=== PATIENT | female | born 1945 | race African-American/Black ===

== ENCOUNTER 2017-01-06 17:25 | Inpatient (IN) ==
[2017-01-06] MEDS ORDERED: *HR* HYDROmorphone (PF) 1 MG/ML SYRINGE IVP ONE (18:27)
--- NOTE | 2017-01-06 18:28 | Emergency Department Note ---
Disposition Clinical Impression: Multiple myeloma Qualifiers: Multiple myeloma remission status: unspecified Qualified Code(s): C90.00 - Multiple myeloma not having achieved remission Disposition: Admitted As Inpatient Condition: Fair Referrals: Avni Bean MD [Primary Care Provider] - Forms: Work/School Release, ED Satisfaction Letter Time of Disposition: 20:41 Back Pain HPI - General Chief Complaint: ED General Medical Stated Complaint: needs MRI, from [facility] Time Seen by Provider: 01/06/17 18:23 Source: patient Mode of arrival: private vehicle Limitations: physical limitation Nursing Notes Reviewed: Yes Vital Signs Reviewed: Yes - History of Present Illness HPI Narrative: 71 year old female with PMHx of multiple myeloma, HTN, hypothyroidism presents to ED today CC of back pain. She was brought here by her family. Patient does have history of Multiple myeloma and has recently been having worsening pain. Patient recently had CT scan on january 03 that was ordered by her oncologist. The CT scan did not reveal the information the oncologist office wanted. Patient was having increased pain in her back, and was told by her oncologist to be admitted to the hospital for pain control, and to have an MRI of her back to look for any further metastasis. patient is complaining of severe pain in her thoraco lumbar area, and left rib area. she denies nausea, vomiting, diarrhea, fever, chills. her back pain is so severe that she has trouble moving in the bed. she denies any further complaints today. Pt Subjective Complaint: back pain Onset (ago): hour(s) Duration: constant Location: lumbar spine, thoracic spine Pain Scale: 8 Quality: sharp Radiation: none Improves with: none Worsens with: none Associated symptoms: Reports: denies other symptoms - Related Data Home Medications Medication Instructions Recorded Confirmed Levothyroxine Sodium [Synthroid] 75 mcg PO DAILY 02/26/15 12/06/16 Losartan/HCTZ [Hyzaar 50-12.5 1 each PO DAILY 06/07/16 12/06/16 Tablet] Polyethylene Glycol 3350 [MiraLAX 1 scoop PO DAILY 11/08/16 12/06/16 Powder Bulk 17.9 Oz] Previous Rx's Medication Instructions Recorded Morphine Sulfate SR (12 HR) [MS 30 mg PO Q12HR #60 tablet.er 11/08/16 Contin] Oxycodone HCl 10 mg PO Q4H PRN #120 tab 11/08/16 Cyclobenzaprine [Flexeril] 10 mg PO TID PRN #21 tablet 12/06/16 Menthol [Biofreeze] 118 ml TP BID PRN #118 gel..ml. 12/06/16 Morphine Sulfate SR (12 HR) [MS 1 tab PO Q12HR #60 tab 12/06/16 Contin] Oxycodone HCl 10 mg PO Q4H PRN #120 tab 12/06/16 Furosemide [Lasix] 20 mg PO DAILY PRN #30 tablet 01/03/17 Morphine Sulfate SR (12 HR) [MS 1 tab PO Q12HR #60 tab 01/03/17 Contin] Oxycodone HCl 20 mg PO Q4H PRN #120 tab 01/03/17 Allergies Allergy/AdvReac Type Severity Reaction Status Date / Time bacitracin Allergy unknown Verified 12/06/16 08:11 carfilzomib Allergy unknown Verified 12/06/16 08:11 celecoxib Allergy unknown Verified 12/06/16 08:11 Corticosteroids Allergy unknown Verified 12/06/16 08:11 (Glucocorticoids) dexamethasone Allergy unknown Verified 12/06/16 08:11 fentanyl Allergy Rash Verified 12/06/16 08:11 lenalidomide Allergy unknown Verified 12/06/16 08:11 melphalan Allergy unknown Verified 12/06/16 08:11 Neomycin Allergy unknown Verified 12/06/16 08:11 Penicillins [PCN] Allergy unknown Verified 12/06/16 08:11 polymyxin B Allergy unknown Verified 12/06/16 08:11 prednisone Allergy unknown Verified 12/06/16 08:11 tape Allergy unknown Uncoded 12/06/16 08:11 All systems ED: reviewed and negative except as stated. Past Medical History - Past Medical History Medical history: Reports: cancer, hypertension, thyroid disease Surgical history: Reports: appendectomy, cholecystectomy, hysterectomy, orthopedic, other (Right forearm bone grafting, left knee arthroscopic surgery, bilateral ankle repair surgeries, resection of vocal cord nodules), thyroidectomy (Hemithyroidectomy), other (Tubal ligation, right temporal endarterectomy) Psychiatric history: Reports: no psych history NICKEL PLATER history: Reports: no NICKEL PLATER history - Social History Smoking Status: Never smoker Smokeless Tobacco Status: No Alcohol use: Reports: none Drug use: Reports: none Physical Exam - General Limitations: no limitations General appearance: alert, in no apparent distress - Head Head exam: atraumatic, normocephalic - Eye Eye exam: Present: normal appearance - Neck Neck exam: Present: normal inspection, trachea midline - Chest Chest inspection: Present: normal inspection - Respiratory Respiratory exam: Present: normal lung sounds bilaterally - Cardiovascular Cardiovascular exam: Present: regular rate, +S1, +S2 - Abdominal Exam Abdominal exam: Present: soft, tenderness Abdominal tenderness: Present: epigastrium - Extremities Exam Extremities exam: Present: other (+3 pitting edema on right lower extremity. ) - Back Exam Back exam: Present: tenderness, other (severe tenderness to palpation in thoracolumbar area. ) - Neurological Exam Neurological exam: Present: alert, oriented X3 - Psychiatric Psychiatric exam: Present: anxious - Skin Skin exam: Present: warm, dry, intact Course Vital Signs Temperature 98.4 F 01/06/17 17:37 Pulse Rate 64 01/06/17 17:37 Respiratory Rate 18 01/06/17 17:37 Blood Pressure 114/74 01/06/17 17:37 O2 Sat by Pulse Oximetry 96 01/06/17 17:37 Temperature 98.4 F 01/06/17 17:37 Pulse Rate 64 01/06/17 17:40 Respiratory Rate 18 01/06/17 17:40 Blood Pressure 114/74 01/06/17 17:40 O2 Sat by Pulse Oximetry 96 01/06/17 17:40 Oxygen Delivery Oxygen Delivery Room Air Back Pain/Injury - MDM Narrative Medical decision making narrative: 71 year old female sent from oncology for severe pain. she has hx of multiple myeloma. patient was placed on dilaudid. MRI of thoracic and lumbar spine showed no evidence of spinal stenosis, but did show evidence of multiple compression fractures. Patient had basic labs of cbc, bmp, drawn. Furthermore, xray of her ribs along with chest xray were ordered and are pending. Patient has been accepted under hospitalist service, and rib xrays and labs will be reviewed before admission. - Medical Records Medical records reviewed: Yes I reviewed the patient's medical records. - Lab Data Lab results reviewed: Yes I reviewed the patient's lab results. - Radiology Data Radiology results reviewed: Yes I reviewed the patient's radiology results.
[2017-01-06] MEDS ORDERED: *HR* HYDROmorphone (PF) 1 MG/ML SYRINGE ONE (18:41)
[2017-01-06 21:12] LABS: Basophils % 0.3 %; Eosinophils # 0.1 K/mcL (0.0-0.6); Eosinophils % 3.6 %; Immature Granulocytes % 0.3 % (0-4); Lymphocytes # 0.5 K/mcL (0.6-4.6); Lymphocytes % 17.6 %; Mean Corpuscular HGB Conc 33.3 g/dL (31.6-35.5); Mean Corpuscular Hemoglobin 31.3 pg (28.0-33.3); Mean Corpuscular Volume 93.8 fL (83.0-100.0); Monocytes # 0.4 K/mcL (0.0-1.3); Monocytes % 12.4 %; Platelet Count 151 K/mcL (140-400); Red Blood Count 3.52 M/mcL (3.82-4.97); Red Cell Distribution Width 14.2 % (11.5-14.5); Segmented Neutrophils % 65.8 %
[2017-01-06 21:27] LABS: BUN/Creatinine Ratio 16 (6-26); Blood Urea Nitrogen 14 mg/dL (7-20); Calcium 9.4 mg/dL (8.6-10.8); Carbon Dioxide 27 mEq/L (19-29); Chloride 95 mEq/L (98-109); Glucose 85 mg/dL (70-99); Osmolality,Calculated 280 (280-300); Potassium 3.8 mEq/L (3.5-4.5); Sodium 135 mEq/L (136-145); eGFR For African Americans > 60 (> 60); eGFR For Non-African Americans > 60 (> 60)
[2017-01-07] MEDS ORDERED: Furosemide 20 MG TABLET PO PRN (00:01)
[2017-01-07] MEDS ORDERED: Naloxone 0.4 MG/ML INJ IVP PRN (00:06)
[2017-01-07] MEDS ORDERED: Acetaminophen 325 MG TABLET PO PRN (00:06)
--- NOTE | 2017-01-07 00:12 | Event Note ---
Date of Encounter: 01/07/17 Time of Encounter: 00:09 1. Intractable back pain secondary to multiple myeloma/multiple areas of compression fractures, thoracic and lumbar lesions according to MRI Increased frequency of morphine from 30 mg twice a day up to 3 times a day Dilaudid IV as needed Positive care consult 2. History of hypothyroidism, continue levothyroxine 3. Hypertension stable 4. Remote history of possible temporal arteritis Omeprazole for GI prophylaxis and Lovenox for DVT prophylaxis. The patient will be admitted for observation. DNR CC arrest DNI. Time spent on this admission 40 minutes. H and P to be written by CARINA Meyer
[2017-01-07] MEDS: *HR* HYDROmorphone (PF) 1 MG/ML SYRINGE IVP PRN ×7 (00:35→20:42)
--- NOTE | 2017-01-07 00:49 | Internal Med History&Physical ---
<MitchFlynn - Last Filed: 01/07/17 01:37> Date of Encounter: 01/07/17 Time of Encounter: 12:30 Assessment and Plan (1) Intractable back pain Current visit: Yes Status: Acute Assess: Ms. Royal presents with chief complaint of intractable pain related to diagnosis of multiple myeloma, multiple compression fractures, as well as lumbar and thoracic lesions according to the latest MRI. Patient also states that she is experiencing pain in her left ribs and she finds it hard to even turn in bed. Plan: Increase frequency of morphine from 30 mg BID to 30 mg TID IV Dilaudid PRN Palliative care consult (2) Multiple myeloma Current visit: Yes Status: Chronic Assess: Ms. Royal presents with chief complaint of intractable pain related to diagnosis of multiple myeloma, multiple compression fractures, as well as lumbar and thoracic lesions according to the latest MRI. Patient also states that she is experiencing pain in her left ribs and she finds it hard to even turn in bed. Plan: Increase frequency of morphine from 30 mg BID to 30 mg TID IV Dilaudid PRN Palliative care consult Qualifiers: Multiple myeloma remission status: not in remission Qualified Code(s): C90.00 - Multiple myeloma not having achieved remission (3) Hypertension Current visit: Yes Status: Chronic Assess: Patient presents with history of chronic hypertension. Plan: Continue Losartan Monitor patient and vital signs Qualifiers: Hypertension type: essential hypertension Qualified Code(s): I10 - Essential (primary) hypertension (4) Hypothyroidism Current visit: Yes Status: Chronic Assess: Patient presents with history of chronic hypothyroidism. Plan: Continue levothyroxine Qualifiers: Hypothyroidism type: unspecified Qualified Code(s): E03.9 - Hypothyroidism , unspecified (5) Temporal arteritis Current visit: Yes Status: Chronic Assess: Patient presents with remote history of possible enteritis. Patient had right temporal endarterectomy performed in the past. Plan: Monitor and assess patient for signs of headache, fatigue, fever, and vision loss (6) DVT prophylaxis Current visit: No Status: Acute Assess: Patient to receive DVT prophylaxis based on admission protocol and bed rest status. Plan: Lovenox 30 mg SQ daily for DVT prophylaxis Internal Medicine - H&P: HPI Chief complaint: Intractable back pain Admitted From: Emergency Dept Plans for Post Hospital Care: Home History of present illness: Ms. Royal is a 71 year old female who presents from the ED with chief complaint of intractable pain related to diagnosis of multiple myeloma, multiple compression fractures, as well as lumbar and thoracic lesions according to the latest MRI. Patient also states that she is experiencing pain in her left ribs and she finds it hard to even turn in bed. She is experiencing a cough which causes pain in her ribs. She also states that the bilateral edema of her lower extremities is new. Patient reports that she is unable to take radiation and any chemotherapy treatments due to the adverse reactions they cause. She states that they have exhausted all possibilities and she now is on pain management for her diagnoses. She denies recent illness, fever, chills, nausea, vomiting, syncope/near-syncope, or generalized weakness. Mrs. Royal has a history of multiple myeloma, hypertension, and hypothyroidism. Patient is to be placed as observation status with pain management of her current symptoms. Patient to be monitored closely for signs of increasing discomfort and pain. Past Med Surg Social Fam HX - Past Medical History Source: patient Medical history: cancer, hypertension, thyroid disease Psychiatric history: no psych history - Past Surgical History Surgical History: appendectomy, cholecystectomy, hysterectomy, orthopedic, other (Right forearm bone grafting, left knee arthroscopic surgery, bilateral ankle repair surgeries), thyroidectomy, other (Resection of vocal cord nodules, tubal ligation, right temporal endarterectomy) - Social History Smoking Status: Former smoker (Reports she quit 40 years ago) Smokeless Tobacco Status: No Alcohol use: none Drug use: none Occupational status: disabled Current living situation: Home, With Family Recent Out of Country Travel Within the Last 8 Weeks: No Exposure or Possible Exposure to Illness During Travel: No - Family History Mother Adopted: No Race: Family Member Ethnicity: Non- Living Status: Hx Family Cardiac Disorders: Yes (HTN) Hx Family Respiratory Disorders: No Hx Family Cancer: Yes (colorectal cancer) Hx Family GI Disorders: No Hx Family Endocrine Disorder: No Hx Family Neuromuscular Disorders: No Hx Family Neurologic Disorders: No Hx Family HEENT Disorders: No Hx Family Autoimmune Disorders: No Father Race: Family Member Ethnicity: Non- Living Status: Hx Family Cardiac Disorders: No Hx Family Respiratory Disorders: No Hx Family Cancer: Yes (mutliple myeloma) Hx Family GI Disorders: No Hx Family Endocrine Disorder: No Hx Family Neuromuscular Disorders: No Hx Family Neurologic Disorders: No Hx Family HEENT Disorders: No Hx Family Autoimmune Disorders: No Brother Race: Family Member Ethnicity: Non- Living Status: Age at : 50 Hx Family Cardiac Disorders: Yes (HD) Sister Race: Family Member Ethnicity: Non- Living Status: Still Living Hx Family Cancer: Yes (Breast cancer) Internal Medicine - H&P: Meds Levothyroxine Sodium [Synthroid] 75 mcg PO QAM 02/26/15 [History] Morphine Sulfate SR (12 HR) [MS Contin] 30 mg PO Q12HR #60 tablet.er 11/08/16 [ Rx] Polyethylene Glycol 3350 [MiraLAX Powder Bulk 17.9 Oz] 17 gm PO QPM 11/08/16 [ History] Cyclobenzaprine [Flexeril] 10 mg PO TID PRN #21 tablet 12/06/16 [Rx] Furosemide [Lasix] 20 mg PO DAILY PRN #30 tablet 01/03/17 [Rx] Oxycodone HCl 20 mg PO Q4H PRN #120 tab 01/03/17 [Rx] Losartan/Hydrochlorothiazide [Hyzaar 100-25 Tablet] 1 each PO DAILY 01/06/17 [ History] Menthol [Biofreeze] 1 appl TP BID PRN 01/06/17 [History] Allergies bacitracin Allergy (Verified 12/06/16 08:11) unknown carfilzomib Allergy (Verified 12/06/16 08:11) unknown celecoxib Allergy (Verified 12/06/16 08:11) unknown Corticosteroids (Glucocorticoids) Allergy (Verified 12/06/16 08:11) unknown dexamethasone Allergy (Verified 12/06/16 08:11) unknown fentanyl Allergy (Verified 12/06/16 08:11) Rash lenalidomide Allergy (Verified 12/06/16 08:11) unknown melphalan Allergy (Verified 12/06/16 08:11) unknown unknown Neomycin Allergy (Verified 12/06/16 08:11) unknown Penicillins [PCN] Allergy (Verified 12/06/16 08:11) unknown polymyxin B Allergy (Verified 12/06/16 08:11) unknown prednisone Allergy (Verified 12/06/16 08:11) unknown tape Allergy (Uncoded 12/06/16 08:11) unknown All Systems PM: A 10-system review of systems was performed and is negative for pertinent findings except as documented above in the HPI. - Constitutional Constitutional: no chills, no fever(s), no night sweats - EENT Eyes: no change in vision, no discharge, no pain, no photophobia Ears: no ear discharge, no ear pain, no tinnitus Nose, mouth and throat: no dysphagia, no nasal discharge, no neck pain, no sore throat - Breasts Breasts: as per HPI - Cardiovascular Cardiovascular ROS IM: as per HPI, edema (Lower extremities bilaterally which patient states is new) - Respiratory Respiratory: as per HPI, cough, pain with cough - Gastrointestinal Gastrointestinal: no abdominal pain, no diarrhea, no hematemesis, no hematochezia, no melena, no nausea, no vomiting - Genitourinary Genitourinary: no change in urinary stream, no dysuria, no flank pain, no hematuria Menstruation: as per HPI, post hysterectomy - Musculoskeletal Musculoskeletal ROS IM: as per HPI, back pain, limited range of motion, myalgias - Integumentary Integumentary IM: no rash, no unusual bruising - Neurological Neurological ROS: no confusion, no convulsions, no focal weakness, no numbness, no tingling, no tremor(s) - Psychiatric Psychiatric: as per HPI - Endocrine Endocrine IM: as per HPI - Hematologic/Lymphatic Hematologic/Lymphatic: no easy bruising - Allergic/Immunologic Allergic/Immunologic: as per HPI - Constitutional Vitals: Temp Pulse Resp BP Pulse Ox 98.2 F 65 16 122/78 94 01/06/17 22:35 01/06/17 22:35 01/06/17 22:35 01/06/17 22:35 01/06/17 22:35 General appearance: Present: cooperative, mild distress, A&O X 3, pleasant, obese, answers questions appropriately - Head Head exam: Present: atraumatic, normocephalic - Eye Eye exam: Present: PERRL, conjuntiva pink, sclera anicteric Pupils: Present: PERRL - ENT ENT exam: Present: normal exam, normal external ear exam - Neck Neck exam general surgery: Present: normal inspection, supple, trachea midline - Respiratory Respiratory exam: Present: chest wall tenderness, decreased breath sounds - Cardiovascular Cardiovascular exam: Present: RRR, +S1, +S2. Absent: diastolic murmur, gallop, rubs, systolic murmur - GI/Abdominal GI/Abdominal exam: Present: normal bowel sounds, soft, no peritoneal signs. Absent: distended, tenderness - Rectal Rectal exam: Present: deferred - Additional comments: exam deferred. - Extremities Exam Extremities exam: Present: pedal edema, warm, radial pulses palpable and symetrical. Absent: calf tenderness, cyanotic - Back Exam Back exam: Present: vertebral tenderness - Neurological Exam Neurological exam: Present: CN II-XII intact, oriented X3, no focal deficits. Absent: pronater drift, facial droop, speech deficit - Psychiatric Psychiatric exam: Present: normal affect, normal mood - Skin Skin exam: Present: dry, intact Internal Med - H&P Results - Labs CBC & Chem 7: 01/06/17 21:05 01/06/17 21:05 Labs: Short CBC 01/06/17 Range/Units 21:05 WBC 3.1 L (4.3-11.1) K/mcL Hgb 11.0 L (11.5-15.4) g/dL Hct 33.0 L (35.3-44.9) % Plt Count 151 (140-400) K/mcL Neutrophils # 2.0 (1.6-8.9) K/mcL BMP 01/06/17 21:05 Sodium 135 L Potassium 3.8 Chloride 95 L Carbon Dioxide 27 BUN 14 Creatinine 0.86 Glucose 85 Calcium 9.4 - Diagnostic Studies Other Images Additional comments: Impressions Lumbar Spine MRI 01/06/17 18:25 IMPRESSION: 1. Innumerable enhancing lesions throughout the visualized spine and sacrum are not significantly changed and remain compatible with history of multiple myeloma. Dominant lesion replacing the L2 spinous process is unchanged. No evidence of epidural tumor extension. 2. Chronic L1, L3, and L4 superior endplate compression deformities. No acute compression fracture. 3. Multilevel degenerative changes of the lumbar spine. No spinal canal stenosis. Moderate neural foraminal narrowing at L4-L5 and L5-S1. D/ / 01/06/2017 20:31:31 Kati Jarrett MD / eva Interpreting Provider: Kati Jarrett MD Ribs w/Chest X-Ray 01/06/17 18:25 IMPRESSION: 1. Hypoinflated lungs. 2. Increased initial opacities may represent mild pulmonary edema. 3. No evidence of acute displaced rib fracture. D/ / Juanita Michele MD / Juanita Michele MD Interpreting Provider: Juanita Michele MD Thoracic Spine MRI 01/06/17 18:25 IMPRESSION: 1. Multiple mild thoracic vertebral body compression fractures without associated bone marrow edema to suggest acuity. There is marrow replacement within T5 and T6, and these mild compression fractures are suspected to be pathologic. 2. Expansile enhancing marrow lesion within right T12 pedicle and transverse process consistent with myeloma deposit. 3. Multilevel degenerative disc disease throughout the thoracic spine without high-grade thoracic spinal canal or neural foraminal stenosis. D/ / 01/06/2017 20:34:09 Juanita Michele MD / eva Interpreting Provider: Juanita Michele MD <Farhat Emanuel H - Last Filed: 01/07/17 02:40> Date of Encounter: 01/07/17 Internal Medicine - H&P: HPI History of present illness: Ms. Royal is a 71 year old female All Systems PM: A 10-system review of systems was performed and is negative for pertinent findings except as documented above in the HPI. - Constitutional Vitals: Temp Pulse Resp BP Pulse Ox 97.6 F 63 16 119/83 96 01/07/17 02:24 01/07/17 02:24 01/07/17 02:24 01/07/17 02:24 01/07/17 02:24 Internal Med - H&P Results - Labs CBC & Chem 7: 01/06/17 21:05 01/06/17 21:05 Labs: Short CBC 01/06/17 Range/Units 21:05 WBC 3.1 L (4.3-11.1) K/mcL Hgb 11.0 L (11.5-15.4) g/dL Hct 33.0 L (35.3-44.9) % Plt Count 151 (140-400) K/mcL Neutrophils # 2.0 (1.6-8.9) K/mcL BMP 01/06/17 21:05 Sodium 135 L Potassium 3.8 Chloride 95 L Carbon Dioxide 27 BUN 14 Creatinine 0.86 Glucose 85 Calcium 9.4 - Attending Attestation 1. Intractable back pain secondary to multiple myeloma/multiple areas of compression fractures, thoracic and lumbar lesions according to MRI Increased frequency of morphine from 30 mg twice a day up to 3 times a day Dilaudid IV as needed Positive care consult 2. History of hypothyroidism, continue levothyroxine 3. Hypertension stable 4. Remote history of possible temporal arteritis Omeprazole for GI prophylaxis and Lovenox for DVT prophylaxis. The patient will be admitted for observation. DNR CC arrest DNI. Time spent on this admission 40 minutes. I examined this patient and my medical decision-making was reviewed with the INTERNET SPECIALIST/PA/Advanced Practice Nurse/Resident Physician. I agree with the documented findings, disposition and treatment plan as described except to the extent set forth below.
[2017-01-07] MEDS ORDERED: *HR* Enoxaparin 30 MG/0.3 ML SYRINGE SQ SCH (06:00)
--- NOTE | 2017-01-07 08:27 | Palliative - Consult Note ---
Date of Encounter: 01/07/17 Time of Encounter: 07:15 - Assessment and Plan (1) Intractable pain Current Visit: No Status: Resolved Assessment and plan: Hospitalist of already increased the lasting morphine from 30 mg twice a day to 30 mg 3 times a day. I agree with this. He patient states that the dye lotted does seem to help it seems to wear off a little too soon, therefore I have changed it from every 3 hours to every 2. Do not anticipate this will make a lot of difference as the patient has not been using it that often anyway. The patient has intolerances of steroids and nonsteroidal anti-inflammatories which are the preferred drugs for knee pain secondary to multiple myeloma. Therefore we will have to do without these. Do not see that the patient is ever been on bisphosphonates in the past however I am concerned that the patient may have a new compression fracture and the bisphosphonates may interfere with the healing of this as there are articles in the orthopedic literature about increased complications in patients with acute fractures that are also want bisphosphonates. That reason, I would hold off on bisphosphonates for now and consider starting him on an outpatient basis was up at the [facility]. Will contact them regarding this possibility in the future. As the patient does seem to have some neurogenic type pain in her description very sharp electric on the left-hand side I will start her on gabapentin 300 mg daily at bedtime and give a starting dose this morning. We will also start a Lidoderm patch. (2) Goals of care, counseling/discussion Current Visit: No Status: Acute Assessment and plan: Patient's CODE STATUS is DNR CCA, DNI. Patient has given this great deal of thought and not wish to be resuscitated at this time in the event of a cardiac or pulmonary arrest. She has designated her daughter Shania number [phone] is her medical power of manager demand. She has stress this with her daughter, and her nose her wishes. Her unfortunately suffers from Alzheimer's and the patient does not feel he would be able to make decisions for her were she not able to make them for herself. Although she is hospice eligible, she does not wish to consider hospice as she has had multiple very bad interactions with them in the past. This at length with her, and her actions that she had were quite bad although I do not consider the be players club representative of hospice I certainly understand her concerns. Patient will continue to get her palliative care through the [facility]. (3) Multiple myeloma Current Visit: No Status: Chronic Assessment and plan: Treatment plan per [facility], however at this time it appears the treatment is all palliative in nature. Qualifiers: Multiple myeloma remission status: not in remission Qualified Code(s): C90.00 - Multiple myeloma not having achieved remission Palliative-CN HPI - Data of Consult Patient: new to practice Requesting Physician: Luis Lopez Primary Care Provider: Avni Bean MD - Consult Narrative Palliative Care/Comfort Measures: Palliative care History of present illness: Ms. Royal is a 71 year old female The patient has a history of multiple myeloma which has been resistant to therapy area and is now under palliative care to the cancer Center for this. He has multiple drug intolerances and allergies and her myeloma has broken through all the treatment regimens that have been offered thus far. At this point treatment being offered by the cancer Center is completely palliative in nature not curative. The patient understands this. Has as I mentioned multiple drug allergies cannot tolerate nonsteroidal anti-inflammatories, she has a difficult time tolerating steroids may be able to take Solu-Medrol. She stated this seemed to have stopped working all right Decadron or prednisone. Cannot tolerate nonsteroidal anti-inflammatories as already mentioned. And normally her pain is under fairly decent control. However had an increasing her pain in the last week and got typically bad yesterday. Showing new compression fractures L as further spread of the multiple myeloma. He describes the typical back pain is still being there and it is usually her at a level of approximately a 5/10 with deep achy type pain that is worse with movement. However over the last few days she has very sharp stabbing pain on the left hand side is with movement better with rest or on its own. Is no hyperesthesia, there is no rash noted with this however is new is that can be as high as a 10 and this is primarily what brought her in. Had not been using a great deal of her medications at home or pain, she is followed as already noted by the cancer center in radiation oncology at the [facility] for this has gone up and the pain medications not working as well. It does not appear that she has been on bisphosphonates in the past. Palliative care was consulted regarding assistance with pain management in a patient with multiple myeloma and multiple drug intolerances. CC: Luis Lopez Back and left side pain Past Med Surg Social Fam HX - Past Medical History Medical history: cancer, hypertension, thyroid disease Psychiatric history: no psych history - Past Surgical History Surgical History: appendectomy, cholecystectomy, hysterectomy, orthopedic, other (Right forearm bone grafting, left knee arthroscopic surgery, bilateral ankle repair surgeries), thyroidectomy, other (Resection of vocal cord nodules, tubal ligation, right temporal endarterectomy) - Social History Smoking Status: Former smoker (Reports she quit 40 years ago) Smokeless Tobacco Status: No Alcohol use: none Drug use: none - Family History Brother Race: Family Member Ethnicity: Non- Living Status: Age at : 50 Hx Family Cardiac Disorders: Yes (HD) Sister Race: Family Member Ethnicity: Non- Living Status: Still Living Hx Family Cancer: Yes (Breast cancer) Mother Adopted: No Race: Family Member Ethnicity: Non- Living Status: Hx Family Cardiac Disorders: Yes (HTN) Hx Family Respiratory Disorders: No Hx Family Cancer: Yes (colorectal cancer) Hx Family GI Disorders: No Hx Family Endocrine Disorder: No Hx Family Neuromuscular Disorders: No Hx Family Neurologic Disorders: No Hx Family HEENT Disorders: No Hx Family Autoimmune Disorders: No Father Race: Family Member Ethnicity: Non- Living Status: Hx Family Cardiac Disorders: No Hx Family Respiratory Disorders: No Hx Family Cancer: Yes (mutliple myeloma) Hx Family GI Disorders: No Hx Family Endocrine Disorder: No Hx Family Neuromuscular Disorders: No Hx Family Neurologic Disorders: No Hx Family HEENT Disorders: No Hx Family Autoimmune Disorders: No Medications and Allergies Levothyroxine Sodium [Synthroid] 75 mcg PO QAM 02/26/15 [History] Morphine Sulfate SR (12 HR) [MS Contin] 30 mg PO Q12HR #60 tablet.er 11/08/16 [ Rx] Polyethylene Glycol 3350 [MiraLAX Powder Bulk 17.9 Oz] 17 gm PO QPM 11/08/16 [ History] Cyclobenzaprine [Flexeril] 10 mg PO TID PRN #21 tablet 12/06/16 [Rx] Furosemide [Lasix] 20 mg PO DAILY PRN #30 tablet 01/03/17 [Rx] Oxycodone HCl 20 mg PO Q4H PRN #120 tab 01/03/17 [Rx] Losartan/Hydrochlorothiazide [Hyzaar 100-25 Tablet] 1 each PO DAILY 01/06/17 [ History] Menthol [Biofreeze] 1 appl TP BID PRN 01/06/17 [History] Allergies bacitracin Allergy (Verified 12/06/16 08:11) unknown carfilzomib Allergy (Verified 12/06/16 08:11) unknown celecoxib Allergy (Verified 12/06/16 08:11) unknown Corticosteroids (Glucocorticoids) Allergy (Verified 12/06/16 08:11) unknown dexamethasone Allergy (Verified 12/06/16 08:11) unknown fentanyl Allergy (Verified 12/06/16 08:11) Rash lenalidomide Allergy (Verified 12/06/16 08:11) unknown melphalan Allergy (Verified 12/06/16 08:11) unknown unknown Neomycin Allergy (Verified 12/06/16 08:11) unknown Penicillins [PCN] Allergy (Verified 12/06/16 08:11) unknown polymyxin B Allergy (Verified 12/06/16 08:11) unknown prednisone Allergy (Verified 12/06/16 08:11) unknown tape Allergy (Uncoded 12/06/16 08:11) unknown - Constitutional Constitutional ROS PAL: no decreased appetite, no anorexia, no malaise - EENT Eyes: no discharge, no pain Ears: no ear discharge, no ear pain Ears, nose, mouth, throat: no facial pain, no hoarseness, no lip swelling, no mouth pain - Cardiovascular Cardiovascular ROS: chest pain (On the left-hand side) - Respiratory Respiratory: pain on inspiration, no cough, no dyspnea (But it does hurt to take a deep breath) - Gastrointestinal Gastrointestinal: constipation (Unless she takes her meds), no loose stools, no nausea, no vomiting - Genitourinary Palliative ROS female: no urinary frequency, no urinary hesitancy, no urinary incontinence - Musculoskeletal Musculoskeletal ROS IM: back pain, myalgias - Integumentary ROS Integumentary: skin pain (On the left-hand side), no rash (No rash has been noted), no sores - Neurological Neurological ROS: no headache(s), no lack of coordination, no sensory deficit, no syncope - Psychiatric Psychiatric general PM: no difficulty concentrating, no suicidal ideation - Endocrine Endocrine IM: other Additional comments: Thyroid disease Palliative Care-Exam - Constitutional Vitals: Temp Pulse Resp BP Pulse Ox 97.5 F L 59 14 119/74 94 01/07/17 06:51 01/07/17 06:51 01/07/17 06:51 01/07/17 06:51 01/07/17 06:51 General appearance: Present: no acute distress (Although at times she will have sharp pains on the left-hand side interrupt her speech.) - Head Head Exam: Present: atraumatic, normal inspection - Eye Eye exam: Present: EOMI, normal appearance, PERRL - ENT ENT exam: Present: mucous membranes moist - Neck Neck exam: Present: normal inspection - Respiratory Respiratory exam: Present: chest wall tenderness (To palpation on the left hand side, however there is no hyperesthesia and I do not note any rash.), CTAB - Cardiovascular Cardiovascular exam: Present: RRR - GI/Abdominal Exam GI/Abdominal exam: Present: normal bowel sounds, soft. Absent: tenderness - Extremities Exam Extremities exam: Present: pedal edema. Absent: normal inspection, tenderness - Neurological Exam Neurological exam: Present: alert, CN II-XII intact, oriented X3, no focal deficits, strengths equal and symetr throughout. Absent: speech deficit - Psychiatric Psychiatric exam: Present: normal affect, normal mood. Absent: agitated, anxious, homicidal ideation, suicidal ideation - Skin Skin exam: Present: dry, warm Internal Medicine - CN: Reslt - Labs CBC & Chem 7: 01/06/17 21:05 01/06/17 21:05 Labs: Short CBC 01/06/17 Range/Units 21:05 WBC 3.1 L (4.3-11.1) K/mcL Hgb 11.0 L (11.5-15.4) g/dL Hct 33.0 L (35.3-44.9) % Plt Count 151 (140-400) K/mcL Neutrophils # 2.0 (1.6-8.9) K/mcL BMP 01/06/17 21:05 Sodium 135 L Potassium 3.8 Chloride 95 L Carbon Dioxide 27 BUN 14 Creatinine 0.86 Glucose 85 Calcium 9.4 Consult Discharge Plan - Plan Referrals: Avni Bean MD [Primary Care Provider] - 01/20/17 9:00 am Palliative Quality Palliative Quality: Screen for Code Status: Yes, Screen for Goals of Care: Yes, Screen for Pain: Yes, If Pain Regimen Started, Initiate Bowel Regimen: Yes, Screen for Nausea/Vomitting: Yes Code Status: 01/07/17 00:06 Resuscitation Status: Active [RES] Routine Comment: Resuscitation Status: [id number]
[2017-01-07] MEDS: *HR* Morphine Sulfate SR (12 HR) 30 MG TABLET.ER PO SCH ×4 (08:38→21:52)
[2017-01-07] MEDS: Losartan/HCTZ 50-12.5 TABLET PO SCH (08:38)
[2017-01-07] MEDS: Gabapentin 300 MG CAPSULE PO SCH ×2 (08:39→20:34)
[2017-01-07] MEDS: Ondansetron 4 MG/2 ML VIAL IVP PRN ×2 (08:53→20:36)
--- NOTE | 2017-01-07 16:58 | Oncology Inp Progress Note ---
Date of Encounter: 01/07/17 Time of Encounter: 16:00 (1) Multiple myeloma Current Visit: No Status: Chronic Assessment and plan: Post multiple prior therapies including palliative radiation and multiple new targeted therapies, treatment is mainly palliative patient is currently focusing on symptom management without any active therapy. Imaging findings reviewed compression fractures, nonacute, pain management appears to be adequate palliative care input appreciated. Dilaudid 1 mg every 2 hours and morphine 30 3 times a day is helping her pain gabapentin and lidoderm being added. Susi-Colace added for bowels. LAbs including serum calcium are reasonable, continue supportive care may consider any new treatment options once available. Pt was consulted recently by Armando Mcwilliams. Rx history reviewed Plan as above discussed with patient Qualifiers: Multiple myeloma remission status: not in remission Qualified Code(s): C90.00 - Multiple myeloma not having achieved remission Oncology: Subj Interval history: Patient denies any pain currently her last Dilaudid injection was 2 hr ago, she is able to sleep well. - Constitutional Vitals: Vital Signs Temp Pulse Resp BP Pulse Ox 01/07/17 15:03 97.9 F 69 17 100/65 95 01/07/17 10:41 97.5 F L 63 16 100/62 95 01/07/17 06:51 97.5 F L 59 14 119/74 94 01/07/17 02:24 97.6 F 63 16 119/83 96 01/06/17 22:35 98.2 F 65 16 122/78 94 01/06/17 22:07 16 120/74 01/06/17 21:40 63 16 120/74 96 Intake and Output 01/07/17 01/07/17 01/07/17 07:59 15:59 23:59 Intake Total 0 / 0 790 / 790 Output Total 700 / 700 350 / 350 Balance -700 / -700 440 / 440 Intake: Oral 0 / 0 790 / 790 Output: Urine 700 / 700 350 / 350 Other: Meal water pitcher Percent of Meal Consumed 90% Weight 93.9 kg Patient Weight 01/07/17 23:59 Weight 93.9 kg General appearance: average body habitus - Head Head exam: Present: atraumatic, normal inspection - Eye Eye exam: Present: sclera anicteric - Neck Neck exam: Present: normal inspection - Respiratory Respiratory exam: Present: CTAB - Cardiovascular Cardiovascular exam: Present: +S1 - GI/Abdominal GI/Abdominal exam: Present: normal bowel sounds, soft - Extremities Exam Extremities exam: Present: normal capillary refill Oncology: Obj Data - Labs CBC & Chem 7: 01/06/17 21:05 01/06/17 21:05 Labs: Laboratory Results - last 24 hr 01/06/17 01/06/17 21:05 21:05 WBC 3.1 L RBC 3.52 L Hgb 11.0 L Hct 33.0 L MCV 93.8 MCH 31.3 MCHC 33.3 RDW 14.2 Plt Count 151 MPV 9.0 L Immature Gran % 0.3 Seg Neutrophils % 65.8 Lymphocytes % 17.6 Monocytes % 12.4 Eosinophils % 3.6 Basophils % 0.3 Neutrophils # 2.0 Lymphocytes # 0.5 L Monocytes # 0.4 Eosinophils # 0.1 Basophils # 0.0 Sodium 135 L Potassium 3.8 Chloride 95 L Carbon Dioxide 27 BUN 14 Creatinine 0.86 Est GFR ( Amer) > 60 Est GFR (Non-Af Amer) > 60 BUN/Creatinine Ratio 16 Glucose 85 Calculated Osmolality 280 Calcium 9.4 Consult Discharge Plan - Plan Referrals: Avni Bean MD [Primary Care Provider] - 01/20/17 9:00 am
[2017-01-07] MEDS: Sennosides/Docusate Sodium TABLET PO SCH (20:34)
--- NOTE | 2017-01-07 22:53 | Event Note ---
Date of Encounter: 01/07/17 Time of Encounter: 22:10 I was paged as patient had numbness in her left leg On arrival, patient in bed She states that when she was getting in to the bed from restroom, she had numbness in her left leg as if "it was asleep" and she had to be helped in to the bed. She also had difficulty finding words and couldn't say what she wanted to. Currently, she says her symptoms have resolved. On exam, A&O X 3. No focal neurological deficits. Left chest pleuritic chest pain that is reproducible. A/P: 1. TIA - Will obtain ECHO & Carotid dopplers for the morning. Had negative pharmacological stress test 05/2016. No indication for further EKG tonight.
[2017-01-08] MEDS ORDERED: Metoclopramide 10 MG/2 ML VIAL IVP PRN (01:21)
[2017-01-08] MEDS: Metoclopramide 10 MG/2 ML VIAL IVP SCH ×4 (05:51→23:35)
[2017-01-08] MEDS ORDERED: *HR* Enoxaparin 40 MG/0.4 ML SYRINGE SQ SCH (06:00)
--- NOTE | 2017-01-08 07:08 | Palliative Progress Note ---
Date of Encounter: 01/08/17 Time of Encounter: 06:55 - Assessment and plan (1) Cancer related pain Current Visit: No Status: Chronic Assessment and plan: Pain regimen is working well, was planning on switching over to by mouth today but the patient's nausea and vomiting precludes this, continue current regimen. (2) Goals of care, counseling/discussion Current Visit: No Status: Acute Assessment and plan: Patient is clear on desire for DNR CCA, DNI. Goal is to return home patient wishes to continue therapy or her multiple myeloma, however she has failed multiple rounds of this and she understands that. He has had some horrible experiences regarding hospice and wishes not to consider it. (3) Multiple myeloma Current Visit: No Status: Chronic Assessment and plan: Limited by the cancer Center plan per oncology Qualifiers: Multiple myeloma remission status: not in remission Qualified Code(s): C90.00 - Multiple myeloma not having achieved remission (4) Nausea & vomiting Current Visit: No Status: Resolved Assessment and plan: the patient is currently very nauseated the abd series shows ileus versus small bowel obstruction. Have noted the patient is already on Reglan, given that there is no full small bowel obstruction Inc. this is reasonable. We will change the Zofran every 6 hours in addition to that. Also noted the patient has not had a bowel movement in 4 days is on an adequate bowel regimen, the abdomen is very distended I think even the amount of opioid that she has required that trying an enema would be reasonable. She agrees and will try 1. If the enema not provide relief I would consider strongly getting an NG tube to decompress from above. (5) Constipation Current Visit: No Status: Chronic Assessment and plan: The patient is on a bowel regimen with senna, and MiraLAX. Patient has not had a bowel movement in 4 days patient is distended and nauseated with x-ray showing a us versus partial small bowel obstruction we will try an enema 1. Also will consider Relistor if no bowel movement by tomorrow. Qualifiers: Constipation type: unspecified constipation type Qualified Code(s): K59.00 - Constipation, unspecified - Time Spent With Patient Total time spent is greater than 50% in coordination of care (as documented) at patient's floor/unit and/or counseling patient: - Subjective Interval history: Patient reports the pain is under very good control, however she has been having a lot of difficulty with nausea and vomiting since last night. Will x- ray that was obtained revealed small bowel obstruction versus ileus patient was started on Reglan last night early this morning. Patient not had a bowel movement in 4 days. The nausea comes in waves and is associated with vomiting. Again the pain is much better controlled on current medications. - Constitutional Vitals: Abnormal lab results WBC 3.1 K/mcL (4.3-11.1) L 01/06/17 21:05 RBC 3.52 M/mcL (3.82-4.97) L 01/06/17 21:05 Hgb 11.0 g/dL (11.5-15.4) L 01/06/17 21:05 Hct 33.0 % (35.3-44.9) L 01/06/17 21:05 MPV 9.0 fL (9.4-12.4) L 01/06/17 21:05 Lymphocytes # 0.5 K/mcL (0.6-4.6) L 01/06/17 21:05 Sodium 135 mEq/L (136-145) L 01/06/17 21:05 Chloride 95 mEq/L (98-109) L 01/06/17 21:05 General appearance: Present: mild distress (Secondary to nausea) - Head Head exam: Present: atraumatic, normal inspection - Eye Eye exam: Present: normal appearance - ENT ENT exam: Present: mucous membranes moist - Neck Neck exam: Present: normal inspection - Respiratory Respiratory exam: Present: CTAB - Cardiovascular Cardiovascular exam: Present: RRR - GI/Abdominal GI/Abdominal exam: Present: distended, firm, normal bowel sounds. Absent: tenderness (Positive tympany on percussion but no tenderness.) - Extremities Exam Extremities exam: Present: pedal edema (Puffy). Absent: tenderness - Neurological Exam Neurological exam: Present: alert, oriented X3 - Psychiatric Psychiatric exam: Absent: agitated, anxious - Skin Skin exam: Present: dry, warm Palliative Quality Palliative Quality: Screen for Code Status: Yes, Screen for Goals of Care: Yes, Screen for Pain: Yes, If Pain Regimen Started, Initiate Bowel Regimen: Yes, Screen for Nausea/Vomitting: Yes Code Status: 01/07/17 00:06 Resuscitation Status: Active [RES] Routine Comment: Resuscitation Status: [id number] - Labs CBC & Chem 7: 01/06/17 21:05 01/06/17 21:05 Labs: Laboratory Results - last 24 hr 01/08/17 05:33 POC Glucose 79 - Impressions Impressions Abdomen X-Ray 01/08/17 01:58 IMPRESSION: Ileus versus partial small bowel obstruction. D/ / Mark Vernon MD / Mark Vernon MD Interpreting Provider: Mark Vernon MD Consult Discharge Plan - Plan Referrals: Avni Bean MD [Primary Care Provider] - 01/20/17 9:00 am
[2017-01-08] MEDS: Ondansetron 4 MG/2 ML VIAL IVP PRN ×2 (08:01→21:13)
[2017-01-08] MEDS: Sennosides/Docusate Sodium TABLET PO SCH ×2 (08:01→20:04)
[2017-01-08] MEDS: Losartan/HCTZ 50-12.5 TABLET PO SCH (08:01)
[2017-01-08] MEDS: *HR* Morphine Sulfate SR (12 HR) 30 MG TABLET.ER PO SCH ×3 (08:01→20:05)
[2017-01-08 10:05] LABS: Calcium 10.2 mg/dL (8.6-10.8)
[2017-01-08 10:06] LABS: Potassium 4.7 mEq/L (3.5-4.5)
--- NOTE | 2017-01-08 11:01 | Internal Med Progress Note ---
Date of Encounter: 01/08/17 Time of Encounter: 10:59 - Assessment and plan (1) Ileus Current Visit: Yes Status: Acute Assessment and plan: most likely 2/2 opioids. started on laxatives, ordered enemax1. reports feeling nauseous and uncomfortable. CT abd done shows ileus with no obstruction appreciate palliative recommendtaion will follow up with enema, if symptoms not relieved, will proceed with NG and suction. conitnue zofran adn IVF (2) Multiple myeloma Current Visit: No Status: Chronic Assessment and plan: as managed by oncology Qualifiers: Multiple myeloma remission status: not in remission Qualified Code(s): C90.00 - Multiple myeloma not having achieved remission (3) Intractable pain Current Visit: No Status: Resolved Assessment and plan: pain is better , management as per palliative continue IV meds for today given vomiting with ileus. - Subjective Interval history: Ms. Royal presents with chief complaint of intractable pain related to diagnosis of multiple myeloma, multiple compression fractures, as well as lumbar and thoracic lesions according to the latest MRI. palliative and oncology on board, pain is better but she started having n/v with abdominal distension has not moved bowels since last 4 days - Constitutional Vitals: Temp Pulse Resp BP Pulse Ox 98.1 F 70 16 132/82 95 01/08/17 07:15 01/08/17 07:15 01/08/17 07:15 01/08/17 07:15 01/08/17 07:15 General appearance: Present: cooperative, mild distress, A&O X 3, pleasant, obese, answers questions appropriately Exam: - Head Head exam: Present: atraumatic, normocephalic - Eye Eye exam: Present: PERRL, conjuntiva pink, sclera anicteric Pupils: Present: PERRL - ENT ENT exam: Present: normal exam, normal external ear exam - Neck Neck exam general surgery: Present: normal inspection, supple, trachea midline - Respiratory Respiratory exam: Present: b/l clear, no added sounds - Cardiovascular Cardiovascular exam: Present: RRR, +S1, +S2. Absent: diastolic murmur, gallop, rubs, systolic murmur - GI/Abdominal GI/Abdominal exam: Present: sluggish bowel sounds, distended, non tender, soft Absent: distended, tenderness - Rectal Rectal exam: Present: deferred - Additional comments: exam deferred. Internal Medicine: Result - Labs CBC & Chem 7: 01/06/17 21:05 01/08/17 09:40 Labs: BMP 01/08/17 09:40 Sodium 135 L Potassium 4.7 H Chloride 91 L Carbon Dioxide 19 BUN 19 Creatinine 1.63 H D Glucose 61 L Calcium 10.2 - Impressions Impressions Abdomen X-Ray 01/08/17 01:58 IMPRESSION: Ileus versus partial small bowel obstruction. D/ / Mark Vernon MD / Mark Vernon MD Interpreting Provider: Mark Vernon MD Abdomen/Pelvis CT 01/08/17 08:00 IMPRESSION: 1. Multiple mildly dilated loops of small bowel in pattern suggestive of an ileus. 2. Status post cholecystectomy. 3. Mild basilar dependent atelectasis. 4. Intramedullary soft tissue density in the proximal right femoral diaphysis. Differential includes multiple myeloma. 5. Stable nonaggressive lucency lesion in the right ischial tuberosity and expansile lesion in the L3 posterior spinous process, not significantly changed since April 2015. D/ / 01/08/2017 10:18:16 Johnathon Cee MD / Kelsi Foster Interpreting Provider: Johnathon Cee MD Consult Discharge Plan - Plan Referrals: Avni Bean MD [Primary Care Provider] - 01/20/17 9:00 am
[2017-01-08 12:28] LABS: Eosinophils % 0.2 %; Hematocrit 40.7 % (35.3-44.9); Hemoglobin 13.3 g/dL (11.5-15.4); Immature Granulocytes % 0.4 % (0-4); Immature Platelets 2.9 % (1.1-6.1); Lymphocytes # 0.4 K/mcL (0.6-4.6); Lymphocytes % 7.9 %; Mean Corpuscular HGB Conc 32.7 g/dL (31.6-35.5); Mean Corpuscular Hemoglobin 31.1 pg (28.0-33.3); Mean Corpuscular Volume 95.3 fL (83.0-100.0); Mean Platelet Volume 9.3 fL (9.4-12.4); Monocytes # 0.4 K/mcL (0.0-1.3); Monocytes % 7.6 %; Neutrophils # 4.6 K/mcL (1.6-8.9); Platelet Count 162 K/mcL (140-400); Red Blood Count 4.27 M/mcL (3.82-4.97); Red Cell Distribution Width 14.3 % (11.5-14.5); Segmented Neutrophils % 83.9 %
[2017-01-08] MEDS: 0.9 % Sodium Chloride 1,000 ML IVC SCH (12:50)
--- NOTE | 2017-01-08 14:25 | Carotid Imaging Report ---
Carotid Duplex Patient Name:Gabby Royal Order Number:[id number] Procedure Date:01/08/2017 Date:7Age:71 yrs Gender:Female Location:[facility] Room #: [id number] Color Developer:Marcial Siddiqui MADELEINE Referring MD:Otis Clayton MD Reading MD:Broderick Chowdhury MD Primary Indications:Occlusion and stenosis of carotid artery without mention of cerebral infarction Risk Factors Yes/No Hypertension Hx of TIA Impressions: The bilateral carotid arteries have minimal plaque throughout. Findings Carotid Duplex: Right: The right proximal common carotid artery has a PSV of 71 cm/s and a EDV of 17 cm/s. The right mid common carotid artery has a PSV of 75 cm/s and a EDV of 17 cm/s. The right distal common carotid artery has a PSV of 57 cm/s and a EDV of 17 cm/s. The right bifurcation has a PSV of 49 cm/s and a EDV of 11 cm/s. There is smooth heterogeneous plaque. The right proximal internal carotid artery has a PSV of 61 cm/s and a EDV of 20 cm/s. There is smooth heterogeneous plaque. The right mid internal carotid artery has a PSV of 82 cm/s and a EDV of 30 cm/s. The right distal internal carotid artery has a PSV of 72 cm/s and a EDV of 27 cm/s. The right eca has a PSV of 74 cm/s and a EDV of 12 cm/s. The right vertebral artery has a PSV of 57 cm/s and a EDV of 11 cm/s. Left: The left proximal common carotid artery has a PSV of 88 cm/s and a EDV of 18 cm/s. The left mid common carotid artery has a PSV of 73 cm/s and a EDV of 21 cm/s. The left distal common carotid artery has a PSV of 70 cm/s and a EDV of 16 cm/s. The left bifurcation has a PSV of 66 cm/s and a EDV of 22 cm/s. There is smooth heterogeneous plaque. The left proximal internal carotid artery has a PSV of 48 cm/s and a EDV of 17 cm/s. There is smooth heterogeneous plaque. The left mid internal carotid artery has a PSV of 63 cm/s and a EDV of 21 cm/s. The left distal internal carotid artery has a PSV of 62 cm/s and a EDV of 22 cm/s. The left eca has a PSV of 68 cm/s and a EDV of 11 cm/s. The left vertebral artery has a PSV of 45 cm/s and a EDV of 13 cm/s. Carotid Results Right PSV EDV Assessment Proximal CCA 71 17 Normal Mid CCA 75 17 Normal Distal CCA 57 17 Normal Bifurcation 49 11 Non Stenotic Plaque Proximal ICA 61 20 Non Stenotic Plaque Mid ICA 82 30 Normal Distal ICA 72 27 Normal ECA 74 12 Normal Vertebral Artery 57 11 Normal Left PSV EDV Assessment Proximal CCA 88 18 Normal Mid CCA 73 21 Normal Distal CCA 70 16 Normal Bifurcation 66 22 Non Stenotic Plaque Proximal ICA 48 17 Non Stenotic Plaque Mid ICA 63 21 Normal Distal ICA 62 22 Normal ECA 68 11 Normal Vertebral Artery 45 13 Normal Ratio's Right ICA/CCA Ratio: 1.09 ICA/CCA Values: 82/75 Left ICA/CCA Ratio: 0.86 ICA/CCA Values: 63/73 Updated by Broderick Chowdhury MD on 01/08/2017 2:21:03 PM electronically signed on 01/08/2017 2:21:47 PM with status of Final
[2017-01-08] MEDS: Gabapentin 300 MG CAPSULE PO SCH (20:05)
[2017-01-09] MEDS: 0.9 % Sodium Chloride 1,000 ML IVC SCH ×2 (05:29→14:32)
[2017-01-09] MEDS: Metoclopramide 10 MG/2 ML VIAL IVP SCH ×3 (05:29→17:04)
[2017-01-09] MEDS: *HR* Enoxaparin 30 MG/0.3 ML SYRINGE SQ SCH (05:30)
[2017-01-09] MEDS ORDERED: Methylnaltrexone 12 MG/0.6 ML SYRINGE SQ ONE (07:41)
--- NOTE | 2017-01-09 07:41 | Palliative Progress Note ---
Date of Encounter: 01/09/17 Time of Encounter: 07:30 - Assessment and plan (1) Cancer related pain Current Visit: No Status: Chronic Assessment and plan: Pain regimen is working well, I would like to see the patient back on form of eating before switching over to all oral medications. Doing much better from a vomiting standpoint based possibly later today. (2) Goals of care, counseling/discussion Current Visit: No Status: Acute Assessment and plan: Patient is clear on desire for DNR CCA, DNI. Goal is to return home patient wishes to continue therapy or her multiple myeloma, however she has failed multiple rounds of this and she understands that. He has had some horrible experiences regarding hospice and wishes not to consider it. No changes today. (3) Multiple myeloma Current Visit: No Status: Chronic Assessment and plan: She is followed by the cancer Center plan per oncology Qualifiers: Multiple myeloma remission status: not in remission Qualified Code(s): C90.00 - Multiple myeloma not having achieved remission (4) Nausea & vomiting Current Visit: No Status: Resolved Assessment and plan: the patient is currently much less nauseated. She is able to smile now, she is passing gas feels much much better. Still no bowel movement this is day 5 we will try some Relistor today. (5) Constipation Current Visit: No Status: Chronic Assessment and plan: The patient is on a bowel regimen with senna, and MiraLAX. Patient has not had a bowel movement in 4 days patient is distended and nauseated with x-ray showing an ileus versus partial small bowel obstruction CT scan team seems to favor ileus, we will try Relistor today. Enema had no effect. Qualifiers: Constipation type: unspecified constipation type Qualified Code(s): K59.00 - Constipation, unspecified - Time Spent With Patient Total time spent is greater than 50% in coordination of care (as documented) at patient's floor/unit and/or counseling patient: - Subjective Interval history: Patient reports the pain is under very good control, nausea is much better. The patient is passing gas, also a small amount of belching but feels much better compared to yesterday. - Constitutional Vitals: Abnormal lab results MPV 9.3 fL (9.4-12.4) L 01/08/17 12:15 Lymphocytes # 0.4 K/mcL (0.6-4.6) L 01/08/17 12:15 Sodium 135 mEq/L (136-145) L 01/08/17 09:40 Potassium 4.7 mEq/L (3.5-4.5) H 01/08/17 09:40 Chloride 91 mEq/L (98-109) L 01/08/17 09:40 Creatinine 1.63 mg/dL (0.57-1.11) H D 01/08/17 09:40 Est GFR ( Amer) 38 (> 60) L 01/08/17 09:40 Est GFR (Non-Af Amer) 31 (> 60) L 01/08/17 09:40 Glucose 61 mg/dL (70-99) L 01/08/17 09:40 POC Glucose 115 (58-89) H 01/09/17 00:38 General appearance: Present: no acute distress - Head Head exam: Present: atraumatic, normal inspection - Eye Eye exam: Present: normal appearance - ENT ENT exam: Present: mucous membranes moist - Neck Neck exam: Present: normal inspection - Respiratory Respiratory exam: Present: CTAB - Cardiovascular Cardiovascular exam: Present: RRR - GI/Abdominal GI/Abdominal exam: Present: distended, hypoactive bowel sounds, soft. Absent: tenderness (Positive tympany, however no pain with percussion.) - Extremities Exam Extremities exam: Present: pedal edema (Puffy). Absent: tenderness - Neurological Exam Neurological exam: Present: alert, oriented X3 - Psychiatric Psychiatric exam: Present: normal affect, normal mood. Absent: agitated, anxious - Skin Skin exam: Present: dry, warm Palliative Quality Palliative Quality: Screen for Code Status: Yes, Screen for Goals of Care: Yes, Screen for Pain: Yes, If Pain Regimen Started, Initiate Bowel Regimen: Yes, Screen for Nausea/Vomitting: Yes Code Status: 01/07/17 00:06 Resuscitation Status: Active [RES] Routine Comment: Resuscitation Status: QDS-[id number] - Labs CBC & Chem 7: 01/08/17 12:15 01/08/17 09:40 Labs: Laboratory Results - last 24 hr 01/08/17 01/08/17 01/08/17 08:44 09:40 09:40 WBC RBC Hgb Hct MCV MCH MCHC RDW Plt Count MPV Immature Gran % Seg Neutrophils % Lymphocytes % Monocytes % Eosinophils % Basophils % Neutrophils # Lymphocytes # Monocytes # Eosinophils # Basophils # Immature Plt Fraction Sodium 135 L Potassium 4.7 H Chloride 91 L Carbon Dioxide 19 BUN 19 Creatinine 1.63 H D Est GFR ( Amer) 38 L Est GFR (Non-Af Amer) 31 L BUN/Creatinine Ratio 12 Glucose 61 L POC Glucose Calculated Osmolality 280 Calcium 10.2 Specimen Rejected Clotted Clotted 01/08/17 01/08/17 01/08/17 12:01 12:15 17:28 WBC 5.5 D RBC 4.27 Hgb 13.3 D Hct 40.7 MCV 95.3 MCH 31.1 MCHC 32.7 RDW 14.3 Plt Count 162 MPV 9.3 L Immature Gran % 0.4 Seg Neutrophils % 83.9 Lymphocytes % 7.9 Monocytes % 7.6 Eosinophils % 0.2 Basophils % 0.0 Neutrophils # 4.6 Lymphocytes # 0.4 L Monocytes # 0.4 Eosinophils # 0.0 Basophils # 0.0 Immature Plt Fraction 2.9 Sodium Potassium Chloride Carbon Dioxide BUN Creatinine Est GFR ( Amer) Est GFR (Non-Af Amer) BUN/Creatinine Ratio Glucose POC Glucose 72 90 H Calculated Osmolality Calcium Specimen Rejected 01/09/17 00:38 WBC RBC Hgb Hct MCV MCH MCHC RDW Plt Count MPV Immature Gran % Seg Neutrophils % Lymphocytes % Monocytes % Eosinophils % Basophils % Neutrophils # Lymphocytes # Monocytes # Eosinophils # Basophils # Immature Plt Fraction Sodium Potassium Chloride Carbon Dioxide BUN Creatinine Est GFR ( Amer) Est GFR (Non-Af Amer) BUN/Creatinine Ratio Glucose POC Glucose 115 H Calculated Osmolality Calcium Specimen Rejected - Impressions Impressions Abdomen/Pelvis CT 01/08/17 08:00 IMPRESSION: 1. Multiple mildly dilated loops of small bowel in pattern suggestive of an ileus. 2. Status post cholecystectomy. 3. Mild basilar dependent atelectasis. 4. Intramedullary soft tissue density in the proximal right femoral diaphysis. Differential includes multiple myeloma. 5. Stable nonaggressive lucency lesion in the right ischial tuberosity and expansile lesion in the L3 posterior spinous process, not significantly changed since April 2015. D/ / 01/08/2017 10:18:16 Johnathon Cee MD / Kelsi Foster Interpreting Provider: Johnathon Cee MD Consult Discharge Plan - Plan Referrals: Avni Bean MD [Primary Care Provider] - 01/20/17 9:00 am
[2017-01-09] MEDS: Losartan/HCTZ 50-12.5 TABLET PO SCH (08:17)
[2017-01-09] MEDS: Sennosides/Docusate Sodium TABLET PO SCH ×2 (08:17→20:32)
[2017-01-09] MEDS: *HR* Morphine Sulfate SR (12 HR) 30 MG TABLET.ER PO SCH ×3 (08:18→20:34)
[2017-01-09 08:42] LABS: Basophils % 0.2 %; Eosinophils % 0.4 %; Hematocrit 34.1 % (35.3-44.9); Immature Granulocytes % 0.2 % (0-4); Lymphocytes # 0.5 K/mcL (0.6-4.6); Lymphocytes % 9.4 %; Mean Corpuscular Hemoglobin 31.8 pg (28.0-33.3); Mean Corpuscular Volume 93.4 fL (83.0-100.0); Mean Platelet Volume 9.5 fL (9.4-12.4); Monocytes # 0.6 K/mcL (0.0-1.3); Monocytes % 11.6 %; Neutrophils # 3.9 K/mcL (1.6-8.9); Platelet Count 159 K/mcL (140-400); Red Blood Count 3.65 M/mcL (3.82-4.97); Red Cell Distribution Width 14.2 % (11.5-14.5); Segmented Neutrophils % 78.2 %
[2017-01-09 08:43] LABS: Hemoglobin 11.6 g/dL (11.5-15.4)
[2017-01-09 09:50] LABS: BUN/Creatinine Ratio 22 (6-26); Blood Urea Nitrogen 21 mg/dL (7-20); Calcium 8.7 mg/dL (8.6-10.8); Carbon Dioxide 27 mEq/L (19-29); Chloride 95 mEq/L (98-109); Glucose 102 mg/dL (70-99); Osmolality,Calculated 285 (280-300); Potassium 3.7 mEq/L (3.5-4.5); Sodium 136 mEq/L (136-145); eGFR For African Americans > 60 (> 60); eGFR For Non-African Americans 57 (> 60)
[2017-01-09 12:08] LABS: POC eGFR > 60 (> 60)
--- NOTE | 2017-01-09 12:09 | Internal Med Progress Note ---
Date of Encounter: 01/09/17 Time of Encounter: 12:07 - Assessment and plan (1) Ileus Current Visit: Yes Status: Acute Assessment and plan: most likely 2/2 opioids. continue laxatives, enema x1, no bowel movement yet. CT abd done shows ileus with no obstruction, clinically better. appreciate palliative recommendation.. reji lanza adn IVF palliative to try relistor today. (2) Multiple myeloma Current Visit: No Status: Chronic Assessment and plan: as managed by oncology Qualifiers: Multiple myeloma remission status: not in remission Qualified Code(s): C90.00 - Multiple myeloma not having achieved remission (3) Intractable pain Current Visit: No Status: Resolved Assessment and plan: pain is better , management as per palliative will have to continue IV meds for today given ileus. - Subjective Interval history: Ms. Royal presents with chief complaint of intractable pain related to diagnosis of multiple myeloma, multiple compression fractures, as well as lumbar and thoracic lesions according to the latest MRI. palliative and oncology on board, reports feels better , abdomial distension is less adn says she is passing gas but has not had any bowel movements yet. has not moved bowels since last 5 days, refused NG yesterday, on IVF and NPO - Constitutional Vitals: Temp Pulse Resp BP Pulse Ox 98.3 F 68 16 152/81 98 01/09/17 11:56 01/09/17 11:56 01/09/17 11:56 01/09/17 11:56 01/09/17 11:56 General appearance: Present: cooperative, A&O X 3, pleasant, obese, answers questions appropriately Exam: neck- supple chest- b/l clear, no added sound CVS-s1 and s2, no mr/g/ abd-soft, distended, bs are sluggish, non tender, ext- no edema Internal Medicine: Result - Labs CBC & Chem 7: 01/09/17 08:22 01/09/17 08:22 Labs: Short CBC 01/08/17 01/09/17 Range/Units 12:15 08:22 WBC 5.5 D 5.0 (4.3-11.1) K/mcL Hgb 13.3 D 11.6 D (11.5-15.4) g/dL Hct 40.7 34.1 L (35.3-44.9) % Plt Count 162 159 (140-400) K/mcL Neutrophils # 4.6 3.9 (1.6-8.9) K/mcL BMP 01/09/17 08:22 Sodium 136 Potassium 3.7 D Chloride 95 L Carbon Dioxide 27 BUN 21 H Creatinine 0.97 Glucose 102 H Calcium 8.7 Consult Discharge Plan - Plan Referrals: Avni Bean MD [Primary Care Provider] - 01/20/17 9:00 am
[2017-01-09] MEDS: Gabapentin 300 MG CAPSULE PO SCH (20:32)
[2017-01-10] MEDS: 0.9 % Sodium Chloride 1,000 ML IVC SCH ×3 (00:03→19:02)
[2017-01-10] MEDS: Metoclopramide 10 MG/2 ML VIAL IVP SCH ×5 (00:05→23:44)
[2017-01-10] MEDS: *HR* Enoxaparin 30 MG/0.3 ML SYRINGE SQ SCH (05:32)
--- NOTE | 2017-01-10 08:20 | Oncology Inp Progress Note ---
Date of Encounter: 01/09/17 Time of Encounter: 18:20 (1) Multiple myeloma Current Visit: No Status: Chronic Assessment and plan: The patient is resting comfortably. She has not had a bowel movement in greater than 5 days. Her pain is well controlled with Dr Fletcher and palliative care team. I communicated with Dr Fletcher earlier today. Patient still against hospice, and prefers her monthly visits at the cancer center. The patient was against any further treatment a few months ago, as chemo made her feel worse than the cancer. We had a long discussion. I advised patient we will be adding Xgeva monthly to her treatment plan. There are new drugs that are becoming available for myeloma. Her counts are good in relation to her disease. She has done much better off chemo treatments than on them. She will consider the thought of possibly trying new treatment if available for her, but she is still reluctant. Continue plan of care for pain and to get bowels moving. She will follow me and Dr Sow as an outpatient for palliative care visits and to follow up with any new treatments that may be available for her multiple myeloma. Qualifiers: Multiple myeloma remission status: not in remission Qualified Code(s): C90.00 - Multiple myeloma not having achieved remission (2) Constipation Current Visit: No Status: Chronic Qualifiers: Constipation type: unspecified constipation type Qualified Code(s): K59.00 - Constipation, unspecified (3) Intractable pain Current Visit: No Status: Resolved Oncology: Subj Interval history: The patient is resting comfortably, eating dinner, no family at bedside. Her pain is well controlled. She has constipation with no bowel movement in greater than 5 days. - Constitutional Vitals: Vital Signs Temp Pulse Resp BP Pulse Ox 01/10/17 07:33 98.5 F 69 12 155/74 94 01/10/17 05:05 98.7 F 71 14 138/68 92 01/10/17 00:37 98.9 F 67 16 132/72 95 01/09/17 20:07 99.0 F 76 18 133/77 93 Intake and Output 01/09/17 01/10/17 01/10/17 23:59 07:59 15:59 Intake Total 0 / 0 1120 / 1120 Output Total 0 / 0 200 / 200 Balance 0 / 0 920 / 920 Intake: IV Fluids 1000 / 1000 0.9 % Sodium Chloride 1, 1000 / 1000 000 ML @ 100 mls/hr IVC . Q10H ED Rx#:[id number] Oral 0 / 0 120 / 120 Output: Urine 0 / 0 0 / 0 Catheter 200 / 200 Other: Weight 92.731 kg Blood Glucose* 97 Patient Weight 01/10/17 23:59 Weight 92.731 kg - Head Head exam: Present: atraumatic, normal inspection - Eye Eye exam: Present: normal appearance, PERRL - ENT ENT exam: Present: mucous membranes moist - Neck Neck exam: Present: full ROM, normal inspection - Respiratory Respiratory exam: Present: CTAB - Cardiovascular Cardiovascular exam: Present: RRR - GI/Abdominal GI/Abdominal exam: Present: normal bowel sounds, soft - Extremities Exam Extremities exam: Present: full ROM, pedal edema - Neurological Exam Neurological exam: Present: alert, oriented X3, no focal deficits - Psychiatric Psychiatric exam: Present: normal affect, normal mood - Skin Skin exam: Present: dry, intact, warm Oncology: Obj Data - Labs CBC & Chem 7: 01/09/17 08:22 01/09/17 08:22 Labs: Laboratory Results - last 24 hr 01/09/17 01/09/17 17:12 18:49 POC Glucose 70 97 H Consult Discharge Plan - Plan Referrals: Avni Bean MD [Primary Care Provider] - 01/20/17 9:00 am
[2017-01-10] MEDS: Losartan/HCTZ 50-12.5 TABLET PO SCH (09:06)
[2017-01-10] MEDS: *HR* Morphine Sulfate SR (12 HR) 30 MG TABLET.ER PO SCH ×3 (09:06→19:49)
[2017-01-10] MEDS: Ondansetron 4 MG/2 ML VIAL IVP PRN (09:06)
[2017-01-10] MEDS: Sennosides/Docusate Sodium TABLET PO SCH (09:06)
[2017-01-10] MEDS ORDERED: Methylnaltrexone 12 MG/0.6 ML SYRINGE SQ ONE ×2 (10:31→11:13)
--- NOTE | 2017-01-10 10:34 | Palliative Progress Note ---
Date of Encounter: 01/10/17 Time of Encounter: 10:10 - Assessment and plan (1) Cancer related pain Current Visit: No Status: Chronic Assessment and plan: Pain regimen is working well, I would like to see the patient back on form of eating before switching over to all oral medications. Doing much better from a vomiting standpoint based possibly later today. Regimens working extremely well. I would like to get the patient overall PTOs. However the patient's nausea has returned therefore I am not going to change the medications although she has required none of these in the last several days. (2) Goals of care, counseling/discussion Current Visit: No Status: Acute Assessment and plan: Patient is clear on desire for DNR CCA, DNI. Goal is to return home patient wishes to continue therapy or her multiple myeloma, however she has failed multiple rounds of this and she understands that. He has had some horrible experiences regarding hospice and wishes not to consider it. No changes today. Noted the comments from oncology, the patient may well want to discuss further treatment. Clearly wants no part of hospice. (3) Multiple myeloma Current Visit: No Status: Chronic Assessment and plan: She is followed by the cancer Center plan per oncology Qualifiers: Multiple myeloma remission status: not in remission Qualified Code(s): C90.00 - Multiple myeloma not having achieved remission (4) Nausea & vomiting Current Visit: No Status: Resolved Assessment and plan: the patient is currently much more nauseated. She is still not had a bowel movement, and she is not passing gas. Her abdomen is actually a little bit more distended, sounds are more hypoactive than they were yesterday. Abdominal Maxime is still negative for pain. Will go ahead and write for some Relistor again , and also try a soapsuds enema. Believe that the major cause of the ileus is probably opioid induced. The patient does not feel any stool sitting down in the rectal vault. I did discuss this with the hospitalist team. Patient may well be willing to except an NG tube to help with the nausea. As the nausea got better and now is worse eating x-rays may not be unreasonable. (5) Constipation Current Visit: No Status: Chronic Assessment and plan: The patient is on a bowel regimen with senna, and MiraLAX. Patient has not had a bowel movement in 5 days and this is despite the bowel regimen with an enema and Relistor 1. We will repeat the enema with soapsuds this time, and will also repeat the Relistor. Continue bowel regimen. I believe this is probably the cause of her ileus.. Qualifiers: Constipation type: unspecified constipation type Qualified Code(s): K59.00 - Constipation, unspecified - Time Spent With Patient Total time spent is greater than 50% in coordination of care (as documented) at patient's floor/unit and/or counseling patient: - Subjective Interval history: Patient reports the pain is under very good control, nausea is back, began again last pm no gas passing nausea only at this time - Constitutional Vitals: Abnormal lab results RBC 3.65 M/mcL (3.82-4.97) L 01/09/17 08:22 Hct 34.1 % (35.3-44.9) L 01/09/17 08:22 Lymphocytes # 0.5 K/mcL (0.6-4.6) L 01/09/17 08:22 Chloride 95 mEq/L (98-109) L 01/09/17 08:22 BUN 21 mg/dL (7-20) H 01/09/17 08:22 Est GFR (Non-Af Amer) 57 (> 60) L 01/09/17 08:22 Glucose 102 mg/dL (70-99) H 01/09/17 08:22 POC Glucose 97 (58-89) H 01/09/17 18:49 General appearance: Present: mild distress (Secondary to nausea) - Head Head exam: Present: atraumatic, normal inspection - Eye Eye exam: Present: normal appearance - Respiratory Respiratory exam: Present: CTAB - Cardiovascular Cardiovascular exam: Present: RRR - GI/Abdominal GI/Abdominal exam: Present: distended, firm, hypoactive bowel sounds. Absent: tenderness (No tenderness on palpation or percussion.) - Extremities Exam Extremities exam: Present: pedal edema. Absent: tenderness - Neurological Exam Neurological exam: Present: alert, oriented X3 - Psychiatric Psychiatric exam: Present: normal affect, normal mood. Absent: agitated, anxious - Skin Skin exam: Present: dry, warm Palliative Quality Palliative Quality: Screen for Code Status: Yes, Screen for Goals of Care: Yes, Screen for Pain: Yes, If Pain Regimen Started, Initiate Bowel Regimen: Yes, Screen for Nausea/Vomitting: Yes - Labs CBC & Chem 7: 01/09/17 08:22 01/09/17 08:22 Labs: Laboratory Results - last 24 hr 01/09/17 01/09/17 17:12 18:49 POC Glucose 70 97 H Consult Discharge Plan - Plan Referrals: Avni Bean MD [Primary Care Provider] - 01/20/17 9:00 am
--- NOTE | 2017-01-10 17:33 | Internal Med Progress Note ---
Date of Encounter: 01/10/17 Time of Encounter: 17:30 - Assessment and plan (1) Paralytic ileus Current Visit: Yes Status: Acute Assessment and plan: Patient was admitted with paralytic ileus however now it seems to be transforming into obstruction. I am consulting general surgery and holding on enemas. A stroke and is to be given. (2) Multiple myeloma Current Visit: No Status: Chronic Assessment and plan: as managed by oncology Qualifiers: Multiple myeloma remission status: not in remission Qualified Code(s): C90.00 - Multiple myeloma not having achieved remission (3) Intractable pain Current Visit: No Status: Resolved Assessment and plan: Pain is better and it was noted that palliative care has increased OxyContin. We will recommend non-opioid pain management possibly with Toradol and by buprenone. (4) Small bowel obstruction Current Visit: No Status: Acute Assessment and plan: Patient has developed some nausea and vomiting there for abdominal film was done today which showed some air-fluid levels surgery was consulted for any enema - Time Spent With Patient 25 - 35 minutes - Subjective Interval history: Patient is a 61-year-old female with multiple myeloma. She she has been on oxycodone Contin oxycodone and morphine at home for pain control. She is being admitted for ileus which is suspected to be secondary to heavy dose of narcotic use. Oncology and palliative care has been consulted. She has been given an enema and Relistor without much success. Patient indicates that her belly size has increased therefore I obtained an abdominal film today which showed small bowel distention with air-fluid level. Also on examination belly feels quite firm. We will involve general surgery involve general surgery in her case. It was noted that her OxyContin has been increased and I think we need to look into some non-opiate related pain management at this point as otherwise Relistor will not work. However I have asked nursing staff to give him another dose of Relistor. I would hold on enema until surgery sees the patient. - Constitutional Vitals: Temp Pulse Resp BP Pulse Ox 97.5 F L 68 16 162/89 96 01/10/17 16:30 01/10/17 16:30 01/10/17 16:30 01/10/17 16:30 01/10/17 16:30 General appearance: Present: cooperative, A&O X 3, pleasant, obese, answers questions appropriately - Head Head exam: Present: atraumatic, normocephalic - Eye Eye exam: Present: PERRL, conjuntiva pink, sclera anicteric Pupils: Present: PERRL - Neck Neck exam general surgery: Present: supple, trachea midline. Absent: lymphadenopathy - Respiratory Respiratory exam: Present: CTAB. Absent: accessory muscle use, rales, rhonchi, wheezes - Cardiovascular Cardiovascular exam: Present: RRR, +S1, +S2. Absent: diastolic murmur, gallop, rubs, systolic murmur - GI/Abdominal GI/Abdominal exam: Present: diminished bowel sounds, distended, firm, no peritoneal signs. Absent: tenderness - Extremities Exam Extremities exam: Present: warm, radial pulses palpable and symetrical. Absent : calf tenderness, cyanotic, pedal edema - Neurological Exam Neurological exam: Present: CN II-XII intact, oriented X3, no focal deficits. Absent: pronater drift, facial droop, speech deficit - Skin Skin exam: Present: dry, intact Internal Medicine: Result - Labs CBC & Chem 7: 01/09/17 08:22 01/09/17 08:22 - Impressions Impressions Abdomen X-Ray 01/10/17 11:08 IMPRESSION: 1. No significant change since CT dated 01/08/2017 of distended small bowel loops with air-fluid levels. 2. No obvious pneumatosis or free air. D/ / 01/10/2017 13:52:04 Jess Armstrong MD / Kelsi Foster Interpreting Provider: Jess Armstrong MD Consult Discharge Plan - Plan Referrals: Avni Bean MD [Primary Care Provider] - 01/20/17 9:00 am
[2017-01-10] MEDS ORDERED: Lidocaine Jelly 6 ml Syringe TP ONE (18:50)
[2017-01-10] MEDS: Gabapentin 300 MG CAPSULE PO SCH (19:49)
[2017-01-10] MEDS ORDERED: Chloraseptic Spray 177 ML BOTTLE MM PRN (19:51)
[2017-01-11] MEDS: Metoclopramide 10 MG/2 ML VIAL IVP SCH ×4 (05:49→23:55)
[2017-01-11] MEDS: *HR* Enoxaparin 30 MG/0.3 ML SYRINGE SQ SCH (05:49)
--- NOTE | 2017-01-11 09:07 | Palliative Progress Note ---
Date of Encounter: 01/11/17 Time of Encounter: 07:30 - Assessment and plan (1) Cancer related pain Current Visit: No Status: Chronic Assessment and plan: Pain regimen is working well, I would like to see the patient back on form of eating before switching over to all oral medications. Doing much better from a vomiting standpoint based possibly later today. Regimens working extremely well. I would like to get the patient overall to oral meds. However the patient's nausea has returned therefore I am not going to change the medications although she has required none of these in the last several days. No changes today, awaiting surgical opinion. (2) Goals of care, counseling/discussion Current Visit: No Status: Acute Assessment and plan: Patient is clear on desire for DNR CCA, DNI. Goal is to return home patient wishes to continue therapy or her multiple myeloma, however she has failed multiple rounds of this and she understands that. He has had some horrible experiences regarding hospice and wishes not to consider it. No changes today. Noted the comments from oncology, the patient may well want to discuss further treatment. Clearly wants no part of hospice. (3) Multiple myeloma Current Visit: No Status: Chronic Assessment and plan: She is followed by the cancer Center plan per oncology Qualifiers: Multiple myeloma remission status: not in remission Qualified Code(s): C90.00 - Multiple myeloma not having achieved remission (4) Nausea & vomiting Current Visit: No Status: Resolved Assessment and plan: the patient is currently much more better with NG tube. Patient's bowel sounds are still very hypoactive as they were yesterday. Although she appears a little less distended he is much less firm. Currently there is 850 mL recorded output from the NG tube. She Is feeling better. Awaiting surgical opinion. (5) Constipation Current Visit: No Status: Chronic Assessment and plan: The patient has been on a bowel regimen which was not effective, despite use of Relistor as well as enemas in addition to senna and MiraLAX. We will await surgical opinion. Qualifiers: Constipation type: unspecified constipation type Qualified Code(s): K59.00 - Constipation, unspecified - Time Spent With Patient Total time spent is greater than 50% in coordination of care (as documented) at patient's floor/unit and/or counseling patient: - Subjective Interval history: Patient reports the pain is under very good control, nausea is better now that the NG tube is in., A she is still not having any gas pass. No abdominal pain. - Constitutional Vitals: Abnormal lab results RBC 3.65 M/mcL (3.82-4.97) L 01/09/17 08:22 Hct 34.1 % (35.3-44.9) L 01/09/17 08:22 Lymphocytes # 0.5 K/mcL (0.6-4.6) L 01/09/17 08:22 Chloride 95 mEq/L (98-109) L 01/09/17 08:22 BUN 21 mg/dL (7-20) H 01/09/17 08:22 Est GFR (Non-Af Amer) 57 (> 60) L 01/09/17 08:22 Glucose 102 mg/dL (70-99) H 01/09/17 08:22 POC Glucose 97 (58-89) H 01/09/17 18:49 General appearance: Present: no acute distress - Head Head exam: Present: atraumatic, normal inspection - ENT ENT exam: Absent: normal exam (NG tube in place) - Respiratory Respiratory exam: Present: CTAB - Cardiovascular Cardiovascular exam: Present: RRR - GI/Abdominal GI/Abdominal exam: Present: distended, hypoactive bowel sounds, soft. Absent: tenderness (Soft and distended, better than yesterday no pain on palpation or percussion very tympanitic) - Extremities Exam Extremities exam: Present: pedal edema. Absent: normal inspection, tenderness - Neurological Exam Neurological exam: Present: alert, oriented X3 - Psychiatric Psychiatric exam: Present: normal affect, normal mood. Absent: agitated, anxious - Skin Skin exam: Present: dry, warm Palliative Quality Palliative Quality: Screen for Code Status: Yes, Screen for Goals of Care: Yes, Screen for Pain: Yes, If Pain Regimen Started, Initiate Bowel Regimen: Yes, Screen for Nausea/Vomitting: Yes - Labs CBC & Chem 7: 01/09/17 08:22 01/09/17 08:22 - Impressions Impressions Abdomen X-Ray 01/10/17 11:08 IMPRESSION: 1. No significant change since CT dated 01/08/2017 of distended small bowel loops with air-fluid levels. 2. No obvious pneumatosis or free air. D/ / 01/10/2017 13:52:04 Jess Armstrong MD / Kelsi Foster Interpreting Provider: Jess Armstrong MD X-Ray 01/10/17 18:49 IMPRESSION: Enteric tube appears appropriately positioned with side port and tip projecting over the gastric body. D/ / Sky De Leon MD / Sky De Leon MD Interpreting Provider: Sky De Leon MD Consult Discharge Plan - Plan Referrals: Avni Bean MD [Primary Care Provider] - 01/20/17 9:00 am
[2017-01-11] MEDS: Ondansetron 4 MG/2 ML VIAL IVP PRN (10:56)
[2017-01-11] MEDS: *HR* HYDROmorphone (PF) 1 MG/ML SYRINGE IVP PRN ×2 (10:56→13:12)
[2017-01-11] MEDS: Losartan/HCTZ 50-12.5 TABLET PO SCH (12:07)
[2017-01-11] MEDS: *HR* Morphine Sulfate SR (12 HR) 30 MG TABLET.ER PO SCH (12:08)
[2017-01-11] MEDS: 0.9 % Sodium Chloride 1,000 ML IVC SCH ×2 (12:17→19:54)
--- NOTE | 2017-01-11 13:25 | General Surgery Consult Note ---
<Kim Ignacio Gurmeet - Last Filed: 01/11/17 14:36> Date of Encounter: 01/11/17 Time of Encounter: 13:00 Assessment and Plan (1) Constipation Current Visit: No Status: Chronic NG tube to LIWS NPO except ice chips IV fluids Milk and Molasses enema X 2 today Will give prep from above in the next 24-48 hours (after passing stool from below with enemas) No evidence of obstruction- no surgical intervention indicated at this time Will continue to follow and assess progress Qualifiers: Constipation type: unspecified constipation type Qualified Code(s): K59.00 - Constipation, unspecified (2) Obstipation Current Visit: Yes Status: Acute NG tube to LIWS NPO except ice chips IV fluids Milk and Molasses enema X 2 today Will give prep from above in the next 24-48 hours (after passing stool from below with enemas) No evidence of obstruction- no surgical intervention indicated at this time Will continue to follow and assess progress (3) Multiple myeloma Current Visit: No Status: Chronic Oncology following Palliative following along for pain control recommendations Qualifiers: Multiple myeloma remission status: not in remission Qualified Code(s): C90.00 - Multiple myeloma not having achieved remission History of Present Illness Consult date: 01/11/17 Reason for consult: other (Ileus) Requesting physician: Lubna Myrick History of present illness: Mrs. Royal is a very pleasant 71 year old female with a past medical history significant for multiple myeloma. She presented to the hospital with complaints of back pain and has been treated by the hospitalist and palliative care team. She began having increasing abdominal discomfort and bloating yesterday. She also had associated nausea. She states that she has not had a bowel movement in 5 days. She typically has 1 small bowel movement daily after taking a dose of miralax. She denies any recent changes in weight of appetite. Denies any melena or rectal bleeding. She has had a CT scan which demonstrates dilated loops of small bowel and stool throughout the colon. She did have an NG tube placed yesterday which has helped to improve her symptoms. She passed a small amount of flatus this morning. We have been asked to see and evaluate the patient for recommendations. Past Med Surg Social Fam HX - Past Medical History Source: patient, old records reviewed Medical history: asthma, cancer (multiple myeloma), coronary artery disease, diabetes (Prediabetes), hyperlipidemia, hypertension, thyroid disease ( hypothyroidism), other (Temporal arteritis, vitamin D insufficiency, chronic constipation, obesity) Psychiatric history: no psych history - Past Surgical History Surgical History: appendectomy, breast surgery (biopsy), cholecystectomy, hysterectomy, orthopedic, other (Right forearm bone grafting, left knee arthroscopic surgery, bilateral ankle repair surgeries), thyroidectomy, other ( Resection of vocal cord nodules, tubal ligation, right temporal endarterectomy) - Social History Smoking Status: Former smoker (Reports she quit 40 years ago) Smokeless Tobacco Status: No Alcohol use: none Drug use: none - Family History Brother Race: Family Member Ethnicity: Non- Living Status: Age at : 50 Hx Family Cardiac Disorders: Yes (HD) Sister Race: Family Member Ethnicity: Non- Living Status: Still Living Hx Family Cancer: Yes (Breast cancer) Mother Adopted: No Race: Family Member Ethnicity: Non- Living Status: Hx Family Cardiac Disorders: Yes (HTN) Hx Family Respiratory Disorders: No Hx Family Cancer: Yes (colorectal cancer) Hx Family GI Disorders: No Hx Family Endocrine Disorder: No Hx Family Neuromuscular Disorders: No Hx Family Neurologic Disorders: No Hx Family HEENT Disorders: No Hx Family Autoimmune Disorders: No Father Race: Family Member Ethnicity: Non- Living Status: Hx Family Cardiac Disorders: No Hx Family Respiratory Disorders: No Hx Family Cancer: Yes (mutliple myeloma) Hx Family GI Disorders: No Hx Family Endocrine Disorder: No Hx Family Neuromuscular Disorders: No Hx Family Neurologic Disorders: No Hx Family HEENT Disorders: No Hx Family Autoimmune Disorders: No Medications and Allergies Levothyroxine Sodium [Synthroid] 75 mcg PO QAM 02/26/15 [History] Morphine Sulfate SR (12 HR) [MS Contin] 30 mg PO Q12HR #60 tablet.er 11/08/16 [ Rx] Polyethylene Glycol 3350 [MiraLAX Powder Bulk 17.9 Oz] 17 gm PO QPM 11/08/16 [ History] Cyclobenzaprine [Flexeril] 10 mg PO TID PRN #21 tablet 12/06/16 [Rx] Furosemide [Lasix] 20 mg PO DAILY PRN #30 tablet 01/03/17 [Rx] Oxycodone HCl 20 mg PO Q4H PRN #120 tab 01/03/17 [Rx] Losartan/Hydrochlorothiazide [Hyzaar 100-25 Tablet] 1 each PO DAILY 01/06/17 [ History] Menthol [Biofreeze] 1 appl TP BID PRN 01/06/17 [History] Allergies bacitracin Allergy (Verified 12/06/16 08:11) unknown carfilzomib Allergy (Verified 12/06/16 08:11) unknown celecoxib Allergy (Verified 12/06/16 08:11) unknown Corticosteroids (Glucocorticoids) Allergy (Verified 12/06/16 08:11) unknown dexamethasone Allergy (Verified 12/06/16 08:11) unknown fentanyl Allergy (Verified 12/06/16 08:11) Rash lenalidomide Allergy (Verified 12/06/16 08:11) unknown melphalan Allergy (Verified 12/06/16 08:11) unknown unknown Neomycin Allergy (Verified 12/06/16 08:11) unknown Penicillins [PCN] Allergy (Verified 12/06/16 08:11) unknown polymyxin B Allergy (Verified 12/06/16 08:11) unknown prednisone Allergy (Verified 12/06/16 08:11) unknown tape Allergy (Uncoded 12/06/16 08:11) unknown Review of Systems All systems PM: reviewed and no additional remarkable complaints except as stated (in the HPI) All systems PM: A 10-system review of systems was performed and is negative for pertinent findings except as documented above in the HPI. General Surgery Exam Initial Vital Signs Temp Pulse Resp BP Pulse Ox 98.4 F 64 18 114/74 96 01/06/17 17:37 01/06/17 17:37 01/06/17 17:37 01/06/17 17:37 01/06/17 17:37 - General physical appearance well developed, well nourished, no distress - Eyes normal ocular movement - ENT dry mucosa, atraumatic, normocephalic - Neck trachea midline - Respiratory normal respiratory effort, clear to auscultation - Cardiovascular Cardiovascular exam: Present: RRR - Abdomen Abdomen general surgery: Present: bowel sounds present (hypoactive), soft, distended (mildly), wound (NG tube to LIWS with 300ml of bilious drainage since midnight NG tube to low intermittent wall suction with 300 mL's of bilious drainage since midnight) - Integumentary Integumentary general surgery: Present: warm and dry - Neurologic Present: CN 2-12 grossly intact - Psychiatric Psychiatric general surgery: Present: appropriate, oriented to person, oriented to place, oriented to time, speech is normal, memory intact Exam Initial Vital Signs Temp Pulse Resp BP Pulse Ox 98.4 F 64 18 114/74 96 01/06/17 17:37 01/06/17 17:37 01/06/17 17:37 01/06/17 17:37 01/06/17 17:37 Results - Labs 01/09/17 08:22 01/09/17 08:22 Abnormal lab results RBC 3.65 M/mcL (3.82-4.97) L 01/09/17 08:22 Hct 34.1 % (35.3-44.9) L 01/09/17 08:22 Lymphocytes # 0.5 K/mcL (0.6-4.6) L 01/09/17 08:22 Chloride 95 mEq/L (98-109) L 01/09/17 08:22 BUN 21 mg/dL (7-20) H 01/09/17 08:22 Est GFR (Non-Af Amer) 57 (> 60) L 01/09/17 08:22 Glucose 102 mg/dL (70-99) H 01/09/17 08:22 All other labs normal. - Imaging Abdominal x-ray: report reviewed CT scan - abdomen: report reviewed CT scan - pelvis: report reviewed Additional studies: Lumbar Spine MRI 01/06/17 18:25 IMPRESSION: 1. Innumerable enhancing lesions throughout the visualized spine and sacrum are not significantly changed and remain compatible with history of multiple myeloma. Dominant lesion replacing the L2 spinous process is unchanged. No evidence of epidural tumor extension. 2. Chronic L1, L3, and L4 superior endplate compression deformities. No acute compression fracture. 3. Multilevel degenerative changes of the lumbar spine. No spinal canal stenosis. Moderate neural foraminal narrowing at L4-L5 and L5-S1. D/ / 01/06/2017 20:31:31 Kati Jarrett MD / eva Interpreting Provider: Kati Jarrett MD Ribs w/Chest X-Ray 01/06/17 18:25 IMPRESSION: 1. Hypoinflated lungs. 2. Increased initial opacities may represent mild pulmonary edema. 3. No evidence of acute displaced rib fracture. D/ / Juanita Michele MD / Juanita Michele MD Interpreting Provider: Juanita Michele MD Thoracic Spine MRI 01/06/17 18:25 IMPRESSION: 1. Multiple mild thoracic vertebral body compression fractures without associated bone marrow edema to suggest acuity. There is marrow replacement within T5 and T6, and these mild compression fractures are suspected to be pathologic. 2. Expansile enhancing marrow lesion within right T12 pedicle and transverse process consistent with myeloma deposit. 3. Multilevel degenerative disc disease throughout the thoracic spine without high-grade thoracic spinal canal or neural foraminal stenosis. D/ / 01/06/2017 20:34:09 Juanita Michele MD / eva Interpreting Provider: Juanita Michele MD Abdomen/Pelvis CT 01/08/17 08:00 IMPRESSION: 1. Multiple mildly dilated loops of small bowel in pattern suggestive of an ileus. 2. Status post cholecystectomy. 3. Mild basilar dependent atelectasis. 4. Intramedullary soft tissue density in the proximal right femoral diaphysis. Differential includes multiple myeloma. 5. Stable nonaggressive lucency lesion in the right ischial tuberosity and expansile lesion in the L3 posterior spinous process, not significantly changed since April 2015. D/ / 01/08/2017 10:18:16 Johnathon Cee MD / Kelsi Foster Interpreting Provider: Johnathon Cee MD Abdomen X-Ray 01/10/17 11:08 IMPRESSION: 1. No significant change since CT dated 01/08/2017 of distended small bowel loops with air-fluid levels. 2. No obvious pneumatosis or free air. D/ / 01/10/2017 13:52:04 Jess Armstrong MD / Kelsi Foster Interpreting Provider: Jess Armstrong MD X-Ray 01/10/17 18:49 IMPRESSION: Enteric tube appears appropriately positioned with side port and tip projecting over the gastric body. D/ / Sky De Leon MD / Sky De Leon MD Interpreting Provider: Sky De Leon MD Consult Discharge Plan - Plan Referrals: Avni Bean MD [Primary Care Provider] - 01/20/17 9:00 am - Attending Attestation I examined this patient and my medical decision-making was reviewed with the ELEVATOR CONSTRUCTOR SUPERVISOR/PA/Advanced Practice Nurse/Resident Physician. I agree with the documented findings, disposition and treatment plan as described except to the extent set forth below. <Arnoldo Ribera M - Last Filed: 01/12/17 12:25> Date of Encounter: 01/12/17 Review of Systems All systems PM: A 10-system review of systems was performed and is negative for pertinent findings except as documented above in the HPI. General Surgery Exam Initial Vital Signs Temp Pulse Resp BP Pulse Ox 98.4 F 64 18 114/74 96 01/06/17 17:37 01/06/17 17:37 01/06/17 17:37 01/06/17 17:37 01/06/17 17:37 Exam Initial Vital Signs Temp Pulse Resp BP Pulse Ox 98.4 F 64 18 114/74 96 01/06/17 17:37 01/06/17 17:37 01/06/17 17:37 01/06/17 17:37 01/06/17 17:37 Results - Labs 01/12/17 04:12 01/12/17 04:12 Abnormal lab results RBC 3.53 M/mcL (3.82-4.97) L 01/12/17 04:12 Hgb 11.0 g/dL (11.5-15.4) L 01/12/17 04:12 Hct 32.7 % (35.3-44.9) L 01/12/17 04:12 Lymphocytes # 0.5 K/mcL (0.6-4.6) L 01/12/17 04:12 Potassium 3.2 mEq/L (3.5-4.5) L 01/12/17 04:12 Glucose 109 mg/dL (70-99) H 01/12/17 04:12 POC Glucose 135 (58-89) H 01/12/17 11:33 Calcium 8.2 mg/dL (8.6-10.8) L 01/12/17 04:12 Albumin 2.4 g/dL (3.5-5.0) L 01/12/17 04:12 Globulin 4.4 g/dL (2.4-3.5) H 01/12/17 04:12 Albumin/Globulin Ratio 0.5 (1.1-2.2) L 01/12/17 04:12 Diabetes panel 01/12/17 Range/Units 04:12 Sodium 137 (136-145) mEq/L Potassium 3.2 L (3.5-4.5) mEq/L Chloride 101 (98-109) mEq/L Carbon Dioxide 24 (19-29) mEq/L BUN 15 (7-20) mg/dL Creatinine 0.75 (0.57-1.11) mg/dL Glucose 109 H (70-99) mg/dL Calcium 8.2 L (8.6-10.8) mg/dL AST 14 (5-34) Units/L ALT 17 (0-55) Units/L Alkaline Phosphatase 54 (38-126) Units/L Albumin 2.4 L (3.5-5.0) g/dL Calcium panel 01/12/17 Range/Units 04:12 Calcium 8.2 L (8.6-10.8) mg/dL Albumin 2.4 L (3.5-5.0) g/dL Pituitary panel 01/12/17 Range/Units 04:12 Sodium 137 (136-145) mEq/L Potassium 3.2 L (3.5-4.5) mEq/L Chloride 101 (98-109) mEq/L Carbon Dioxide 24 (19-29) mEq/L BUN 15 (7-20) mg/dL Creatinine 0.75 (0.57-1.11) mg/dL Glucose 109 H (70-99) mg/dL Calcium 8.2 L (8.6-10.8) mg/dL Adrenal panel 01/12/17 Range/Units 04:12 Sodium 137 (136-145) mEq/L Potassium 3.2 L (3.5-4.5) mEq/L Chloride 101 (98-109) mEq/L Carbon Dioxide 24 (19-29) mEq/L BUN 15 (7-20) mg/dL Creatinine 0.75 (0.57-1.11) mg/dL Glucose 109 H (70-99) mg/dL Calcium 8.2 L (8.6-10.8) mg/dL Total Bilirubin 1.0 (0.2-1.2) mg/dL AST 14 (5-34) Units/L ALT 17 (0-55) Units/L Alkaline Phosphatase 54 (38-126) Units/L Albumin 2.4 L (3.5-5.0) g/dL All other labs normal. - Attending Attestation I evaluated the above assessment and evaluation and agree with the above plan. Will start with milk of molasses enema 2. Likely need to repeat within 24 hours and depending upon entry to output may start to give MiraLAX via the NG tube. The patient has copious amounts of stool by her CT scan (image and report reviewed by me personally) and she will require likely multiple doses of the enema and MiraLAX to assist with evacuating the remaining stool. Will follow with you.
[2017-01-11] MEDS ORDERED: Milk and Molasses Enema 200 ML RC ONE ×2 (14:01→19:01)
[2017-01-11] MEDS: Levothyroxine Sodium 100 MCG VIAL IVP SCH (14:52)
--- NOTE | 2017-01-11 15:09 | Internal Med Progress Note ---
Date of Encounter: 01/11/17 Time of Encounter: 15:07 - Assessment and plan (1) Paralytic ileus Current Visit: Yes Status: Acute Assessment and plan: Patient was admitted with paralytic ileus however now it seems to be transforming into obstruction. I am consulting general surgery. surgery has recommended bowel enema and thinks the patient does not have true obstruction but only constipation (2) Multiple myeloma Current Visit: No Status: Chronic Assessment and plan: as managed by oncology Qualifiers: Multiple myeloma remission status: not in remission Qualified Code(s): C90.00 - Multiple myeloma not having achieved remission (3) Small bowel obstruction Current Visit: No Status: Acute Assessment and plan: Patient has developed some nausea and vomiting there for abdominal film was done which showed some air-fluid levels surgery was consulted. Surgery does not think that patient has obstruction though she has serious constipation and ileus. Surgery has not started patient on bowel enema. (4) Hypertension Current Visit: Yes Status: Chronic Assessment and plan: her blood pressure has been running qu. Since she cannot take oral medicines and we willswitch her to IV hydralazine when necess Qualifiers: Hypertension type: essential hypertension Qualified Code(s): I10 - Essential (primary) hypertension - Subjective Interval history: Patient is a 61-year-old female with multiple myeloma. She she has been on oxycodone Contin oxycodone and morphine at home for pain control. She is being admitted for ileus which is suspected to be secondary to heavy dose of narcotic use. Oncology and palliative care has been consulted. She has been given an enema and Relistor without much success. Patient indicates that her belly size has increased therefore I obtained an abdominal film today which showed small bowel distention with air-fluid level. Also on examination belly feels quite firm. We will involve general surgery involve general surgery in her case. It was noted that her OxyContin has been increased and I think we need to look into some non-opiate related pain management at this point as otherwise Relistor will not work. However I have asked nursing staff to give him another dose of Relistor. I would hold on enema until surgery sees the patient. - Constitutional Vitals: Temp Pulse Resp BP Pulse Ox 98.3 F 75 18 172/81 95 01/11/17 10:30 01/11/17 10:30 01/11/17 10:30 01/11/17 10:30 01/11/17 10:30 General appearance: Present: cooperative, A&O X 3, pleasant, obese, answers questions appropriately - Head Head exam: Present: atraumatic, normocephalic - Eye Eye exam: Present: PERRL, conjuntiva pink, sclera anicteric Pupils: Present: PERRL - Neck Neck exam general surgery: Present: supple, trachea midline. Absent: lymphadenopathy - Respiratory Respiratory exam: Present: CTAB. Absent: accessory muscle use, rales, rhonchi, wheezes - Cardiovascular Cardiovascular exam: Present: RRR, +S1, +S2. Absent: diastolic murmur, gallop, rubs, systolic murmur - GI/Abdominal GI/Abdominal exam: Present: diminished bowel sounds, distended, soft, no peritoneal signs. Absent: tenderness - Extremities Exam Extremities exam: Present: warm, radial pulses palpable and symetrical. Absent : calf tenderness, cyanotic, pedal edema - Neurological Exam Neurological exam: Present: CN II-XII intact, oriented X3, no focal deficits. Absent: pronater drift, facial droop, speech deficit - Skin Skin exam: Present: dry, intact Internal Medicine: Result - Labs CBC & Chem 7: 01/09/17 08:22 01/09/17 08:22 - Impressions Impressions KUB X-Ray 01/10/17 18:49 IMPRESSION: Enteric tube appears appropriately positioned with side port and tip projecting over the gastric body. D/ / Sky De Leon MD / Sky De Leon MD Interpreting Provider: Sky De Leon MD Consult Discharge Plan - Plan Referrals: Avni Bean MD [Primary Care Provider] - 01/20/17 9:00 am
[2017-01-11] MEDS: Gabapentin 300 MG CAPSULE PO SCH (21:31)
[2017-01-12] MEDS ORDERED: D5% in 0.9% NACL 1,000 ML IVC ONE (01:02)
[2017-01-12] MEDS ORDERED: *HR* Dextrose 50 % in Water (Syg) 50 ML SYRINGE ONE (01:02)
[2017-01-12] MEDS: D5% in 0.9% NACL 1,000 ML IVC SCH ×2 (01:05→15:48)
[2017-01-12] MEDS ORDERED: *HR* Dextrose 50 % in Water (Syg) 50 ML SYRINGE IVP ONE (01:21)
[2017-01-12 04:26] LABS: Basophils % 0.2 %; Eosinophils % 0.5 %; Hematocrit 32.7 % (35.3-44.9); Immature Granulocytes % 0.3 % (0-4); Immature Platelets 2.2 % (1.1-6.1); Lymphocytes # 0.5 K/mcL (0.6-4.6); Lymphocytes % 7.8 %; Mean Corpuscular HGB Conc 33.6 g/dL (31.6-35.5); Mean Corpuscular Hemoglobin 31.2 pg (28.0-33.3); Mean Corpuscular Volume 92.6 fL (83.0-100.0); Mean Platelet Volume 9.5 fL (9.4-12.4); Monocytes # 0.6 K/mcL (0.0-1.3); Monocytes % 10.6 %; Neutrophils # 4.8 K/mcL (1.6-8.9); Platelet Count 164 K/mcL (140-400); Red Blood Count 3.53 M/mcL (3.82-4.97); Segmented Neutrophils % 80.6 %
[2017-01-12 04:46] LABS: Alanine Aminotransferase 17 Units/L (0-55); Albumin 2.4 g/dL (3.5-5.0); Albumin/Globulin Ratio 0.5 (1.1-2.2); Alkaline Phosphatase 54 Units/L (38-126); Aspartate Amino Transferase 14 Units/L (5-34); BUN/Creatinine Ratio 20 (6-26); Blood Urea Nitrogen 15 mg/dL (7-20); Calcium 8.2 mg/dL (8.6-10.8); Carbon Dioxide 24 mEq/L (19-29); Chloride 101 mEq/L (98-109); Globulin 4.4 g/dL (2.4-3.5); Glucose 109 mg/dL (70-99); Osmolality,Calculated 285 (280-300); Potassium 3.2 mEq/L (3.5-4.5); Sodium 137 mEq/L (136-145); Total Protein 6.8 g/dL (6.0-8.3); eGFR For African Americans > 60 (> 60); eGFR For Non-African Americans > 60 (> 60)
[2017-01-12] MEDS: *HR* HYDROmorphone (PF) 1 MG/ML SYRINGE IVP PRN ×3 (05:18→19:59)
[2017-01-12] MEDS: *HR* Enoxaparin 30 MG/0.3 ML SYRINGE SQ SCH (06:04)
[2017-01-12] MEDS: Metoclopramide 10 MG/2 ML VIAL IVP SCH ×3 (06:04→18:35)
[2017-01-12] MEDS ORDERED: Potassium Chloride 40 MEQ, Lidocaine 1% 2 ML in D5% in Water 500 ML IVPB ONE (07:57)
[2017-01-12] MEDS: Levothyroxine Sodium 100 MCG VIAL IVP SCH (08:25)
[2017-01-12] MEDS: Losartan/HCTZ 50-12.5 TABLET PO SCH (08:55)
--- NOTE | 2017-01-12 09:07 | Palliative Progress Note ---
Date of Encounter: 01/12/17 Time of Encounter: 07:30 - Assessment and plan (1) Cancer related pain Current Visit: No Status: Chronic Assessment and plan: Pain regimen seems to be effective. I will leave that the gabapentin has had some effect, I believe the Lidoderm patches probably been the most effective. The patient has not been able take her gabapentin for the last 2 days. When the patient is able to restart her oral medications I would recommend continuing gabapentin, and continuing the Lidoderm patch, and at the very least restarting home meds at the previous doses. Oncology will follow up on management as an outpatient. (2) Goals of care, counseling/discussion Current Visit: No Status: Acute Assessment and plan: Patient is clear on desire for DNR CCA, DNI. Goal is to return home patient wishes to continue therapy or her multiple myeloma, however she has failed multiple rounds of this and she understands that. He has had some horrible experiences regarding hospice and wishes not to consider it. No changes today. Noted the comments from oncology, the patient may well want to discuss further treatment. Clearly wants no part of hospice. At this point, the plan for the constipation and nausea vomiting is per the hospitalist team and surgery. Since pain has been under reasonable control, and my recommendations regarding pain management as an outpatient have been made. Palliative care will follow from a distance (3) Multiple myeloma Current Visit: No Status: Chronic Assessment and plan: She is followed by the cancer Center plan per oncology Qualifiers: Multiple myeloma remission status: not in remission Qualified Code(s): C90.00 - Multiple myeloma not having achieved remission (4) Nausea & vomiting Current Visit: No Status: Resolved Assessment and plan: the patient is currently much more better with NG tube. Patient's bowel sounds are still very hypoactive but are slightly better than yesterday. Although she appears a little less distended he is much less firm. Currently there is 850 mL recorded output from the NG tube. She Is feeling better. Surgery has seen the patient and is managing the abdominal discomfort and constipation. Patient' s nausea and vomiting seems to have abated. Plan is per the surgical team. (5) Constipation Current Visit: No Status: Chronic Assessment and plan: The patient has been on a bowel regimen which was not effective, despite use of Relistor as well as enemas in addition to senna and MiraLAX. Surgery is now managing. She did get some response from the local molasses enema. Would recommend at time of discharge the patient be sent out with both senna plus as well as the MiraLAX. Due to the chronic use of opioids. Qualifiers: Constipation type: unspecified constipation type Qualified Code(s): K59.00 - Constipation, unspecified - Time Spent With Patient Total time spent is greater than 50% in coordination of care (as documented) at patient's floor/unit and/or counseling patient: - Subjective Interval history: Patient reports the pain is under very good control, nausea is better now that the NG tube is in., She has now had a small bowel movement, and she did pass some gas feels better overall. Continues to be under good control. - Constitutional Vitals: Abnormal lab results RBC 3.53 M/mcL (3.82-4.97) L 01/12/17 04:12 Hgb 11.0 g/dL (11.5-15.4) L 01/12/17 04:12 Hct 32.7 % (35.3-44.9) L 01/12/17 04:12 Lymphocytes # 0.5 K/mcL (0.6-4.6) L 01/12/17 04:12 Potassium 3.2 mEq/L (3.5-4.5) L 01/12/17 04:12 Glucose 109 mg/dL (70-99) H 01/12/17 04:12 POC Glucose 101 (58-89) H 01/12/17 05:10 Calcium 8.2 mg/dL (8.6-10.8) L 01/12/17 04:12 Albumin 2.4 g/dL (3.5-5.0) L 01/12/17 04:12 Globulin 4.4 g/dL (2.4-3.5) H 01/12/17 04:12 Albumin/Globulin Ratio 0.5 (1.1-2.2) L 01/12/17 04:12 General appearance: Present: no acute distress - Head Head exam: Present: atraumatic, normal inspection - Eye Eye exam: Present: normal appearance - ENT ENT exam: Present: mucous membranes moist - Neck Neck exam: Present: normal inspection - Respiratory Respiratory exam: Present: CTAB - Cardiovascular Cardiovascular exam: Present: RRR - GI/Abdominal GI/Abdominal exam: Present: distended (Now sounds a little bit better than yesterday.), hypoactive bowel sounds, soft. Absent: tenderness - Extremities Exam Extremities exam: Present: pedal edema (Puffy). Absent: normal inspection - Neurological Exam Neurological exam: Present: alert, oriented X3 - Psychiatric Psychiatric exam: Absent: agitated, anxious - Skin Skin exam: Present: dry, warm Palliative Quality Palliative Quality: Screen for Code Status: Yes, Screen for Goals of Care: Yes, Screen for Pain: Yes, If Pain Regimen Started, Initiate Bowel Regimen: Yes, Screen for Nausea/Vomitting: Yes - Labs CBC & Chem 7: 01/12/17 04:12 01/12/17 04:12 Labs: Laboratory Results - last 24 hr 01/11/17 01/11/17 01/12/17 12:00 17:35 00:47 WBC RBC Hgb Hct MCV MCH MCHC RDW Plt Count MPV Immature Gran % Seg Neutrophils % Lymphocytes % Monocytes % Eosinophils % Basophils % Neutrophils # Lymphocytes # Monocytes # Eosinophils # Basophils # Immature Plt Fraction Sodium Potassium Chloride Carbon Dioxide BUN Creatinine Est GFR ( Amer) Est GFR (Non-Af Amer) BUN/Creatinine Ratio Glucose POC Glucose 78 77 63 Calculated Osmolality Calcium Total Bilirubin AST ALT Alkaline Phosphatase Serum Total Protein Albumin Globulin Albumin/Globulin Ratio 01/12/17 01/12/17 01/12/17 01:27 04:12 04:12 WBC 5.9 RBC 3.53 L Hgb 11.0 L Hct 32.7 L MCV 92.6 MCH 31.2 MCHC 33.6 RDW 14.0 Plt Count 164 MPV 9.5 Immature Gran % 0.3 Seg Neutrophils % 80.6 Lymphocytes % 7.8 Monocytes % 10.6 Eosinophils % 0.5 Basophils % 0.2 Neutrophils # 4.8 Lymphocytes # 0.5 L Monocytes # 0.6 Eosinophils # 0.0 Basophils # 0.0 Immature Plt Fraction 2.2 Sodium 137 Potassium 3.2 L Chloride 101 Carbon Dioxide 24 BUN 15 Creatinine 0.75 Est GFR ( Amer) > 60 Est GFR (Non-Af Amer) > 60 BUN/Creatinine Ratio 20 Glucose 109 H POC Glucose 104 H Calculated Osmolality 285 Calcium 8.2 L Total Bilirubin 1.0 AST 14 ALT 17 Alkaline Phosphatase 54 Serum Total Protein 6.8 Albumin 2.4 L Globulin 4.4 H Albumin/Globulin Ratio 0.5 L 01/12/17 05:10 WBC RBC Hgb Hct MCV MCH MCHC RDW Plt Count MPV Immature Gran % Seg Neutrophils % Lymphocytes % Monocytes % Eosinophils % Basophils % Neutrophils # Lymphocytes # Monocytes # Eosinophils # Basophils # Immature Plt Fraction Sodium Potassium Chloride Carbon Dioxide BUN Creatinine Est GFR ( Amer) Est GFR (Non-Af Amer) BUN/Creatinine Ratio Glucose POC Glucose 101 H Calculated Osmolality Calcium Total Bilirubin AST ALT Alkaline Phosphatase Serum Total Protein Albumin Globulin Albumin/Globulin Ratio Consult Discharge Plan - Plan Referrals: Avni Bean MD [Primary Care Provider] - 01/20/17 9:00 am
[2017-01-12] MEDS ORDERED: Milk and Molasses Enema 200 ML RC ONE ×2 (14:37→20:00)
--- NOTE | 2017-01-12 14:41 | General Surgery Progress Note ---
Date of Encounter: 01/12/17 Time of Encounter: 14:30 - Assessment and Plan (1) Constipation Current Visit: No Status: Chronic NG tube to LIWS NPO except ice chips IV fluids Milk and Molasses enema X 2 today (repeat, patient had minimal results with 1 enema given 01/11/17) Will give prep from above in the next 24-48 hours (after passing stool from below with enemas) No evidence of obstruction- no surgical intervention indicated at this time Will continue to follow and assess progress Qualifiers: Constipation type: unspecified constipation type Qualified Code(s): K59.00 - Constipation, unspecified (2) Obstipation Current Visit: Yes Status: Acute NG tube to LIWS NPO except ice chips IV fluids Milk and Molasses enema X 2 today (repeat) Will give prep from above in the next 24-48 hours (after passing stool from below with enemas) No evidence of obstruction- no surgical intervention indicated at this time Will continue to follow and assess progress (3) Multiple myeloma Current Visit: No Status: Chronic Oncology following Palliative following along for pain control recommendations Qualifiers: Multiple myeloma remission status: not in remission Qualified Code(s): C90.00 - Multiple myeloma not having achieved remission Subjective Patient reports: no new complaints, still having pain, pain is less, flatus, bowel movement (small, loose and brown after enema yesterday; patient states that she was only given 1 enema yesterday), afebrile Objective Vital Signs - Last 8 Hours Temp Pulse Resp BP Pulse Ox 01/12/17 13:31 97.9 F 70 18 178/100 96 01/12/17 11:00 98.6 F 74 17 153/61 95 01/12/17 07:55 98.7 F 77 17 154/58 95 01/12/17 07:30 98.3 F 78 18 148/66 95 Intake and Output 01/11/17 01/12/17 01/12/17 23:59 07:59 15:59 Intake Total 1000 / 1000 652 / 652 0 / 0 Output Total 1510 / 1510 750 / 750 200 / 200 Balance -510 / -510 -98 / -98 -200 / -200 Intake: IV Fluids 1000 / 1000 652 / 652 0.9 % Sodium Chloride 1, 1000 / 1000 652 / 652 000 ML @ 125 mls/hr IVC . Q8H [facility] Rx#:[id number] Oral 0 / 0 0 / 0 Output: Catheter 535 / 535 500 / 500 100 / 100 Gastric Drainage 975 / 975 250 / 250 100 / 100 Left Nare 500 / 500 Other: Meal NPO Percent of Meal Consumed 0% Stool Size Small Stool Consistency loose soft Stool Color Brown # Bowel Movements 1 Weight 96.3 kg Blood Glucose* 77 101 135 Patient Weight 01/12/17 23:59 Weight 96.3 kg - General physical appearance well developed, well nourished, no distress - Eyes normal ocular movement - ENT normal mucosa, atraumatic, normocephalic - Neck Neck exam: trachea midline - Respiratory normal respiratory effort, clear to auscultation - Cardiovascular Cardiovascular exam: Present: RRR - Abdomen Abdomen: Present: bowel sounds present, soft, tender (minimal), wound (NG tube to LIWS with minimal gastric drainage noted (350ml since midnight)) - Genitourinary other (rainey catheter to SD with clear, yellow urine noted) - Neurologic CN 2-12 grossly intact - Psychiatric oriented to time, oriented to person, oriented to place, speech is normal, memory intact - Labs 01/12/17 04:12 01/12/17 04:12 Diabetes panel 01/12/17 Range/Units 04:12 Sodium 137 (136-145) mEq/L Potassium 3.2 L (3.5-4.5) mEq/L Chloride 101 (98-109) mEq/L Carbon Dioxide 24 (19-29) mEq/L BUN 15 (7-20) mg/dL Creatinine 0.75 (0.57-1.11) mg/dL Glucose 109 H (70-99) mg/dL Calcium 8.2 L (8.6-10.8) mg/dL AST 14 (5-34) Units/L ALT 17 (0-55) Units/L Alkaline Phosphatase 54 (38-126) Units/L Albumin 2.4 L (3.5-5.0) g/dL Calcium panel 01/12/17 Range/Units 04:12 Calcium 8.2 L (8.6-10.8) mg/dL Albumin 2.4 L (3.5-5.0) g/dL Pituitary panel 01/12/17 Range/Units 04:12 Sodium 137 (136-145) mEq/L Potassium 3.2 L (3.5-4.5) mEq/L Chloride 101 (98-109) mEq/L Carbon Dioxide 24 (19-29) mEq/L BUN 15 (7-20) mg/dL Creatinine 0.75 (0.57-1.11) mg/dL Glucose 109 H (70-99) mg/dL Calcium 8.2 L (8.6-10.8) mg/dL Adrenal panel 01/12/17 Range/Units 04:12 Sodium 137 (136-145) mEq/L Potassium 3.2 L (3.5-4.5) mEq/L Chloride 101 (98-109) mEq/L Carbon Dioxide 24 (19-29) mEq/L BUN 15 (7-20) mg/dL Creatinine 0.75 (0.57-1.11) mg/dL Glucose 109 H (70-99) mg/dL Calcium 8.2 L (8.6-10.8) mg/dL Total Bilirubin 1.0 (0.2-1.2) mg/dL AST 14 (5-34) Units/L ALT 17 (0-55) Units/L Alkaline Phosphatase 54 (38-126) Units/L Albumin 2.4 L (3.5-5.0) g/dL Consult Discharge Plan - Plan Referrals: Avni Bean MD [Primary Care Provider] - 01/20/17 9:00 am - Attending Attestation I examined this patient and my medical decision-making was reviewed with the [employer]/PA/Advanced Practice Nurse/Resident Physician. I agree with the documented findings, disposition and treatment plan as described except to the extent set forth below.
--- NOTE | 2017-01-12 18:08 | Internal Med Progress Note ---
Date of Encounter: 01/12/17 Time of Encounter: 18:05 - Assessment and plan (1) Paralytic ileus Current Visit: Yes Status: Acute Assessment and plan: Patient was admitted with paralytic ileus which seems to be resolving now as she is has started having bowel tones and had small amount of stools. If okay with surgery will remove NG tube and try liquids (2) Multiple myeloma Current Visit: No Status: Chronic Assessment and plan: as managed by oncology Qualifiers: Multiple myeloma remission status: not in remission Qualified Code(s): C90.00 - Multiple myeloma not having achieved remission (3) Small bowel obstruction Current Visit: No Status: Acute Assessment and plan: Patient has developed some nausea and vomiting there for abdominal film was done which showed some air-fluid levels surgery was consulted. Surgery does not think that patient has obstruction though she has serious constipation and ileus. Surgery has started patient on bowel enema. (4) Hypertension Current Visit: Yes Status: Chronic Assessment and plan: her blood pressure has been running qu. Since she cannot take oral medicines and we willswitch her to IV hydralazine when necess Qualifiers: Hypertension type: essential hypertension Qualified Code(s): I10 - Essential (primary) hypertension - Subjective Interval history: Patient is a 61-year-old female with multiple myeloma. She she has been on oxycodone Contin oxycodone and morphine at home for pain control. She is being admitted for ileus which is suspected to be secondary to heavy dose of narcotic use. Oncology and palliative care has been consulted. She has been given an enema and Relistor without much success. Patient indicates that her belly size has increased therefore I obtained an abdominal film today which showed small bowel distention with air-fluid level. Also on examination belly feels quite firm. We will involve general surgery involve general surgery in her case. It was noted that her OxyContin has been increased and I think we need to look into some non-opiate related pain management at this point as otherwise Relistor will not work. However I have asked nursing staff to give him another dose of Relistor. I would hold on enema until surgery sees the patient. 01/12 patient seems quite comfortable. Her symptoms have resolved and abdominal pain also has gone. She is not complaining of back pain either. On examination with noted some bowel tones. I have encouraged her to ambulate and we will take out the NG tube and start clear liquid if it is okay with surgery. Will repeat bowel enema if it is okay with surgery. - Constitutional Vitals: Temp Pulse Resp BP Pulse Ox 98.3 F 69 17 167/78 97 01/12/17 14:55 01/12/17 14:55 01/12/17 14:55 01/12/17 14:55 01/12/17 14:55 General appearance: Present: cooperative, A&O X 3, pleasant, obese, answers questions appropriately - Head Head exam: Present: atraumatic, normocephalic - Eye Eye exam: Present: PERRL, conjuntiva pink, sclera anicteric Pupils: Present: PERRL - Neck Neck exam general surgery: Present: supple, trachea midline. Absent: lymphadenopathy - Respiratory Respiratory exam: Present: CTAB. Absent: accessory muscle use, rales, rhonchi, wheezes - Cardiovascular Cardiovascular exam: Present: RRR, +S1, +S2. Absent: diastolic murmur, gallop, rubs, systolic murmur - GI/Abdominal GI/Abdominal exam: Present: soft, no peritoneal signs. Absent: distended, tenderness Additional comments: Abdominal soft less distended bowel sounds can be heard nowsignificant tenderness no palpable mass - Extremities Exam Extremities exam: Present: warm, radial pulses palpable and symetrical. Absent : calf tenderness, cyanotic, pedal edema - Neurological Exam Neurological exam: Present: CN II-XII intact, oriented X3, no focal deficits. Absent: pronater drift, facial droop, speech deficit - Skin Skin exam: Present: dry, intact Internal Medicine: Result - Labs CBC & Chem 7: 01/12/17 04:12 01/12/17 04:12 Labs: Short CBC 01/12/17 Range/Units 04:12 WBC 5.9 (4.3-11.1) K/mcL Hgb 11.0 L (11.5-15.4) g/dL Hct 32.7 L (35.3-44.9) % Plt Count 164 (140-400) K/mcL Neutrophils # 4.8 (1.6-8.9) K/mcL BMP 01/12/17 04:12 Sodium 137 Potassium 3.2 L Chloride 101 Carbon Dioxide 24 BUN 15 Creatinine 0.75 Glucose 109 H Calcium 8.2 L Liver Function 01/12/17 Range/Units 04:12 Total Bilirubin 1.0 (0.2-1.2) mg/dL AST 14 (5-34) Units/L ALT 17 (0-55) Units/L Alkaline Phosphatase 54 (38-126) Units/L Albumin 2.4 L (3.5-5.0) g/dL Consult Discharge Plan - Plan Referrals: Avni Bean MD [Primary Care Provider] - 01/20/17 9:00 am
[2017-01-12] MEDS: Gabapentin 300 MG CAPSULE PO SCH (20:00)
[2017-01-12] MEDS: Ondansetron 4 MG/2 ML VIAL IVP PRN (20:21)
[2017-01-13] MEDS: Metoclopramide 10 MG/2 ML VIAL IVP SCH ×4 (00:09→17:50)
[2017-01-13] MEDS: D5% in 0.9% NACL 1,000 ML IVC SCH ×2 (01:54→12:30)
[2017-01-13] MEDS: *HR* Enoxaparin 40 MG/0.4 ML SYRINGE SQ SCH (05:12)
[2017-01-13 06:28] LABS: Basophils % 0.2 %; Eosinophils # 0.1 K/mcL (0.0-0.6); Eosinophils % 2.4 %; Hematocrit 33.8 % (35.3-44.9); Hemoglobin 11.4 g/dL (11.5-15.4); Immature Granulocytes % 0.3 % (0-4); Lymphocytes # 0.6 K/mcL (0.6-4.6); Lymphocytes % 10.4 %; Mean Corpuscular HGB Conc 33.7 g/dL (31.6-35.5); Mean Corpuscular Hemoglobin 31.6 pg (28.0-33.3); Mean Corpuscular Volume 93.6 fL (83.0-100.0); Mean Platelet Volume 9.8 fL (9.4-12.4); Monocytes # 0.7 K/mcL (0.0-1.3); Monocytes % 12.2 %; Neutrophils # 4.3 K/mcL (1.6-8.9); Platelet Count 151 K/mcL (140-400); Red Blood Count 3.61 M/mcL (3.82-4.97); Red Cell Distribution Width 14.4 % (11.5-14.5); Segmented Neutrophils % 74.5 %
[2017-01-13 06:44] LABS: Alanine Aminotransferase 17 Units/L (0-55); Albumin 2.4 g/dL (3.5-5.0); Albumin/Globulin Ratio 0.5 (1.1-2.2); Alkaline Phosphatase 58 Units/L (38-126); Aspartate Amino Transferase 15 Units/L (5-34); BUN/Creatinine Ratio 12 (6-26); Bilirubin,Total 0.6 mg/dL (0.2-1.2); Blood Urea Nitrogen 8 mg/dL (7-20); Calcium 8.1 mg/dL (8.6-10.8); Carbon Dioxide 22 mEq/L (19-29); Chloride 104 mEq/L (98-109); Globulin 4.6 g/dL (2.4-3.5); Glucose 100 mg/dL (70-99); Osmolality,Calculated 280 (280-300); Potassium 3.2 mEq/L (3.5-4.5); Sodium 136 mEq/L (136-145); eGFR For African Americans > 60 (> 60); eGFR For Non-African Americans > 60 (> 60)
--- NOTE | 2017-01-13 10:40 | Palliative Progress Note ---
Date of Encounter: 01/13/17 Time of Encounter: 10:30 - Assessment and plan (1) Cancer associated pain Current Visit: Yes Status: Acute Assessment and plan: Has been controlled with IV Hydromorphone while NPO and NG in. With the extent of her disease, I think it will be difficult to manage without her current dose of opioids. Her Oxycodone actually was increased with her last oncology visit. Recommend restarting at same dose prior to admission, as well as Gabapentin and Lidoderm patch. (2) Therapeutic opioid-induced constipation (OIC) Current Visit: Yes Status: Acute Assessment and plan: Patient states she was only taking Miralax daily at home. There is room to work with her bowel regimen. Could add Senokot 2 tabs bid along with Miralax, and possibly Lactulose on a PRN basis. Appears that Cancer Center is managing her palliatively. (3) Multiple myeloma Current Visit: No Status: Chronic Qualifiers: Multiple myeloma remission status: not in remission Qualified Code(s): C90.00 - Multiple myeloma not having achieved remission - Time Spent With Patient Total time spent is greater than 50% in coordination of care (as documented) at patient's floor/unit and/or counseling patient: 25 - 35 minutes - Subjective Interval history: Patient awake and alert, daughter and at bedside. States she has had 2 large BM's and is feeling much better. Denies pain at present. NG remains in and is clamped at this time. She is hoping to start on liquids today. In good spirits. - Constitutional Vitals: Abnormal lab results RBC 3.61 M/mcL (3.82-4.97) L 01/13/17 05:20 Hgb 11.4 g/dL (11.5-15.4) L 01/13/17 05:20 Hct 33.8 % (35.3-44.9) L 01/13/17 05:20 Potassium 3.2 mEq/L (3.5-4.5) L 01/13/17 05:20 Glucose 100 mg/dL (70-99) H 01/13/17 05:20 POC Glucose 110 (58-89) H 01/13/17 05:27 Calcium 8.1 mg/dL (8.6-10.8) L 01/13/17 05:20 Albumin 2.4 g/dL (3.5-5.0) L 01/13/17 05:20 Globulin 4.6 g/dL (2.4-3.5) H 01/13/17 05:20 Albumin/Globulin Ratio 0.5 (1.1-2.2) L 01/13/17 05:20 General appearance: Present: no acute distress - Respiratory Respiratory exam: Present: decreased breath sounds, CTAB - Cardiovascular Cardiovascular exam: Present: +S1, +S2 - GI/Abdominal GI/Abdominal exam: Present: diminished bowel sounds, soft - Extremities Exam Extremities exam: Present: normal capillary refill, normal inspection - Neurological Exam Neurological exam: Present: alert, oriented X3, strengths equal and symetr throughout - Skin Skin exam: Present: normal color, warm Palliative Quality Palliative Quality: Screen for Code Status: Yes, Screen for Goals of Care: Yes, Screen for Pain: Yes, If Pain Regimen Started, Initiate Bowel Regimen: Yes, Screen for Nausea/Vomitting: Yes - Labs CBC & Chem 7: 01/13/17 05:20 01/13/17 05:20 Labs: Laboratory Results - last 24 hr 01/12/17 01/12/17 01/12/17 11:33 16:53 23:38 WBC RBC Hgb Hct MCV MCH MCHC RDW Plt Count MPV Immature Gran % Seg Neutrophils % Lymphocytes % Monocytes % Eosinophils % Basophils % Neutrophils # Lymphocytes # Monocytes # Eosinophils # Basophils # Sodium Potassium Chloride Carbon Dioxide BUN Creatinine Est GFR ( Amer) Est GFR (Non-Af Amer) BUN/Creatinine Ratio Glucose POC Glucose 135 H 84 101 H Calculated Osmolality Calcium Total Bilirubin AST ALT Alkaline Phosphatase Serum Total Protein Albumin Globulin Albumin/Globulin Ratio 01/13/17 01/13/17 01/13/17 05:20 05:20 05:27 WBC 5.8 RBC 3.61 L Hgb 11.4 L Hct 33.8 L MCV 93.6 MCH 31.6 MCHC 33.7 RDW 14.4 Plt Count 151 MPV 9.8 Immature Gran % 0.3 Seg Neutrophils % 74.5 Lymphocytes % 10.4 Monocytes % 12.2 Eosinophils % 2.4 Basophils % 0.2 Neutrophils # 4.3 Lymphocytes # 0.6 Monocytes # 0.7 Eosinophils # 0.1 Basophils # 0.0 Sodium 136 Potassium 3.2 L Chloride 104 Carbon Dioxide 22 BUN 8 Creatinine 0.66 Est GFR ( Amer) > 60 Est GFR (Non-Af Amer) > 60 BUN/Creatinine Ratio 12 Glucose 100 H POC Glucose 110 H Calculated Osmolality 280 Calcium 8.1 L Total Bilirubin 0.6 AST 15 ALT 17 Alkaline Phosphatase 58 Serum Total Protein 7.0 Albumin 2.4 L Globulin 4.6 H Albumin/Globulin Ratio 0.5 L Consult Discharge Plan - Plan Referrals: Avni Bean MD [Primary Care Provider] - 01/20/17 9:00 am
[2017-01-13] MEDS: Levothyroxine Sodium 100 MCG VIAL IVP SCH (11:10)
[2017-01-13] MEDS: Losartan/HCTZ 50-12.5 TABLET PO SCH (11:12)
--- NOTE | 2017-01-13 13:27 | Oncology Inp Progress Note ---
Date of Encounter: 01/13/17 Time of Encounter: 11:50 (1) Multiple myeloma Current Visit: No Status: Chronic Assessment and plan: Ms. Grant has refractory multiple myeloma and has been resistant to pursuing further therapy. In the large scheme of things, hospice would be appropriate for this patient and I think there should be an ongoing conversation with the patient. I think she would be able to obtain better home health care with hospice. I appreciate palliative care input assistance in this difficult case. Pain appears adequately controlled. Qualifiers: Multiple myeloma remission status: not in remission Qualified Code(s): C90.00 - Multiple myeloma not having achieved remission (2) Ileus Current Visit: Yes Status: Acute Assessment and plan: She is moving her bowels and passing flatus. I discussed with nursing to try a trial of clamping the NG tube. Hopefully if she tolerates this well her NG tube can be removed in the short future. Defer management to the excellent care she has been receiving by the hospitalist team. Oncology: Subj Interval history: She is very tired and is quite somnolent. Awakens to voice and denies any pain currently. No nausea. NG tube in place and currently clamped. Has flatus and passing stool. Wants NG tube out. - Constitutional Vitals: Vital Signs Temp Pulse Resp BP Pulse Ox 01/13/17 11:45 98.4 F 73 18 168/105 98 01/13/17 09:57 171/83 01/13/17 07:15 98.4 F 79 20 174/83 98 01/13/17 05:31 98.0 F 72 15 175/91 96 01/12/17 23:44 99.8 F H 72 16 152/81 96 01/12/17 19:37 99.0 F 72 14 178/91 97 01/12/17 14:55 98.3 F 69 17 167/78 97 01/12/17 13:31 97.9 F 70 18 178/100 96 Intake and Output 01/13/17 01/13/17 01/13/17 00:59 08:59 16:59 Intake Total 0 / 0 1000 / 1000 950 / 950 Output Total 250 / 250 0 / 0 Balance -250 / -250 1000 / 1000 950 / 950 Intake: IV Fluids 1000 / 1000 950 / 950 D5% And 0.9% Nacl 1000 Ml 1000 / 1000 950 / 950 1,000 ML @ 100 mls/hr IVC .Q10H ED Rx#: [id number] Oral 0 / 0 0 / 0 Output: Urine 0 / 0 Catheter 250 / 250 0 / 0 Gastric Drainage 0 / 0 0 / 0 Other: Meal NPO dinner NPO Stool Size Large Large Stool Consistency soft soft formed Stool Characteristics Normal for Patient Normal for Patient Stool Color Brown Brown # Bowel Movements 1 1 Weight 96 kg Blood Glucose* 101 110 100 Patient Weight 01/14/17 00:59 Weight 96 kg - Head Head exam: Present: atraumatic, normal inspection, normocephalic - Eye Eye exam: Present: conjuntiva pink, sclera anicteric - ENT ENT exam: Present: mucous membranes moist - Neck Neck exam: Present: full ROM, normal inspection - Respiratory Respiratory exam: Present: CTAB - Cardiovascular Cardiovascular exam: Present: RRR - GI/Abdominal GI/Abdominal exam: Present: distended, firm, hypoactive bowel sounds - Extremities Exam Extremities exam: Present: pedal edema - Psychiatric Psychiatric exam: Present: normal mood Oncology: Obj Data - Labs CBC & Chem 7: 01/13/17 05:20 01/13/17 05:20 Labs: Laboratory Results - last 24 hr 01/12/17 01/12/17 01/13/17 16:53 23:38 05:20 WBC 5.8 RBC 3.61 L Hgb 11.4 L Hct 33.8 L MCV 93.6 MCH 31.6 MCHC 33.7 RDW 14.4 Plt Count 151 MPV 9.8 Immature Gran % 0.3 Seg Neutrophils % 74.5 Lymphocytes % 10.4 Monocytes % 12.2 Eosinophils % 2.4 Basophils % 0.2 Neutrophils # 4.3 Lymphocytes # 0.6 Monocytes # 0.7 Eosinophils # 0.1 Basophils # 0.0 Sodium Potassium Chloride Carbon Dioxide BUN Creatinine Est GFR ( Amer) Est GFR (Non-Af Amer) BUN/Creatinine Ratio Glucose POC Glucose 84 101 H Calculated Osmolality Calcium Total Bilirubin AST ALT Alkaline Phosphatase Serum Total Protein Albumin Globulin Albumin/Globulin Ratio 01/13/17 01/13/17 01/13/17 05:20 05:27 11:41 WBC RBC Hgb Hct MCV MCH MCHC RDW Plt Count MPV Immature Gran % Seg Neutrophils % Lymphocytes % Monocytes % Eosinophils % Basophils % Neutrophils # Lymphocytes # Monocytes # Eosinophils # Basophils # Sodium 136 Potassium 3.2 L Chloride 104 Carbon Dioxide 22 BUN 8 Creatinine 0.66 Est GFR ( Amer) > 60 Est GFR (Non-Af Amer) > 60 BUN/Creatinine Ratio 12 Glucose 100 H POC Glucose 110 H 100 H Calculated Osmolality 280 Calcium 8.1 L Total Bilirubin 0.6 AST 15 ALT 17 Alkaline Phosphatase 58 Serum Total Protein 7.0 Albumin 2.4 L Globulin 4.6 H Albumin/Globulin Ratio 0.5 L Consult Discharge Plan - Plan Referrals: Avni Bean MD [Primary Care Provider] - 01/20/17 9:00 am
[2017-01-13] MEDS ORDERED: Polyethylene Glycol 3350 255 GM POWDER PO ONE (14:52)
[2017-01-13] MEDS ORDERED: Milk and Molasses Enema 200 ML RC ONE ×2 (14:53→20:00)
--- NOTE | 2017-01-13 15:21 | General Surgery Progress Note ---
<[place],Kim Gurmeet - Last Filed: 01/13/17 15:22> Date of Encounter: 01/13/17 Time of Encounter: 15:00 - Assessment and Plan (1) Constipation Current Visit: No Status: Chronic NG tube to LIWS NPO except ice chips IV fluids Milk and Molasses enema X 2 today (repeat) Miralax and Gatorade bowel prep via NG tube No evidence of obstruction- no surgical intervention indicated at this time Will continue to follow and assess progress Qualifiers: Constipation type: unspecified constipation type Qualified Code(s): K59.00 - Constipation, unspecified (2) Obstipation Current Visit: Yes Status: Acute NG tube to LIWS NPO except ice chips IV fluids Milk and Molasses enema X 2 today (repeat) Miralax and Gatorade bowel prep via NG tube No evidence of obstruction- no surgical intervention indicated at this time Will continue to follow and assess progress (3) Multiple myeloma Current Visit: No Status: Chronic Oncology following Palliative following along for pain control recommendations Qualifiers: Multiple myeloma remission status: not in remission Qualified Code(s): C90.00 - Multiple myeloma not having achieved remission Subjective Patient reports: no new complaints, feels better, still having pain, pain is less, bowel movement (3 large bowel movements with enemas), afebrile Objective Vital Signs - Last 8 Hours Temp Pulse Resp BP Pulse Ox 01/13/17 14:10 97.9 F 77 18 160/80 96 01/13/17 11:45 98.4 F 73 18 168/105 98 01/13/17 09:57 171/83 Intake and Output 01/12/17 01/13/17 01/13/17 23:59 07:59 15:59 Intake Total 0 / 0 1000 / 1000 950 / 950 Output Total 250 / 250 0 / 0 200 / 200 Balance -250 / -250 1000 / 1000 750 / 750 Intake: IV Fluids 1000 / 1000 950 / 950 D5% And 0.9% Nacl 1000 Ml 1000 / 1000 950 / 950 1,000 ML @ 100 mls/hr IVC .Q10H [facility] Rx#: [id number] Oral 0 / 0 0 / 0 Output: Urine 0 / 0 200 / 200 Urethral (Macias) 200 / 200 Catheter 250 / 250 0 / 0 Gastric Drainage 0 / 0 0 / 0 Other: Meal NPO dinner npo Percent of Meal Consumed 0% Stool Size Large Large Stool Consistency soft soft formed Stool Characteristics Normal for Patient Normal for Patient Stool Color Brown Brown # Bowel Movements 1 1 Weight 96 kg Blood Glucose* 101 110 100 Patient Weight 01/13/17 23:59 Weight 96 kg - General physical appearance well developed, well nourished, chronically ill - Eyes normal ocular movement - ENT normal mucosa, atraumatic, normocephalic - Neck Neck exam: trachea midline - Respiratory normal respiratory effort, clear to auscultation - Cardiovascular Cardiovascular exam: Present: RRR - Abdomen Abdomen: Present: bowel sounds present, soft, non tender, wound (NG tube to LIWS with scant amount of drainage noted) - Neurologic CN 2-12 grossly intact - Psychiatric oriented to time, oriented to person, oriented to place, speech is normal, memory intact - Labs 01/13/17 05:20 01/13/17 05:20 Diabetes panel 01/13/17 Range/Units 05:20 Sodium 136 (136-145) mEq/L Potassium 3.2 L (3.5-4.5) mEq/L Chloride 104 (98-109) mEq/L Carbon Dioxide 22 (19-29) mEq/L BUN 8 (7-20) mg/dL Creatinine 0.66 (0.57-1.11) mg/dL Glucose 100 H (70-99) mg/dL Calcium 8.1 L (8.6-10.8) mg/dL AST 15 (5-34) Units/L ALT 17 (0-55) Units/L Alkaline Phosphatase 58 (38-126) Units/L Albumin 2.4 L (3.5-5.0) g/dL Calcium panel 01/13/17 Range/Units 05:20 Calcium 8.1 L (8.6-10.8) mg/dL Albumin 2.4 L (3.5-5.0) g/dL Pituitary panel 01/13/17 Range/Units 05:20 Sodium 136 (136-145) mEq/L Potassium 3.2 L (3.5-4.5) mEq/L Chloride 104 (98-109) mEq/L Carbon Dioxide 22 (19-29) mEq/L BUN 8 (7-20) mg/dL Creatinine 0.66 (0.57-1.11) mg/dL Glucose 100 H (70-99) mg/dL Calcium 8.1 L (8.6-10.8) mg/dL Adrenal panel 01/13/17 Range/Units 05:20 Sodium 136 (136-145) mEq/L Potassium 3.2 L (3.5-4.5) mEq/L Chloride 104 (98-109) mEq/L Carbon Dioxide 22 (19-29) mEq/L BUN 8 (7-20) mg/dL Creatinine 0.66 (0.57-1.11) mg/dL Glucose 100 H (70-99) mg/dL Calcium 8.1 L (8.6-10.8) mg/dL Total Bilirubin 0.6 (0.2-1.2) mg/dL AST 15 (5-34) Units/L ALT 17 (0-55) Units/L Alkaline Phosphatase 58 (38-126) Units/L Albumin 2.4 L (3.5-5.0) g/dL Consult Discharge Plan - Plan Referrals: Avni Bean MD [Primary Care Provider] - 01/20/17 9:00 am - Attending Attestation I examined this patient and my medical decision-making was reviewed with the RESIDENT MANAGER/PA/Advanced Practice Nurse/Resident Physician. I agree with the documented findings, disposition and treatment plan as described except to the extent set forth below. <Arnoldo Ribera - Last Filed: 01/13/17 15:45> Date of Encounter: 01/13/17 Objective Vital Signs - Last 8 Hours Temp Pulse Resp BP Pulse Ox 01/13/17 14:10 97.9 F 77 18 160/80 96 01/13/17 11:45 98.4 F 73 18 168/105 98 01/13/17 09:57 171/83 Intake and Output 01/12/17 01/13/17 01/13/17 23:59 07:59 15:59 Intake Total 0 / 0 1000 / 1000 950 / 950 Output Total 250 / 250 0 / 0 200 / 200 Balance -250 / -250 1000 / 1000 750 / 750 Intake: IV Fluids 1000 / 1000 950 / 950 D5% And 0.9% Nacl 1000 Ml 1000 / 1000 950 / 950 1,000 ML @ 100 mls/hr IVC .Q10H ED Rx#: [id number] Oral 0 / 0 0 / 0 Output: Urine 0 / 0 200 / 200 Urethral (Macias) 200 / 200 Catheter 250 / 250 0 / 0 Gastric Drainage 0 / 0 0 / 0 Other: Meal NPO dinner npo Percent of Meal Consumed 0% Stool Size Large Large Stool Consistency soft soft formed Stool Characteristics Normal for Patient Normal for Patient Stool Color Brown Brown # Bowel Movements 1 1 Weight 96 kg Blood Glucose* 101 110 100 Patient Weight 01/13/17 23:59 Weight 96 kg - Labs 01/13/17 05:20 01/13/17 05:20 Diabetes panel 01/13/17 Range/Units 05:20 Sodium 136 (136-145) mEq/L Potassium 3.2 L (3.5-4.5) mEq/L Chloride 104 (98-109) mEq/L Carbon Dioxide 22 (19-29) mEq/L BUN 8 (7-20) mg/dL Creatinine 0.66 (0.57-1.11) mg/dL Glucose 100 H (70-99) mg/dL Calcium 8.1 L (8.6-10.8) mg/dL AST 15 (5-34) Units/L ALT 17 (0-55) Units/L Alkaline Phosphatase 58 (38-126) Units/L Albumin 2.4 L (3.5-5.0) g/dL Calcium panel 01/13/17 Range/Units 05:20 Calcium 8.1 L (8.6-10.8) mg/dL Albumin 2.4 L (3.5-5.0) g/dL Pituitary panel 01/13/17 Range/Units 05:20 Sodium 136 (136-145) mEq/L Potassium 3.2 L (3.5-4.5) mEq/L Chloride 104 (98-109) mEq/L Carbon Dioxide 22 (19-29) mEq/L BUN 8 (7-20) mg/dL Creatinine 0.66 (0.57-1.11) mg/dL Glucose 100 H (70-99) mg/dL Calcium 8.1 L (8.6-10.8) mg/dL Adrenal panel 01/13/17 Range/Units 05:20 Sodium 136 (136-145) mEq/L Potassium 3.2 L (3.5-4.5) mEq/L Chloride 104 (98-109) mEq/L Carbon Dioxide 22 (19-29) mEq/L BUN 8 (7-20) mg/dL Creatinine 0.66 (0.57-1.11) mg/dL Glucose 100 H (70-99) mg/dL Calcium 8.1 L (8.6-10.8) mg/dL Total Bilirubin 0.6 (0.2-1.2) mg/dL AST 15 (5-34) Units/L ALT 17 (0-55) Units/L Alkaline Phosphatase 58 (38-126) Units/L Albumin 2.4 L (3.5-5.0) g/dL - Attending Attestation I reviewed the above assessment and evaluation. Patient has positive bowel movements 3. No abdominal pain on examination. Will continue with local molasses enema and add MiraLAX/Gatorade through the NG tube. Once patient has additional bowel movement and will likely DC NG tube. Dr. Arevalo to cover the surgery service this weekend.
[2017-01-13] MEDS ORDERED: Potassium Chloride 40 MEQ, Lidocaine 1% 2 ML in D5% in Water 500 ML IVPB ONE (17:08)
--- NOTE | 2017-01-13 17:11 | Internal Med Progress Note ---
Date of Encounter: 01/13/17 Time of Encounter: 17:09 - Assessment and plan (1) Paralytic ileus Current Visit: Yes Status: Acute (2) Multiple myeloma Current Visit: No Status: Chronic Qualifiers: Multiple myeloma remission status: not in remission Qualified Code(s): C90.00 - Multiple myeloma not having achieved remission (3) Small bowel obstruction Current Visit: No Status: Acute (4) Hypertension Current Visit: Yes Status: Chronic Qualifiers: Hypertension type: essential hypertension Qualified Code(s): I10 - Essential (primary) hypertension - Subjective Interval history: Patient is a 61-year-old female with multiple myeloma. She she has been on oxycodone Contin oxycodone and morphine at home for pain control. She is being admitted for ileus which is suspected to be secondary to heavy dose of narcotic use. Oncology and palliative care has been consulted. She has been given an enema and Relistor without much success. Patient indicates that her belly size has increased therefore I obtained an abdominal film today which showed small bowel distention with air-fluid level. Also on examination belly feels quite firm. We will involve general surgery involve general surgery in her case. It was noted that her OxyContin has been increased and I think we need to look into some non-opiate related pain management at this point as otherwise Relistor will not work. However I have asked nursing staff to give him another dose of Relistor. I would hold on enema until surgery sees the patient. 01/12 patient seems quite comfortable. Her symptoms have resolved and abdominal pain also has gone. She is not complaining of back pain either. On examination with noted some bowel tones. I have encouraged her to ambulate and we will take out the NG tube and start clear liquid if it is okay with surgery. Will repeat bowel enema if it is okay with surgery. 01/13 patient had a large bowel movement. Her bowel tones are still sluggish and she has an NG tube. We will have restarted on clear liquids and will continue bowel enema to clean. NG tube was on intermittent suction. Case discussed with oncology. Patient is eager to eat and want to wants to get rid of NG tube - Constitutional Vitals: Temp Pulse Resp BP Pulse Ox 97.9 F 77 18 160/80 96 01/13/17 14:10 01/13/17 14:10 01/13/17 14:10 01/13/17 14:10 01/13/17 14:10 General appearance: Present: cooperative, A&O X 3, pleasant, obese, answers questions appropriately - Head Head exam: Present: atraumatic, normocephalic - Eye Eye exam: Present: PERRL, conjuntiva pink, sclera anicteric Pupils: Present: PERRL - Neck Neck exam general surgery: Present: supple, trachea midline. Absent: lymphadenopathy - Respiratory Respiratory exam: Present: CTAB. Absent: accessory muscle use, rales, rhonchi, wheezes - Cardiovascular Cardiovascular exam: Present: RRR, +S1, +S2. Absent: diastolic murmur, gallop, rubs, systolic murmur - GI/Abdominal GI/Abdominal exam: Present: diminished bowel sounds, distended, soft, no peritoneal signs. Absent: tenderness - Extremities Exam Extremities exam: Present: warm, radial pulses palpable and symetrical. Absent : calf tenderness, cyanotic, pedal edema - Neurological Exam Neurological exam: Present: CN II-XII intact, oriented X3, no focal deficits. Absent: pronater drift, facial droop, speech deficit - Skin Skin exam: Present: dry, intact Internal Medicine: Result - Labs CBC & Chem 7: 01/13/17 05:20 01/13/17 05:20 Labs: Short CBC 01/13/17 Range/Units 05:20 WBC 5.8 (4.3-11.1) K/mcL Hgb 11.4 L (11.5-15.4) g/dL Hct 33.8 L (35.3-44.9) % Plt Count 151 (140-400) K/mcL Neutrophils # 4.3 (1.6-8.9) K/mcL BMP 01/13/17 05:20 Sodium 136 Potassium 3.2 L Chloride 104 Carbon Dioxide 22 BUN 8 Creatinine 0.66 Glucose 100 H Calcium 8.1 L Liver Function 01/13/17 Range/Units 05:20 Total Bilirubin 0.6 (0.2-1.2) mg/dL AST 15 (5-34) Units/L ALT 17 (0-55) Units/L Alkaline Phosphatase 58 (38-126) Units/L Albumin 2.4 L (3.5-5.0) g/dL Consult Discharge Plan - Plan Referrals: Avni Bean MD [Primary Care Provider] - 01/20/17 9:00 am
[2017-01-13] MEDS: Gabapentin 300 MG CAPSULE PO SCH (20:43)
[2017-01-13] MEDS: *HR* HYDROmorphone (PF) 1 MG/ML SYRINGE IVP PRN (22:36)
[2017-01-14] MEDS: Metoclopramide 10 MG/2 ML VIAL IVP SCH ×5 (00:15→23:31)
[2017-01-14] MEDS: *HR* HYDROmorphone (PF) 1 MG/ML SYRINGE IVP PRN ×2 (01:59→21:25)
[2017-01-14] MEDS ORDERED: Ketorolac 15 MG/ML VIAL IVP ONE (04:26)
[2017-01-14] MEDS: D5% in 0.9% NACL 1,000 ML IVC SCH ×2 (04:48→21:07)
[2017-01-14] MEDS: *HR* Enoxaparin 40 MG/0.4 ML SYRINGE SQ SCH (04:59)
[2017-01-14 05:21] LABS: Basophils % 0.2 %; Eosinophils # 0.2 K/mcL (0.0-0.6); Eosinophils % 3.3 %; Hematocrit 34.3 % (35.3-44.9); Hemoglobin 11.5 g/dL (11.5-15.4); Immature Granulocytes % 0.7 % (0-4); Lymphocytes # 0.4 K/mcL (0.6-4.6); Lymphocytes % 6.2 %; Mean Corpuscular HGB Conc 33.5 g/dL (31.6-35.5); Mean Corpuscular Hemoglobin 31.5 pg (28.0-33.3); Mean Platelet Volume 9.4 fL (9.4-12.4); Monocytes # 0.7 K/mcL (0.0-1.3); Monocytes % 10.7 %; Neutrophils # 4.8 K/mcL (1.6-8.9); Platelet Count 157 K/mcL (140-400); Red Blood Count 3.65 M/mcL (3.82-4.97); Red Cell Distribution Width 14.7 % (11.5-14.5); Segmented Neutrophils % 78.9 %
[2017-01-14 05:41] LABS: Alanine Aminotransferase 14 Units/L (0-55); Albumin 2.4 g/dL (3.5-5.0); Albumin/Globulin Ratio 0.6 (1.1-2.2); Alkaline Phosphatase 51 Units/L (38-126); Aspartate Amino Transferase 12 Units/L (5-34); BUN/Creatinine Ratio 7 (6-26); Bilirubin,Total 0.6 mg/dL (0.2-1.2); Calcium 7.9 mg/dL (8.6-10.8); Carbon Dioxide 23 mEq/L (19-29); Chloride 103 mEq/L (98-109); Globulin 4.3 g/dL (2.4-3.5); Glucose 116 mg/dL (70-99); Osmolality,Calculated 278 (280-300); Sodium 135 mEq/L (136-145); Total Protein 6.7 g/dL (6.0-8.3); eGFR For African Americans > 60 (> 60); eGFR For Non-African Americans > 60 (> 60)
[2017-01-14 05:54] LABS: Blood Urea Nitrogen 5 mg/dL (7-20)
[2017-01-14] MEDS: Losartan/HCTZ 50-12.5 TABLET PO SCH (09:20)
[2017-01-14] MEDS: Levothyroxine Sodium 100 MCG VIAL IVP SCH (09:20)
[2017-01-14] MEDS ORDERED: Potassium Chloride 40 MEQ, Lidocaine 1% 2 ML in D5% in Water 500 ML IVPB ONE (09:37)
--- NOTE | 2017-01-14 18:03 | Internal Med Progress Note ---
Date of Encounter: 01/14/17 Time of Encounter: 18:01 - Assessment and plan (1) Paralytic ileus Current Visit: Yes Status: Acute (2) Multiple myeloma Current Visit: No Status: Chronic Qualifiers: Multiple myeloma remission status: not in remission Qualified Code(s): C90.00 - Multiple myeloma not having achieved remission (3) Small bowel obstruction Current Visit: No Status: Acute (4) Hypertension Current Visit: Yes Status: Chronic Qualifiers: Hypertension type: essential hypertension Qualified Code(s): I10 - Essential (primary) hypertension - Subjective Interval history: Patient is a 61-year-old female with multiple myeloma. She she has been on oxycodone Contin oxycodone and morphine at home for pain control. She is being admitted for ileus which is suspected to be secondary to heavy dose of narcotic use. Oncology and palliative care has been consulted. She has been given an enema and Relistor without much success. Patient indicates that her belly size has increased therefore I obtained an abdominal film today which showed small bowel distention with air-fluid level. Also on examination belly feels quite firm. We will involve general surgery involve general surgery in her case. It was noted that her OxyContin has been increased and I think we need to look into some non-opiate related pain management at this point as otherwise Relistor will not work. However I have asked nursing staff to give him another dose of Relistor. I would hold on enema until surgery sees the patient. 01/12 patient seems quite comfortable. Her symptoms have resolved and abdominal pain also has gone. She is not complaining of back pain either. On examination with noted some bowel tones. I have encouraged her to ambulate and we will take out the NG tube and start clear liquid if it is okay with surgery. Will repeat bowel enema if it is okay with surgery. 01/13 patient had a large bowel movement. Her bowel tones are still sluggish and she has an NG tube. We will have restarted on clear liquids and will continue bowel enema to clean. NG tube was on intermittent suction. Case discussed with oncology. Patient is eager to eat and want to wants to get rid of NG tube 01/14 patient had bowel movement. However on exam bowel tones are weak. I will upgrade of diet to full liquids and if she tolerates we will pull out the NG tube. Potassium is running low and 40 mg given - Constitutional Vitals: Temp Pulse Resp BP Pulse Ox 99.8 F H 16 97 165/97 98 01/14/17 15:44 01/14/17 15:44 01/14/17 15:44 01/14/17 15:44 01/14/17 11:35 General appearance: Present: cooperative, A&O X 3, pleasant, obese, answers questions appropriately - Head Head exam: Present: atraumatic, normocephalic - Eye Eye exam: Present: PERRL, conjuntiva pink, sclera anicteric Pupils: Present: PERRL - Neck Neck exam general surgery: Present: supple, trachea midline. Absent: lymphadenopathy - Respiratory Respiratory exam: Present: CTAB. Absent: accessory muscle use, rales, rhonchi, wheezes - Cardiovascular Cardiovascular exam: Present: RRR, +S1, +S2. Absent: diastolic murmur, gallop, rubs, systolic murmur - GI/Abdominal GI/Abdominal exam: Present: diminished bowel sounds, soft, no peritoneal signs. Absent: distended, tenderness - Extremities Exam Extremities exam: Present: warm, radial pulses palpable and symetrical. Absent : calf tenderness, cyanotic, pedal edema - Neurological Exam Neurological exam: Present: CN II-XII intact, oriented X3, no focal deficits. Absent: pronater drift, facial droop, speech deficit - Skin Skin exam: Present: dry, intact Internal Medicine: Result - Labs CBC & Chem 7: 01/14/17 05:10 01/14/17 05:10 Labs: Short CBC 01/14/17 Range/Units 05:10 WBC 6.1 (4.3-11.1) K/mcL Hgb 11.5 (11.5-15.4) g/dL Hct 34.3 L (35.3-44.9) % Plt Count 157 (140-400) K/mcL Neutrophils # 4.8 (1.6-8.9) K/mcL BMP 01/14/17 05:10 Sodium 135 L Potassium 3.0 L Chloride 103 Carbon Dioxide 23 BUN 5 L Creatinine 0.67 Glucose 116 H Calcium 7.9 L Liver Function 01/14/17 Range/Units 05:10 Total Bilirubin 0.6 (0.2-1.2) mg/dL AST 12 (5-34) Units/L ALT 14 (0-55) Units/L Alkaline Phosphatase 51 (38-126) Units/L Albumin 2.4 L (3.5-5.0) g/dL - Impressions Impressions KUB X-Ray 01/14/17 02:11 IMPRESSION: Enteric tube not seen. Distended loops of small bowel suggesting ileus for low grade partial small bowel obstruction. D/ / Marvin Christy MD / Marvin Christy MD Interpreting Provider: Marvin Christy MD Consult Discharge Plan - Plan Referrals: Avni Bean MD [Primary Care Provider] - 01/20/17 9:00 am
[2017-01-14] MEDS: Potassium Chloride Elixir 20 MEQ/15 ML UDC PO SCH (18:23)
[2017-01-14] MEDS: Gabapentin 300 MG CAPSULE PO SCH (21:06)
[2017-01-15 04:37] LABS: Eosinophils # 0.3 K/mcL (0.0-0.6); Eosinophils % 5.8 %; Hematocrit 30.2 % (35.3-44.9); Hemoglobin 10.1 g/dL (11.5-15.4); Immature Granulocytes % 0.5 % (0-4); Lymphocytes # 0.4 K/mcL (0.6-4.6); Lymphocytes % 9.1 %; Mean Corpuscular HGB Conc 33.4 g/dL (31.6-35.5); Mean Corpuscular Hemoglobin 31.6 pg (28.0-33.3); Mean Corpuscular Volume 94.4 fL (83.0-100.0); Mean Platelet Volume 8.9 fL (9.4-12.4); Monocytes # 0.5 K/mcL (0.0-1.3); Monocytes % 11.9 %; Neutrophils # 3.1 K/mcL (1.6-8.9); Platelet Count 138 K/mcL (140-400); Red Cell Distribution Width 14.6 % (11.5-14.5); Segmented Neutrophils % 72.7 %
[2017-01-15 04:50] LABS: Alanine Aminotransferase 11 Units/L (0-55); Albumin 2.2 g/dL (3.5-5.0); Albumin/Globulin Ratio 0.6 (1.1-2.2); Alkaline Phosphatase 45 Units/L (38-126); Aspartate Amino Transferase 11 Units/L (5-34); BUN/Creatinine Ratio 5 (6-26); Bilirubin,Total 0.4 mg/dL (0.2-1.2); Calcium 7.7 mg/dL (8.6-10.8); Carbon Dioxide 24 mEq/L (19-29); Chloride 103 mEq/L (98-109); Globulin 3.9 g/dL (2.4-3.5); Glucose 101 mg/dL (70-99); Osmolality,Calculated 275 (280-300); Potassium 3.2 mEq/L (3.5-4.5); Sodium 134 mEq/L (136-145); Total Protein 6.1 g/dL (6.0-8.3); eGFR For African Americans > 60 (> 60); eGFR For Non-African Americans > 60 (> 60)
[2017-01-15 04:51] LABS: Blood Urea Nitrogen 3 mg/dL (7-20)
[2017-01-15] MEDS: *HR* Enoxaparin 40 MG/0.4 ML SYRINGE SQ SCH (05:15)
[2017-01-15] MEDS: Metoclopramide 10 MG/2 ML VIAL IVP SCH ×2 (05:15→12:07)
[2017-01-15] MEDS: D5% in 0.9% NACL 1,000 ML IVC SCH (07:29)
[2017-01-15] MEDS: Levothyroxine Sodium 100 MCG VIAL IVP SCH (08:47)
[2017-01-15] MEDS: Losartan/HCTZ 50-12.5 TABLET PO SCH (08:47)
[2017-01-15] MEDS: Potassium Chloride Elixir 20 MEQ/15 ML UDC PO SCH (08:47)
--- NOTE | 2017-01-15 09:15 | General Surgery Progress Note ---
Date of Encounter: 01/14/17 Time of Encounter: 13:15 - Assessment and Plan (1) Multiple myeloma Current Visit: No Status: Chronic Qualifiers: Multiple myeloma remission status: not in remission Qualified Code(s): C90.00 - Multiple myeloma not having achieved remission (2) Abdominal pain Current Visit: No Status: Resolved Her abdominal pain is resolved after 7 large bowel movements. The patient has narcotic-induced constipation. At this point we will sign off. Qualifiers: Abdominal location: generalized Qualified Code(s): R10.84 - Generalized abdominal pain Subjective Patient reports: feels better Objective Vital Signs - Last 8 Hours Temp Pulse Resp BP Pulse Ox 01/15/17 07:48 98.5 F 73 12 150/80 99 01/15/17 03:47 98.5 F 73 18 138/80 96 Intake and Output 01/14/17 01/15/17 01/15/17 23:59 07:59 15:59 Intake Total 1321 / 1321 1540 / 1540 Output Total 650 / 650 1150 / 1150 Balance 671 / 671 390 / 390 Intake: IV Fluids 1081 / 1081 1000 / 1000 D5% And 0.9% Nacl 1000 Ml 559 / 559 1000 / 1000 1,000 ML @ 100 mls/hr IVC .Q10H ED Rx#: [id number] KCl 40 MEQ Xylocaine 2 ML 522 / 522 In Dextrose 5% 500 ML @ 130.5 mls/hr IVPB ONCE ONE Rx#:[id number] Oral 240 / 240 540 / 540 Output: Catheter 650 / 650 1150 / 1150 Other: Meal Dinner Percent of Meal Consumed 70% Stool Size Moderate Stool Consistency loose Stool Characteristics Pasty Stool Color Brown # Bowel Movements 1 Weight 95.6 kg Patient Weight 01/15/17 23:59 Weight 95.6 kg - General physical appearance well nourished, no distress - Abdomen Abdomen: Present: bowel sounds present, soft, non tender - Neurologic CN 2-12 grossly intact - Labs 01/15/17 04:30 01/15/17 04:30 Diabetes panel 01/15/17 Range/Units 04:30 Sodium 134 L (136-145) mEq/L Potassium 3.2 L (3.5-4.5) mEq/L Chloride 103 (98-109) mEq/L Carbon Dioxide 24 (19-29) mEq/L BUN 3 L (7-20) mg/dL Creatinine 0.66 (0.57-1.11) mg/dL Glucose 101 H (70-99) mg/dL Calcium 7.7 L (8.6-10.8) mg/dL AST 11 (5-34) Units/L ALT 11 (0-55) Units/L Alkaline Phosphatase 45 (38-126) Units/L Albumin 2.2 L (3.5-5.0) g/dL Calcium panel 01/15/17 Range/Units 04:30 Calcium 7.7 L (8.6-10.8) mg/dL Albumin 2.2 L (3.5-5.0) g/dL Pituitary panel 01/15/17 Range/Units 04:30 Sodium 134 L (136-145) mEq/L Potassium 3.2 L (3.5-4.5) mEq/L Chloride 103 (98-109) mEq/L Carbon Dioxide 24 (19-29) mEq/L BUN 3 L (7-20) mg/dL Creatinine 0.66 (0.57-1.11) mg/dL Glucose 101 H (70-99) mg/dL Calcium 7.7 L (8.6-10.8) mg/dL Adrenal panel 01/15/17 Range/Units 04:30 Sodium 134 L (136-145) mEq/L Potassium 3.2 L (3.5-4.5) mEq/L Chloride 103 (98-109) mEq/L Carbon Dioxide 24 (19-29) mEq/L BUN 3 L (7-20) mg/dL Creatinine 0.66 (0.57-1.11) mg/dL Glucose 101 H (70-99) mg/dL Calcium 7.7 L (8.6-10.8) mg/dL Total Bilirubin 0.4 (0.2-1.2) mg/dL AST 11 (5-34) Units/L ALT 11 (0-55) Units/L Alkaline Phosphatase 45 (38-126) Units/L Albumin 2.2 L (3.5-5.0) g/dL Consult Discharge Plan - Plan Referrals: Avni Bean MD [Primary Care Provider] - 01/20/17 9:00 am
--- NOTE | 2017-01-15 11:18 | Palliative Progress Note ---
Date of Encounter: 01/15/17 Time of Encounter: 10:55 - Assessment and plan (1) Cancer associated pain Current Visit: Yes Status: Acute Assessment and plan: Recommended resuming MS Contin and Oxycodone as takes at home. If severe constipation continues to be an issue with increase in bowel regimen, she may need opioid rotation or possibly conversion to Methadone, which may alleviate the severe constipation. However, Would need provider agreeable to closely follow and monitor. (2) Therapeutic opioid-induced constipation (OIC) Current Visit: Yes Status: Acute Assessment and plan: She was only utilizing Miralax daily at home. Recommend adding Senokot 2 tabs bid, and having Lactulose PRN available at home for PRN use. I instructed her that if she went more than 2 days without a BM, she needed to contact provider. (3) Multiple myeloma Current Visit: No Status: Chronic Qualifiers: Multiple myeloma remission status: not in remission Qualified Code(s): C90.00 - Multiple myeloma not having achieved remission (4) Goals of care, counseling/discussion Current Visit: No Status: Acute Assessment and plan: Patient refuses hospice care and desires to continue care through Cancer center. I did discuss with her the option of [facility] palliative care to assist with monitor her symptoms and focusing on symptom management, states she would "keep that in mind", but desires no referral at this time. Encouraged her to continue to discuss this with Armando Mcwilliams with next cancer appt visit. - Time Spent With Patient Total time spent is greater than 50% in coordination of care (as documented) at patient's floor/unit and/or counseling patient: 25 - 35 minutes - Subjective Interval history: Patient awake and alert, son and at bedside. States she has had 7 large BM's and is feeling much better. NG out and ate soft foods this am. Hoping to be discharged later today. - Constitutional Vitals: Abnormal lab results RBC 3.20 M/mcL (3.82-4.97) L 01/15/17 04:30 Hgb 10.1 g/dL (11.5-15.4) L 01/15/17 04:30 Hct 30.2 % (35.3-44.9) L 01/15/17 04:30 RDW 14.6 % (11.5-14.5) H 01/15/17 04:30 Plt Count 138 K/mcL (140-400) L 01/15/17 04:30 MPV 8.9 fL (9.4-12.4) L 01/15/17 04:30 Lymphocytes # 0.4 K/mcL (0.6-4.6) L 01/15/17 04:30 Sodium 134 mEq/L (136-145) L 01/15/17 04:30 Potassium 3.2 mEq/L (3.5-4.5) L 01/15/17 04:30 BUN 3 mg/dL (7-20) L 01/15/17 04:30 BUN/Creatinine Ratio 5 (6-26) L 01/15/17 04:30 Glucose 101 mg/dL (70-99) H 01/15/17 04:30 POC Glucose 96 (58-89) H 01/14/17 11:30 Calculated Osmolality 275 (280-300) L 01/15/17 04:30 Calcium 7.7 mg/dL (8.6-10.8) L 01/15/17 04:30 Albumin 2.2 g/dL (3.5-5.0) L 01/15/17 04:30 Globulin 3.9 g/dL (2.4-3.5) H 01/15/17 04:30 Albumin/Globulin Ratio 0.6 (1.1-2.2) L 01/15/17 04:30 General appearance: Present: no acute distress - Respiratory Respiratory exam: Present: decreased breath sounds, CTAB - Cardiovascular Cardiovascular exam: Present: +S1, +S2 - GI/Abdominal GI/Abdominal exam: Present: diminished bowel sounds, soft - Additional comments: rainey with clear yellow urine - Extremities Exam Extremities exam: Present: normal capillary refill, normal inspection - Neurological Exam Neurological exam: Present: altered, oriented X3, strengths equal and symetr throughout - Psychiatric Psychiatric exam: Present: normal affect, normal mood - Skin Skin exam: Present: dry, normal color, warm Palliative Quality Palliative Quality: Screen for Code Status: Yes, Screen for Goals of Care: Yes, Screen for Pain: Yes, If Pain Regimen Started, Initiate Bowel Regimen: Yes, Screen for Nausea/Vomitting: Yes - Labs CBC & Chem 7: 01/15/17 04:30 01/15/17 04:30 Labs: Laboratory Results - last 24 hr 01/14/17 01/15/17 01/15/17 11:30 04:30 04:30 WBC 4.3 RBC 3.20 L Hgb 10.1 L Hct 30.2 L MCV 94.4 MCH 31.6 MCHC 33.4 RDW 14.6 H Plt Count 138 L MPV 8.9 L Immature Gran % 0.5 Seg Neutrophils % 72.7 Lymphocytes % 9.1 Monocytes % 11.9 Eosinophils % 5.8 Basophils % 0.0 Neutrophils # 3.1 Lymphocytes # 0.4 L Monocytes # 0.5 Eosinophils # 0.3 Basophils # 0.0 Sodium 134 L Potassium 3.2 L Chloride 103 Carbon Dioxide 24 BUN 3 L Creatinine 0.66 Est GFR ( Amer) > 60 Est GFR (Non-Af Amer) > 60 BUN/Creatinine Ratio 5 L Glucose 101 H POC Glucose 96 H Calculated Osmolality 275 L Calcium 7.7 L Total Bilirubin 0.4 AST 11 ALT 11 Alkaline Phosphatase 45 Serum Total Protein 6.1 Albumin 2.2 L Globulin 3.9 H Albumin/Globulin Ratio 0.6 L Consult Discharge Plan - Plan Referrals: Avni Bean MD [Primary Care Provider] - 01/20/17 9:00 am
[2017-01-15 11:34] VITALS: BP 153/80
[2017-01-15] MEDS ORDERED: Potassium Chloride Elixir 20 MEQ/15 ML UDC PO ONE (12:48)
--- NOTE | 2017-01-15 12:57 | Discharge Summary ---
Date of Encounter: 01/15/17 Time of Encounter: 12:52 - Discharge Diagnosis (1) Paralytic ileus Priority: Primary Status: Acute (2) Multiple myeloma Priority: Secondary Status: Chronic Qualifiers: Multiple myeloma remission status: not in remission Qualified Code(s): C90.00 - Multiple myeloma not having achieved remission (3) Hypertension Priority: Secondary Status: Chronic Qualifiers: Hypertension type: essential hypertension Qualified Code(s): I10 - Essential (primary) hypertension (4) Hypokalemia Priority: Secondary Status: Acute (5) Narcotic dependence Priority: Secondary Status: Acute - Discharge Medications Prescriptions: Docusate [Colace] 100 mg PO BID #60 capsule Gabapentin [Neurontin] 300 mg PO BID #60 capsule Lidocaine Patch [Lidoderm 5% patch] 1 each TP DAILY #30 adh..patch Home Medications: Levothyroxine Sodium [Synthroid] 75 mcg PO QAM 02/26/15 [History] Morphine Sulfate SR (12 HR) [MS Contin] 30 mg PO Q12HR #60 tablet.er 11/08/16 [ Rx] Polyethylene Glycol 3350 [MiraLAX Powder Bulk 17.9 Oz] 17 gm PO QPM 11/08/16 [ History] Cyclobenzaprine [Flexeril] 10 mg PO TID PRN #21 tablet 12/06/16 [Rx] Furosemide [Lasix] 20 mg PO DAILY PRN #30 tablet 01/03/17 [Rx] Oxycodone HCl 20 mg PO Q4H PRN #120 tab 01/03/17 [Rx] Losartan/Hydrochlorothiazide [Hyzaar 100-25 Tablet] 1 each PO DAILY 01/06/17 [ History] Menthol [Biofreeze] 1 appl TP BID PRN 01/06/17 [History] Docusate [Colace] 100 mg PO BID #60 capsule 01/15/17 [Rx] Gabapentin [Neurontin] 300 mg PO BID #60 capsule 01/15/17 [Rx] Lidocaine Patch [Lidoderm 5% patch] 1 each TP DAILY #30 adh..patch 01/15/17 [Rx] Allergies/Adverse Reactions: Allergies bacitracin Allergy (Verified 12/06/16 08:11) unknown carfilzomib Allergy (Verified 12/06/16 08:11) unknown celecoxib Allergy (Verified 12/06/16 08:11) unknown Corticosteroids (Glucocorticoids) Allergy (Verified 12/06/16 08:11) unknown dexamethasone Allergy (Verified 12/06/16 08:11) unknown fentanyl Allergy (Verified 12/06/16 08:11) Rash lenalidomide Allergy (Verified 12/06/16 08:11) unknown melphalan Allergy (Verified 12/06/16 08:11) unknown unknown Neomycin Allergy (Verified 12/06/16 08:11) unknown Penicillins [PCN] Allergy (Verified 12/06/16 08:11) unknown polymyxin B Allergy (Verified 12/06/16 08:11) unknown prednisone Allergy (Verified 12/06/16 08:11) unknown tape Allergy (Uncoded 12/06/16 08:11) unknown Date of admission: 01/09/17 15:55 Primary care physician: Avni Bean MD Consults: 01/10/17 17:44 Consult to Surgery [CONS] Routine Consulting Provider: Surgery [facility] Reason for Consult: Ileus with possible transformation into obstruction Time Notified: 17:49 Call Completed: Yes Discharging clinician: Lubna Myrick Anticipated date of discharge: 01/15/17 - Patient Status Disposition: Home, Self-Care Overall status at discharge: patient is progressing back to baseline - Discharge Instructions Follow Up With: Avni Bean MD [Primary Care Provider] - 01/20/17 9:00 am - Diet and Activity Activity: increase activity as tolerated Diet: advance to your usual diet Interval History: Patient is a 61-year-old female with multiple myeloma. She she has been on oxyContin, oxycodone when necessary and morphine at home for pain control. She is being admitted for ileus which is suspected to be secondary to heavy dose of narcotic use. Surgery, Oncology and palliative care were consulted. She was given multiple enemas and Relistor and after several attempts milk and molasses enema worked for her. Now patient seems quite comfortable. Her symptoms have resolved and abdominal pain also has gone. She is not complaining of back pain either. On examination the noted some bowel tones. I have encouraged her to ambulate and she is tolerating full diet. Hospital course: Ms. Royal is a 71 year old female - Time Spent with Patient Total time spent providing and/or coordinating discharge services: Greater than 30 minutes - Constitutional Vitals: Temp Pulse Resp BP Pulse Ox 98.8 F 76 16 153/80 98 01/15/17 11:34 01/15/17 11:34 01/15/17 11:34 01/15/17 11:34 01/15/17 11:34 General appearance: Present: cooperative, A&O X 3, pleasant, obese, answers questions appropriately - Head Head exam: Present: atraumatic, normocephalic - Eye Eye exam: Present: PERRL, conjuntiva pink, sclera anicteric Pupils: Present: PERRL - Neck Neck exam general surgery: Present: supple, trachea midline. Absent: lymphadenopathy - Respiratory Respiratory exam: Present: CTAB. Absent: accessory muscle use, rales, rhonchi, wheezes - Cardiovascular Cardiovascular exam: Present: RRR, +S1, +S2. Absent: diastolic murmur, gallop, rubs, systolic murmur - GI/Abdominal GI/Abdominal exam: Present: normal bowel sounds, soft, no peritoneal signs. Absent: distended, tenderness - Extremities Exam Extremities exam: Present: warm, radial pulses palpable and symetrical. Absent : calf tenderness, cyanotic, pedal edema - Neurological Exam Neurological exam: Present: CN II-XII intact, oriented X3, no focal deficits. Absent: pronater drift, facial droop, speech deficit - Skin Skin exam: Present: dry, intact
== END 2017-01-15 14:45 | disposition home or self-care (01) | DRG 389 ==
LOC: 3ANU 17:25 → EMEROO 17:25 → 3ANU 22:05
PROVIDERS: ADMIT Internal Medicine Endocrinology, Diabetes & Metabolism; ATTEND Internal Medicine Endocrinology, Diabetes & Metabolism

== ENCOUNTER 2017-03-22 17:43 | Observation (INO) ==
--- NOTE | 2017-03-22 19:50 | Emergency Department Note ---
Disposition Clinical Impression: Back pain Qualifiers: Back pain location: low back pain Chronicity: acute Back pain laterality: unspecified Sciatica presence: with sciatica Sciatica laterality: sciatica laterality unspecified Qualified Code(s): M54.40 - Lumbago with sciatica, unspecified side Disposition: Still a Patient Condition: Fair Referrals: Avni Bean MD [Primary Care Provider] - Forms: ED Satisfaction Letter Back Pain HPI - General Chief Complaint: ED Back Pain/Injury Stated Complaint: Lower Back Injury Time Seen by Provider: 03/22/17 19:46 Source: patient Mode of arrival: wheelchair Limitations: no limitations Nursing Notes Reviewed: Yes Vital Signs Reviewed: Yes - History of Present Illness HPI Narrative: 71-year-old with a history of multiple myeloma who comes in complaining of low back pain. She states she was unhooking a gait for her dog in the hallway then over twisted and felt a pop in her back she now has significant back pain some radiation of the right leg and says her right leg just doesn't feel right. This occurred 2 days ago and has gotten progressively worse. Denies bowel or bladder incontinence or retention type symptoms. Pt Subjective Complaint: back pain, back injury Onset (ago): day(s) Duration: constant (2), gradually worsening Location: lumbar spine Pain Severity: moderate Quality: aching Radiation: right leg Improves with: none Worsens with: movement Context: turning/twisting Associated symptoms: Denies: fever, chills - Related Data Home Medications Medication Instructions Recorded Confirmed Levothyroxine Sodium [Synthroid] 75 mcg PO QAM 02/26/15 03/07/17 Losartan/Hydrochlorothiazide 1 tab PO DAILY 01/06/17 03/07/17 [Hyzaar 100-25 Tablet] Menthol [Biofreeze] 1 appl TP BID PRN 01/06/17 03/07/17 Docusate [Colace] 100 mg PO BID PRN 03/07/17 03/07/17 Previous Rx's Medication Instructions Recorded Furosemide [Lasix] 20 mg PO DAILY PRN #30 tablet 01/03/17 Lactulose 20 gm PO BID PRN #400 ml 02/07/17 Sertraline [Zoloft] 25 mg PO DAILY #30 tablet 02/07/17 Chair, Shower [SHOWER CHAIR] 1 each .ROUTE DAILY #1 each 03/07/17 Morphine Sulfate SR (12 HR) [MS 30 mg PO Q12HR #60 tablet.er 03/07/17 Contin] Ondansetron [Zofran] 8 mg PO Q8HR PRN #90 tablet 03/07/17 Oxycodone HCl 20 mg PO Q4H PRN #120 tab 03/07/17 Allergies Allergy/AdvReac Type Severity Reaction Status Date / Time bacitracin Allergy unknown Verified 12/06/16 08:11 carfilzomib Allergy unknown Verified 12/06/16 08:11 celecoxib Allergy unknown Verified 12/06/16 08:11 Corticosteroids Allergy unknown Verified 12/06/16 08:11 (Glucocorticoids) dexamethasone Allergy unknown Verified 12/06/16 08:11 fentanyl Allergy Rash Verified 12/06/16 08:11 lenalidomide Allergy unknown Verified 12/06/16 08:11 melphalan Allergy unknown Verified 12/06/16 08:11 Neomycin Allergy unknown Verified 12/06/16 08:11 Penicillins [PCN] Allergy unknown Verified 12/06/16 08:11 polymyxin B Allergy unknown Verified 12/06/16 08:11 prednisone Allergy unknown Verified 12/06/16 08:11 tape Allergy unknown Uncoded 12/06/16 08:11 All systems ED: reviewed and negative except as stated. Constitutional: Denies: fever, chills, weakness, weight change Eyes: Denies: eye pain, eye discharge, vision change ENT ED: Denies: ear pain, throat pain, dental pain, hearing loss, epistaxis, congestion, dysphagia Cardiovascular: Denies: chest pain, palpitations, dyspnea on exertion, edema, syncope Respiratory: Denies: cough, dyspnea, wheezes, hemoptysis, stridor Gastrointestinal: Denies: abdominal pain, nausea, vomiting, diarrhea, constipation, hematemesis, melena, hematochezia Genitourinary: Denies: dysuria, frequency, hematuria, discharge Musculoskeletal: Reports: back pain. Denies: neck pain, arthralgia, myalgia Integumentary: Denies: rash, abrasion, lesions Neurological: Denies: headache, weakness, numbness, paresthesias, confusion, abnormal gait, vertigo Psychiatric: Denies: anxiety, depression, suicidal thoughts, homicidal thoughts , auditory hallucinations, visual hallucinations Endocrine: Denies: fatigue Hematological/Lymphatic: Denies: easy bleeding, easy bruising Allergic/Immunologic: Denies: facial swelling, urticaria Past Medical History - Past Medical History Medical history: Reports: asthma, cancer, coronary artery disease, diabetes, hyperlipidemia, hypertension, thyroid disease, other Surgical history: Reports: appendectomy, breast surgery (biopsy), cholecystectomy, hysterectomy, orthopedic, other (Right forearm bone grafting, left knee arthroscopic surgery, bilateral ankle repair surgeries), thyroidectomy , other (Resection of vocal cord nodules, tubal ligation, right temporal endarterectomy) Psychiatric history: Reports: no psych history RANCH HELPER history: Reports: no RANCH HELPER history - Social History Smoking Status: Former smoker Smokeless Tobacco Status: No Alcohol use: Reports: none Drug use: Reports: none Physical Exam - General General appearance: alert, in no apparent distress - Head Head exam: atraumatic, normocephalic, normal inspection - Eye Eye exam: Present: normal appearance, PERRL, EOMI - ENT ENT exam: normal exam, normal oropharynx, mucous membranes moist - Neck Neck exam: Present: normal inspection, full ROM, trachea midline - Chest Chest inspection: Present: normal inspection, symmetric chest wall rise - Respiratory Respiratory exam: Present: normal lung sounds bilaterally - Cardiovascular Cardiovascular exam: Present: regular rate, normal rhythm, normal heart sounds - Abdominal Exam Abdominal exam: Present: soft, Non-Tender. Absent: tenderness, distention, guarding, rebound, rigidity - Extremities Exam Extremities exam: Present: normal inspection - Expanded Lower Extremity Exam Neurovascular/Tendon exam: Absent: motor deficit, sensory deficit, tendon deficit Gait: not tested/not observed - Back Exam Back exam: Present: tenderness - Neurological Exam Neurological exam: Present: alert, oriented X3 - Psychiatric Psychiatric exam: Present: normal affect, normal mood - Skin Skin exam: Present: warm, dry, intact, normal color Course Vital Signs Temperature 98.8 F 03/22/17 18:56 Pulse Rate 65 03/22/17 18:56 Respiratory Rate 16 03/22/17 18:56 Blood Pressure 156/95 03/22/17 18:56 O2 Sat by Pulse Oximetry 97 03/22/17 18:56 Temperature 98.8 F 03/22/17 18:56 Pulse Rate 65 03/22/17 18:56 Respiratory Rate 16 03/22/17 18:56 Blood Pressure 156/95 03/22/17 18:56 O2 Sat by Pulse Oximetry 97 03/22/17 18:56 Oxygen Delivery Oxygen Delivery Room Air Jhonatan - Jhonatan Recommendation: Recommendation based on pending studies, treatments, or consults SPhuong Report Given to: Dr. Oj Israel Repor Time: 21:00
[2017-03-22 20:13] LABS: Basophils % 0.2 %; Eosinophils # 0.1 K/mcL (0.0-0.6); Eosinophils % 2.5 %; Hematocrit 31.8 % (35.3-44.9); Hemoglobin 10.7 g/dL (11.5-15.4); Immature Granulocytes % 0.2 % (0-4); Lymphocytes # 0.8 K/mcL (0.6-4.6); Lymphocytes % 18.7 %; Mean Corpuscular HGB Conc 33.6 g/dL (31.6-35.5); Mean Corpuscular Hemoglobin 32.1 pg (28.0-33.3); Mean Corpuscular Volume 95.5 fL (83.0-100.0); Mean Platelet Volume 8.7 fL (9.4-12.4); Monocytes # 0.4 K/mcL (0.0-1.3); Monocytes % 9.5 %; Neutrophils # 2.8 K/mcL (1.6-8.9); Platelet Count 196 K/mcL (140-400); Red Blood Count 3.33 M/mcL (3.82-4.97); Red Cell Distribution Width 15.2 % (11.5-14.5); Segmented Neutrophils % 68.9 %
[2017-03-22] MEDS ORDERED: Ondansetron 4 MG/2 ML VIAL IVP ONE (20:18)
[2017-03-22] MEDS ORDERED: *HR* HYDROmorphone (PF) 1 MG/ML SYRINGE IVP ONE (20:18)
[2017-03-22 20:21] LABS: BUN/Creatinine Ratio 13 (6-26); Blood Urea Nitrogen 10 mg/dL (7-20); Calcium 9.1 mg/dL (8.6-10.8); Carbon Dioxide 25 mEq/L (19-29); Chloride 95 mEq/L (98-109); Glucose 82 mg/dL (70-99); Osmolality,Calculated 272 (280-300); Sodium 132 mEq/L (136-145); eGFR For African Americans > 60 (> 60); eGFR For Non-African Americans > 60 (> 60)
[2017-03-22] MEDS ORDERED: NON-FORMULARY MEDICATION 1 EACH EACH (Oxycodone Hcl [Oxycodone Hcl] 20 MG) PO PRN (23:25)
[2017-03-22] MEDS ORDERED: Naloxone 0.4 MG/ML INJ IVP PRN (23:27)
--- NOTE | 2017-03-22 23:33 | Internal Med History&Physical ---
Date of Encounter: 03/22/17 Time of Encounter: 23:30 Assessment and Plan (1) Sciatica Current visit: Yes Status: Acute trial zanaflex relaxant. PT eval for rehab assessment Qualifiers: Laterality: right Qualified Code(s): M54.31 - Sciatica, right side (2) Multiple myeloma Current visit: No Status: Chronic off therapy due to intolerance to meds. Monitor for now Qualifiers: Multiple myeloma remission status: not in remission Qualified Code(s): C90.00 - Multiple myeloma not having achieved remission (3) Cancer related pain Current visit: No Status: Chronic on chronic pain med, MS contin and MSIR. Continue Internal Medicine - H&P: HPI Chief complaint: Right leg pain, lumbar back pain, unable to function History of present illness: Ms. Royal is a 71 year old female of MM, HTN, hypothyroid who present with acute sciatica exacerbation. She has a hx of untreated MM due to intolerance to drug. She lives at home with and dogs. On monday, she was bending over to unhook the dog gate when she suddenly developed pain in the lumbar region with radiation into the Right knee. The pain has gotten so severe, 10/10 , radiating from lumbar back into the right LE, worse with movement of right LE.. Denies any associated red flag bowel,urine or sensory deficits. XR/XR hip complete RT IMPRESSION: No definite fracture. Lucent lesions likely consistent with the known diagnosis of multiple myeloma. MR/MR lumbar spine wo/w con IMPRESSION: Stable appearance of the lumbar spine since the previous study dated 01/06/2017. Past Med Surg Social Fam HX - Past Medical History Medical history: asthma, cancer, coronary artery disease, diabetes, hyperlipidemia, hypertension, thyroid disease, other Psychiatric history: no psych history - Past Surgical History Surgical History: appendectomy, breast surgery (biopsy), cholecystectomy, hysterectomy, orthopedic, other (Right forearm bone grafting, left knee arthroscopic surgery, bilateral ankle repair surgeries), thyroidectomy, other ( Resection of vocal cord nodules, tubal ligation, right temporal endarterectomy) - Social History Smoking Status: Former smoker Smokeless Tobacco Status: No Alcohol use: none Drug use: none - Family History Brother Family Member Ethnicity: Non- Living Status: Hx Family Cardiac Disorders: Yes (HD) Sister Family Member Ethnicity: Non- Living Status: Still Living Hx Family Cancer: Yes (Breast cancer) Mother Adopted: No Family Member Ethnicity: Non- Living Status: Hx Family Cardiac Disorders: Yes (HTN) Hx Family Respiratory Disorders: No Hx Family Cancer: Yes (colorectal cancer) Hx Family GI Disorders: No Hx Family Endocrine Disorder: No Hx Family Neuromuscular Disorders: No Hx Family Neurologic Disorders: No Hx Family HEENT Disorders: No Hx Family Autoimmune Disorders: No Father Family Member Ethnicity: Non- Living Status: Hx Family Cardiac Disorders: No Hx Family Respiratory Disorders: No Hx Family Cancer: Yes (mutliple myeloma) Hx Family GI Disorders: No Hx Family Endocrine Disorder: No Hx Family Neuromuscular Disorders: No Hx Family Neurologic Disorders: No Hx Family HEENT Disorders: No Hx Family Autoimmune Disorders: No Internal Medicine - H&P: Meds Levothyroxine Sodium [Synthroid] 75 mcg PO QAM 02/26/15 [History] Furosemide [Lasix] 20 mg PO DAILY PRN #30 tablet 01/03/17 [Rx] Losartan/Hydrochlorothiazide [Hyzaar 100-25 Tablet] 1 tab PO DAILY 01/06/17 [ History] Menthol [Biofreeze] 1 appl TP BID PRN 01/06/17 [History] Lactulose 20 gm PO BID PRN #400 ml 02/07/17 [Rx] Sertraline [Zoloft] 25 mg PO DAILY #30 tablet 02/07/17 [Rx] Chair, Shower [SHOWER CHAIR] 1 each .ROUTE DAILY #1 each 03/07/17 [Rx] Docusate [Colace] 100 mg PO BID PRN 03/07/17 [History] Morphine Sulfate SR (12 HR) [MS Contin] 30 mg PO Q12HR #60 tablet.er 03/07/17 [ Rx] Ondansetron [Zofran] 8 mg PO Q8HR PRN #90 tablet 03/07/17 [Rx] Oxycodone HCl 20 mg PO Q4H PRN #120 tab 03/07/17 [Rx] 3 Allergy/AdvReac Type Severity Reaction Status Date / Time bacitracin Allergy unknown Verified 12/06/16 08:11 carfilzomib Allergy unknown Verified 12/06/16 08:11 celecoxib Allergy unknown Verified 12/06/16 08:11 Corticosteroids Allergy unknown Verified 12/06/16 08:11 (Glucocorticoids) dexamethasone Allergy unknown Verified 12/06/16 08:11 fentanyl Allergy Rash Verified 12/06/16 08:11 lenalidomide Allergy unknown Verified 12/06/16 08:11 melphalan Allergy unknown Verified 12/06/16 08:11 Neomycin Allergy unknown Verified 12/06/16 08:11 Penicillins [PCN] Allergy unknown Verified 12/06/16 08:11 polymyxin B Allergy unknown Verified 12/06/16 08:11 prednisone Allergy unknown Verified 12/06/16 08:11 tape Allergy unknown Uncoded 12/06/16 08:11 All Systems PM: A 10-system review of systems was performed and is negative for pertinent findings except as documented above in the HPI. Review of systems: ROS 14 point review of systems reviewed as best as possible given presentation. Pertinent positive or negative as per HPI or otherwise reviewed as negative - Constitutional Vitals: Temp Pulse Resp BP Pulse Ox 98.8 F 65 16 123/63 97 03/22/17 18:56 03/22/17 22:59 03/22/17 22:59 03/22/17 22:59 03/22/17 22:59 Exam: General - AAO x 3 Psych - Appropriate affect/speech. No agitation Eyes - JOSIANE. Eye lids intact. No scleral icterus Neuro - RLE and lower back pain, worse on SLR. Able to lift right leg not > than 5 cm off bed. Otherwise no gross peripheral or central neuro deficits with intact CN 2-12 exam Heart - Sinus. RRR. S1 and S2 present. No added HS/murmurs appreciated. No elevated JVD appreciated. No calf swellings/erythema Lung - Adequate air entry b/l, No crackes/wheezes appreciated GI - Soft, non-tender. No hepatosplenomegaly/ascites. BS+ - No CVA/suprapubic tenderness or palpable bladder distension Skin - Intact. No rash/petechiae/ecchymosis. Warm extremities Internal Med - H&P Results - Labs CBC & Chem 7: 03/22/17 20:02 03/22/17 20:02
[2017-03-23] MEDS: OxyCODONE Immed Rel 15 MG, OxyCODONE Immed Rel 5 MG PO PRN ×3 (00:44→16:04)
[2017-03-23] MEDS: *HR* Morphine 2 MG/ML SYRINGE IV PRN ×2 (03:15→11:19)
[2017-03-23] MEDS ORDERED: *HR* Morphine 2 MG/ML SYRINGE ONE (03:18)
[2017-03-23] MEDS: *HR* Enoxaparin 30 MG/0.3 ML SYRINGE SQ SCH (05:49)
[2017-03-23] MEDS: *HR* Morphine Sulfate SR (12 HR) 30 MG TABLET.ER PO SCH ×2 (05:49→17:59)
[2017-03-23] MEDS: Ondansetron ODT 4 MG TAB.RAPDIS PO PRN (08:31)
[2017-03-23] MEDS: Lactulose Oral Soln 20 GM/30 ML UDC PO SCH ×2 (08:33→20:56)
[2017-03-23] MEDS: tiZANidine 4 MG TABLET PO SCH ×3 (08:33→20:56)
[2017-03-23] MEDS ORDERED: Losartan/HCTZ 50-12.5 TABLET PO SCH (09:00)
--- NOTE | 2017-03-23 11:49 | Internal Med Progress Note ---
Date of Encounter: 03/23/17 Time of Encounter: 09:30 - Assessment and plan (1) Back pain Current Visit: Yes Status: Acute Assessment and plan: Patient is stating she reached over to pull up a dog gate in the last got caught and when she pulled up, she twisted and attempt to extend her back and immediately felt severe pain to her lumbar area. MRI of lumbar spine unremarkable. On examination, she has pain across her lower back into her right hip and down her right lateral leg. Consistent with sciatica/nerve injury. Hip x-ray unremarkable. We will continue to address her pain. Patient was unable to ambulate secondary to pain. Distal leg neurovascularly intact. ITS Impressions Lumbar Spine MRI 03/22/17 19:47 IMPRESSION: Stable appearance of the lumbar spine since the previous study dated 01/06/2017. D/ / Wu Hardy MD / Wu Hardy MD Interpreting Provider: Wu Hardy MD Hip X-Ray 03/22/17 22:26 IMPRESSION: No definite fracture. Lucent lesions likely consistent with the known diagnosis of multiple myeloma. D/ / Mark Vernon MD / Mark Vernon MD Interpreting Provider: Mark Vernon MD (2) Unable to ambulate Current Visit: No Status: Acute (3) Sciatica Current Visit: Yes Status: Acute Qualifiers: Laterality: right Qualified Code(s): M54.31 - Sciatica, right side (4) Right hip pain Current Visit: No Status: Acute (5) Cancer related pain Current Visit: No Status: Chronic Assessment and plan: home medications continued. Patient understandably with a high tolerance for pain medication. Will continue to adjust medications as needed. (6) Hypertension Current Visit: No Status: Chronic Assessment and plan: Controlled, we will continue to trend and adjust medications as indicated Qualifiers: Hypertension type: essential hypertension Qualified Code(s): I10 - Essential (primary) hypertension (7) Hyponatremia with decreased serum osmolality Current Visit: No Status: Chronic Assessment and plan: Acute on chronic, will trend. Stable (8) Hypothyroidism Current Visit: No Status: Chronic Assessment and plan: TSH checked a year ago, will add on to a.m. 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 (13) DVT prophylaxis Current Visit: No Status: Acute Assessment and plan: Subcutaneous Lovenox - Subjective Interval history: Patient seen and examined. On examination, patient sitting upright in bed conversing on the phone. She is alert and oriented x3 and states her pain is more tolerable but remains severe. She states that she cannot move or walk at this time secondary to her pain. She states she is eating well. - Constitutional Vitals: Temp Pulse Resp BP Pulse Ox 98.1 F 51 20 91/56 95 03/23/17 11:25 03/23/17 11:25 03/23/17 11:25 03/23/17 11:25 03/23/17 11:25 General appearance: Present: A&O X 3, pleasant, no acute distress, answers questions appropriately - Head Head exam: Present: atraumatic, normocephalic - Eye Eye exam: Present: PERRL, conjuntiva pink, sclera anicteric Pupils: Present: PERRL - Neck Neck exam general surgery: Present: supple, trachea midline. Absent: lymphadenopathy - Respiratory Respiratory exam: Present: decreased breath sounds. Absent: accessory muscle use, rales, respiratory distress, rhonchi, wheezes - Cardiovascular Cardiovascular exam: Present: RRR, +S1, +S2. Absent: diastolic murmur, gallop, rubs, systolic murmur - GI/Abdominal GI/Abdominal exam: Present: normal bowel sounds, soft, no peritoneal signs. Absent: distended, tenderness - Extremities Exam Extremities exam: Present: warm, radial pulses palpable and symmetrical. Absent : calf tenderness, cyanotic, pedal edema - Expanded Lower Extremities Exam Hip exam: Present: tenderness (right hip) Neuro vascular tendon exam: Present: no vascular compromise Gait: Present: unable to bear weight (2/2 pain) - Back Exam Back exam: Present: tenderness (across lower back) - Neurological Exam Neurological exam: Present: alert, CN II-XII intact, oriented X3, no focal deficits, strengths equal and symetr throughout. Absent: pronater drift, facial droop, speech deficit - Expanded Neurological Exam Neurological exam expanded: Present: protecting the airway Patient oriented to: Present: person, place, time Speech: Present: fluid speech Cranial Nerves: EOM's intact PM: Normal Neuro motor strength exam: LUE: 5, RUE: 5, LLE: 5, RLE: 5 Coma Scale Eye Opening: Spontaneous Coma Scale Motor Response: Obeys Commands Coma Scale Verbal Response: Oriented Coma Scale Total: 15 - Skin Skin exam: Present: dry, intact, pallor, warm Internal Medicine: Result - Labs CBC & Chem 7: 03/22/17 20:02 03/22/17 20:02 Consult Discharge Plan - Plan Referrals: Avni Bean MD [Primary Care Provider] - 03/31/17 3:00 pm
[2017-03-23] MEDS ORDERED: Benzocaine/Menthol 56 GM AEROSOL SPRAY TP PRN (12:01)
[2017-03-24 05:16] LABS: Basophils % 0.2 %; Eosinophils # 0.2 K/mcL (0.0-0.6); Hematocrit 30.1 % (35.3-44.9); Hemoglobin 9.9 g/dL (11.5-15.4); Immature Granulocytes % 0.5 % (0-4); Lymphocytes # 0.6 K/mcL (0.6-4.6); Lymphocytes % 14.6 %; Mean Corpuscular HGB Conc 32.9 g/dL (31.6-35.5); Mean Corpuscular Hemoglobin 31.7 pg (28.0-33.3); Mean Corpuscular Volume 96.5 fL (83.0-100.0); Mean Platelet Volume 8.6 fL (9.4-12.4); Monocytes % 11.1 %; Neutrophils # 2.8 K/mcL (1.6-8.9); Platelet Count 197 K/mcL (140-400); Red Blood Count 3.12 M/mcL (3.82-4.97); Red Cell Distribution Width 15.7 % (11.5-14.5); Segmented Neutrophils % 69.6 %
[2017-03-24 05:19] LABS: Monocytes # 0.4 K/mcL (0.0-1.3)
[2017-03-24] MEDS: *HR* Enoxaparin 30 MG/0.3 ML SYRINGE SQ SCH (05:46)
[2017-03-24] MEDS: *HR* Morphine Sulfate SR (12 HR) 30 MG TABLET.ER PO SCH ×2 (05:46→17:52)
[2017-03-24 05:50] LABS: Platelet Estimate Normal (Normal); Reactive Lymphocytes Present (Not Present)
[2017-03-24 05:53] LABS: Thyroid Stimulating Hormone 2.906 mcIU/mL (0.350-4.840)
[2017-03-24] MEDS: tiZANidine 4 MG TABLET PO SCH ×3 (09:35→21:06)
[2017-03-24] MEDS: Lactulose Oral Soln 20 GM/30 ML UDC PO SCH ×2 (09:35→21:06)
[2017-03-24] MEDS: OxyCODONE Immed Rel 15 MG, OxyCODONE Immed Rel 5 MG PO PRN ×2 (09:35→22:22)
--- NOTE | 2017-03-24 12:39 | Internal Med Progress Note ---
Date of Encounter: 03/24/17 Time of Encounter: 10:30 - Assessment and plan (1) Back pain Current Visit: Yes Status: Acute Assessment and plan: Patient is stating she reached over to pull up a dog gate in the last got caught and when she pulled up, she twisted and attempt to extend her back and immediately felt severe pain to her lumbar area. MRI of lumbar spine unremarkable. On examination, she has pain across her lower back into her right hip and down her right lateral leg. Consistent with sciatica/nerve injury. Hip x-ray unremarkable. We will continue to address her pain. Her pain is much better improved today and she was able to sit in her chair. Distal leg neurovascularly intact. PT recommends HH. Patient stating she is not ready to go home yet and states "I would just have to come right back." Addressing her pain and mild ANNA overnight, will likely discharge tomorrow pending clinical outcomes. ITS Impressions Lumbar Spine MRI 03/22/17 19:47 IMPRESSION: Stable appearance of the lumbar spine since the previous study dated 01/06/2017. D/ / Wu Hardy MD / Wu Hardy MD Interpreting Provider: Wu Hardy MD Hip X-Ray 03/22/17 22:26 IMPRESSION: No definite fracture. Lucent lesions likely consistent with the known diagnosis of multiple myeloma. D/ / Mark Vernon MD / Mark Vernon MD Interpreting Provider: Mark Vernon MD (2) Unable to ambulate Current Visit: No Status: Resolved (3) Sciatica Current Visit: Yes Status: Acute Assessment and plan: improving Qualifiers: Laterality: right Qualified Code(s): M54.31 - Sciatica, right side (4) Right hip pain Current Visit: No Status: Acute (5) Cancer related pain Current Visit: No Status: Chronic Assessment and plan: home medications continued. Patient understandably with a high tolerance for pain medication. Will continue to adjust medications as needed. (6) Hypertension Current Visit: No Status: Chronic Assessment and plan: Controlled/slightly hypotensive at times, we will continue to trend and adjust medications as indicated Qualifiers: Hypertension type: essential hypertension Qualified Code(s): I10 - Essential (primary) hypertension (7) Hyponatremia with decreased serum osmolality Current Visit: No Status: Chronic Assessment and plan: Acute on chronic, will trend. 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 (13) DVT prophylaxis Current Visit: No Status: Acute Assessment and plan: Subcutaneous Lovenox - Subjective Interval history: Patient seen and examined. On examination, patient sitting upright in her chair conversing with her and son. She states that she feels better. She states that she is not drinking a lot, and is requesting more water. - Constitutional Vitals: Temp Pulse Resp BP Pulse Ox 97.5 F L 57 16 90/60 95 03/24/17 11:12 03/24/17 11:12 03/24/17 11:12 03/24/17 11:12 03/24/17 11:12 General appearance: Present: A&O X 3, pleasant, no acute distress, answers questions appropriately - Head Head exam: Present: atraumatic, normocephalic - Eye Eye exam: Present: PERRL, conjuntiva pink, sclera anicteric Pupils: Present: PERRL - Neck Neck exam general surgery: Present: supple, trachea midline. Absent: lymphadenopathy - Respiratory Respiratory exam: Present: CTAB. Absent: accessory muscle use, rales, respiratory distress, rhonchi, wheezes - Cardiovascular Cardiovascular exam: Present: RRR, +S1, +S2. Absent: diastolic murmur, gallop, rubs, systolic murmur - GI/Abdominal GI/Abdominal exam: Present: normal bowel sounds, soft, no peritoneal signs. Absent: distended, tenderness - Extremities Exam Extremities exam: Present: warm, radial pulses palpable and symmetrical. Absent : calf tenderness, cyanotic, pedal edema - Expanded Lower Extremities Exam Hip exam: Present: normal inspection, tenderness Neuro vascular tendon exam: Present: no vascular compromise Gait: Present: antalgic - Neurological Exam Neurological exam: Present: alert, CN II-XII intact, oriented X3, no focal deficits, strengths equal and symetr throughout. Absent: pronater drift, facial droop, speech deficit - Skin Skin exam: Present: dry, intact, normal color, warm Internal Medicine: Result - Labs CBC & Chem 7: 03/24/17 04:55 03/24/17 04:55 Labs: Short CBC 03/24/17 Range/Units 04:55 WBC 4.0 L (4.3-11.1) K/mcL Hgb 9.9 L (11.5-15.4) g/dL Hct 30.1 L (35.3-44.9) % Plt Count 197 (140-400) K/mcL Neutrophils # 2.8 (1.6-8.9) K/mcL BMP 03/24/17 04:55 Sodium 132 L Potassium 4.0 Chloride 96 L Carbon Dioxide 25 BUN 14 Creatinine 1.20 H Glucose 84 Calcium 9.0 Consult Discharge Plan - Plan Referrals: Avni Bean MD [Primary Care Provider] - 03/31/17 3:00 pm
[2017-03-25 05:04] LABS: BUN/Creatinine Ratio 14 (6-26); Blood Urea Nitrogen 13 mg/dL (7-20); Carbon Dioxide 25 mEq/L (19-29); Chloride 95 mEq/L (98-109); Glucose 84 mg/dL (70-99); Osmolality,Calculated 269 (280-300); Potassium 4.1 mEq/L (3.5-4.5); Sodium 130 mEq/L (136-145); eGFR For African Americans > 60 (> 60); eGFR For Non-African Americans > 60 (> 60)
[2017-03-25] MEDS: *HR* Morphine Sulfate SR (12 HR) 30 MG TABLET.ER PO SCH ×2 (06:00→17:57)
[2017-03-25] MEDS: *HR* Enoxaparin 30 MG/0.3 ML SYRINGE SQ SCH (06:00)
[2017-03-25] MEDS: tiZANidine 4 MG TABLET PO SCH ×3 (09:28→19:46)
[2017-03-25] MEDS: Lactulose Oral Soln 20 GM/30 ML UDC PO SCH ×2 (09:28→19:46)
--- NOTE | 2017-03-25 10:58 | Internal Med Progress Note ---
Date of Encounter: 03/25/17 Time of Encounter: 09:15 - Assessment and plan (1) Back pain Current Visit: Yes Status: Acute Assessment and plan: Patient is stating she reached over to pull up a dog gate in the last got caught and when she pulled up, she twisted and attempt to extend her back and immediately felt severe pain to her lumbar area. MRI of lumbar spine unremarkable. On examination, she has pain across her lower back into her right hip and down her right lateral leg. Consistent with sciatica/nerve injury. Hip x-ray unremarkable. Her pain had much improved yesterday and she was up in her chair most of the day. Today, she again states that her pain is improved but feels as if she is too weak and shaky to go home. No focal neurological weakness is present on examination, no shaking noted. Will observe overnight at the patient's request and likely discharged tomorrow with home health services. Acute kidney injury resolved. Of note, this is the second time the patient has stated she was not ready to go home. I have had this patient in the past, and she typically will delay discharge for a few days. Unfortunately, I cannot discharge an unwilling patient and she states that she would just "come right back" if sent home before she was ready. ITS Impressions Lumbar Spine MRI 03/22/17 19:47 IMPRESSION: Stable appearance of the lumbar spine since the previous study dated 01/06/2017. D/ / Wu Hardy MD / Wu Hardy MD Interpreting Provider: Wu Hardy MD Hip X-Ray 03/22/17 22:26 IMPRESSION: No definite fracture. Lucent lesions likely consistent with the known diagnosis of multiple myeloma. D/ / Mark Vernon MD / Mark Vernon MD Interpreting Provider: Mark Vernon MD (2) Shaking Current Visit: Yes Status: Acute Assessment and plan: Patient states she feels very shaky this morning. When she draws attention to her hands, her hands will shake but otherwise, no tremors noted on examination either at rest or with movement. We will continue to monitor. Acute kidney injury resolved. Glucose is stable. (3) Generalized weakness Current Visit: Yes Status: Acute Assessment and plan: Physical examination unchanged from prior examinations. She has already been seen and evaluated by physical therapy who recommended home health services. (4) Unable to ambulate Current Visit: No Status: Resolved (5) Sciatica Current Visit: Yes Status: Acute Assessment and plan: improving; pain is controlled again today Qualifiers: Laterality: right Qualified Code(s): M54.31 - Sciatica, right side (6) Right hip pain Current Visit: No Status: Acute (7) Cancer related pain Current Visit: No Status: Chronic Assessment and plan: home medications continued. Patient understandably with a high tolerance for pain medication. Will continue to adjust medications as needed. (8) Hypertension Current Visit: No Status: Chronic Assessment and plan: Controlled/slightly hypotensive at times despite the fact that her HCTZ/ losartan is being held. Will continue to hold and adjust medications as indicated. Qualifiers: Hypertension type: essential hypertension Qualified Code(s): I10 - Essential (primary) hypertension (9) Hyponatremia with decreased serum osmolality Current Visit: No Status: Chronic Assessment and plan: Acute on chronic, will trend. 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 (15) DVT prophylaxis Current Visit: No Status: Acute Assessment and plan: Subcutaneous Lovenox - Subjective Interval history: Patient seen and examined. On examination, patient sitting upright in her bed. She states that she slept well last night, but this am, she feels "weak and shaky." She is requesting not to go home today stating she is too weak and shaky. She is endorsing a normal appetite and states her pain is controlled. - Constitutional Vitals: Temp Pulse Resp BP Pulse Ox 97.8 F 59 16 100/61 94 03/25/17 07:20 03/25/17 07:20 03/25/17 07:20 03/25/17 07:20 03/25/17 07:20 General appearance: Present: A&O X 3, pleasant, no acute distress, answers questions appropriately - Head Head exam: Present: atraumatic, normocephalic - Eye Eye exam: Present: PERRL, conjuntiva pink, sclera anicteric Pupils: Present: PERRL - Neck Neck exam general surgery: Present: supple, trachea midline. Absent: lymphadenopathy - Respiratory Respiratory exam: Present: CTAB. Absent: accessory muscle use, rales, respiratory distress, rhonchi, wheezes - Cardiovascular Cardiovascular exam: Present: diastolic murmur, RRR, +S1, +S2. Absent: gallop, rubs, systolic murmur - GI/Abdominal GI/Abdominal exam: Present: normal bowel sounds, soft, no peritoneal signs. Absent: distended, tenderness - Extremities Exam Extremities exam: Present: pedal edema (trace, nonpitting), warm, radial pulses palpable and symmetrical. Absent: calf tenderness, cyanotic - Neurological Exam Neurological exam: Present: alert, CN II-XII intact, oriented X3, no focal deficits, strengths equal and symetr throughout. Absent: pronater drift, facial droop, speech deficit - Skin Skin exam: Present: dry, intact, pallor, warm Internal Medicine: Result - Labs CBC & Chem 7: 03/24/17 04:55 03/25/17 04:40 Labs: BMP 03/25/17 04:40 Sodium 130 L Potassium 4.1 Chloride 95 L Carbon Dioxide 25 BUN 13 Creatinine 0.91 Glucose 84 Calcium 9.0 Consult Discharge Plan - Plan Referrals: Avni Bean MD [Primary Care Provider] - 03/31/17 3:00 pm
[2017-03-25] MEDS: Ondansetron ODT 4 MG TAB.RAPDIS PO PRN (13:21)
[2017-03-25] MEDS: OxyCODONE Immed Rel 15 MG, OxyCODONE Immed Rel 5 MG PO PRN (13:24)
[2017-03-26] MEDS: *HR* Morphine Sulfate SR (12 HR) 30 MG TABLET.ER PO SCH (05:06)
[2017-03-26 05:23] LABS: Basophils % 0.3 %; Eosinophils # 0.2 K/mcL (0.0-0.6); Eosinophils % 5.8 %; Hematocrit 29.4 % (35.3-44.9); Hemoglobin 9.8 g/dL (11.5-15.4); Immature Granulocytes % 0.6 % (0-4); Lymphocytes # 0.7 K/mcL (0.6-4.6); Lymphocytes % 22.4 %; Mean Corpuscular HGB Conc 33.3 g/dL (31.6-35.5); Mean Corpuscular Hemoglobin 31.8 pg (28.0-33.3); Mean Corpuscular Volume 95.5 fL (83.0-100.0); Mean Platelet Volume 8.4 fL (9.4-12.4); Monocytes # 0.5 K/mcL (0.0-1.3); Monocytes % 14.7 %; Neutrophils # 1.8 K/mcL (1.6-8.9); Platelet Count 190 K/mcL (140-400); Red Blood Count 3.08 M/mcL (3.82-4.97); Red Cell Distribution Width 15.6 % (11.5-14.5); Segmented Neutrophils % 56.2 %
[2017-03-26 05:38] LABS: % Iron Saturation 19 % (15-50); BUN/Creatinine Ratio 13 (6-26); Blood Urea Nitrogen 10 mg/dL (7-20); Calcium 9.1 mg/dL (8.6-10.8); Carbon Dioxide 25 mEq/L (19-29); Chloride 96 mEq/L (98-109); Glucose 81 mg/dL (70-99); Iron 38 mcg/dL (50-170); Osmolality,Calculated 274 (280-300); Potassium 4.4 mEq/L (3.5-4.5); Sodium 133 mEq/L (136-145); Transferrin 145 mg/dL (180-382); eGFR For African Americans > 60 (> 60); eGFR For Non-African Americans > 60 (> 60)
[2017-03-26 05:58] LABS: Ferritin 142 ng/ml (5-204)
[2017-03-26] MEDS ORDERED: *HR* Enoxaparin 40 MG/0.4 ML SYRINGE SQ SCH (06:00)
[2017-03-26 06:12] LABS: Folate 8.2 ng/mL (7.0-31.4)
[2017-03-26] MEDS: Lactulose Oral Soln 20 GM/30 ML UDC PO SCH (09:35)
[2017-03-26] MEDS: tiZANidine 4 MG TABLET PO SCH (09:35)
[2017-03-26 10:59] VITALS: BP 111/75
--- NOTE | 2017-03-26 13:10 | Discharge Summary ---
Date of Encounter: 03/26/17 Time of Encounter: 13:08 - Discharge Diagnosis (1) Sciatica Priority: Primary Status: Acute Qualifiers: Laterality: right Qualified Code(s): M54.31 - Sciatica, right side (2) Intractable pain Priority: Primary Status: Resolved (3) Multiple myeloma Priority: Secondary Status: Chronic Qualifiers: Multiple myeloma remission status: not in remission Qualified Code(s): C90.00 - Multiple myeloma not having achieved remission (4) Hypothyroidism Priority: Secondary Status: Chronic Qualifiers: Hypothyroidism type: unspecified Qualified Code(s): E03.9 - Hypothyroidism , unspecified (5) Cancer related pain Priority: Secondary Status: Chronic - Discharge Medications Home Medications: Levothyroxine Sodium [Synthroid] 75 mcg PO QAM 02/26/15 [History] Furosemide [Lasix] 20 mg PO DAILY PRN #30 tablet 01/03/17 [Rx] Losartan/Hydrochlorothiazide [Hyzaar 100-25 Tablet] 1 tab PO DAILY 01/06/17 [ History] Menthol [Biofreeze] 1 appl TP BID PRN 01/06/17 [History] Sertraline [Zoloft] 25 mg PO DAILY #30 tablet 02/07/17 [Rx] Docusate [Colace] 100 mg PO BID PRN 03/07/17 [History] Morphine Sulfate SR (12 HR) [MS Contin] 30 mg PO Q12HR #60 tablet.er 03/07/17 [ Rx] Ondansetron [Zofran] 8 mg PO Q8HR PRN #90 tablet 03/07/17 [Rx] Oxycodone HCl 20 mg PO Q4H PRN #120 tab 03/07/17 [Rx] Lactulose [Enulose] 30 ml PO BID PRN 03/23/17 [History] Lactulose 20 gm PO BID 03/26/17 [Rx] Allergies/Adverse Reactions: 3 Allergy/AdvReac Type Severity Reaction Status Date / Time bacitracin Allergy unknown Verified 12/06/16 08:11 carfilzomib Allergy unknown Verified 12/06/16 08:11 celecoxib Allergy unknown Verified 12/06/16 08:11 Corticosteroids Allergy unknown Verified 12/06/16 08:11 (Glucocorticoids) dexamethasone Allergy unknown Verified 12/06/16 08:11 fentanyl Allergy Rash Verified 12/06/16 08:11 lenalidomide Allergy unknown Verified 12/06/16 08:11 melphalan Allergy unknown Verified 12/06/16 08:11 Neomycin Allergy unknown Verified 12/06/16 08:11 Penicillins [PCN] Allergy unknown Verified 12/06/16 08:11 polymyxin B Allergy unknown Verified 12/06/16 08:11 prednisone Allergy unknown Verified 12/06/16 08:11 tape Allergy unknown Uncoded 12/06/16 08:11 Date of admission: 03/22/17 23:17 Primary care physician: Avni Bean MD Consults: 03/22/17 23:27 Consult to Physical Therapy [CONS] Routine Comment: Evaluate, develop and implement POC Reason for Consult: right sciatica 03/24/17 11:16 Consult to Glass Technician/Installer [CONS] Routine Reason for SW Consult: PT recs HH. Patient amenable Discharging clinician: Ladan Riojas Anticipated date of discharge: 03/26/17 - Patient Status Disposition: Home Health Service Condition: Fair Functional capacity at discharge: uses cane/walker Overall status at discharge: patient is progressing back to baseline - Discharge Instructions Instructions: Back Pain (GEN) Follow Up With: Avni Bean MD [Primary Care Provider] - 03/31/17 3:00 pm - Diet and Activity Activity: as per physical therapy Diet: low salt diet Hospital course: Ms. Royal is a 71 year old female with h/o- untreated multiple myeloma due to medication intolerance, was admitted with acute on chronic right hip and sciatica pain. Patient is noted to have similar previous admissions. MRI of lumbar spine showed no acute stenosis or other abnormalities. Patient's pain was gradually better controlled with oral and IV pain medications. Physical and occupational therapy evaluation was done and recommended home health services. Patient reportedly could not be discharged initially as she complained of generalized weakness and inability to be sent home yet. I have evaluated and assessed the patient today on she seems to be in no acute distress, I have explained about her normal vital signs and labs and MRI of lumbar spine and physical therapy recommendations, to which she is agreeable and she is being discharged today in a stable condition. Referral for home health services has been completed. - Time Spent with Patient Total time spent providing and/or coordinating discharge services: Greater than 30 minutes (45 min) - Constitutional Vitals: Temp Pulse Resp BP Pulse Ox 98.5 F 56 15 111/75 96 03/26/17 10:57 03/26/17 10:57 03/26/17 10:57 03/26/17 10:57 03/26/17 10:57 General appearance: Present: A&O X 3, answers questions appropriately - Respiratory Respiratory exam: Present: CTAB. Absent: accessory muscle use, rales, rhonchi, wheezes - Back Exam Back exam: Present: paraspinal tenderness (right lower lumbar area with associated tenderness in posterior hip)
--- NOTE | 2017-03-26 13:12 | Physician Discharge Referral ---
Home Health/Hosp Referral Info Transfer to: Home Health Attending Provider: Ladan Riojas Provider in Charge Post Discharge: PCP - Diagnosis (1) Sciatica Priority: Primary Status: Acute (2) Intractable pain Priority: Primary Status: Resolved (3) Multiple myeloma Priority: Secondary Status: Chronic (4) Hypothyroidism Priority: Secondary Status: Chronic (5) Cancer related pain Priority: Secondary Status: Chronic - Respiratory Orders Smoking Cessation: Smoking cessation has been advised. For more information, call the [place] Tobacco Quit Line at 5-655-WDYB-NOW. - Diet/Nutrition Diet/Nutrition Orders: Cardiac - Activity Activity Orders: Ambulate - Services Needed Following services are medically necessary services: Nursing, Physical Therapy, Occupational Therapy - Transfer Medications Home Medications: Levothyroxine Sodium [Synthroid] 75 mcg PO QAM 02/26/15 [History] Furosemide [Lasix] 20 mg PO DAILY PRN #30 tablet 01/03/17 [Rx] Losartan/Hydrochlorothiazide [Hyzaar 100-25 Tablet] 1 tab PO DAILY 01/06/17 [ History] Menthol [Biofreeze] 1 appl TP BID PRN 01/06/17 [History] Sertraline [Zoloft] 25 mg PO DAILY #30 tablet 02/07/17 [Rx] Docusate [Colace] 100 mg PO BID PRN 03/07/17 [History] Morphine Sulfate SR (12 HR) [MS Contin] 30 mg PO Q12HR #60 tablet.er 03/07/17 [ Rx] Ondansetron [Zofran] 8 mg PO Q8HR PRN #90 tablet 03/07/17 [Rx] Oxycodone HCl 20 mg PO Q4H PRN #120 tab 03/07/17 [Rx] Lactulose [Enulose] 30 ml PO BID PRN 03/23/17 [History] Lactulose 20 gm PO BID 03/26/17 [Rx] Allergies/Adverse Reactions: 3 Allergy/AdvReac Type Severity Reaction Status Date / Time bacitracin Allergy unknown Verified 12/06/16 08:11 carfilzomib Allergy unknown Verified 12/06/16 08:11 celecoxib Allergy unknown Verified 12/06/16 08:11 Corticosteroids Allergy unknown Verified 12/06/16 08:11 (Glucocorticoids) dexamethasone Allergy unknown Verified 12/06/16 08:11 fentanyl Allergy Rash Verified 12/06/16 08:11 lenalidomide Allergy unknown Verified 12/06/16 08:11 melphalan Allergy unknown Verified 12/06/16 08:11 Neomycin Allergy unknown Verified 12/06/16 08:11 Penicillins [PCN] Allergy unknown Verified 12/06/16 08:11 polymyxin B Allergy unknown Verified 12/06/16 08:11 prednisone Allergy unknown Verified 12/06/16 08:11 tape Allergy unknown Uncoded 12/06/16 08:11 Certification: Further, I certify that my clinical findings support that this patient is homebound (i.e. absences from home require considerable and taxing effort and are for medical reasons or druze services or infrequently or short duration when for other reasons) because: Homebound Reason: Leaving home requires considerable and taxing effort due to condition Attestation: My signature below is to certify that this patient is under my care and that I, or nurse practitioner, or a physician's child and youth program assistant working with me, has a face-to -face encounter with this patient.
== END 2017-03-26 13:40 | disposition home health service (06) ==
LOC: EMEROO 17:43 → 3BNU 17:43 → SUATTDRO 23:17 → 3BNU 23:43
PROVIDERS: ADMIT Internal Medicine; ATTEND Internal Medicine

== ENCOUNTER 2017-04-24 07:36 | Inpatient (IN) ==
--- NOTE | 2017-04-24 07:47 | Emergency Department Note ---
Disposition Clinical Impression: ANNA (acute kidney injury), Generalized weakness Vomiting Qualifiers: Vomiting type: unspecified Vomiting Intractability: non-intractable Nausea presence: without nausea Qualified Code(s): R11.11 - Vomiting without nausea Multiple myeloma Qualifiers: Multiple myeloma remission status: unspecified Qualified Code(s): C90.00 - Multiple myeloma not having achieved remission Disposition: Admitted As Inpatient Condition: Undetermined Time of Disposition: 09:35 General Adult HPI - General Chief complaint: ED GI Bleed Stated complaint: coffee ground emesis Time Seen by Provider: 04/24/17 07:43 Source: patient Mode of arrival: EMS Limitations: no limitations Nursing Notes Reviewed: Yes Vital Signs Reviewed: Yes - History of Present Illness HPI Narrative: 71-year-old female with history of multiple myeloma at [facility] care [facility] strength, [facility] emergency department with concern for "coffee ground emesis". The patient is currently being cared for at rehabilitation [facility] and staff called the patient's daughter with concern for this black, coffee ground emesis this morning. The patient denies any complaints at this time. The patient is resting comfortably. Upon arrival from EMS they noted that the patient was mildly hypoxic with an O2 saturation of 80% on room air. The patient was placed on 4 L nasal cannula and quickly neeru into the low 90s. Upon arrival to the emergency department, the patient had an O2 saturation 96% on room air. The patient is resting comfortably without any visual signs of difficulty breathing. The patient has no outward signs of coffee ground emesis. The patient is not complaining of any abdominal pain, nausea, vomiting, diarrhea. The patient does admit to vomiting a dark colored vomit this morning but denies any other complaints at this time. She is acting appropriately and answering all questions are appropriate. Patient's daughter who is in the room states that the patient is at her baseline. Onset (ago): Just [employer] Pain Scale: 0 Improves with: nothing Worsens with: nothing Associated symptoms: Reports: denies other symptoms Treatments Prior to Arrival: none - Related Data Home Medications Medication Instructions Recorded Confirmed Levothyroxine Sodium [Synthroid] 75 mcg PO QAM 02/26/15 04/24/17 Losartan/Hydrochlorothiazide 1 tab PO DAILY 01/06/17 04/24/17 [Hyzaar 100-25 Tablet] Menthol [Biofreeze] 1 appl TP BID PRN 01/06/17 04/24/17 Docusate [Colace] 100 mg PO BID PRN 03/07/17 04/24/17 Lactulose 20 gm PO BID PRN 04/05/17 04/24/17 Previous Rx's Medication Instructions Recorded Furosemide [Lasix] 20 mg PO DAILY PRN #30 tablet 01/03/17 Sertraline [Zoloft] 25 mg PO DAILY #30 tablet 02/07/17 Ondansetron [Zofran] 8 mg PO Q8HR PRN #90 tablet 03/07/17 Cyclobenzaprine [Flexeril] 10 mg PO BID #20 tablet 04/04/17 Enoxaparin [Lovenox] 40 mg SQ 0600 04/11/17 Gabapentin [Neurontin] 100 mg PO TID 04/11/17 Morphine Sulfate SR (12 HR) [MS 30 mg PO Q12HR #6 tablet.er 04/11/17 Contin] Oxycodone HCl 20 mg PO Q4H PRN #12 tab 04/11/17 Allergies Allergy/AdvReac Type Severity Reaction Status Date / Time bacitracin Allergy unknown Verified 04/24/17 10:19 carfilzomib Allergy unknown Verified 04/24/17 10:19 celecoxib Allergy unknown Verified 04/24/17 10:19 Corticosteroids Allergy unknown Verified 04/24/17 10:19 (Glucocorticoids) dexamethasone Allergy unknown Verified 04/24/17 10:19 fentanyl Allergy Rash Verified 04/24/17 10:19 lenalidomide Allergy unknown Verified 04/24/17 10:19 melphalan Allergy unknown Verified 04/24/17 10:19 Neomycin Allergy unknown Verified 04/24/17 10:19 Penicillins [PCN] Allergy unknown Verified 04/24/17 10:19 polymyxin B Allergy unknown Verified 04/24/17 10:19 prednisone Allergy unknown Verified 04/24/17 10:19 tape Allergy unknown Uncoded 04/24/17 07:38 All systems ED: reviewed and negative except as stated. Constitutional: Reports: weakness. Denies: fever, chills, weight change Eyes: Denies: eye pain, eye discharge, vision change ENT ED: Denies: ear pain, throat pain, dental pain, hearing loss, epistaxis, congestion, dysphagia Cardiovascular: Denies: chest pain, palpitations, dyspnea on exertion, edema, syncope Respiratory: Denies: cough, dyspnea, wheezes, hemoptysis, stridor Gastrointestinal: Reports: vomiting. Denies: abdominal pain, nausea, diarrhea, constipation, hematemesis, melena, hematochezia Genitourinary: Denies: dysuria, frequency, hematuria, discharge Musculoskeletal: Denies: back pain, neck pain, arthralgia, myalgia Integumentary: Denies: rash, abrasion, lesions Neurological: Reports: weakness. Denies: headache, numbness, paresthesias, confusion, abnormal gait, vertigo Past Medical History - Past Medical History Attestation: Yes The following information was validated with the patient. Source: patient, old records reviewed Medical history: Reports: cancer, hypertension, thyroid disease, other Surgical history: Reports: appendectomy, breast surgery, cholecystectomy, hysterectomy, orthopedic, other, thyroidectomy, other Psychiatric history: Reports: no psych history UTILIZATION REVIEW NURSE history: Reports: no UTILIZATION REVIEW NURSE history - Social History Smoking Status: Former smoker Smokeless Tobacco Status: No Alcohol use: Reports: none Drug use: Reports: none Physical Exam - General Limitations: no limitations General appearance: alert, in no apparent distress - Head Head exam: atraumatic, normocephalic, normal inspection - Eye Eye exam: Present: normal appearance, PERRL, EOMI - ENT ENT exam: normal exam, normal oropharynx, mucous membranes moist - Neck Neck exam: Present: normal inspection, full ROM, trachea midline - Chest Chest inspection: Present: normal inspection - Respiratory Respiratory exam: Present: other (Coarse breath sounds bilaterally) - Cardiovascular Cardiovascular exam: Present: regular rate, normal rhythm, normal heart sounds - Abdominal Exam Abdominal exam: Present: soft, Non-Tender. Absent: tenderness, distention, guarding, rebound, rigidity, Sanchez's sign, Rovsing's sign, tenderness at McBurney's Point, pulsatile mass - Extremities Exam Extremities exam: Present: normal inspection, full ROM. Absent: tenderness, pedal edema - Neurological Exam Neurological exam: Present: alert, CN II-XII intact - Expanded Neurological Exam Patient oriented to: Present: person Speech: Present: fluid speech - Skin Skin exam: Present: warm, dry, intact, normal color Course - Consultations Consultation #1: We spoke with Dr. Byers in nephrology who recommended a CPK. We will be admitting the patient to the hospitalist at this time. She agrees. Time: 09:35 Vital Signs Temperature 97.6 F 04/24/17 07:42 Pulse Rate 94 04/24/17 07:42 Respiratory Rate 13 04/24/17 07:42 Blood Pressure 122/73 04/24/17 07:42 O2 Sat by Pulse Oximetry 97 04/24/17 07:42 Temperature 98 F 04/24/17 17:40 Pulse Rate 91 04/24/17 17:40 Respiratory Rate 17 04/24/17 17:40 Blood Pressure 115/71 04/24/17 17:40 O2 Sat by Pulse Oximetry 99 04/24/17 17:40 Oxygen Delivery Oxygen Delivery Nasal Cannula Medical Decision Making - MDM Narrative Medical decision making narrative: Patient found to have an acute kidney injury on lab work. The patient has demonstrated no coffee ground emesis here in the emergency department with no decrease in her hemoglobin from her baseline. EKG demonstrates no acute findings. Lab work and chest x-ray is otherwise unremarkable. We will begin the patient on IV fluids. The patient will be admitted to the hospital for further care and workup. After speaking to the hospitalist, Dr. Timmons, he recommended a consult to nephrology which was performed. Accpeted by hospitalist. - Lab Data Result diagrams: 04/24/17 15:55 04/24/17 15:55 Lab Results 04/24/17 04/24/17 04/24/17 Range/Units 08:05 08:05 08:05 WBC 10.6 (4.3-11.1) K/mcL RBC 3.29 L (3.82-4.97) M/mcL Hgb 10.6 L (11.5-15.4) g/dL Hct 31.6 L (35.3-44.9) % MCV 96.0 (83.0-100.0) fL MCH 32.2 (28.0-33.3) pg MCHC 33.5 (31.6-35.5) g/dL RDW 15.9 H (11.5-14.5) % Plt Count 152 (140-400) K/mcL MPV 9.6 (9.4-12.4) fL Seg Neutrophils % 70.0 % Band Neutrophils % 8.0 H (0-4) % Lymphocytes % 10.0 % Monocytes % 12.0 % Neutrophils # 8.3 (1.6-8.9) K/mcL Lymphocytes # 1.1 (0.6-4.6) K/mcL Monocytes # 1.3 (0.0-1.3) K/mcL Reactive Lymphocytes Present A (Not Present) Platelet Estimate Normal (Normal) Large Platelets Present A (Not Present) PT (9.4-12.1) Seconds INR APTT (26.0-36.0) Seconds Sodium 134 L (136-145) mEq/L Potassium 4.9 H (3.5-4.5) mEq/L Chloride 91 L (98-109) mEq/L Carbon Dioxide 21 (19-29) mEq/L BUN 115 H (7-20) mg/dL Creatinine 5.32 H (0.57-1.11) mg/dL Est GFR ( Amer) 10 L (> 60) Est GFR (Non-Af Amer) 8 L (> 60) BUN/Creatinine Ratio 22 (6-26) Glucose 102 H (70-99) mg/dL Calculated Osmolality 315 H (280-300) Calcium 9.6 (8.6-10.8) mg/dL Creatine Kinase 746 H (29-168) Units/L Troponin I 0.01 (0-0.03) ng/mL Urine Color (Yellow) Urine Clarity (Clear) Urine pH (5.0-8.0) pH Units Ur Specific [place] (1.010-1.025) Urine Protein (Neg-Trace) mg/dL Urine Glucose (UA) (Normal) mg/dL Urine Ketones (Negative) mg/dL Urine Blood (Negative) Urine Nitrite (Negative) Urine Bilirubin (Negative) Urine Urobilinogen (Normal) mg/dL Ur Leukocyte Esterase (Negative) Urine Microscopic RBC (0-3) per hpf Urine Microscopic WBC (0-3) per hpf Ur Squamous Epith Cells (None-Few) per lpf Calcium Oxalate Crystal Urine Bacteria (None-Few) per hpf Hyaline Casts (None-Few) per lpf Urine Yeast (None Seen) per hpf Ur Culture Indicated? (NO) 04/24/17 04/24/17 Range/Units 08:05 09:19 WBC (4.3-11.1) K/mcL RBC (3.82-4.97) M/mcL Hgb (11.5-15.4) g/dL Hct (35.3-44.9) % MCV (83.0-100.0) fL MCH (28.0-33.3) pg MCHC (31.6-35.5) g/dL RDW (11.5-14.5) % Plt Count (140-400) K/mcL MPV (9.4-12.4) fL Seg Neutrophils % % Band Neutrophils % (0-4) % Lymphocytes % % Monocytes % % Neutrophils # (1.6-8.9) K/mcL Lymphocytes # (0.6-4.6) K/mcL Monocytes # (0.0-1.3) K/mcL Reactive Lymphocytes (Not Present) Platelet Estimate (Normal) Large Platelets (Not Present) PT 13.9 H (9.4-12.1) Seconds INR 1.3 APTT 23.1 L (26.0-36.0) Seconds Sodium (136-145) mEq/L Potassium (3.5-4.5) mEq/L Chloride (98-109) mEq/L Carbon Dioxide (19-29) mEq/L BUN (7-20) mg/dL Creatinine (0.57-1.11) mg/dL Est GFR ( Amer) (> 60) Est GFR (Non-Af Amer) (> 60) BUN/Creatinine Ratio (6-26) Glucose (70-99) mg/dL Calculated Osmolality (280-300) Calcium (8.6-10.8) mg/dL Creatine Kinase (29-168) Units/L Troponin I (0-0.03) ng/mL Urine Color Dark Yellow (Yellow) Urine Clarity Turbid A (Clear) Urine pH 5.0 (5.0-8.0) pH Units Ur Specific [place] 1.019 (1.010-1.025) Urine Protein 30 H (Neg-Trace) mg/dL Urine Glucose (UA) Normal (Normal) mg/dL Urine Ketones Negative (Negative) mg/dL Urine Blood Large H (Negative) Urine Nitrite Negative (Negative) Urine Bilirubin Moderate H (Negative) Urine Urobilinogen Normal (Normal) mg/dL Ur Leukocyte Esterase Large H (Negative) Urine Microscopic RBC 5-15 H (0-3) per hpf Urine Microscopic WBC TNTC H (0-3) per hpf Ur Squamous Epith Cells Many H (None-Few) per lpf Calcium Oxalate Crystal Present Urine Bacteria Many H (None-Few) per hpf Hyaline Casts Moderate H (None-Few) per lpf Urine Yeast Moderate H (None Seen) per hpf Ur Culture Indicated? YES A (NO) - EKG Data EKG #1 EKG attestation: Yes I reviewed and interpreted this EKG. EKG results narrative: Heart rate 94 bpm. NM interval 157 ms. QTC 391 ms. Normal axis normal sinus rhythm. No ST elevation or ST depression noted. EKG otherwise similar appearance to EKG from 04/05/2017. Attestation Statement - Attestation Attestation: I, Bret Madrid, examined this patient and my medical decision-making was reviewed with the CONTINUITY DIRECTOR/PA/Advanced Practice Nurse/Resident Physician. I agree with the documented findings, disposition and treatment plan as described except to the extent set forth below. 71-year-old female presents to emergency Department with concerns of coffee- ground emesis and hypoxia. Respiratory states she was hypoxic on their initial evaluation. Patient unable to give a history regarding her case her presentation. Patient states that she has felt increasingly weak and fatigued. She denies recent syncope or trauma. Patient has evidence of acute renal failure on laboratory testing. She comfortable with the plan to be admitted hospital for further care and evaluation.
[2017-04-24 08:20] LABS: Hematocrit 31.6 % (35.3-44.9); Hemoglobin 10.6 g/dL (11.5-15.4); Mean Corpuscular HGB Conc 33.5 g/dL (31.6-35.5); Mean Corpuscular Hemoglobin 32.2 pg (28.0-33.3); Mean Platelet Volume 9.6 fL (9.4-12.4); Platelet Count 152 K/mcL (140-400); Red Blood Count 3.29 M/mcL (3.82-4.97); Red Cell Distribution Width 15.9 % (11.5-14.5)
[2017-04-24 08:28] LABS: INR 1.3; Prothrombin Time 13.9 Seconds (9.4-12.1)
[2017-04-24 08:31] LABS: Activated Partial Thrombo Time 23.1 Seconds (26.0-36.0)
[2017-04-24 08:32] LABS: Calcium 9.6 mg/dL (8.6-10.8); Potassium 4.9 mEq/L (3.5-4.5)
[2017-04-24 08:44] LABS: Large Platelets Present (Not Present); Lymphocytes # 1.1 K/mcL (0.6-4.6); Monocytes # 1.3 K/mcL (0.0-1.3); Neutrophils # 8.3 K/mcL (1.6-8.9); Platelet Estimate Normal (Normal); Reactive Lymphocytes Present (Not Present)
[2017-04-24] MEDS ORDERED: 0.9 % Sodium Chloride 1,000 ML IVC ONE (08:48)
[2017-04-24] MEDS ORDERED: *HR* HYDROcodone/Acet 5/325 mg TABLET PO PRN (09:55)
[2017-04-24] MEDS ORDERED: Acetaminophen 325 MG TABLET PO PRN (09:55)
[2017-04-24] MEDS ORDERED: Naloxone 0.4 MG/ML INJ IVP PRN (09:55)
[2017-04-24] MEDS ORDERED: *HR* Morphine 2 MG/ML SYRINGE IVP PRN (09:55)
[2017-04-24] MEDS ORDERED: Pantoprazole 40 MG VIAL IVP SCH (10:00)
--- NOTE | 2017-04-24 10:12 | Internal Med History&Physical ---
Date of Encounter: 04/24/17 Time of Encounter: 09:30 Assessment and Plan (1) Hematemesis without nausea Current visit: Yes Status: Acute Will admit the pt into Tele Cont close monitoring Hb Q12hr will hold her SNF med Lovenox also avoid any ASA and other anti platelet meds GI consulted IV hdyration Clear liquid diet.. will advance if she does not have any more emesis (2) ANNA (acute kidney injury) Current visit: Yes Status: Acute due to dehydration / hypovolemic + taking Lasix, HCTZ and Lisinopril Started on IV hydration HC03 in acceptable range.. no need of Hco3 gtt now Nephro consulted Avoid any nephrotoxic meds (3) Hypoxia Current visit: Yes Status: Acute mostly due to deconditioning no wheezing / not in any bronchospasm cont close monitoring need home O2 eval..unclear whether she uses O2 at [facility] Duoneb PRN for now (4) Generalized weakness Current visit: Yes Status: Acute due to GI bleed and ANNA PT / OT eval in AM (5) Multiple myeloma Current visit: Yes Status: Chronic Stable Need to f/u with Heme Onc as an out pt Qualifiers: Multiple myeloma remission status: unspecified Qualified Code(s): C90.00 - Multiple myeloma not having achieved remission (6) Hypertension Current visit: No Status: Chronic stable with home meds resumed home meds except Lisinopril/ HCTZ/ Lasix Qualifiers: Hypertension type: essential hypertension Qualified Code(s): I10 - Essential (primary) hypertension (7) Hypothyroidism Current visit: No Status: Chronic resumed home meds Qualifiers: Hypothyroidism type: unspecified Qualified Code(s): E03.9 - Hypothyroidism , unspecified (8) DVT prophylaxis Current visit: No Status: Acute on SCD's only Internal Medicine - H&P: HPI Chief complaint: Hematemesis Admitted From: Emergency Dept Plans for Post Hospital Care: Home History of present illness: Ms. Royal is a 71 year old female with history of multiple myeloma who was sent to an extended care facility for rehabilitation recently. Now pt was sent to our ER with concern for "coffee ground emesis" x1 happened this morning. The patient denies any complaints at this time. She is alert, awake and O x3 and resting comfortably. Upon arrival from EMS they noted that the patient was mildly hypoxic with an O2 saturation of 80% on room air. The patient was placed on 4 L nasal cannula and quickly neeru into the low 90s. Upon arrival to the emergency department, the patient had an O2 saturation 96% on room air. The patient is resting comfortably without any visual signs of difficulty breathing. The patient has no outward signs of coffee ground emesis. The patient is not complaining of any abdominal pain, nausea, vomiting, diarrhea. Pt did mention he has been feeling weak, lethargic and not eating well from past few days. She is acting appropriately and answering all questions are appropriate. Patient's daughter who is in the room states that the patient is at her baseline. Past Med Surg Social Fam HX - Past Medical History Medical history: cancer, hypertension, thyroid disease, other Psychiatric history: no psych history - Past Surgical History Surgical History: appendectomy, breast surgery, cholecystectomy, hysterectomy, orthopedic, other, thyroidectomy, other - Social History Smoking Status: Former smoker Smokeless Tobacco Status: No Alcohol use: none Drug use: none - Family History Brother Family Member Ethnicity: Non- Living Status: Hx Family Cardiac Disorders: Yes (HD) Sister Family Member Ethnicity: Non- Living Status: Still Living Hx Family Cancer: Yes (Breast cancer) Mother Adopted: No Family Member Ethnicity: Non- Living Status: Hx Family Cardiac Disorders: Yes (HTN) Hx Family Respiratory Disorders: No Hx Family Cancer: Yes (colorectal cancer) Hx Family GI Disorders: No Hx Family Endocrine Disorder: No Hx Family Neuromuscular Disorders: No Hx Family Neurologic Disorders: No Hx Family HEENT Disorders: No Hx Family Autoimmune Disorders: No Father Family Member Ethnicity: Non- Living Status: Hx Family Cardiac Disorders: No Hx Family Respiratory Disorders: No Hx Family Cancer: Yes (mutliple myeloma) Hx Family GI Disorders: No Hx Family Endocrine Disorder: No Hx Family Neuromuscular Disorders: No Hx Family Neurologic Disorders: No Hx Family HEENT Disorders: No Hx Family Autoimmune Disorders: No Internal Medicine - H&P: Meds Levothyroxine Sodium [Synthroid] 75 mcg PO QAM 02/26/15 [History] Furosemide [Lasix] 20 mg PO DAILY PRN #30 tablet 01/03/17 [Rx] Losartan/Hydrochlorothiazide [Hyzaar 100-25 Tablet] 1 tab PO DAILY 01/06/17 [ History] Menthol [Biofreeze] 1 appl TP BID PRN 01/06/17 [History] Sertraline [Zoloft] 25 mg PO DAILY #30 tablet 02/07/17 [Rx] Docusate [Colace] 100 mg PO BID PRN 03/07/17 [History] Ondansetron [Zofran] 8 mg PO Q8HR PRN #90 tablet 03/07/17 [Rx] Cyclobenzaprine [Flexeril] 10 mg PO BID #20 tablet 04/04/17 [Rx] Lactulose 20 gm PO BID PRN 04/05/17 [History] Enoxaparin [Lovenox] 40 mg SQ 0600 04/11/17 [Rx] Gabapentin [Neurontin] 100 mg PO TID 04/11/17 [Rx] Morphine Sulfate SR (12 HR) [MS Contin] 30 mg PO Q12HR #6 tablet.er 04/11/17 [Rx ] Oxycodone HCl 20 mg PO Q4H PRN #12 tab 04/11/17 [Rx] 3 Allergy/AdvReac Type Severity Reaction Status Date / Time bacitracin Allergy unknown Verified 04/24/17 10:19 carfilzomib Allergy unknown Verified 04/24/17 10:19 celecoxib Allergy unknown Verified 04/24/17 10:19 Corticosteroids Allergy unknown Verified 04/24/17 10:19 (Glucocorticoids) dexamethasone Allergy unknown Verified 04/24/17 10:19 fentanyl Allergy Rash Verified 04/24/17 10:19 lenalidomide Allergy unknown Verified 04/24/17 10:19 melphalan Allergy unknown Verified 04/24/17 10:19 Neomycin Allergy unknown Verified 04/24/17 10:19 Penicillins [PCN] Allergy unknown Verified 04/24/17 10:19 polymyxin B Allergy unknown Verified 04/24/17 10:19 prednisone Allergy unknown Verified 04/24/17 10:19 tape Allergy unknown Uncoded 04/24/17 07:38 All Systems PM: A 10-system review of systems was performed and is negative for pertinent findings except as documented above in the HPI. Review of systems: All the systems are reviewed everything is benign except the systems and symptoms I mentioned in the history of present illness - Constitutional Vitals: Temp Pulse Resp BP Pulse Ox 97.6 F 94 13 122/73 97 04/24/17 07:42 04/24/17 07:42 04/24/17 07:42 04/24/17 07:42 04/24/17 07:42 General appearance: Present: A&O X 3, no acute distress, answers questions appropriately Exam: Looks lethargic and weak - Head Head exam: Present: atraumatic, normal inspection - Respiratory Respiratory exam: Present: decreased breath sounds. Absent: rales, respiratory distress, rhonchi, wheezes - Cardiovascular Cardiovascular exam: Present: RRR, +S1, +S2. Absent: diastolic murmur, gallop, rubs, systolic murmur - GI/Abdominal GI/Abdominal exam: Present: normal bowel sounds, soft, no peritoneal signs. Absent: distended, tenderness - Extremities Exam Extremities exam: Absent: calf tenderness, pedal edema, tenderness - Back Exam Back exam: Absent: CVA tenderness (L), CVA tenderness (R) - Neurological Exam Neurological exam: Present: alert, oriented X3 - Psychiatric Psychiatric exam: Present: normal affect, normal mood Internal Med - H&P Results - Labs CBC & Chem 7: 04/24/17 08:05 04/24/17 08:05 Labs: Short CBC 04/24/17 Range/Units 08:05 WBC 10.6 (4.3-11.1) K/mcL Hgb 10.6 L (11.5-15.4) g/dL Hct 31.6 L (35.3-44.9) % Plt Count 152 (140-400) K/mcL Neutrophils # 8.3 (1.6-8.9) K/mcL BMP 04/24/17 08:05 Sodium 134 L Potassium 4.9 H Chloride 91 L Carbon Dioxide 21 BUN 115 H Creatinine 5.32 H Glucose 102 H Calcium 9.6 Cardiac Enzymes 04/24/17 Range/Units 08:05 Troponin I 0.01 (0-0.03) ng/mL - Impressions ITS Impressions Chest X-Ray 04/24/17 07:44 IMPRESSION: No acute cardiopulmonary findings. D/ / Sakina Jarrett MD / Sakina Jarrett MD Interpreting Provider: Sakina Jarrett MD
[2017-04-24] MEDS: 0.9 % Sodium Chloride 1,000 ML IVC SCH ×2 (11:27→20:28)
--- NOTE | 2017-04-24 12:09 | Electrocardiograph Report ---
[address] [place], [place] [address] Test Date: 2017-04-24 Pat Name: Gabby Royal Department: 103 Room: 2A23 Gender: F Eeg Technician: : 1945 Requested By: Flynn Velasco Order Number: [id number] Reading MD: Sandrine Lenz Measurements Intervals [place] Rate: 94 P: 39 OK: 157 QRS: -20 QRSD: 93 T: 17 QT: 339 QTc: 391 Interpretive Statements SINUS RHYTHM Electronically Signed On 04-24-2017 12:07:03 EDT by Sandrine Lenz
[2017-04-24 12:52] LABS: Bilirubin,Urine Moderate (Negative); Blood,Urine Large (Negative); Clarity,Urine Turbid (Clear); Color,Urine Dark Yellow (Yellow); Glucose,Urine (UA) Normal (Normal); Ketones,Urine Negative (Negative); Leukocyte Esterase,Urine Large (Negative); Nitrite,Urine Negative (Negative); Protein,Urine 30 mg/dL (Neg-Trace); Specific Gravity,Urine 1.019 (1.010-1.025); Urobilinogen,Urine Normal (Normal)
[2017-04-24 12:53] LABS: Bacteria,Urine Many per hpf (None-Few); Hyaline Casts,Urine Moderate per lpf (None-Few); Squamous Epithelial Cell,Urine Many per lpf (None-Few); WBC,Urine TNTC per hpf (0-3)
[2017-04-24 13:08] LABS: Yeast,Urine Moderate per hpf (None Seen)
[2017-04-24 13:09] LABS: Calcium Oxalate Crystals,Urine Present
--- NOTE | 2017-04-24 14:33 | Nephrology Consult Note ---
<Flynn Kuhn - Last Filed: 04/24/17 14:24> Date of Encounter: 04/24/17 Time of Encounter: 14:24 Assessment and Plan (1) ANNA (acute kidney injury) Current Visit: Yes Status: Acute 71-year-old female transferred from snf with altered mental status, post suspected hematemesis and was found to have a creatinine of 5.32, GFR of 10. Patient was discharged on 04/06/2017 had a normal creatinine and GFR. Reviewed patient's previous lab results demonstrates that she did not have any chronic kidney disease prior to this admission. - Suspicion for prerenal cause for acute kidney injury - Suspect is secondary to poor oral intake, UTI, clinical picture of dehydration. Plan: - Continue IV rehydration with normal saline - After workup for GI bleeding patient should continue oral intake. - Avoid nephrotoxic medications and renally dose antibiotics - Monitor renal function with an labs (2) Dehydration Current Visit: Yes Status: Acute Patient clinically appears dehydrated with supporting labs are creatinine 5.32, GFR of 10, calculated osmolality 315 Plan: - Continue IV rehydration and monitoring volume status. - Strict intake and output monitoring (4) Multiple myeloma Current Visit: No Status: Chronic Patient has known and current medical history of multiple myeloma, currently not undergoing chemotherapy or radiation therapy. - Current calcium 9.6, no total protein or albumin on admitting labs. Qualifiers: Multiple myeloma remission status: not in remission Qualified Code(s): C90.00 - Multiple myeloma not having achieved remission (5) Hypothyroidism Current Visit: No Status: Chronic Continue levothyroxine 75 MCG Qualifiers: Hypothyroidism type: unspecified Qualified Code(s): E03.9 - Hypothyroidism , unspecified (7) DVT prophylaxis Current Visit: No Status: Acute SCDs (8) Nausea & vomiting Current Visit: No Status: Resolved Patient admitted with nausea and vomiting, workup per primary care team. Qualifiers: Qualified Code(s): R11.2 - Nausea with vomiting, unspecified History of Present Illness - Reason for Consult Consult date: 04/24/17 Acute Kidney Injury Requesting physician: Flynn Velasco - Chief Complaint Generalized weakness - History of Present Illness Mrs. Royal 71-year-old female with known past medical history of multiple myeloma, hypertension, hypothyroidism was brought to the emergency room department today after 4 episodes of suspected hematemesis at the nursing facility. Upon evaluation today the patient is resting in bed with son and sister at bed side. The patient appears to be too lethargic and her speech is not appropriate to questioning. According to her son he states that since she was discharged she has been declining daily. She has not been drinking fluids as she was evaluated by speech therapy and recommended thickened liquids and honey thickened liquid and she does not like the taste. She also has had a decreased appetite. He states that in the last 4-5 days her mental status has not been the same and she appears to be less sharp in decision making and speech does not make sense. Due to family concerns they had a urinalysis done at the snf for which they say was positive for urinary tract infection and should receive an antibiotic and IV fluids. Not sure how much IV fluid she has received or what antibiotic she was on but does not seem to be improving. They state they have not seen her like this before and that they were concerned she may have had a stroke as her speech is been inappropriate and she has been very lethargic. They correlated these symptoms with a previous family member who had a stroke. They are unsure of her bowel movements prior and the patient denies having any known diarrhea but does states she has been having bowel movements. When asked if she has been vomiting she states a little bit but is unsure when and how much. She does say that she has had some pain but she cannot localize or say where or when she started having pain. Her son states that she is no longer receiving chemotherapy or radiation therapy as she has had poor reactions to previous treatments. They deny any change in medication, history of kidney stones, previous history of kidney disease. They deny any other changes to her medical history. Past Med Surg Social Fam HX - Past Medical History Medical history: cancer, hypertension, thyroid disease, other Psychiatric history: no psych history - Past Surgical History Surgical History: appendectomy, breast surgery, cholecystectomy, hysterectomy, orthopedic, other, thyroidectomy, other - Social History Smoking Status: Former smoker Smokeless Tobacco Status: No Alcohol use: none Drug use: none - Family History Brother Family Member Ethnicity: Non- Living Status: Hx Family Cardiac Disorders: Yes (HD) Sister Family Member Ethnicity: Non- Living Status: Still Living Hx Family Cancer: Yes (Breast cancer) Mother Adopted: No Family Member Ethnicity: Non- Living Status: Hx Family Cardiac Disorders: Yes (HTN) Hx Family Respiratory Disorders: No Hx Family Cancer: Yes (colorectal cancer) Hx Family GI Disorders: No Hx Family Endocrine Disorder: No Hx Family Neuromuscular Disorders: No Hx Family Neurologic Disorders: No Hx Family HEENT Disorders: No Hx Family Autoimmune Disorders: No Father Family Member Ethnicity: Non- Living Status: Hx Family Cardiac Disorders: No Hx Family Respiratory Disorders: No Hx Family Cancer: Yes (mutliple myeloma) Hx Family GI Disorders: No Hx Family Endocrine Disorder: No Hx Family Neuromuscular Disorders: No Hx Family Neurologic Disorders: No Hx Family HEENT Disorders: No Hx Family Autoimmune Disorders: No Medications and Allergies Levothyroxine Sodium [Synthroid] 75 mcg PO QAM 02/26/15 [History] Furosemide [Lasix] 20 mg PO DAILY PRN #30 tablet 01/03/17 [Rx] Losartan/Hydrochlorothiazide [Hyzaar 100-25 Tablet] 1 tab PO DAILY 01/06/17 [ History] Menthol [Biofreeze] 1 appl TP BID PRN 01/06/17 [History] Sertraline [Zoloft] 25 mg PO DAILY #30 tablet 02/07/17 [Rx] Docusate [Colace] 100 mg PO BID PRN 03/07/17 [History] Ondansetron [Zofran] 8 mg PO Q8HR PRN #90 tablet 03/07/17 [Rx] Cyclobenzaprine [Flexeril] 10 mg PO BID #20 tablet 04/04/17 [Rx] Lactulose 20 gm PO BID PRN 04/05/17 [History] Enoxaparin [Lovenox] 40 mg SQ 0600 04/11/17 [Rx] Gabapentin [Neurontin] 100 mg PO TID 04/11/17 [Rx] Morphine Sulfate SR (12 HR) [MS Contin] 30 mg PO Q12HR #6 tablet.er 04/11/17 [Rx ] Oxycodone HCl 20 mg PO Q4H PRN #12 tab 04/11/17 [Rx] LORazepam Oral Conc [Ativan Oral Conc] 1 mg PO Q6HR PRN #30 mls 05/04/17 [Rx] Morphine Oral CONC [Roxanol] 0.25 ml SL Q2H PRN #30 ml 05/04/17 [Rx] Morphine Sulfate SR (12 HR) [MS Contin] 1 tab PO Q12HR #25 tab 05/04/17 [Rx] 3 Allergy/AdvReac Type Severity Reaction Status Date / Time bacitracin Allergy unknown Verified 04/24/17 10:19 carfilzomib Allergy unknown Verified 04/24/17 10:19 celecoxib Allergy unknown Verified 04/24/17 10:19 Corticosteroids Allergy unknown Verified 04/24/17 10:19 (Glucocorticoids) dexamethasone Allergy unknown Verified 04/24/17 10:19 fentanyl Allergy Rash Verified 04/24/17 10:19 lenalidomide Allergy unknown Verified 04/24/17 10:19 melphalan Allergy unknown Verified 04/24/17 10:19 Neomycin Allergy unknown Verified 04/24/17 10:19 Penicillins [PCN] Allergy unknown Verified 04/24/17 10:19 polymyxin B Allergy unknown Verified 04/24/17 10:19 prednisone Allergy unknown Verified 04/24/17 10:19 tape Allergy unknown Uncoded 04/24/17 07:38 Review of Systems ROS unobtainable: due to mental status Exam - Vital Signs Vital signs: Initial Vital Signs Temp Pulse Resp BP Pulse Ox 97.6 F 94 13 122/73 97 04/24/17 07:42 04/24/17 07:42 04/24/17 07:42 04/24/17 07:42 04/24/17 07:42 Vital Signs - Last 8 Hours Pulse Ox 04/24/17 13:57 97 - General Appearance General appearance: well-developed, well-nourished, appears started age EENT: mucous membranes dry Neck: no JVD, no thyromegaly, no carotid bruit, supple Respiratory: clear Cardiology: no murmurs, mid-systolic murmur, no rub, no edema, regular rate, regular rhythm Gastrointestinal: normoactive bowel sounds, no tenderness, no guarding, no organomegaly, no masses Integumentary: no rash, warm and dry Neurologic: disoriented Additional Comments: Patient moving upper and lower extremities spontaneously Musculoskeletal: no deformities, no erythema, no cyanosis, no clubbing Results - Lab Results 04/24/17 08:05 04/24/17 08:05 Most recent lab results Calcium 9.6 mg/dL (8.6-10.8) 04/24/17 08:05 Consult Discharge Plan - Plan Referrals: Avni Bean MD [Primary Care Provider] - (Patient is going to [facility] and enroll in Hospice no PCP appointment needed) Prescriptions: LORazepam Oral Conc [Ativan Oral Conc] 1 mg PO Q6HR PRN #30 mls PRN Reason: Anxiety Morphine Sulfate SR (12 HR) [MS Contin] 1 tab PO Q12HR #25 tab Morphine Oral CONC [Roxanol] 0.25 ml SL Q2H PRN #30 ml PRN Reason: sob or pain <Doin Verdugo - Last Filed: 05/05/17 12:57> Date of Encounter: 04/24/17 Exam - Vital Signs Vital signs: Initial Vital Signs Temp Pulse Resp BP Pulse Ox 97.6 F 94 13 122/73 97 04/24/17 07:42 04/24/17 07:42 04/24/17 07:42 04/24/17 07:42 04/24/17 07:42 Vital Signs - Last 8 Hours Pulse BP 05/05/17 10:40 134/64 05/05/17 09:16 94 Intake and Output 05/04/17 05/05/17 05/05/17 23:59 07:59 15:59 Intake Total 200 / 200 250 / 250 1200 / 1200 Output Total 550 / 550 200 / 200 325 / 325 Balance -350 / -350 50 / 50 875 / 875 Intake: Oral 0 / 0 Tube Feeding 50 / 50 1000 / 1000 Free Water 200 / 200 200 / 200 200 / 200 Output: Urine 325 / 325 Catheter 550 / 550 200 / 200 Other: Meal Dinner Percent of Meal Consumed 0% Stool Size Small Stool Consistency loose liquid # Bowel Movement Diapers 1 Blood Glucose* 117 103 117 Results - Lab Results 05/03/17 03:38 05/04/17 04:30 Most recent lab results ABG pH 7.46 pH Units (7.32-7.45) H 04/26/17 20:27 ABG pCO2 36 mmHg (35-45) 04/26/17 20:27 ABG pO2 99 mmHg (85-104) 04/26/17 20:27 ABG HCO3 26 mEq/L (21-27) 04/26/17 20:27 ABG O2 Saturation 98 % (95-98) 04/26/17 20:27 Calcium 7.5 mg/dL (8.6-10.8) L 05/04/17 04:30 Phosphorus 2.5 mg/dL (2.3-4.7) D 05/01/17 04:37 Magnesium 1.4 mg/dL (1.6-2.6) L 05/04/17 04:30 Urine Creatinine 58 mg/dL 04/24/17 20:30 Urine Sodium 49.0 mEq/L 04/24/17 20:30 - Attending Attestation I examined this patient and my medical decision-making was reviewed with the Resident Physician. I agree with the documented findings, disposition and treatment plan as described except to the extent set forth below. Pt seen and examined and in summary 71 y o female with PMH of MM and HTN admitted from ECF with hematemesis and found with ANNA, UTI with sepsis in the setting of decreased po intake. She is noted chronically ill appareing and lethargic with dry MM. Suspect etiology of Anna to be pre-renal but will start ANNA workup while aggressively repleting with IVF. No acute indication for HEAD ORTHOPEDIC TEAM PHYSICIAN at this time.
--- NOTE | 2017-04-24 14:56 | Gastroenterology Consult Note ---
<Faith Douglas - Last Filed: 04/24/17 17:40> Date of Encounter: 04/24/17 Time of Encounter: 14:53 - Assessment and plan (1) Hematemesis/vomiting blood Current Visit: Yes Status: Acute Assessment and plan: Per report of son, [facility]. Unclear history or descrption of blood in emesis at [facility]. No known history of previous gastric ulcer or NSAID use. Will make NPO for now. Plan for EGD to evaluate. Further recommendations to follow. - Time Spent With Patient Total time spent is greater than 50% in coordination of care (as documented) at patient's floor/unit and/or counseling patient: GI History of Present Illness - Data of Consult Requesting Physician: Antonio Shaw MD - Consult Narrative Reason for consult: blood in vomit History of present illness: Ms. Royal is a 71 year old female with past medical history of multiple myleoma and hypertension who is being evaluated for concerns of blood in vomit. Patient is very somnolent in bed, majority of HPI gathered from son who was at bedside. Per son, patient was admitted a few weeks ago for weakness and lower extremity injury. She was then sent to an extended care facility for physical therapy in hopes of being strong enough to return home. Son states that she has seemed to have been progressively declining since patient has been in the extended care facility. Patient has been in attendance there for the last 2 weeks. Per son, he received a call this morning from the [facility] informing him that the patient was found this morning on rounds where she had vomited. There was reported blood in vomit. He did not think to ask any further questions describing the blood in the vomit. Staff informed him while they were cleaning the patient up that she had three more episodes of emesis which also contained blood. Staff asked him what they should do and gave him the option of having her transferred to the hospital for further evaluation. He agreed and patient was sent over to emergency room. Per his knowledge, patient did not receive any ibuprofen or other NSAID while at [facility], nor was she receiving a daily low dose aspirin. Son states that patient has eaten some clear liquids and has not had any further emesis since arriving at hospital. Patient herself currently denies any abdominal pain or nausea. Past Med Surg Social Fam HX - Past Medical History Medical history: cancer, hypertension, thyroid disease, other Psychiatric history: no psych history - Past Surgical History Surgical History: appendectomy, breast surgery, cholecystectomy, hysterectomy, orthopedic, other, thyroidectomy, other - Social History Smoking Status: Former smoker Smokeless Tobacco Status: No Alcohol use: none Drug use: none - Family History Brother Family Member Ethnicity: Non- Living Status: Hx Family Cardiac Disorders: Yes (HD) Sister Family Member Ethnicity: Non- Living Status: Still Living Hx Family Cancer: Yes (Breast cancer) Mother Adopted: No Family Member Ethnicity: Non- Living Status: Hx Family Cardiac Disorders: Yes (HTN) Hx Family Respiratory Disorders: No Hx Family Cancer: Yes (colorectal cancer) Hx Family GI Disorders: No Hx Family Endocrine Disorder: No Hx Family Neuromuscular Disorders: No Hx Family Neurologic Disorders: No Hx Family HEENT Disorders: No Hx Family Autoimmune Disorders: No Father Family Member Ethnicity: Non- Living Status: Hx Family Cardiac Disorders: No Hx Family Respiratory Disorders: No Hx Family Cancer: Yes (mutliple myeloma) Hx Family GI Disorders: No Hx Family Endocrine Disorder: No Hx Family Neuromuscular Disorders: No Hx Family Neurologic Disorders: No Hx Family HEENT Disorders: No Hx Family Autoimmune Disorders: No Review of Systems: limited due to underlying medical condition and mental status - Gastrointestinal Gastrointestinal: Present: vomiting (per [facility] report, with blood). Absent: abdominal pain, heartburn, nausea - Constitutional Constitutional: no fever(s) - EENT Ears: Absent: ear pain Nose, mouth and throat: Absent: sore throat - Cardiovascular Cardiovascular ROS: Absent: chest pain - Respiratory Respiratory IM: Absent: dyspnea, hemoptysis - Constitutional Vitals: Temp Pulse Resp BP Pulse Ox 97.0 F L 95 16 113/63 97 04/24/17 12:16 04/24/17 12:16 04/24/17 12:16 04/24/17 12:16 04/24/17 13:57 General appearance: Present: cooperative, pleasant, no acute distress Exam: lying in bed - Head Head exam: Present: atraumatic, normocephalic - Eye Eye exam: Present: sclera anicteric. Absent: conjunctival injection - Neck Neck exam general surgery: Present: supple, trachea midline - Respiratory Respiratory exam: Present: CTAB. Absent: rhonchi, stridor, wheezes - Cardiovascular Cardiovascular exam: Present: RRR, +S1, +S2, systolic murmur (2/6 holosystolic murmur heard at rigy second intercostal space) - GI/Abdominal GI/Abdominal exam: Present: normal bowel sounds, soft. Absent: distended, guarding, tenderness Additional comments: well healed abdominal incision - Skin Additional comments: port in place upper right chest with no surrounding erythema or edema Results - Labs CBC & Chem 7: 04/24/17 15:55 04/24/17 15:55 Labs: Last Result Calcium 9.6 mg/dL (8.6-10.8) 04/24/17 08:05 Troponin I 0.01 ng/mL (0-0.03) 04/24/17 08:05 Entire Visit Hgb 10.6 g/dL (11.5-15.4) L 04/24/17 08:05 Hct 31.6 % (35.3-44.9) L 04/24/17 08:05 PT 13.9 Seconds (9.4-12.1) H 04/24/17 08:05 - ABG ABG results: PT/INR, D-dimer PT 13.9 Seconds (9.4-12.1) H 04/24/17 08:05 Consult Discharge Plan - Plan Referrals: Avni Bean MD [Primary Care Provider] - <Gerda Doe - Last Filed: 04/24/17 17:43> Date of Encounter: 04/24/17 Time of Encounter: 17:30 - Time Spent With Patient Total time spent is greater than 50% in coordination of care (as documented) at patient's floor/unit and/or counseling patient: GI History of Present Illness - Data of Consult Requesting Physician: Antonio Shaw MD - Consult Narrative History of present illness: Ms. Royal is a 71 year old female - Constitutional Vitals: Temp Pulse Resp BP Pulse Ox 98 F 91 17 115/71 99 04/24/17 17:40 04/24/17 17:40 04/24/17 17:40 04/24/17 17:40 04/24/17 17:40 Results - Labs CBC & Chem 7: 04/24/17 15:55 04/24/17 15:55 Labs: Last Result Calcium 8.8 mg/dL (8.6-10.8) 04/24/17 15:55 Troponin I 0.01 ng/mL (0-0.03) 04/24/17 08:05 Entire Visit Hgb 9.3 g/dL (11.5-15.4) L 04/24/17 15:55 Hct 28.1 % (35.3-44.9) L 04/24/17 15:55 PT 13.9 Seconds (9.4-12.1) H 04/24/17 08:05 - ABG ABG results: PT/INR, D-dimer PT 13.9 Seconds (9.4-12.1) H 04/24/17 08:05 - Attending Attestation I examined this patient and my medical decision-making was reviewed with the Resident Physician. I agree with the documented findings, disposition and treatment plan as described except to the extent set forth below. Pt to have EGD done to rule out upper GI causes for his hematemesis.
[2017-04-24] MEDS: Gabapentin 100 MG CAPSULE PO SCH ×2 (15:16→20:47)
[2017-04-24 17:00] LABS: Hematocrit 28.1 % (35.3-44.9); Hemoglobin 9.3 g/dL (11.5-15.4)
[2017-04-24] MEDS: *HR* Morphine Sulfate SR (12 HR) 30 MG TABLET.ER PO SCH (17:07)
[2017-04-24] MEDS ORDERED: *HR* Midazolam HCl 5 MG/5 ML VIAL IVP ONE (17:17)
[2017-04-24] MEDS ORDERED: *HR* FentaNYL (PF) 100 MCG/2 ML VIAL ONE (17:17)
[2017-04-24 17:26] LABS: Calcium 8.8 mg/dL (8.6-10.8); Magnesium 2.7 mg/dL (1.6-2.6); Potassium 4.5 mEq/L (3.5-4.5)
[2017-04-24] MEDS ORDERED: *HR* FentaNYL (PF) 100 MCG/2 ML VIAL IVP PRN (17:35)
[2017-04-24] MEDS ORDERED: Tetracaine/Benzocaine/Butamben 200MG/SPRAY (100SPY/BOT) MM ONE (17:35)
[2017-04-24] MEDS ORDERED: *HR* Midazolam HCl 5 MG/5 ML VIAL IVP PRN (17:35)
[2017-04-24] MEDS ORDERED: Simethicone 40 MG/0.6 ML MLS IR ONE (17:35)
--- NOTE | 2017-04-24 17:36 | Pre-Sedation Evaluation ---
Pre-sedation evaluation - Pre-sedation checklist Procedure: APort placement Recent Vitals: Last Vital Signs Temp 97.8 F 04/24/17 16:16 Pulse 80 04/24/17 16:16 Resp 17 04/24/17 16:16 BP 102/68 04/24/17 16:16 Pulse Ox 96 04/24/17 16:16 H&P (including ROS) documented in medical record: Yes Previous reaction to sedatives/anesthetics: No Dietary Status: NPO after Midnight Dentition: No loose teeth or bridges ASA Classification *see protocol: CLASS III-Severe systemic disease Plan of Care: Pt appropriate candidate for procedure/moderate/conscious sedation , Risks/benefits of procedure/sedation discussed w/ patient/family
[2017-04-24] MEDS ORDERED: *HR* Meperidine 50 MG/ML SYRINGE IVP PRN (17:41)
[2017-04-24] MEDS ORDERED: Levofloxacin 750 MG/150 ML 750 MG/150 ML BAG IVPB ONE (18:18)
[2017-04-24 18:21] LABS: Uric Acid 9.3 mg/dL (2.6-6.0)
[2017-04-24] MEDS ORDERED: Dextrose Gel 15 GM PO PRN ×2 (22:49)
[2017-04-24] MEDS ORDERED: *HR* Dextrose 50 % in Water (Syg) 50 ML SYRINGE IVP PRN (22:49)
[2017-04-24] MEDS ORDERED: D5% in Water 1,000 ML IVC PRN (22:49)
[2017-04-25 04:06] LABS: Hematocrit 30.1 % (35.3-44.9); Mean Corpuscular HGB Conc 33.2 g/dL (31.6-35.5); Mean Corpuscular Hemoglobin 32.1 pg (28.0-33.3); Mean Corpuscular Volume 96.5 fL (83.0-100.0); Mean Platelet Volume 9.2 fL (9.4-12.4); Monocytes # 0.3 K/mcL (0.0-1.3); Platelet Count 152 K/mcL (140-400); Red Blood Count 3.12 M/mcL (3.82-4.97)
[2017-04-25 04:20] LABS: Calcium 8.7 mg/dL (8.6-10.8); Magnesium 2.3 mg/dL (1.6-2.6); Phosphorous 4.4 mg/dL (2.3-4.7); Potassium 3.9 mEq/L (3.5-4.5)
[2017-04-25] MEDS: *HR* Morphine Sulfate SR (12 HR) 30 MG TABLET.ER PO SCH ×2 (05:28→17:32)
[2017-04-25] MEDS: 0.9 % Sodium Chloride 1,000 ML IVC SCH ×3 (05:28→21:52)
[2017-04-25 05:33] LABS: Lymphocytes # 0.7 K/mcL (0.6-4.6); Neutrophils # 3.2 K/mcL (1.6-8.9); Platelet Estimate Normal (Normal)
[2017-04-25 05:34] LABS: Toxic Granulation Present (Not Present)
[2017-04-25] MEDS: Sucralfate 1 GM TABLET PO SCH ×2 (07:41→17:32)
[2017-04-25] MEDS: Gabapentin 100 MG CAPSULE PO SCH ×3 (07:41→21:39)
[2017-04-25] MEDS: Ondansetron 4 MG/2 ML VIAL IVP PRN (07:50)
--- NOTE | 2017-04-25 08:35 | Nephrology Progress Note ---
Date of Encounter: 04/25/17 Time of Encounter: 08:30 - Assessment and Plan (1) ANNA (acute kidney injury) Current Visit: Yes Status: Acute 71-year-old female transferred from custodial with altered mental status, post suspected hematemesis and was found to have a creatinine of 5.32, GFR of 10. Patient was discharged on 04/06/2017 had a normal creatinine and GFR. Reviewed patient's previous lab results demonstrates that she did not have any chronic kidney disease prior to this admission. 04/25: Renal function improving, Creatinine and GFR improving with NS running at 125ml/hr. 1600ml output in the past 24 hours. Uric Acid 9.3, Urine creatinine 58, Urine Sodium 49. Plan: - Continue IV rehydration with normal saline - Continue oral intake as tolerated - Avoid nephrotoxic medications and renally dose antibiotics - Monitor renal function with an labs (2) Dehydration Current Visit: Yes Status: Acute Upon admission Ms. Royal clinically appeared dehydrated with supporting labs are creatinine 5.32, GFR of 10, calculated osmolality 315, Today She is showing improvement and tolerating IV rehydration. Echocardiogram from 01/07/2017 Impressions: Normal LV systolic function, LVEF 65-70%. Mild left ventricular diastolic dysfunction. Normal right ventricular size and function. No significant valvular dysfunction. No evidence of pulmonary hypertension. No evidence of intracardiac shunting with agitated saline contrast. Plan: - Continue IV rehydration and monitoring volume status with hx of mild left ventricular diastolic dysfunction. - Strict intake and output monitoring (3) Multiple myeloma Current Visit: No Status: Chronic Patient has known and current medical history of multiple myeloma, currently not undergoing chemotherapy or radiation therapy. - Calcium within normal range. Qualifiers: Multiple myeloma remission status: not in remission Qualified Code(s): C90.00 - Multiple myeloma not having achieved remission (4) Nausea & vomiting Current Visit: No Status: Resolved Patient admitted with nausea and vomiting, workup per primary care team. Qualifiers: Vomiting type: hematemesis Qualified Code(s): K92.0 - Hematemesis; R11.0 - Nausea (5) Hypothyroidism Current Visit: No Status: Chronic Continue levothyroxine 75 MCG Qualifiers: Hypothyroidism type: unspecified Qualified Code(s): E03.9 - Hypothyroidism , unspecified (6) DVT prophylaxis Current Visit: No Status: Acute Subjective Principal diagnosis: Hypokalemia Interval history: Ms. Royal has been seen and evaluated at bedside this morning. She is alert and awake and answers some questions. She says she is feeling better but tired and nauseous. She says she had retching and some vomiting but does not know the color or quantity. She denies any pain, fevers, chills or sweating. She denies any further concerns or questions regarding renal status. Objective - Vital Signs Vital signs: Vital Signs Temp Pulse Resp BP Pulse Ox 04/25/17 07:59 99 04/25/17 06:45 97.3 F L 98 18 117/75 99 04/25/17 03:59 97.6 F 99 17 118/63 98 04/25/17 00:48 98.2 F 99 17 106/68 99 04/24/17 21:01 98.7 F 101 14 114/75 98 04/24/17 17:50 80 17 120/60 99 04/24/17 17:45 89 17 109/58 100 04/24/17 17:40 98 F 91 17 115/71 99 04/24/17 17:35 91 17 105/74 99 04/24/17 16:16 97.8 F 80 17 102/68 96 04/24/17 15:50 97.3 F L 83 17 100/66 98 04/24/17 13:57 97 Intake and Output 04/24/17 04/25/17 04/25/17 23:59 07:59 15:59 Intake Total 1000 / 1000 1000 / 1000 Output Total 700 / 700 900 / 900 Balance 300 / 300 100 / 100 Intake: IV Fluids 1000 / 1000 1000 / 1000 0.9 % Sodium Chloride 1,000 ML 1000 / 1000 1000 / 1000 @ 125 mls/hr IVC .Q8H [facility] Rx#: [id number] Output: Urine 700 / 700 0 / 0 Catheter 900 / 900 Other: Weight 85.8 kg Blood Glucose* 82 124 Patient Weight 04/25/17 23:59 Weight 85.8 kg - General Appearance General appearance: Present: well-developed, appears started age EENT: Present: mucous membranes moist Neck: Present: no JVD, no thyromegaly, no carotid bruit, supple Respiratory: Present: no kyphosis, clear Cardiology: Present: mid-systolic murmur, no rub, no gallops, no edema, regular rate, regular rhythm Gastrointestinal: Present: normoactive bowel sounds, no tenderness, no guarding , no organomegaly, no masses Integumentary: Present: no rash, warm and dry Neurologic: Present: no focal deficit, confused Musculoskeletal: Present: no deformities, no erythema, no cyanosis, no clubbing - Lab 04/25/17 03:55 04/25/17 03:55 Most recent lab results Calcium 8.7 mg/dL (8.6-10.8) 04/25/17 03:55 Phosphorus 4.4 mg/dL (2.3-4.7) 04/25/17 03:55 Magnesium 2.3 mg/dL (1.6-2.6) 04/25/17 03:55 Urine Creatinine 58 mg/dL 04/24/17 20:30 Urine Sodium 49.0 mEq/L 04/24/17 20:30 Consult Discharge Plan - Plan Referrals: Avni Bean MD [Primary Care Provider] -
--- NOTE | 2017-04-25 10:30 | Internal Med Progress Note ---
Date of Encounter: 04/25/17 Time of Encounter: 10:28 - Assessment and plan (1) ANNA (acute kidney injury) Current Visit: Yes Status: Acute (2) GI bleed Current Visit: Yes Status: Acute Qualifiers: Gastritis type: unspecified gastritis Qualified Code(s): K29.71 - Gastritis , unspecified, with bleeding (3) Multiple myeloma Current Visit: No Status: Chronic Qualifiers: Multiple myeloma remission status: not in remission Qualified Code(s): C90.00 - Multiple myeloma not having achieved remission (4) Hypertension Current Visit: No Status: Chronic Qualifiers: Hypertension type: essential hypertension Qualified Code(s): I10 - Essential (primary) hypertension (5) Hypothyroidism Current Visit: No Status: Chronic Qualifiers: Hypothyroidism type: unspecified Qualified Code(s): E03.9 - Hypothyroidism , unspecified - Subjective Interval history: Ms. Gabby Roca is a 71-year-old female with history of multiple myeloma admitted for hematemesis and acute kidney injury. Gastroenterology and nephrology have seen the patient. Patient was seen today and care plan was discussed at [facility]. #1 GI bleed hemoglobin is stable. EGD showed severe gastritis. Patient on PPI and Carafate. Continue monitoring hemoglobin #2 acute kidney failure nephrology thinks it is prerenal. Continue IV fluids and daily monitoring of renal function magnesium and phosphate. Labs: CBC CMP Mag/Phos ordered on daily basis. She is not a candidate for Lovenox or antiplatelets - Constitutional Vitals: Temp Pulse Resp BP Pulse Ox 97.3 F L 98 18 117/75 99 04/25/17 06:45 04/25/17 06:45 04/25/17 06:45 04/25/17 06:45 04/25/17 07:59 General appearance: Present: A&O X 3, no acute distress, answers questions appropriately - Head Head exam: Present: atraumatic, normocephalic - Eye Eye exam: Present: PERRL, conjuntiva pink, sclera anicteric Pupils: Present: PERRL - Neck Neck exam general surgery: Present: supple, trachea midline. Absent: lymphadenopathy - Respiratory Respiratory exam: Present: CTAB. Absent: accessory muscle use, rales, rhonchi, wheezes - Cardiovascular Cardiovascular exam: Present: RRR, +S1, +S2. Absent: diastolic murmur, gallop, rubs, systolic murmur - GI/Abdominal GI/Abdominal exam: Present: normal bowel sounds, soft, no peritoneal signs. Absent: distended, tenderness - Extremities Exam Extremities exam: Present: warm, radial pulses palpable and symmetrical. Absent : calf tenderness, cyanotic, pedal edema - Neurological Exam Neurological exam: Present: CN II-XII intact, oriented X3, no focal deficits. Absent: pronater drift, facial droop, speech deficit - Skin Skin exam: Present: dry, intact Internal Medicine: Result - Labs CBC & Chem 7: 04/25/17 03:55 04/25/17 03:55 Labs: Short CBC 04/24/17 04/25/17 Range/Units 15:55 03:55 WBC 4.2 L D (4.3-11.1) K/mcL Hgb 9.3 L 10.0 L (11.5-15.4) g/dL Hct 28.1 L 30.1 L (35.3-44.9) % Plt Count 152 (140-400) K/mcL Neutrophils # 3.2 (1.6-8.9) K/mcL BMP 04/24/17 04/25/17 15:55 03:55 Sodium 135 L 140 Potassium 4.5 3.9 Chloride 96 L 101 Carbon Dioxide 24 23 BUN 110 H 100 H Creatinine 4.65 H 3.63 H Glucose 111 H 100 H Calcium 8.8 8.7 - ABG Interpretation ABG results: PT/INR, D-dimer PT 13.9 Seconds (9.4-12.1) H 04/24/17 08:05 Consult Discharge Plan - Plan Referrals: Avni Bean MD [Primary Care Provider] -
[2017-04-25 14:26] LABS: Bilirubin,Urine Negative (Negative); Blood,Urine Moderate (Negative); Clarity,Urine Cloudy (Clear); Color,Urine Yellow (Yellow); Glucose,Urine (UA) Normal (Normal); Ketones,Urine Negative (Negative); Leukocyte Esterase,Urine Small (Negative); Nitrite,Urine Negative (Negative); Protein,Urine 30 mg/dL (Neg-Trace); Specific Gravity,Urine 1.017 (1.010-1.025); Urobilinogen,Urine Normal (Normal)
[2017-04-25 14:28] LABS: Bacteria,Urine Few per hpf (None-Few); Hyaline Casts,Urine None Seen per lpf (None-Few); Squamous Epithelial Cell,Urine Moderate per lpf (None-Few); WBC,Urine 15-30 per hpf (0-3)
[2017-04-25 14:45] LABS: Yeast,Urine Moderate per hpf (None Seen)
[2017-04-26] MEDS: 0.9 % Sodium Chloride 1,000 ML IVC SCH ×2 (05:16→17:12)
[2017-04-26 05:22] LABS: Eosinophils # 0.1 K/mcL (0.0-0.6); Eosinophils % 1.7 %; Hematocrit 29.8 % (35.3-44.9); Hemoglobin 9.6 g/dL (11.5-15.4); Immature Granulocytes % 1.9 % (0-4); Lymphocytes # 0.5 K/mcL (0.6-4.6); Lymphocytes % 11.4 %; Mean Corpuscular HGB Conc 32.2 g/dL (31.6-35.5); Mean Corpuscular Hemoglobin 31.5 pg (28.0-33.3); Mean Corpuscular Volume 97.7 fL (83.0-100.0); Mean Platelet Volume 9.1 fL (9.4-12.4); Monocytes # 0.7 K/mcL (0.0-1.3); Monocytes % 15.4 %; Neutrophils # 2.9 K/mcL (1.6-8.9); Platelet Count 136 K/mcL (140-400); Red Blood Count 3.05 M/mcL (3.82-4.97); Red Cell Distribution Width 16.3 % (11.5-14.5); Segmented Neutrophils % 69.6 %
[2017-04-26] MEDS: *HR* Morphine Sulfate SR (12 HR) 30 MG TABLET.ER PO SCH ×2 (05:23→17:11)
[2017-04-26 05:37] LABS: Albumin/Globulin Ratio 0.3 (1.1-2.2); Bilirubin,Total 0.4 mg/dL (0.2-1.2); Calcium 8.1 mg/dL (8.6-10.8); Globulin 5.4 g/dL (2.4-3.5); Magnesium 1.9 mg/dL (1.6-2.6); Phosphorous 2.9 mg/dL (2.3-4.7); Potassium 3.4 mEq/L (3.5-4.5); Total Protein 7.2 g/dL (6.0-8.3)
[2017-04-26 05:38] LABS: Albumin 1.8 g/dL (3.5-5.0)
[2017-04-26 05:58] LABS: Platelet Estimate Normal (Normal); Reactive Lymphocytes Present (Not Present)
--- NOTE | 2017-04-26 08:12 | Nephrology Progress Note ---
Date of Encounter: 04/26/17 Time of Encounter: 08:12 - Assessment and Plan (1) ANNA (acute kidney injury) Current Visit: Yes Status: Acute 71-year-old female [facility] with altered mental status, post suspected hematemesis and was found to have a creatinine of 5.32, GFR of 10. Patient was discharged on 04/06/2017 had a normal creatinine and GFR. Reviewed patient's previous lab results demonstrates that she did not have any chronic kidney disease prior to this admission. 04/25: Renal function improving, Creatinine and GFR improving with NS running at 125ml/hr. 1600ml output in the past 24 hours. Uric Acid 9.3, Urine creatinine 58, Urine Sodium 49. 04/26: patients creatinine and GFR improving appropriately to therapy with NS rehydration. Continue with current fluids, monitor volume status and correct electrolyte imbalances. Plan: - Continue IV rehydration with normal saline - Continue oral intake as tolerated - Avoid nephrotoxic medications and renally dose antibiotics - Monitor renal function with an labs (2) Dehydration Current Visit: Yes Status: Acute Upon admission Ms. Royal clinically appeared dehydrated with supporting labs are creatinine 5.32, GFR of 10, calculated osmolality 315, Today She is showing improvement and tolerating IV rehydration. Echocardiogram from 01/07/2017 Impressions: Normal LV systolic function, LVEF 65-70%. Mild left ventricular diastolic dysfunction. Normal right ventricular size and function. No significant valvular dysfunction. No evidence of pulmonary hypertension. No evidence of intracardiac shunting with agitated saline contrast. Plan: - Continue IV rehydration and monitoring volume status with hx of mild left ventricular diastolic dysfunction. - Strict intake and output monitoring (3) Multiple myeloma Current Visit: No Status: Chronic Patient has known and current medical history of multiple myeloma, currently not undergoing chemotherapy or radiation therapy. - Calcium within normal range. Qualifiers: Multiple myeloma remission status: not in remission Qualified Code(s): C90.00 - Multiple myeloma not having achieved remission (4) Hypothyroidism Current Visit: No Status: Chronic Continue levothyroxine 75 MCG Qualifiers: Hypothyroidism type: unspecified Qualified Code(s): E03.9 - Hypothyroidism , unspecified (5) DVT prophylaxis Current Visit: No Status: Acute Subjective Principal diagnosis: Hypokalemia Interval history: Mrs. Royal has been seen and evaluated at patient bedside this morning. She is doing well and without any new complaints compared to yesterday. She is alert, awake and interacting. No further concerns at this time. Objective - Vital Signs Vital signs: Vital Signs Temp Pulse Resp BP Pulse Ox 04/26/17 07:32 100.6 F H 113 21 134/70 95 04/26/17 05:10 101.0 F H 112 14 123/70 95 04/26/17 01:40 99.8 F H 107 14 101/63 96 04/25/17 22:23 99.9 F H 110 16 117/72 95 04/25/17 16:08 97.6 F 64 17 112/70 04/25/17 11:41 97.7 F 64 16 108/68 96 Intake and Output 04/25/17 04/26/17 04/26/17 23:59 07:59 15:59 Intake Total 1000 / 1000 923.5 / 923.5 Output Total 1150 / 1150 1350 / 1350 Balance -150 / -150 -426.5 / -426.5 Intake: IV Fluids 1000 / 1000 923.5 / 923.5 0.9 % Sodium Chloride 1,000 ML 1000 / 1000 923.5 / 923.5 @ 125 mls/hr IVC .Q8H ED Rx#: [id number] Oral 0 / 0 Output: Catheter 1150 / 1150 1350 / 1350 Other: Weight 84.4 kg Blood Glucose* 115 102 Patient Weight 04/26/17 23:59 Weight 84.4 kg - General Appearance General appearance: Present: well-developed, well-nourished Neck: Present: no JVD, no thyromegaly, no carotid bruit Cardiology: Present: mid-systolic murmur, no rub, no gallops, no edema, regular rate, regular rhythm Gastrointestinal: Present: normoactive bowel sounds, no tenderness, no guarding , no masses Integumentary: Present: no rash, warm and dry Musculoskeletal: Present: no erythema, no cyanosis - Lab 04/26/17 05:02 04/26/17 05:02 Most recent lab results Calcium 8.1 mg/dL (8.6-10.8) L 04/26/17 05:02 Phosphorus 2.9 mg/dL (2.3-4.7) 04/26/17 05:02 Magnesium 1.9 mg/dL (1.6-2.6) 04/26/17 05:02 Urine Creatinine 58 mg/dL 04/24/17 20:30 Urine Sodium 49.0 mEq/L 04/24/17 20:30 - VTE Documentation of Mechanical Device: Intermittent pneumatic compression device Consult Discharge Plan - Plan Referrals: Avni Bean MD [Primary Care Provider] - (web request sent on 04/26/17)
--- NOTE | 2017-04-26 08:12 | Internal Med Progress Note ---
Date of Encounter: 04/26/17 - Assessment and plan (1) ANNA (acute kidney injury) Current Visit: Yes Status: Acute (2) Dehydration Current Visit: Yes Status: Acute (3) Multiple myeloma Current Visit: No Status: Chronic Qualifiers: Multiple myeloma remission status: not in remission Qualified Code(s): C90.00 - Multiple myeloma not having achieved remission (4) Hypothyroidism Current Visit: No Status: Chronic Qualifiers: Hypothyroidism type: unspecified Qualified Code(s): E03.9 - Hypothyroidism , unspecified (5) DVT prophylaxis Current Visit: No Status: Acute - Subjective Interval history: Ms. Royal has been seen and evaluated at bedside this morning. She is alert and awake and answers some questions. She says she is feeling better but tired and nauseous. She says she had retching and some vomiting but does not know the color or quantity. She denies any pain, fevers, chills or sweating. She denies any further concerns or questions regarding renal status. - Constitutional Vitals: Temp Pulse Resp BP Pulse Ox 100.6 F H 113 21 134/70 95 04/26/17 07:32 04/26/17 07:32 04/26/17 07:32 04/26/17 07:32 04/26/17 07:32 General appearance: Present: A&O X 3, no acute distress, answers questions appropriately Internal Medicine: Result - Labs CBC & Chem 7: 04/26/17 05:02 04/26/17 05:02 Labs: Short CBC 04/26/17 Range/Units 05:02 WBC 4.2 L (4.3-11.1) K/mcL Hgb 9.6 L (11.5-15.4) g/dL Hct 29.8 L (35.3-44.9) % Plt Count 136 L (140-400) K/mcL Neutrophils # 2.9 (1.6-8.9) K/mcL BMP 04/26/17 05:02 Sodium 147 H Potassium 3.4 L Chloride 113 H Carbon Dioxide 21 BUN 77 H Creatinine 2.20 H Glucose 102 H Calcium 8.1 L Liver Function 04/26/17 Range/Units 05:02 Total Bilirubin 0.4 (0.2-1.2) mg/dL AST 25 (5-34) Units/L ALT 20 (0-55) Units/L Alkaline Phosphatase 56 (38-126) Units/L Albumin 1.8 L (3.5-5.0) g/dL Urine 04/25/17 Range/Units 14:08 Urine Color Yellow (Yellow) Urine Clarity Cloudy A (Clear) Urine pH 5.0 (5.0-8.0) pH Units Ur Specific [place] 1.017 (1.010-1.025) Urine Protein 30 H (Neg-Trace) mg/dL Urine Glucose (UA) Normal (Normal) mg/dL - ABG Interpretation ABG results: PT/INR, D-dimer PT 13.9 Seconds (9.4-12.1) H 04/24/17 08:05 - VTE Documentation of Mechanical Device: Intermittent pneumatic compression device Consult Discharge Plan - Plan Referrals: Avni Bean MD [Primary Care Provider] -
[2017-04-26] MEDS: Levofloxacin 500 MG/100 ML 500 MG/100 ML BAG IVPB SCH (08:55)
[2017-04-26] MEDS ORDERED: levoFLOXacin 250 MG TABLET PO SCH (09:00)
[2017-04-26] MEDS ORDERED: Furosemide 40 MG/4 ML VIAL IVP ONE ×2 (11:50→18:07)
[2017-04-26] MEDS: Cefepime HCl 2,000 MG in D5% in Water (Mini-Bag+) 100 ML IVPB SCH (12:39)
[2017-04-26] MEDS: Sucralfate 1 GM TABLET PO SCH ×2 (17:10→17:11)
[2017-04-26] MEDS: Gabapentin 100 MG CAPSULE PO SCH (17:11)
[2017-04-26] MEDS: Acetaminophen 650 MG RECTAL SUPP RC PRN (17:50)
[2017-04-26] MEDS ORDERED: Furosemide 40 MG/4 ML VIAL ONE (18:07)
[2017-04-26 18:26] LABS: ABG Base Excess -0.5 mEq/L (-2.0 to 3.0); ABG HCO3 23 mEq/L (21-27); ABG Oxygen Saturation 97 % (95-98); ABG PCO2 34 mmHg (35-45); ABG PH 7.44 pH Units (7.32-7.45); ABG PO2 83 mmHg (85-104); ABG TCO2 24 mEq/L (20-26)
[2017-04-26 18:27] LABS: Blood Gas Modality NC
--- NOTE | 2017-04-26 18:36 | Internal Med Progress Note ---
Date of Encounter: 04/26/17 Time of Encounter: 18:30 - Assessment and plan (1) ANNA (acute kidney injury) Current Visit: Yes Status: Acute (2) GI bleed Current Visit: Yes Status: Acute Qualifiers: Gastritis type: unspecified gastritis Qualified Code(s): K29.71 - Gastritis , unspecified, with bleeding (3) Multiple myeloma Current Visit: No Status: Chronic Qualifiers: Multiple myeloma remission status: not in remission Qualified Code(s): C90.00 - Multiple myeloma not having achieved remission (4) Hypertension Current Visit: No Status: Chronic Qualifiers: Hypertension type: essential hypertension Qualified Code(s): I10 - Essential (primary) hypertension (5) Hypothyroidism Current Visit: No Status: Chronic Qualifiers: Hypothyroidism type: unspecified Qualified Code(s): E03.9 - Hypothyroidism , unspecified - Subjective Interval history: Ms. Gabby Roca is a 71-year-old female with history of multiple myeloma admitted for hematemesis and acute kidney injury. Gastroenterology and nephrology have seen the patient. Patient was seen today and care plan was discussed at [facility]. #1 GI bleed hemoglobin is stable. EGD showed severe gastritis. Patient on PPI and Carafate. Continue monitoring hemoglobin #2 acute kidney failure nephrology thinks it is prerenal. Daily monitoring of renal function magnesium and phosphate. #3 congestive heart failure: Patient had an echocardiogram done this year showed LVEF 65% with no significant valvular abnormality and mild as tolerated dysfunction. Patient was given IV fluid due to deteriorated renal function. IV fluids were distraught this morning and she was given IV Lasix 40 after which she diuresed 1400 mL. Patient went down for MRI and MRA today and as she returned she was quite dyspneic and tachypneic. We got a chest x-ray which seems wet and therefore IV Lasix 40 given as an additional dose. We have obtained an EKG which does not show any significant ST segment abnormalities except elevation in aVR. She is overall bradycardic. Be kept on low-dose Aspirin and a troponin will be obtained. Cardiology consult will be requested. #4 sepsis patient has spiked temp in the range of 102. No obvious source chest x-ray seems clear for pneumonia. UTI is suspected but cultures are negative to this date. She is on IV cefepime and IV Levaquin. As she is tender in her belly a CT abdomen will be obtained but without contrast due to her creatinine. #5 altered mental status perhaps metabolic encephalopathy MRI/MRA of the brain and neck are negative for any new finding. Patient has history of multiple myeloma and she has received chemotherapy and last 4 weeks per nephrology resident. Due to critical nature of her illness she will be transferred to [facility] at this point. Labs: CBC CMP Mag/Phos ordered on daily basis. She is not a candidate for Lovenox or antiplatelets - Constitutional Vitals: Temp Pulse Resp BP Pulse Ox 102.1 F H 118 24 128/76 94 04/26/17 17:25 04/26/17 17:25 04/26/17 17:25 04/26/17 17:25 04/26/17 17:25 General appearance: Present: disheveled, mild distress - Head Head exam: Present: atraumatic, normocephalic - Eye Eye exam: Present: PERRL, conjuntiva pink, sclera anicteric Pupils: Present: PERRL - Neck Neck exam general surgery: Present: supple, trachea midline. Absent: lymphadenopathy - Respiratory Respiratory exam: Present: CTAB. Absent: accessory muscle use, rales, rhonchi, wheezes - Cardiovascular Cardiovascular exam: Present: RRR, +S1, +S2. Absent: diastolic murmur, gallop, rubs, systolic murmur - GI/Abdominal GI/Abdominal exam: Present: normal bowel sounds, soft, tenderness, no peritoneal signs. Absent: distended Additional comments: Epigastric discomfort no rebound tenderness belly is overall soft - Extremities Exam Extremities exam: Present: warm, radial pulses palpable and symmetrical. Absent : calf tenderness, cyanotic, pedal edema - Neurological Exam Neurological exam: Absent: pronater drift, facial droop, speech deficit Additional comments: Patient is confused opens eyes on verbal command but otherwise flies do not follow any command she has a facial droop plantars are downward bilaterally - Skin Skin exam: Present: dry, intact Internal Medicine: Result - Labs CBC & Chem 7: 04/26/17 05:02 04/26/17 05:02 Labs: Short CBC 04/26/17 Range/Units 05:02 WBC 4.2 L (4.3-11.1) K/mcL Hgb 9.6 L (11.5-15.4) g/dL Hct 29.8 L (35.3-44.9) % Plt Count 136 L (140-400) K/mcL Neutrophils # 2.9 (1.6-8.9) K/mcL BMP 04/26/17 05:02 Sodium 147 H Potassium 3.4 L Chloride 113 H Carbon Dioxide 21 BUN 77 H Creatinine 2.20 H Glucose 102 H Calcium 8.1 L Liver Function 04/26/17 Range/Units 05:02 Total Bilirubin 0.4 (0.2-1.2) mg/dL AST 25 (5-34) Units/L ALT 20 (0-55) Units/L Alkaline Phosphatase 56 (38-126) Units/L Albumin 1.8 L (3.5-5.0) g/dL - ABG Interpretation ABG results: ABG ABG pH 7.44 pH Units (7.32-7.45) 04/26/17 18:15 ABG pCO2 34 mmHg (35-45) L 04/26/17 18:15 ABG pO2 83 mmHg (85-104) L 04/26/17 18:15 ABG O2 Saturation 97 % (95-98) 04/26/17 18:15 PT/INR, D-dimer PT 13.9 Seconds (9.4-12.1) H 04/24/17 08:05 - Impressions Impressions Head MRA 04/26/17 00:00 IMPRESSION: 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 No branch occlusion identified within the head or neck. No acute infarct. 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 D/ / Wu Hardy MD / Wu Hardy MD Interpreting Provider: Wu Hardy MD Brain MRI 04/26/17 11:44 IMPRESSION: 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 No branch occlusion identified within the head or neck. No acute infarct. 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 D/ / Wu Hardy MD / Wu Hardy MD Interpreting Provider: Wu Hardy MD Neck MRA 04/26/17 11:44 IMPRESSION: 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 No branch occlusion identified within the head or neck. No acute infarct. 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 D/ / Wu Hardy MD / Wu Hardy MD Interpreting Provider: Wu Hardy MD Chest X-Ray 04/26/17 17:57 IMPRESSION: No acute cardiopulmonary disease. D/ / Osorio Ramos MD / Osorio Ramos MD Interpreting Provider: Osorio Ramos MD - VTE Documentation of Mechanical Device: Intermittent pneumatic compression device Consult Discharge Plan - Plan Referrals: Avni Bean MD [Primary Care Provider] - 05/04/17 1:00 pm ()
[2017-04-26] MEDS ORDERED: 0.9 % Sodium Chloride 500 ML IVC ONE (20:12)
[2017-04-26] MEDS ORDERED: 0.9 % Sodium Chloride 1,000 ML IVC SCH (20:15)
[2017-04-26 20:41] LABS: ABG HCO3 26 mEq/L (21-27); ABG Oxygen Saturation 98 % (95-98); ABG PCO2 36 mmHg (35-45); ABG PH 7.46 pH Units (7.32-7.45); ABG PO2 99 mmHg (85-104); ABG TCO2 27 mEq/L (20-26); Blood Gas Modality NC
[2017-04-27 03:32] LABS: Basophils % 0.2 %; Eosinophils % 0.2 %; Hematocrit 31.8 % (35.3-44.9); Hemoglobin 10.3 g/dL (11.5-15.4); Lymphocytes # 0.5 K/mcL (0.6-4.6); Lymphocytes % 7.5 %; Mean Corpuscular HGB Conc 32.4 g/dL (31.6-35.5); Mean Corpuscular Volume 98.8 fL (83.0-100.0); Mean Platelet Volume 9.1 fL (9.4-12.4); Monocytes # 0.4 K/mcL (0.0-1.3); Platelet Count 143 K/mcL (140-400); Red Blood Count 3.22 M/mcL (3.82-4.97); Red Cell Distribution Width 16.5 % (11.5-14.5); Segmented Neutrophils % 84.1 %
[2017-04-27 03:33] LABS: Neutrophils # 5.1 K/mcL (1.6-8.9)
[2017-04-27 03:52] LABS: Albumin/Globulin Ratio 0.3 (1.1-2.2); Bilirubin,Total 0.4 mg/dL (0.2-1.2); Globulin 5.8 g/dL (2.4-3.5); Magnesium 1.7 mg/dL (1.6-2.6); Phosphorous 2.8 mg/dL (2.3-4.7); Potassium 2.7 mEq/L (3.5-4.5); Total Protein 7.7 g/dL (6.0-8.3)
[2017-04-27 03:57] LABS: Albumin 1.9 g/dL (3.5-5.0)
[2017-04-27 04:12] LABS: Platelet Estimate Normal (Normal)
[2017-04-27 04:13] LABS: Toxic Granulation Present (Not Present)
[2017-04-27] MEDS: Sucralfate 1 GM TABLET PO SCH ×2 (08:00→16:20)
[2017-04-27] MEDS ORDERED: Potassium Chloride 40 MEQ, Lidocaine 1% 2 ML in D5% in Water 500 ML IVPB ONE (08:31)
[2017-04-27] MEDS ORDERED: *HR* Morphine 2 MG/ML SYRINGE IVP PRN (08:38)
[2017-04-27] MEDS ORDERED: 0.9 % Sodium Chloride 1,000 ML IVC SCH (08:45)
--- NOTE | 2017-04-27 08:50 | Internal Med Progress Note ---
Date of Encounter: 04/27/17 Time of Encounter: 08:35 - Assessment and plan (1) ANNA (acute kidney injury) Current Visit: Yes Status: Acute (2) GI bleed Current Visit: Yes Status: Acute Qualifiers: Qualified Code(s): K29.71 - Gastritis, unspecified, with bleeding (3) Multiple myeloma Current Visit: No Status: Chronic Qualifiers: Qualified Code(s): C90.00 - Multiple myeloma not having achieved remission (4) Hypertension Current Visit: No Status: Chronic Qualifiers: Qualified Code(s): I10 - Essential (primary) hypertension (5) Hypothyroidism Current Visit: No Status: Chronic Qualifiers: Qualified Code(s): E03.9 - Hypothyroidism, unspecified - Subjective Interval history: Ms. Gabby Roca is a 71-year-old female with history of multiple myeloma admitted for hematemesis and acute kidney injury. Gastroenterology and nephrology have seen the patient. Patient was seen today and care plan was discussed with RN and resident. Patient has sepsis secondary to proctitis, UTI. She has stress gastritis/GI bleed.Patient has history of multiple myeloma and she has received chemotherapy and last 4 weeks per nephrology resident. #1 GI bleed hemoglobin is stable. EGD showed severe gastritis. Patient on PPI and Carafate. We will change it to IV Protonix. Continue monitoring hemoglobin #2 acute kidney failure nephrology thinks it is prerenal. Creatinine is improving despite we diuresed her Daily monitoring of renal function magnesium and phosphate. #3 congestive heart failure: Patient had an echocardiogram done this year showed LVEF 65% with no significant valvular abnormality and mild as tolerated dysfunction. Patient was fluid overload as she was given IV fluid due to acute kidney injury. She was given 80 mg of IV Lasix yesterday and produce 2200 mL so far. Her sodium has started going up therefore I will hold on diuresis for today. Chest examination shows clear chest and no JVD. She had a small leak of troponin perhaps due to demand ischemia secondary to sepsis and CHF. I will recycle troponins to see if they are rising and in such case we will add heparin but for now she has severe gastritis and recent GI bleed so we are holding it back. She is overall bradycardic. Be kept on low-dose Aspirin and a troponin will be obtained. #4 sepsis patient has spiked temp in the range of 102. A noncontrast CT abdomen was done which showed proctitis. It also showed mild swelling of right ureteric system without any obvious obstruction. Once her creatinine is better a contrast CT can be done to rule out any urinary obstruction. She has a Macias catheter. At this time she is on cefepime and Levaquin and night doctor also added Zyvox. Continue following CBC. Hemodynamically stable #5 altered mental status perhaps metabolic encephalopathy MRI/MRA of the brain and neck are negative for any new finding. This morning while awake and alert answer my questions. #6 hypokalemia nephrology resident will order 40 of KCl and will repeat CMP in the morning Labs: CBC CMP Mag/Phos ordered on daily basis. She is not a candidate for Lovenox or antiplatelets - Constitutional Vitals: Temp Pulse Resp BP Pulse Ox 97.9 F 80 20 136/74 95 04/27/17 07:45 04/27/17 07:45 04/27/17 07:45 04/27/17 07:45 04/27/17 07:45 General appearance: Present: A&O X 3, pleasant, no acute distress, answers questions appropriately - Head Head exam: Present: atraumatic, normocephalic - Eye Eye exam: Present: PERRL, conjuntiva pink, sclera anicteric Pupils: Present: PERRL - Neck Neck exam general surgery: Present: supple, trachea midline. Absent: lymphadenopathy - Respiratory Respiratory exam: Present: CTAB. Absent: accessory muscle use, rales, rhonchi, wheezes - Cardiovascular Cardiovascular exam: Present: RRR, +S1, +S2. Absent: diastolic murmur, gallop, rubs, systolic murmur - GI/Abdominal GI/Abdominal exam: Present: normal bowel sounds, soft, tenderness, no peritoneal signs. Absent: distended Additional comments: Mild generalized tenderness no rebound no organomegaly - Extremities Exam Extremities exam: Present: warm, radial pulses palpable and symmetrical. Absent : calf tenderness, cyanotic, pedal edema - Neurological Exam Neurological exam: Present: CN II-XII intact, oriented X3, no focal deficits. Absent: pronater drift, facial droop, speech deficit - Skin Skin exam: Present: dry, intact Internal Medicine: Result - Labs CBC & Chem 7: 04/27/17 03:10 04/27/17 03:10 Labs: Short CBC 04/27/17 Range/Units 03:10 WBC 6.0 (4.3-11.1) K/mcL Hgb 10.3 L (11.5-15.4) g/dL Hct 31.8 L (35.3-44.9) % Plt Count 143 (140-400) K/mcL Neutrophils # 5.1 (1.6-8.9) K/mcL BMP 04/27/17 03:10 Sodium 153 H Potassium 2.7 L Chloride 115 H Carbon Dioxide 19 BUN 67 H Creatinine 1.92 H Glucose 122 H Calcium 8.0 L Cardiac Enzymes 04/26/17 Range/Units 18:21 Troponin I 0.07 H* (0-0.03) ng/mL Liver Function 04/27/17 Range/Units 03:10 Total Bilirubin 0.4 (0.2-1.2) mg/dL AST 30 (5-34) Units/L ALT 25 (0-55) Units/L Alkaline Phosphatase 56 (38-126) Units/L Albumin 1.9 L (3.5-5.0) g/dL - ABG Interpretation ABG results: ABG ABG pH 7.46 pH Units (7.32-7.45) H 04/26/17 20:27 ABG pCO2 36 mmHg (35-45) 04/26/17 20:27 ABG pO2 99 mmHg (85-104) 04/26/17 20:27 ABG O2 Saturation 98 % (95-98) 04/26/17 20:27 PT/INR, D-dimer PT 13.9 Seconds (9.4-12.1) H 04/24/17 08:05 - Impressions Impressions Head MRA 04/26/17 00:00 IMPRESSION: 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 No branch occlusion identified within the head or neck. No acute infarct. 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 D/ / Wu Hardy MD / Wu Hardy MD Interpreting Provider: Wu Hardy MD Brain MRI 04/26/17 11:44 IMPRESSION: 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 No branch occlusion identified within the head or neck. No acute infarct. 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 D/ / Wu Hardy MD / Wu Hardy MD Interpreting Provider: Wu Hardy MD Neck MRA 04/26/17 11:44 IMPRESSION: 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 No branch occlusion identified within the head or neck. No acute infarct. 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 D/ / Wu Hardy MD / Wu Hardy MD Interpreting Provider: Wu Hardy MD Chest X-Ray 04/26/17 17:57 IMPRESSION: No acute cardiopulmonary disease. D/ / Osorio Ramos MD / Osorio Ramos MD Interpreting Provider: Osorio Ramos MD Abdomen/Pelvis CT 04/26/17 20:16 IMPRESSION: 1. Suspect mild posterior rectal wall thickening with adjacent stranding new from 04/05/2017 and compatible with proctitis. 2. Mild fullness of the right renal collecting system. No obstructing stone or mass identified. 3. Unchanged soft tissue density in the bilateral proximal femora and lytic lesion in the L3 spinous process. Metastatic disease or myeloma not excluded. 4. Status post cholecystectomy and hysterectomy. 5. Moderate L5 vertebral body compression deformity unchanged from 04/05/2017 but new from 01/08/2017. D/ / Santosh Mcwilliams MD / Santosh Mcwilliams MD Interpreting Provider: Santosh Mcwilliams MD Head CT 04/26/17 22:08 IMPRESSION: No acute intracranial abnormality. D/ / Heather Salamanca Cha, MD / Heather Salamanca Cha, MD Interpreting Provider: Heather Salamanca Cha, MD - VTE Documentation of Mechanical Device: Intermittent pneumatic compression device Consult Discharge Plan - Plan Referrals: Avni Bean MD [Primary Care Provider] - 05/04/17 1:00 pm ()
--- NOTE | 2017-04-27 09:05 | Nephrology Progress Note ---
Date of Encounter: 04/27/17 Time of Encounter: 08:32 - Assessment and Plan (1) ANNA (acute kidney injury) Current Visit: Yes Status: Acute 71-year-old female transferred from long term with altered mental status, post suspected hematemesis and was found to have a creatinine of 5.32, GFR of 10. Patient was discharged on 04/06/2017 had a normal creatinine and GFR. Reviewed patient's previous lab results demonstrates that she did not have any chronic kidney disease prior to this admission. 04/25: Renal function improving, Creatinine and GFR improving with NS running at 125ml/hr. 1600ml output in the past 24 hours. Uric Acid 9.3, Urine creatinine 58, Urine Sodium 49. 04/26: patients creatinine and GFR improving appropriately to therapy with NS rehydration. Continue with current fluids, monitor volume status and correct electrolyte imbalances. 04/27: Creatinine improving daily, patient did receive IV Lasix for restaurant distress and fluid overload yesterday. Currently receiving normal saline at 100 mL's per hour. Sodium 153 up from 147 yesterday likely secondary to IV Lasix. Discussed with primary hospitalist who is monitoring. Output 2800 mL's the last 24 hours Plan: - Continue IV rehydration with normal saline - Continue oral intake as tolerated - Avoid nephrotoxic medications and renally dose antibiotics - Monitor renal function with an labs (2) Dehydration Current Visit: Yes Status: Acute Upon admission Ms. Royal clinically appeared dehydrated with supporting labs are creatinine 5.32, GFR of 10, calculated osmolality 315, Today She is showing improvement and tolerating IV rehydration. Echocardiogram from 01/07/2017 Impressions: Normal LV systolic function, LVEF 65-70%. Mild left ventricular diastolic dysfunction. Normal right ventricular size and function. No significant valvular dysfunction. No evidence of pulmonary hypertension. No evidence of intracardiac shunting with agitated saline contrast. 04/27: Patient presents with anasarca in the setting of IV fluid replacement. She received IV Lasix last evening and is now receiving normal saline with improvement in her respiratory status. Plan: - Continue IV rehydration and monitoring volume status with hx of mild left ventricular diastolic dysfunction. - Strict intake and output monitoring (3) Multiple myeloma Current Visit: No Status: Chronic Patient has known and current medical history of multiple myeloma, currently not undergoing chemotherapy or radiation therapy. - Calcium within normal range. Qualifiers: Multiple myeloma remission status: not in remission Qualified Code(s): C90.00 - Multiple myeloma not having achieved remission (4) Hypothyroidism Current Visit: No Status: Chronic Continue levothyroxine 75 MCG Qualifiers: Hypothyroidism type: unspecified Qualified Code(s): E03.9 - Hypothyroidism , unspecified (5) Hypokalemia Current Visit: Yes Status: Acute Patient has a potassium of 2.7 this morning after receiving IV Lasix in the setting of acute respiratory distress. Potassium losses likely secondary to diuretics. Plan: - 40meq IV potassium chloride over 4 hours - Recheck potassium level in a.m. - Hold Lasix as patient rests for a status significantly improved (6) DVT prophylaxis Current Visit: No Status: Acute SCDs bilateral lower extremities Subjective Principal diagnosis: Hypokalemia Interval history: Mrs. Royal has been seen and evaluated at patient bedside this morning. She is awake alert and interactive and states that she does have some discomfort with her abdomen. She denies any significant changes but does feel that she can breathe better after treatment with Lasix last evening. Objective - Vital Signs Vital signs: Vital Signs Temp Pulse Resp BP Pulse Ox 04/27/17 07:45 97.9 F 80 20 136/74 95 04/27/17 03:58 98.6 F 98 16 145/76 99 04/27/17 00:30 97.4 F L 105 14 155/79 99 04/26/17 21:55 98.6 F 04/26/17 19:07 102.1 F H 117 19 138/78 97 04/26/17 17:25 102.1 F H 118 24 128/76 94 04/26/17 11:34 101.6 F H 04/26/17 11:19 97.8 F 116 14 144/79 93 04/26/17 09:39 97.8 F 117 23 136/70 95 04/26/17 08:57 97.6 F 112 22 Intake and Output 04/26/17 04/27/17 04/27/17 23:59 07:59 15:59 Intake Total 100 / 100 Output Total 1750 / 1750 1050 / 1050 Balance -1650 / -1650 -1050 / -1050 Intake: IV Fluids 100 / 100 Maxipime 2,000 MG In Dextrose 5 100 / 100 % (Minibag+) 100 ML 100 ML @ 200 mls/hr IVPB Q24H [facility] Rx#: [id number] Oral 0 / 0 Output: Catheter 1750 / 1750 1050 / 1050 Other: Meal Dinner Percent of Meal Consumed 0% Weight 85.1 kg 83 kg Blood Glucose* 115 Patient Weight 04/27/17 23:59 Weight 83 kg - General Appearance General appearance: Present: well-developed, well-nourished, appears started age EENT: Present: PERRL, mucous membranes moist Neck: Present: no JVD, no thyromegaly, supple Cardiology: Present: no rub, no gallops, edema (Trace edema in all 4 extremities ), regular rate, regular rhythm Gastrointestinal: Present: normoactive bowel sounds, tenderness (Mild tenderness to light palpation), no guarding, no masses Integumentary: Present: no rash, warm and dry Neurologic: Present: no focal deficit Musculoskeletal: Present: no deformities, no erythema, no cyanosis, no clubbing Psychiatric: Present: cooperative - Lab 04/27/17 03:10 04/27/17 03:10 Most recent lab results ABG pH 7.46 pH Units (7.32-7.45) H 04/26/17 20:27 ABG pCO2 36 mmHg (35-45) 04/26/17 20:27 ABG pO2 99 mmHg (85-104) 04/26/17 20:27 ABG HCO3 26 mEq/L (21-27) 04/26/17 20:27 ABG O2 Saturation 98 % (95-98) 04/26/17 20:27 Calcium 8.0 mg/dL (8.6-10.8) L 04/27/17 03:10 Phosphorus 2.8 mg/dL (2.3-4.7) 04/27/17 03:10 Magnesium 1.7 mg/dL (1.6-2.6) 04/27/17 03:10 Urine Creatinine 58 mg/dL 04/24/17 20:30 Urine Sodium 49.0 mEq/L 04/24/17 20:30 - VTE Documentation of Mechanical Device: Intermittent pneumatic compression device Consult Discharge Plan - Plan Referrals: Avni Bean MD [Primary Care Provider] - 05/04/17 1:00 pm ()
[2017-04-27] MEDS: Cefepime HCl 2,000 MG in D5% in Water (Mini-Bag+) 100 ML IVPB SCH (12:23)
[2017-04-27] MEDS: Pantoprazole 40 MG VIAL IVP SCH (17:39)
--- NOTE | 2017-04-27 19:42 | Electrocardiograph Report ---
[address] [address] Test Date: 2017-04-26 Pat Name: Gabby Royal Department: 110 Room: 2N14 Gender: F Outpatient Services Director: SAVANNAH : 1945 Requested By: Antonio Shaw Order Number: [id number] Reading MD: Johnson Blair MD Measurements Intervals [place] Rate: 119 P: 40 OR: 148 QRS: -51 QRSD: 81 T: 58 QT: 425 QTc: 496 Interpretive Statements SINUS TACHYCARDIA LEFT ANTERIOR FASCICULAR BLOCK BASELINE ARTIFACT Electronically Signed On 04-27-2017 19:41:20 EDT by Johnson Blair MD
[2017-04-27] MEDS ORDERED: D5% in 0.45% NACL 1,000 ML IVC ONE (20:50)
[2017-04-27] MEDS: D5% in 0.45% NACL 1,000 ML IVC SCH (20:53)
[2017-04-28 04:42] LABS: Basophils % 0.1 %; Eosinophils # 0.1 K/mcL (0.0-0.6); Eosinophils % 0.7 %; Hemoglobin 10.2 g/dL (11.5-15.4); Immature Granulocytes % 0.8 % (0-4); Lymphocytes # 0.9 K/mcL (0.6-4.6); Lymphocytes % 10.4 %; Mean Corpuscular HGB Conc 32.9 g/dL (31.6-35.5); Mean Corpuscular Hemoglobin 32.2 pg (28.0-33.3); Mean Corpuscular Volume 97.8 fL (83.0-100.0); Mean Platelet Volume 8.9 fL (9.4-12.4); Monocytes # 0.7 K/mcL (0.0-1.3); Monocytes % 8.1 %; Neutrophils # 6.9 K/mcL (1.6-8.9); Platelet Count 140 K/mcL (140-400); Red Blood Count 3.17 M/mcL (3.82-4.97); Red Cell Distribution Width 16.5 % (11.5-14.5); Segmented Neutrophils % 79.9 %
[2017-04-28] MEDS: D5% in 0.45% NACL 1,000 ML IVC SCH (04:44)
[2017-04-28 05:00] LABS: Albumin/Globulin Ratio 0.3 (1.1-2.2); Bilirubin,Total 0.3 mg/dL (0.2-1.2); Calcium 7.8 mg/dL (8.6-10.8); Globulin 5.5 g/dL (2.4-3.5); Magnesium 1.6 mg/dL (1.6-2.6); Phosphorous 1.7 mg/dL (2.3-4.7); Potassium 2.8 mEq/L (3.5-4.5); Total Protein 7.3 g/dL (6.0-8.3)
[2017-04-28 05:05] LABS: Albumin 1.8 g/dL (3.5-5.0)
[2017-04-28] MEDS ORDERED: Bumetanide 1 MG/4 ML VIAL IVP ONE (05:10)
[2017-04-28 05:38] LABS: Hypochromasia Present (Not Present); Platelet Estimate Normal (Normal); Toxic Granulation Present (Not Present)
[2017-04-28] MEDS: Pantoprazole 40 MG VIAL IVP SCH ×2 (05:51→18:17)
[2017-04-28] MEDS ORDERED: Potassium Chloride 40 MEQ, Lidocaine 1% 2 ML in D5% in Water 500 ML IVPB ONE (08:13)
[2017-04-28] MEDS ORDERED: Aminoglycoside Consult 1 EACH MC ONE (08:29)
[2017-04-28] MEDS: Sucralfate 1 GM TABLET PO SCH ×2 (08:36→18:32)
[2017-04-28] MEDS: Acetaminophen 650 MG RECTAL SUPP RC PRN (08:42)
[2017-04-28] MEDS: Levofloxacin 500 MG/100 ML 500 MG/100 ML BAG IVPB SCH (08:52)
[2017-04-28] MEDS ORDERED: Sodium Phosphate 30 MMOL in D5% in Water 100 ML IVPB STA (09:13)
[2017-04-28] MEDS ORDERED: Magnesium Sulfate 2 GM in D5% in Water 100 ML IVPB ONE (09:13)
[2017-04-28] MEDS ORDERED: 0.9 % Sodium Chloride 1,000 ML IVC SCH (09:15)
--- NOTE | 2017-04-28 09:18 | Internal Med Progress Note ---
Date of Encounter: 04/28/17 Time of Encounter: 09:15 - Assessment and plan (1) Sepsis Current Visit: Yes Status: Acute Qualifiers: Sepsis type: sepsis due to unspecified organism Qualified Code(s): A41.9 - Sepsis, unspecified organism (2) Proctitis Current Visit: Yes Status: Acute (3) ANNA (acute kidney injury) Current Visit: Yes Status: Acute (4) GI bleed Current Visit: Yes Status: Acute Qualifiers: Gastritis type: acute gastritis Qualified Code(s): K29.01 - Acute gastritis with bleeding (5) Multiple myeloma Current Visit: No Status: Chronic Qualifiers: Multiple myeloma remission status: not in remission Qualified Code(s): C90.00 - Multiple myeloma not having achieved remission (6) Hypothyroidism Current Visit: No Status: Chronic Qualifiers: Hypothyroidism type: unspecified Qualified Code(s): E03.9 - Hypothyroidism , unspecified (7) Hypernatremia Current Visit: Yes Status: Acute (8) Hypokalemia Current Visit: Yes Status: Acute (9) Hypomagnesemia Current Visit: Yes Status: Acute (10) Hypertension Current Visit: No Status: Chronic Qualifiers: Hypertension type: essential hypertension Qualified Code(s): I10 - Essential (primary) hypertension - Subjective Interval history: Ms. Gabby Roca is a 71-year-old female with history of multiple myeloma admitted for hematemesis and acute kidney injury. Gastroenterology and nephrology have seen the patient. Patient was seen today and noted that she is a spiking temperature above 101 and seems little bit lethargic. Patient has sepsis secondary to proctitis,? UTI /line sepsis. She has stress gastritis/GI bleed.Patient has history of multiple myeloma and she has received chemotherapy and last 4 weeks per nephrology resident. #1 GI bleed : hemoglobin is stable. EGD showed severe gastritis. Patient on IV PPI and Carafate. Continue monitoring hemoglobin #2 acute kidney failure : nephrology thinks it is prerenal. Creatinine is improving despite we diuresed her Daily monitoring of renal function #3 congestive heart failure: Patient had an echocardiogram done this year showed LVEF 65% with no significant valvular abnormality and mild as tolerated dysfunction. Patient was fluid overload as she was given IV fluid due to acute kidney injury. She was given 80 mg of IV Lasix yesterday and produce 2200 mL so far. Her sodium has started going up therefore I will hold on diuresis for today. Chest examination shows clear chest and no JVD. She had a small leak of troponin perhaps due to demand ischemia secondary to sepsis and CHF. She is overall bradycardic. #4 sepsis : patient has spiked temp in the range of 102. A noncontrast CT abdomen was done which showed proctitis. It also showed mild swelling of right ureteric system without any obvious obstruction. Once her creatinine is better a contrast CT can be done to rule out any urinary obstruction. She has a Macias catheter. Patient is continuously spiking fever and the concern is if she just have proctitis she also has line sepsis. Infectious disease and general surgery are consulted. I have ordered blood cultures. Since her creatinine is improving I will DC her Zyvox and start vancomycin if it is agreeable with nephrology. While she will remain on cefepime and Levaquin can be discontinued and IV Flagyl can be added continue monitoring CBC.. #5 altered mental status perhaps metabolic encephalopathy : MRI/MRA of the brain and neck are negative for any new finding. 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 #8 hyponatremia: Sodium is 154 Will restart IV saline 50 mL an hour Labs: CBC CMP Mag/Phos ordered on daily basis. She is not a candidate for Lovenox or antiplatelets - Constitutional Vitals: Temp Pulse Resp BP Pulse Ox 100.1 F H 93 22 141/73 95 04/28/17 07:33 04/28/17 07:33 04/28/17 07:33 04/28/17 07:33 04/28/17 07:33 General appearance: Present: A&O X 3, pleasant, no acute distress, answers questions appropriately - Head Head exam: Present: atraumatic, normocephalic - Eye Eye exam: Present: PERRL, conjuntiva pink, sclera anicteric Pupils: Present: PERRL - Neck Neck exam general surgery: Present: supple, trachea midline. Absent: lymphadenopathy - Respiratory Respiratory exam: Present: CTAB. Absent: accessory muscle use, rales, rhonchi, wheezes - Cardiovascular Cardiovascular exam: Present: RRR, +S1, +S2. Absent: diastolic murmur, gallop, rubs, systolic murmur - GI/Abdominal GI/Abdominal exam: Present: normal bowel sounds, soft, tenderness, no peritoneal signs. Absent: distended - Extremities Exam Extremities exam: Present: warm, radial pulses palpable and symmetrical. Absent : calf tenderness, cyanotic, pedal edema - Neurological Exam Neurological exam: Present: CN II-XII intact, oriented X3, no focal deficits. Absent: pronater drift, facial droop, speech deficit - Skin Skin exam: Present: dry, intact Internal Medicine: Result - Labs CBC & Chem 7: 04/28/17 04:30 04/28/17 04:30 Labs: Short CBC 04/28/17 Range/Units 04:30 WBC 8.6 (4.3-11.1) K/mcL Hgb 10.2 L (11.5-15.4) g/dL Hct 31.0 L (35.3-44.9) % Plt Count 140 (140-400) K/mcL Neutrophils # 6.9 (1.6-8.9) K/mcL BMP 04/28/17 04:30 Sodium 154 H Potassium 2.8 L Chloride 117 H Carbon Dioxide 23 BUN 53 H Creatinine 1.41 H Glucose 128 H Calcium 7.8 L Liver Function 04/28/17 Range/Units 04:30 Total Bilirubin 0.3 (0.2-1.2) mg/dL AST 26 (5-34) Units/L ALT 23 (0-55) Units/L Alkaline Phosphatase 54 (38-126) Units/L Albumin 1.8 L (3.5-5.0) g/dL - ABG Interpretation ABG results: ABG ABG pH 7.46 pH Units (7.32-7.45) H 04/26/17 20:27 ABG pCO2 36 mmHg (35-45) 04/26/17 20:27 ABG pO2 99 mmHg (85-104) 04/26/17 20:27 ABG O2 Saturation 98 % (95-98) 04/26/17 20:27 PT/INR, D-dimer PT 13.9 Seconds (9.4-12.1) H 04/24/17 08:05 - VTE Documentation of Mechanical Device: Intermittent pneumatic compression device Consult Discharge Plan - Plan Referrals: Avni Bean MD [Primary Care Provider] - 05/04/17 1:00 pm ()
[2017-04-28] MEDS ORDERED: Vancomycin 1,250 MG in D5% in Water 250 ML IVPB SCH ×2 (10:00→18:00)
[2017-04-28] MEDS: MetroNIDAZOLE 500 MG/100 ML 500 MG/100 ML BAG IVPB SCH ×2 (10:50→18:19)
--- NOTE | 2017-04-28 11:21 | General Surgery Consult Note ---
<Kim Ignacio - Last Filed: 04/28/17 14:42> Date of Encounter: 04/28/17 Time of Encounter: 11:00 Assessment and Plan (1) Proctitis Current Visit: Yes Status: Acute Continue IV antibiotics- currently on cefepime, flagyl and vancomycin Serial abdominal exams Supportive care Will continue to follow and assess progress May consider colonoscopy in the upcoming weeks (patient unable recall when she last had a colonoscopy) (2) Abdominal pain Current Visit: No Status: Resolved Abdominal discomfort is nonspecific and etiology is unclear Continue IV antibiotics- currently on cefepime, flagyl and vancomycin Serial abdominal exams Supportive care Will continue to follow and assess progress May consider colonoscopy in the upcoming weeks (patient unable recall when she last had a colonoscopy) Qualifiers: Abdominal location: generalized Qualified Code(s): R10.84 - Generalized abdominal pain (3) Multiple myeloma Current Visit: No Status: Chronic Oncology following Qualifiers: Multiple myeloma remission status: not in remission Qualified Code(s): C90.00 - Multiple myeloma not having achieved remission (4) Hypertension Current Visit: No Status: Chronic Management per medicine service Qualifiers: Hypertension type: essential hypertension Qualified Code(s): I10 - Essential (primary) hypertension (5) Hypothyroidism Current Visit: No Status: Chronic Qualifiers: Hypothyroidism type: unspecified Qualified Code(s): E03.9 - Hypothyroidism , unspecified (6) Generalized weakness Current Visit: Yes Status: Chronic (7) ANNA (acute kidney injury) Current Visit: Yes Status: Acute Management per medicine service (8) Hematemesis/vomiting blood Current Visit: Yes Status: Resolved s/p EGD with Dr. Doe 04/24/17 mild gastritis without H. pylori infection continue PPI therapy and carafate Qualifiers: Nausea presence: with nausea Qualified Code(s): K92.0 - Hematemesis; R11.0 - Nausea History of Present Illness Consult date: 04/28/17 Reason for consult: other (proctitis) Requesting physician: Lubna Myrick History of present illness: Mrs. Royal is a 71 year old female with multiple comorbidities, including multiple myeloma, who presented to the ED from inpatient rehabilitation facility with complaints of cofee ground emesis. The HPI is has been taken from the medical record as the patient is confused and unable to provide any information at this time. She was admitted to the hospital with coffee ground emesis, UTI, Sepsis, acute kidney injury. She did have an EGD with Dr. Doe on which showed evidence of gastritis. Pathology is final and there is mild gastritis without Helicobacter pylori infection. She has been treated with PPI therapy and Carafate. No evidence of current or ongoing GI bleeding noted. She did have a CT scan complete of the abdomen and pelvis on 04/26/17 with shows findings of mild proctitis. The nurse reports that the patient did have a bowel movement yesterday with no evidence of lower GI bleeding (not charted). No melena or hematochezia noted. Patient nods head yes to abdominal discomfort but unable to give any details at this time. No evidence of nausea/vomiting at this time. Fever of 100.1 noted from this morning. Colonoscopy history unknown at this time. We have been asked to see and evaluate the patient for recommendations for proctitis. 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, ORIF of RUE for radial shaft fracture), thyroidectomy, other (tubal ligation, biopsy temporal artery) - Social History Smoking Status: Former smoker Smokeless Tobacco Status: No Alcohol use: none Drug use: none Current living situation: [facility] (inpatient rehabilitation) - Family History Brother Family Member Ethnicity: Non- Living Status: Hx Family Cardiac Disorders: Yes (HD) Sister Family Member Ethnicity: Non- Living Status: Still Living Hx Family Cancer: Yes (Breast cancer) Mother Adopted: No Family Member Ethnicity: Non- Living Status: Hx Family Cardiac Disorders: Yes (HTN) Hx Family Respiratory Disorders: No Hx Family Cancer: Yes (colorectal cancer) Hx Family GI Disorders: No Hx Family Endocrine Disorder: No Hx Family Neuromuscular Disorders: No Hx Family Neurologic Disorders: No Hx Family HEENT Disorders: No Hx Family Autoimmune Disorders: No Father Family Member Ethnicity: Non- Living Status: Hx Family Cardiac Disorders: No Hx Family Respiratory Disorders: No Hx Family Cancer: Yes (mutliple myeloma) Hx Family GI Disorders: No Hx Family Endocrine Disorder: No Hx Family Neuromuscular Disorders: No Hx Family Neurologic Disorders: No Hx Family HEENT Disorders: No Hx Family Autoimmune Disorders: No Medications and Allergies Levothyroxine Sodium [Synthroid] 75 mcg PO QAM 02/26/15 [History] Furosemide [Lasix] 20 mg PO DAILY PRN #30 tablet 01/03/17 [Rx] Losartan/Hydrochlorothiazide [Hyzaar 100-25 Tablet] 1 tab PO DAILY 01/06/17 [ History] Menthol [Biofreeze] 1 appl TP BID PRN 01/06/17 [History] Sertraline [Zoloft] 25 mg PO DAILY #30 tablet 02/07/17 [Rx] Docusate [Colace] 100 mg PO BID PRN 03/07/17 [History] Ondansetron [Zofran] 8 mg PO Q8HR PRN #90 tablet 03/07/17 [Rx] Cyclobenzaprine [Flexeril] 10 mg PO BID #20 tablet 04/04/17 [Rx] Lactulose 20 gm PO BID PRN 04/05/17 [History] Enoxaparin [Lovenox] 40 mg SQ 0600 04/11/17 [Rx] Gabapentin [Neurontin] 100 mg PO TID 04/11/17 [Rx] Morphine Sulfate SR (12 HR) [MS Contin] 30 mg PO Q12HR #6 tablet.er 04/11/17 [Rx ] Oxycodone HCl 20 mg PO Q4H PRN #12 tab 04/11/17 [Rx] 3 Allergy/AdvReac Type Severity Reaction Status Date / Time bacitracin Allergy unknown Verified 04/24/17 10:19 carfilzomib Allergy unknown Verified 04/24/17 10:19 celecoxib Allergy unknown Verified 04/24/17 10:19 Corticosteroids Allergy unknown Verified 04/24/17 10:19 (Glucocorticoids) dexamethasone Allergy unknown Verified 04/24/17 10:19 fentanyl Allergy Rash Verified 04/24/17 10:19 lenalidomide Allergy unknown Verified 04/24/17 10:19 melphalan Allergy unknown Verified 04/24/17 10:19 Neomycin Allergy unknown Verified 04/24/17 10:19 Penicillins [PCN] Allergy unknown Verified 04/24/17 10:19 polymyxin B Allergy unknown Verified 04/24/17 10:19 prednisone Allergy unknown Verified 04/24/17 10:19 tape Allergy unknown Uncoded 04/24/17 07:38 Review of Systems ROS unobtainable: due to mental status All systems PM: A 10-system review of systems was performed and is negative for pertinent findings except as documented above in the HPI. General Surgery Exam Initial Vital Signs Temp Pulse Resp BP Pulse Ox 97.6 F 94 13 122/73 97 04/24/17 07:42 04/24/17 07:42 04/24/17 07:42 04/24/17 07:42 04/24/17 07:42 - General physical appearance no distress, chronically ill - Eyes PERRL - ENT dry mucosa, atraumatic, normocephalic - Neck trachea midline - Respiratory normal respiratory effort, clear to auscultation, other (diminished bibasilar bases) - Cardiovascular Cardiovascular exam: Present: RRR - Abdomen Abdomen general surgery: Present: bowel sounds present, soft, tender (mild, generalized) - Rectum Rectum: Present: normal sphincter tone, no tenderness, no masses, no bleeding, other (internal hemorrhoids noted) Hemorrhoids: Present: Internal - Integumentary Integumentary general surgery: Present: warm and dry - Musculoskeletal Present: other (severe deconditioning) - Psychiatric Psychiatric general surgery: Present: oriented to person Exam Initial Vital Signs Temp Pulse Resp BP Pulse Ox 97.6 F 94 13 122/73 97 04/24/17 07:42 04/24/17 07:42 04/24/17 07:42 04/24/17 07:42 04/24/17 07:42 Results - Labs 04/28/17 04:30 04/28/17 12:12 Abnormal lab results RBC 3.17 M/mcL (3.82-4.97) L 04/28/17 04:30 Hgb 10.2 g/dL (11.5-15.4) L 04/28/17 04:30 Hct 31.0 % (35.3-44.9) L 04/28/17 04:30 RDW 16.5 % (11.5-14.5) H 04/28/17 04:30 MPV 8.9 fL (9.4-12.4) L 04/28/17 04:30 Band Neutrophils % 8.0 % (0-4) H 04/25/17 03:55 Reactive Lymphocytes Present (Not Present) A 04/26/17 05:02 Toxic Granulation Present (Not Present) A 04/28/17 04:30 Large Platelets Present (Not Present) A 04/24/17 08:05 Hypochromasia Present (Not Present) A 04/28/17 04:30 PT 13.9 Seconds (9.4-12.1) H 04/24/17 08:05 APTT 23.1 Seconds (26.0-36.0) L 04/24/17 08:05 ABG pH 7.46 pH Units (7.32-7.45) H 04/26/17 20:27 ABG Total CO2 27 mEq/L (20-26) H 04/26/17 20:27 Sodium 154 mEq/L (136-145) H 04/28/17 04:30 Potassium 2.8 mEq/L (3.5-4.5) L 04/28/17 04:30 Chloride 117 mEq/L (98-109) H 04/28/17 04:30 BUN 53 mg/dL (7-20) H 04/28/17 04:30 Creatinine 1.41 mg/dL (0.57-1.11) H 04/28/17 04:30 Est GFR ( Amer) 45 (> 60) L 04/28/17 04:30 Est GFR (Non-Af Amer) 37 (> 60) L 04/28/17 04:30 BUN/Creatinine Ratio 38 (6-26) H 04/28/17 04:30 Glucose 128 mg/dL (70-99) H 04/28/17 04:30 POC Glucose 131 (58-89) H 04/28/17 00:36 Calculated Osmolality 334 (280-300) H 04/28/17 04:30 Uric Acid 9.3 mg/dL (2.6-6.0) H 04/24/17 15:55 Calcium 7.8 mg/dL (8.6-10.8) L 04/28/17 04:30 Phosphorus 1.7 mg/dL (2.3-4.7) L 04/28/17 04:30 Creatine Kinase 746 Units/L (29-168) H 04/24/17 08:05 Troponin I 0.07 ng/mL (0-0.03) H* 04/26/17 18:21 Albumin 1.8 g/dL (3.5-5.0) L 04/28/17 04:30 Globulin 5.5 g/dL (2.4-3.5) H 04/28/17 04:30 Albumin/Globulin Ratio 0.3 (1.1-2.2) L 04/28/17 04:30 Urine Clarity Cloudy (Clear) A 04/25/17 14:08 Urine Protein 30 mg/dL (Neg-Trace) H 04/25/17 14:08 Urine Blood Moderate (Negative) H 04/25/17 14:08 Ur Leukocyte Esterase Small (Negative) H 04/25/17 14:08 Urine Microscopic RBC 5-15 per hpf (0-3) H 04/25/17 14:08 Urine Microscopic WBC 15-30 per hpf (0-3) H 04/25/17 14:08 Ur Squamous Epith Cells Moderate per lpf (None-Few) H 04/25/17 14:08 Urine Yeast Moderate per hpf (None Seen) H 04/25/17 14:08 Ur Culture Indicated? YES (NO) A 04/25/17 14:08 Diabetes panel 04/28/17 Range/Units 04:30 Sodium 154 H (136-145) mEq/L Potassium 2.8 L (3.5-4.5) mEq/L Chloride 117 H (98-109) mEq/L Carbon Dioxide 23 (19-29) mEq/L BUN 53 H (7-20) mg/dL Creatinine 1.41 H (0.57-1.11) mg/dL Glucose 128 H (70-99) mg/dL Calcium 7.8 L (8.6-10.8) mg/dL AST 26 (5-34) Units/L ALT 23 (0-55) Units/L Alkaline Phosphatase 54 (38-126) Units/L Albumin 1.8 L (3.5-5.0) g/dL Calcium panel 04/28/17 Range/Units 04:30 Calcium 7.8 L (8.6-10.8) mg/dL Phosphorus 1.7 L (2.3-4.7) mg/dL Albumin 1.8 L (3.5-5.0) g/dL Pituitary panel 04/28/17 Range/Units 04:30 Sodium 154 H (136-145) mEq/L Potassium 2.8 L (3.5-4.5) mEq/L Chloride 117 H (98-109) mEq/L Carbon Dioxide 23 (19-29) mEq/L BUN 53 H (7-20) mg/dL Creatinine 1.41 H (0.57-1.11) mg/dL Glucose 128 H (70-99) mg/dL Calcium 7.8 L (8.6-10.8) mg/dL Adrenal panel 04/28/17 Range/Units 04:30 Sodium 154 H (136-145) mEq/L Potassium 2.8 L (3.5-4.5) mEq/L Chloride 117 H (98-109) mEq/L Carbon Dioxide 23 (19-29) mEq/L BUN 53 H (7-20) mg/dL Creatinine 1.41 H (0.57-1.11) mg/dL Glucose 128 H (70-99) mg/dL Calcium 7.8 L (8.6-10.8) mg/dL Total Bilirubin 0.3 (0.2-1.2) mg/dL AST 26 (5-34) Units/L ALT 23 (0-55) Units/L Alkaline Phosphatase 54 (38-126) Units/L Albumin 1.8 L (3.5-5.0) g/dL All other labs normal. Consult Discharge Plan - Plan Referrals: Avni Bean MD [Primary Care Provider] - 05/04/17 1:00 pm () - Attending Attestation For this encounter, I have reviewed the STOCK HANGER or PA documentation, treatment plan, and medical decision making; and I have had face to face time with this patient. <Gloria Braden - Last Filed: 04/29/17 13:36> Date of Encounter: 04/28/17 Assessment and Plan (1) Proctitis Current Visit: Yes Status: Acute (2) Proctitis Current Visit: Yes Status: Acute patient with proctitis with mild inflammation on CT serial abdominal exams, ivf hydration prn pain control continue Abx will follow along Past Med Surg Social Fam HX - Past Medical History Source: patient, old records reviewed Review of Systems All systems PM: A 10-system review of systems was performed and is negative for pertinent findings except as documented above in the HPI. General Surgery Exam Initial Vital Signs Temp Pulse Resp BP Pulse Ox 97.6 F 94 13 122/73 97 04/24/17 07:42 04/24/17 07:42 04/24/17 07:42 04/24/17 07:42 04/24/17 07:42 - General physical appearance no distress, no pain, chronically ill - Eyes PERRL, normal ocular movement - ENT atraumatic, normocephalic - Neck trachea midline - Respiratory normal expansion, clear to auscultation - Cardiovascular Cardiovascular exam: Present: RRR - Abdomen Abdomen general surgery: Present: bowel sounds present, soft, tender - Integumentary Integumentary general surgery: Present: warm and dry - Neurologic Present: CN 2-12 grossly intact - Musculoskeletal Present: other - Psychiatric Psychiatric general surgery: Present: A&Ox3, oriented to person Exam Initial Vital Signs Temp Pulse Resp BP Pulse Ox 97.6 F 94 13 122/73 97 04/24/17 07:42 04/24/17 07:42 04/24/17 07:42 04/24/17 07:42 04/24/17 07:42 Results - Labs 04/29/17 05:30 04/29/17 05:30 Abnormal lab results RBC 3.10 M/mcL (3.82-4.97) L 04/29/17 05:30 Hgb 9.9 g/dL (11.5-15.4) L 04/29/17 05:30 Hct 30.5 % (35.3-44.9) L 04/29/17 05:30 RDW 17.1 % (11.5-14.5) H 04/29/17 05:30 Plt Count 134 K/mcL (140-400) L 04/29/17 05:30 MPV 8.8 fL (9.4-12.4) L 04/29/17 05:30 Band Neutrophils % 8.0 % (0-4) H 04/25/17 03:55 Reactive Lymphocytes Present (Not Present) A 04/26/17 05:02 Toxic Granulation Present (Not Present) A 04/28/17 04:30 Platelet Estimate Decreased (Normal) L 04/29/17 05:30 Large Platelets Present (Not Present) A 04/24/17 08:05 Hypochromasia Present (Not Present) A 04/28/17 04:30 Anisocytosis 1+ (Not Present) A 04/29/17 05:30 Microcytosis Present (Not Present) A 04/29/17 05:30 PT 13.9 Seconds (9.4-12.1) H 04/24/17 08:05 APTT 23.1 Seconds (26.0-36.0) L 04/24/17 08:05 ABG pH 7.46 pH Units (7.32-7.45) H 04/26/17 20:27 ABG Total CO2 27 mEq/L (20-26) H 04/26/17 20:27 Sodium 156 mEq/L (136-145) H 04/29/17 05:30 Chloride 120 mEq/L (98-109) H 04/29/17 05:30 BUN 42 mg/dL (7-20) H 04/29/17 05:30 Creatinine 1.20 mg/dL (0.57-1.11) H 04/29/17 05:30 Est GFR ( Amer) 54 (> 60) L 04/29/17 05:30 Est GFR (Non-Af Amer) 45 (> 60) L 04/29/17 05:30 BUN/Creatinine Ratio 35 (6-26) H 04/29/17 05:30 Glucose 116 mg/dL (70-99) H 04/29/17 05:30 POC Glucose 100 (58-89) H 04/28/17 18:39 Calculated Osmolality 333 (280-300) H 04/29/17 05:30 Uric Acid 9.3 mg/dL (2.6-6.0) H 04/24/17 15:55 Calcium 7.8 mg/dL (8.6-10.8) L 04/29/17 05:30 Creatine Kinase 746 Units/L (29-168) H 04/24/17 08:05 Troponin I 0.07 ng/mL (0-0.03) H* 04/26/17 18:21 Albumin 1.9 g/dL (3.5-5.0) L 04/29/17 05:30 Globulin 5.3 g/dL (2.4-3.5) H 04/29/17 05:30 Albumin/Globulin Ratio 0.4 (1.1-2.2) L 04/29/17 05:30 Urine Clarity Cloudy (Clear) A 04/25/17 14:08 Urine Protein 30 mg/dL (Neg-Trace) H 04/25/17 14:08 Urine Blood Moderate (Negative) H 04/25/17 14:08 Ur Leukocyte Esterase Small (Negative) H 04/25/17 14:08 Urine Microscopic RBC 5-15 per hpf (0-3) H 04/25/17 14:08 Urine Microscopic WBC 15-30 per hpf (0-3) H 04/25/17 14:08 Ur Squamous Epith Cells Moderate per lpf (None-Few) H 04/25/17 14:08 Urine Yeast Moderate per hpf (None Seen) H 04/25/17 14:08 Ur Culture Indicated? YES (NO) A 04/25/17 14:08 Diabetes panel 04/28/17 04/28/17 04/29/17 Range/Units 16:10 22:45 05:30 Sodium 154 H 153 H 156 H (136-145) mEq/L Potassium 3.2 L 3.6 (3.5-4.5) mEq/L Chloride 119 H 120 H (98-109) mEq/L Carbon Dioxide 25 25 (19-29) mEq/L BUN 48 H 42 H (7-20) mg/dL Creatinine 1.23 H 1.20 H (0.57-1.11) mg/dL Glucose 111 H 116 H (70-99) mg/dL Calcium 7.8 L 7.8 L (8.6-10.8) mg/dL AST 20 (5-34) Units/L ALT 24 (0-55) Units/L Alkaline Phosphatase 50 (38-126) Units/L Albumin 1.9 L (3.5-5.0) g/dL Calcium panel 04/28/17 04/29/17 04/29/17 Range/Units 16:10 05:30 05:30 Calcium 7.8 L 7.8 L (8.6-10.8) mg/dL Phosphorus 2.3 (2.3-4.7) mg/dL Albumin 1.9 L (3.5-5.0) g/dL Pituitary panel 04/28/17 04/28/17 04/29/17 Range/Units 16:10 22:45 05:30 Sodium 154 H 153 H 156 H (136-145) mEq/L Potassium 3.2 L 3.6 (3.5-4.5) mEq/L Chloride 119 H 120 H (98-109) mEq/L Carbon Dioxide 25 25 (19-29) mEq/L BUN 48 H 42 H (7-20) mg/dL Creatinine 1.23 H 1.20 H (0.57-1.11) mg/dL Glucose 111 H 116 H (70-99) mg/dL Calcium 7.8 L 7.8 L (8.6-10.8) mg/dL Adrenal panel 04/28/17 04/28/17 04/29/17 Range/Units 16:10 22:45 05:30 Sodium 154 H 153 H 156 H (136-145) mEq/L Potassium 3.2 L 3.6 (3.5-4.5) mEq/L Chloride 119 H 120 H (98-109) mEq/L Carbon Dioxide 25 25 (19-29) mEq/L BUN 48 H 42 H (7-20) mg/dL Creatinine 1.23 H 1.20 H (0.57-1.11) mg/dL Glucose 111 H 116 H (70-99) mg/dL Calcium 7.8 L 7.8 L (8.6-10.8) mg/dL Total Bilirubin 0.3 (0.2-1.2) mg/dL AST 20 (5-34) Units/L ALT 24 (0-55) Units/L Alkaline Phosphatase 50 (38-126) Units/L Albumin 1.9 L (3.5-5.0) g/dL All other labs normal. - Imaging CT scan - abdomen: report reviewed, image reviewed CT scan - pelvis: report reviewed, image reviewed - Attending Attestation I have personally performed a face to face evaluation on this patient. I have reviewed and agree with the care plan. History and Exam by me shows:
--- NOTE | 2017-04-28 11:24 | Nephrology Progress Note ---
Date of Encounter: 04/28/17 Time of Encounter: 09:45 - Assessment and Plan (1) ANNA (acute kidney injury) Current Visit: Yes Status: Acute 71-year-old female transferred from long term with altered mental status, post suspected hematemesis and was found to have a creatinine of 5.32, GFR of 10. Patient was discharged on 04/06/2017 had a normal creatinine and GFR. Reviewed patient's previous lab results demonstrates that she did not have any chronic kidney disease prior to this admission. 04/25: Renal function improving, Creatinine and GFR improving with NS running at 125ml/hr. 1600ml output in the past 24 hours. Uric Acid 9.3, Urine creatinine 58, Urine Sodium 49. 04/26: patients creatinine and GFR improving appropriately to therapy with NS rehydration. Continue with current fluids, monitor volume status and correct electrolyte imbalances. 04/27: Creatinine improving daily, patient did receive IV Lasix for restaurant distress and fluid overload yesterday. Currently receiving normal saline at 100 mL's per hour. Sodium 153 up from 147 yesterday likely secondary to IV Lasix. Discussed with primary hospitalist who is monitoring. Output 2800 mL's the last 24 hours 04/28: Sodium 154, potassium 2.8. Discussion with nursing staff patient may have been fluid overloaded last night and IV D5 plus half-normal saline was discontinued and the patient was given Bumex. At this time we will discontinue IV fluids place an NG tube and give free water 200 mL's every 4 hours, repeat BMP every 6 hours. Discussed with patient's nurse about having dietary involvements on tube feedings protein rich. Regarding hypokalemia she was given 40meq potassium IV and will be given 40meq elixir KCl. - At this time is not recommended to perform any imaging with contrast dye or nephrotoxic solutions as the patient is still in acute on chronic kidney disease. Other imaging modality should be considered. Plan: - Discontinue IV fluids - NG tube placement with free water as discussed above - 40meq KCl elixer - Avoid nephrotoxic medications and renally dose antibiotics - Monitor renal function with an labs (2) Dehydration Current Visit: Yes Status: Acute Upon admission Ms. Royal clinically appeared dehydrated with supporting labs are creatinine 5.32, GFR of 10, calculated osmolality 315, Today She is showing improvement and tolerating IV rehydration. Echocardiogram from 01/07/2017 Impressions: Normal LV systolic function, LVEF 65-70%. Mild left ventricular diastolic dysfunction. Normal right ventricular size and function. No significant valvular dysfunction. No evidence of pulmonary hypertension. No evidence of intracardiac shunting with agitated saline contrast. 04/27: Patient presents with anasarca in the setting of IV fluid replacement. She received IV Lasix last evening and is now receiving normal saline with improvement in her respiratory status. 04/28: Continues to require fluid rehydration, will use free water through GI absorption. Plan: - Free water as discussed above. - Strict intake and output monitoring (3) Multiple myeloma Current Visit: No Status: Chronic Patient has known and current medical history of multiple myeloma, currently not undergoing chemotherapy or radiation therapy. - Calcium within normal range. Qualifiers: Multiple myeloma remission status: not in remission Qualified Code(s): C90.00 - Multiple myeloma not having achieved remission (4) Hypothyroidism Current Visit: No Status: Chronic Continue levothyroxine 75 MCG Qualifiers: Hypothyroidism type: unspecified Qualified Code(s): E03.9 - Hypothyroidism , unspecified (5) Hypokalemia Current Visit: Yes Status: Acute Patient has a potassium of 2.7 this morning after receiving IV Lasix in the setting of acute respiratory distress. Potassium losses likely secondary to diuretics. Plan: - 40meq IV potassium chloride over 4 hours - 40meq Elixer KCl through NG tube - Recheck potassium at noon and 1600 - Hold Lasix as patient rests for a status significantly improved (6) DVT prophylaxis Current Visit: No Status: Acute SCDs bilateral lower extremities Subjective Principal diagnosis: Hypokalemia Interval history: Mrs. Royal has been seen and evaluated at patient bedside this morning. She is awake alert and interactive, she denies any current pains, discomforts or concerns. Discussion with nursing staff reveals that there is concern she was sounding wet last evening and IV fluids were discontinued and she is given Bumex. Patient's family was not at bedside at the time of evaluation. Objective - Vital Signs Vital signs: Vital Signs Temp Pulse Resp BP Pulse Ox 04/28/17 07:33 100.1 F H 93 22 141/73 95 04/28/17 04:35 98.0 F 87 18 147/89 96 04/28/17 00:30 98.4 F 93 17 141/87 100 04/27/17 18:38 98.5 F 89 16 125/66 98 04/27/17 17:08 98.6 F 90 16 135/70 98 04/27/17 12:00 98.2 F 89 18 140/76 97 Intake and Output 04/27/17 04/28/17 04/28/17 23:59 07:59 15:59 Intake Total 300 / 300 500 / 500 100 / 100 Output Total 600 / 600 850 / 850 0 / 0 Balance -300 / -300 -350 / -350 100 / 100 Intake: IV Fluids 300 / 300 500 / 500 100 / 100 D5% And 0.45% Nacl 1000 Ml Bag 500 / 500 1,000 ML @ 75 mls/hr IVC . [id number] ED Rx#:[id number] Levaquin Premix 500mg/100mL 500 100 / 100 mg In 100 ml @ 100 mls/hr IVPB Q48H ED Rx#:[id number] Zyvox Premix 600mg/300mL 600 mg 300 / 300 In 300 ml @ 150 mls/hr IVPB Q12HR ED Rx#:[id number] Oral 0 / 0 0 / 0 0 / 0 Output: Urine 0 / 0 0 / 0 0 / 0 Catheter 600 / 600 850 / 850 Other: Meal Dinner Breakfast Percent of Meal Consumed 5% 0% Blood Glucose* 108 131 - General Appearance General appearance: Present: well-developed, well-nourished, appears started age Neck: Present: no JVD, no thyromegaly, no carotid bruit, supple Respiratory: Present: no kyphosis, no scoliosis Cardiology: Present: no murmurs, no rub, no gallops, edema ((Trace edema in all 4 extremities), regular rate, regular rhythm), regular rate, regular rhythm, normal S1, normal S2 Gastrointestinal: Present: normoactive bowel sounds, no tenderness Integumentary: Present: no rash, warm and dry Neurologic: Present: no focal deficit, no asterixis, alert and oriented x3, reflexes 2+ and symmetric, gait normal, strength 5/5 Musculoskeletal: Present: no deformities, no erythema, no cyanosis, no clubbing Psychiatric: Present: mood/affect appropriate, cooperative - Lab 04/28/17 04:30 04/28/17 12:12 Most recent lab results ABG pH 7.46 pH Units (7.32-7.45) H 04/26/17 20: ABG pCO2 36 mmHg (35-45) 04/26/17 20: ABG pO2 99 mmHg (85-104) 04/26/17 20: ABG HCO3 26 mEq/L (21-27) 04/26/17 20: ABG O2 Saturation 98 % (95-98) 04/26/17 20:27 Calcium 7.8 mg/dL (8.6-10.8) L 04/28/17 04:30 Phosphorus 1.7 mg/dL (2.3-4.7) L 04/28/17 04:30 Magnesium 1.6 mg/dL (1.6-2.6) 04/28/17 04:30 Urine Creatinine 58 mg/dL 04/24/17 20:30 Urine Sodium 49.0 mEq/L 04/24/17 20:30 - VTE Documentation of Mechanical Device: Intermittent pneumatic compression device Consult Discharge Plan - Plan Referrals: Avni Bean MD [Primary Care Provider] - 05/04/17 1:00 pm ()
[2017-04-28 12:33] LABS: Calcium 7.9 mg/dL (8.6-10.8); Potassium 3.1 mEq/L (3.5-4.5)
--- NOTE | 2017-04-28 12:33 | Oncology Inp Consult Note ---
Date of Encounter: 04/28/17 Time of Encounter: 12:33 Assessment and Plan (1) Multiple myeloma Status: Acute Assessment and plan: - I reviewed with the patient and her family ( and two sons) at the bedside, her oncology history, including her decision against pursue therapy directed to multiple myeloma ( including chemotherapy), and her decision to pursue supportive management only ( although in the past apparently she has declined hospice). Her family agreed with her decision against pursuing chemotherapy, and understand that her prognosis is poor. Her myeloma is clearly progressing, based on worsening values of serum paraprotein levels from April 2016 and the most recent in January 2017. She has been off therapy since June 2017 and since then she has elected against pursuing chemotherapy. She is well known to the palliative care team. - I explained to the patient and her family that at this time we have the option to continue medical management, including supportive care for PNA or other complications, or focus exclusively in comfort under he umbrella of hospice. Family did not express a decision to proceed with hospice, but express agreement of having the team of palliative discussing with them and the patient whether this options is something that they would be interested to move forward during the course of the current hospitalization. - As discussed with primary team, a palliative care consult has been requested. - Pain management: as per primary team and palliative care recommendation. Qualifiers: Multiple myeloma remission status: in relapse Qualified Code(s): C90.02 - Multiple myeloma in relapse (2) Arm edema Status: Acute Assessment and plan: - Differential include upper extremity DVT versus edema due to fluid retention. May consider a RUE doppler US. (3) ANNA (acute kidney injury) Status: Acute Assessment and plan: - Improving with IVF. I appreciate nephrology input. (4) Proctitis Status: Acute Assessment and plan: - On cefepime, vanco and flagyl. Management as per primary team and general surgery. - Data of Consult Requesting Physician: Antonio Shaw MD Primary Care Provider: Avni Bean MD - Consult Narrative Reason for consult: Management of multiple myeloma History of present illness: Ms. Royal is a 71 year old female with history of multiple myeloma admitted due to acute mental status changes as well as concern about a n episode of coffee ground emesis while at [facility]. Oncology consult requested regarding management of multiple myeloma. History was taken primary from the chart and from the family, in view that patient is lethargic and unable to engage in conversation. She has a history of MM diagnosed in 2011. She has progressed through multiple lines of treatment. Her prior treatments include lenalidomide, Velcade, carfilzomib ( caused hypersensitivity reaction), melphalan, vincristine , dexamethasone, prednisone, doxil. Her last treatment was in June 2016 with Dishalaro, at that time the decision was to continue management with supportive care alone, no chemotherapy . She has been seen monthly in the oncology office for symptom control. She has been seen by the palliative care team too as outpatient. She has declined the option of hospice in he past. Her paraprotein level has been gradually increasing, being 1.8 g in April 2016, and 3.38 g/dl on February 07, 2017. During the current admission she was found to be in acute renal failure that has improved with IVF and was thought to be due to volume depletion. She is also being treated with blood spectrum antibiotics for suspected infection. Her work up also include a brain CT and brain MRI that showed not acute abnormalities. Her encephalopathy is thought to be of metabolic etiology. She underwent a CT scan of the abdomen/pelvis that show showed findings consistent with mild proctitis, no IV contrast was used due to ongoing renal failure. A consultation to surgery has been requested by primary team due to concern that this could be the source of infection. During the visit , her and two sons were present at the bedside. She as a daughter, who was present during the last office visit, but was not present during the current hospital visit. Ms. Royal complains of severe generalized pain, involving her shoulders, back, chest. Her recent CT showed evidence of lytic lesion at the lumbar site. She feels that her pain has not well controlled prior to admission, and currently still complaints of pain. Her family reports that she has not ambulated, probably for 3 weeks due to generalized weakness. Her family is aware and were in agreement with her decision of not pursuing direct treatment for her multiple myeloma, but to continue supportive treatment for other related or unrelated medical complications. 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, ORIF of RUE for radial shaft fracture), thyroidectomy, other (tubal ligation, biopsy temporal artery) - Social History Smoking Status: Former smoker Smokeless Tobacco Status: No Alcohol use: none Drug use: none - Family History Brother Family Member Ethnicity: Non- Living Status: Hx Family Cardiac Disorders: Yes (HD) Sister Family Member Ethnicity: Non- Living Status: Still Living Hx Family Cancer: Yes (Breast cancer) Mother Adopted: No Family Member Ethnicity: Non- Living Status: Hx Family Cardiac Disorders: Yes (HTN) Hx Family Respiratory Disorders: No Hx Family Cancer: Yes (colorectal cancer) Hx Family GI Disorders: No Hx Family Endocrine Disorder: No Hx Family Neuromuscular Disorders: No Hx Family Neurologic Disorders: No Hx Family HEENT Disorders: No Hx Family Autoimmune Disorders: No Father Family Member Ethnicity: Non- Living Status: Hx Family Cardiac Disorders: No Hx Family Respiratory Disorders: No Hx Family Cancer: Yes (mutliple myeloma) Hx Family GI Disorders: No Hx Family Endocrine Disorder: No Hx Family Neuromuscular Disorders: No Hx Family Neurologic Disorders: No Hx Family HEENT Disorders: No Hx Family Autoimmune Disorders: No Medications and Allergies Levothyroxine Sodium [Synthroid] 75 mcg PO QAM 02/26/15 [History] Furosemide [Lasix] 20 mg PO DAILY PRN #30 tablet 01/03/17 [Rx] Losartan/Hydrochlorothiazide [Hyzaar 100-25 Tablet] 1 tab PO DAILY 01/06/17 [ History] Menthol [Biofreeze] 1 appl TP BID PRN 01/06/17 [History] Sertraline [Zoloft] 25 mg PO DAILY #30 tablet 02/07/17 [Rx] Docusate [Colace] 100 mg PO BID PRN 03/07/17 [History] Ondansetron [Zofran] 8 mg PO Q8HR PRN #90 tablet 03/07/17 [Rx] Cyclobenzaprine [Flexeril] 10 mg PO BID #20 tablet 04/04/17 [Rx] Lactulose 20 gm PO BID PRN 04/05/17 [History] Enoxaparin [Lovenox] 40 mg SQ 0600 04/11/17 [Rx] Gabapentin [Neurontin] 100 mg PO TID 04/11/17 [Rx] Morphine Sulfate SR (12 HR) [MS Contin] 30 mg PO Q12HR #6 tablet.er 04/11/17 [Rx ] Oxycodone HCl 20 mg PO Q4H PRN #12 tab 04/11/17 [Rx] 3 Allergy/AdvReac Type Severity Reaction Status Date / Time bacitracin Allergy unknown Verified 04/24/17 10:19 carfilzomib Allergy unknown Verified 04/24/17 10:19 celecoxib Allergy unknown Verified 04/24/17 10:19 Corticosteroids Allergy unknown Verified 04/24/17 10:19 (Glucocorticoids) dexamethasone Allergy unknown Verified 04/24/17 10:19 fentanyl Allergy Rash Verified 04/24/17 10:19 lenalidomide Allergy unknown Verified 04/24/17 10:19 melphalan Allergy unknown Verified 04/24/17 10:19 Neomycin Allergy unknown Verified 04/24/17 10:19 Penicillins [PCN] Allergy unknown Verified 04/24/17 10:19 polymyxin B Allergy unknown Verified 04/24/17 10:19 prednisone Allergy unknown Verified 04/24/17 10:19 tape Allergy unknown Uncoded 04/24/17 07:38 Constitutional: Present: fatigue, lethargy, malaise Cardiovascular: Present: chest pain Gastrointestinal: Present: abdominal pain. Absent: nausea Musculoskeletal: Present: arthralgias Neurological: Present: confusion Psychiatric: Present: confusion Hematologic/Lymphatic: Present: as per HPI, easy bruising. Absent: easy bleeding Oncology - Exam - Constitutional Vitals: Temp Pulse Resp BP Pulse Ox 98.8 F 87 20 139/84 98 04/28/17 11:25 04/28/17 11:25 04/28/17 11:25 04/28/17 11:25 04/28/17 11:25 - Head Head exam: Present: normal inspection, normocephalic - Eye Eye exam: Present: EOMI. Absent: periorbital swelling, periorbital tenderness - ENT ENT exam: Present: mucous membranes moist - Neck Neck exam: Present: normal inspection. Absent: tenderness, thyromegaly - Respiratory Respiratory exam: Present: CTAB. Absent: prolonged expiratory phase - Cardiovascular Cardiovascular exam: Present: RRR. Absent: diastolic murmur, irregular rhythm - GI/Abdominal GI/Abdominal exam: Present: soft (No tenderness with superfiricial palpation, but reports tenderness in hypogastric area with deep palpation. rebound negative ) - Extremities Exam Extremities exam: Present: joint swelling (There is right uppper extremity edema , no tenderness to palpation, distal pulse present. ), tenderness - Back Exam Back exam: Present: normal inspection. Absent: paraspinal tenderness - Neurological Exam Neurological exam: Present: altered (Lethargic, does not follow commands consistently. Unable to perform full neurologic exam. Answer basic questions and follows commands. ) - Psychiatric Psychiatric exam: Absent: normal affect, normal mood - Skin Skin exam: Present: pallor Oncology - Results Labs: Short CBC 04/28/17 Range/Units 04:30 WBC 8.6 (4.3-11.1) K/mcL Hgb 10.2 L (11.5-15.4) g/dL Hct 31.0 L (35.3-44.9) % Plt Count 140 (140-400) K/mcL Neutrophils # 6.9 (1.6-8.9) K/mcL BMP 04/28/17 04:30 Sodium 154 H Potassium 2.8 L Chloride 117 H Carbon Dioxide 23 BUN 53 H Creatinine 1.41 H Glucose 128 H Calcium 7.8 L Liver Function 04/28/17 Range/Units 04:30 Total Bilirubin 0.3 (0.2-1.2) mg/dL AST 26 (5-34) Units/L ALT 23 (0-55) Units/L Alkaline Phosphatase 54 (38-126) Units/L Albumin 1.8 L (3.5-5.0) g/dL Consult Discharge Plan - Plan Referrals: Avni Bean MD [Primary Care Provider] - 05/04/17 1:00 pm ()
[2017-04-28] MEDS ORDERED: Potassium Chloride Elixir 20 MEQ/15 ML UDC GTUBE ONE (13:32)
--- NOTE | 2017-04-28 14:43 | Palliative - Consult Note ---
Date of Encounter: 04/28/17 Time of Encounter: 13:15 Palliative-CN HPI - Data of Consult Requesting Physician: Antonio Shaw MD Primary Care Provider: Avni Bean MD - Consult Narrative History of present illness: Ms. Royal is a 71 year old female well known to the palliative care team from previous visits, who presented from the [facility] altered mental status, and supposedly had some coffee ground emesis at [facility] prior to arrival. She was found to have acute kidney injury and dehydration. She has history of multiple myleoma, no treatment since 2016 r/t poor tolerance. She has had multiple hospitalization over the past yr, couple for ileus most likely related to opioid use, and was in last month for bilateral leg pain. She was discharged at that time to [facility]. According to family, they state patient has received very poor care, and has not had assistance with turning, bathing, or meals. Patient has been treated with IV fluids/diuretics, and currently is hypernatremic. Nephrology is following pt closely. Paty garcia was also consulted and evaluating patient for proctitis. Upon my visit, Dr. Andujar is rounding and speaking with pt/family. He is recommending NG placement for free water and eliminating IV normal saline. Family and patient are in agreement. Patient is more alert this afternoon. Son and are at bedside. She is awaiting a modified barium swallow. She is alert to name, and can answer some short questions appropriate. She denies any pain or shortness of breath. Positive for nausea and observed her belching frequently. Family unsure of bowel movements prior to admission, son states she had small one yesterday, but not documented. 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, ORIF of RUE for radial shaft fracture), thyroidectomy, other (tubal ligation, biopsy temporal artery) - Social History Smoking Status: Former smoker Smokeless Tobacco Status: No Alcohol use: none Drug use: none - Family History Brother Family Member Ethnicity: Non- Living Status: Hx Family Cardiac Disorders: Yes (HD) Sister Family Member Ethnicity: Non- Living Status: Still Living Hx Family Cancer: Yes (Breast cancer) Mother Adopted: No Family Member Ethnicity: Non- Living Status: Hx Family Cardiac Disorders: Yes (HTN) Hx Family Respiratory Disorders: No Hx Family Cancer: Yes (colorectal cancer) Hx Family GI Disorders: No Hx Family Endocrine Disorder: No Hx Family Neuromuscular Disorders: No Hx Family Neurologic Disorders: No Hx Family HEENT Disorders: No Hx Family Autoimmune Disorders: No Father Family Member Ethnicity: Non- Living Status: Hx Family Cardiac Disorders: No Hx Family Respiratory Disorders: No Hx Family Cancer: Yes (mutliple myeloma) Hx Family GI Disorders: No Hx Family Endocrine Disorder: No Hx Family Neuromuscular Disorders: No Hx Family Neurologic Disorders: No Hx Family HEENT Disorders: No Hx Family Autoimmune Disorders: No Medications and Allergies Levothyroxine Sodium [Synthroid] 75 mcg PO QAM 02/26/15 [History] Furosemide [Lasix] 20 mg PO DAILY PRN #30 tablet 01/03/17 [Rx] Losartan/Hydrochlorothiazide [Hyzaar 100-25 Tablet] 1 tab PO DAILY 01/06/17 [ History] Menthol [Biofreeze] 1 appl TP BID PRN 01/06/17 [History] Sertraline [Zoloft] 25 mg PO DAILY #30 tablet 02/07/17 [Rx] Docusate [Colace] 100 mg PO BID PRN 03/07/17 [History] Ondansetron [Zofran] 8 mg PO Q8HR PRN #90 tablet 03/07/17 [Rx] Cyclobenzaprine [Flexeril] 10 mg PO BID #20 tablet 04/04/17 [Rx] Lactulose 20 gm PO BID PRN 04/05/17 [History] Enoxaparin [Lovenox] 40 mg SQ 0600 04/11/17 [Rx] Gabapentin [Neurontin] 100 mg PO TID 04/11/17 [Rx] Morphine Sulfate SR (12 HR) [MS Contin] 30 mg PO Q12HR #6 tablet.er 04/11/17 [Rx ] Oxycodone HCl 20 mg PO Q4H PRN #12 tab 04/11/17 [Rx] 3 Allergy/AdvReac Type Severity Reaction Status Date / Time bacitracin Allergy unknown Verified 04/24/17 10:19 carfilzomib Allergy unknown Verified 04/24/17 10:19 celecoxib Allergy unknown Verified 04/24/17 10:19 Corticosteroids Allergy unknown Verified 04/24/17 10:19 (Glucocorticoids) dexamethasone Allergy unknown Verified 04/24/17 10:19 fentanyl Allergy Rash Verified 04/24/17 10:19 lenalidomide Allergy unknown Verified 04/24/17 10:19 melphalan Allergy unknown Verified 04/24/17 10:19 Neomycin Allergy unknown Verified 04/24/17 10:19 Penicillins [PCN] Allergy unknown Verified 04/24/17 10:19 polymyxin B Allergy unknown Verified 04/24/17 10:19 prednisone Allergy unknown Verified 04/24/17 10:19 tape Allergy unknown Uncoded 04/24/17 07:38 ROS unobtainable: due to mental status Palliative Care-Exam - Constitutional Vitals: Temp Pulse Resp BP Pulse Ox 98.8 F 87 20 139/84 98 04/28/17 11:25 04/28/17 11:25 04/28/17 11:25 04/28/17 11:25 04/28/17 11:25 General appearance: Present: mild distress - Head Head Exam: Present: normal inspection, normocephalic - Eye Pupils: Present: PERRL - Respiratory Respiratory exam: Present: decreased breath sounds, CTAB - Cardiovascular Cardiovascular exam: Present: +S1, +S2 - GI/Abdominal Exam GI/Abdominal exam: Present: diminished bowel sounds, soft - Catheter Type: Urethral (Macias) - Extremities Exam Additional comments: 1-2+ generalized edema to upper and lower extremities - Neurological Exam Additional comments: Alert to name only. Asking repeatedly for water. Can answer intermittent questions. Follows very simple commands. - Skin Skin exam: Present: dry, normal color, warm Internal Medicine - CN: Reslt - Labs CBC & Chem 7: 04/28/17 04:30 04/28/17 12:12 Labs: Short CBC 04/28/17 Range/Units 04:30 WBC 8.6 (4.3-11.1) K/mcL Hgb 10.2 L (11.5-15.4) g/dL Hct 31.0 L (35.3-44.9) % Plt Count 140 (140-400) K/mcL Neutrophils # 6.9 (1.6-8.9) K/mcL BMP 04/28/17 04/28/17 04:30 12:12 Sodium 154 H 154 H Potassium 2.8 L 3.1 L Chloride 117 H 118 H Carbon Dioxide 23 25 BUN 53 H 51 H Creatinine 1.41 H 1.32 H Glucose 128 H 141 H Calcium 7.8 L 7.9 L Liver Function 04/28/17 Range/Units 04:30 Total Bilirubin 0.3 (0.2-1.2) mg/dL AST 26 (5-34) Units/L ALT 23 (0-55) Units/L Alkaline Phosphatase 54 (38-126) Units/L Albumin 1.8 L (3.5-5.0) g/dL - ABG Interpretation ABG results: ABG ABG pH 7.46 pH Units (7.32-7.45) H 04/26/17 20:27 ABG pCO2 36 mmHg (35-45) 04/26/17 20:27 ABG pO2 99 mmHg (85-104) 04/26/17 20:27 ABG O2 Saturation 98 % (95-98) 04/26/17 20:27 PT/INR, D-dimer PT 13.9 Seconds (9.4-12.1) H 04/24/17 08:05 Consult Discharge Plan - Plan Referrals: Avni Bean MD [Primary Care Provider] - 05/04/17 1:00 pm () Palliative Quality Palliative Quality: Screen for Code Status: Yes, Screen for Goals of Care: Yes, Screen for Pain: Yes, If Pain Regimen Started, Initiate Bowel Regimen: Yes, Screen for Nausea/Vomitting: Yes Code Status: 04/28/17 13:36 DNR [Resuscitation Status: Active] [RES] Routine Comment: Resuscitation Status: [id number]
[2017-04-28 16:28] LABS: Calcium 7.8 mg/dL (8.6-10.8); Potassium 3.2 mEq/L (3.5-4.5)
[2017-04-28] MEDS: Ondansetron 4 MG/2 ML VIAL IVP PRN (16:37)
[2017-04-28] MEDS: Cefepime HCl 2,000 MG in D5% in Water (Mini-Bag+) 100 ML IVPB SCH (16:37)
[2017-04-29] MEDS: MetroNIDAZOLE 500 MG/100 ML 500 MG/100 ML BAG IVPB SCH ×3 (02:34→16:38)
[2017-04-29] MEDS: Pantoprazole 40 MG VIAL IVP SCH ×2 (05:20→16:39)
[2017-04-29 05:36] LABS: Basophils % 0.1 %; Eosinophils # 0.1 K/mcL (0.0-0.6); Eosinophils % 1.5 %; Hematocrit 30.5 % (35.3-44.9); Hemoglobin 9.9 g/dL (11.5-15.4); Immature Granulocytes % 0.9 % (0-4); Lymphocytes % 12.1 %; Mean Corpuscular HGB Conc 32.5 g/dL (31.6-35.5); Mean Corpuscular Hemoglobin 31.9 pg (28.0-33.3); Mean Corpuscular Volume 98.4 fL (83.0-100.0); Mean Platelet Volume 8.8 fL (9.4-12.4); Monocytes # 0.8 K/mcL (0.0-1.3); Monocytes % 9.6 %; Neutrophils # 6.5 K/mcL (1.6-8.9); Platelet Count 134 K/mcL (140-400); Red Cell Distribution Width 17.1 % (11.5-14.5); Segmented Neutrophils % 75.8 %
[2017-04-29 05:49] LABS: Magnesium 2.1 mg/dL (1.6-2.6); Phosphorous 2.3 mg/dL (2.3-4.7)
[2017-04-29 05:52] LABS: Albumin/Globulin Ratio 0.4 (1.1-2.2); Bilirubin,Total 0.3 mg/dL (0.2-1.2); Calcium 7.8 mg/dL (8.6-10.8); Globulin 5.3 g/dL (2.4-3.5); Potassium 3.6 mEq/L (3.5-4.5); Total Protein 7.2 g/dL (6.0-8.3)
[2017-04-29 05:54] LABS: Albumin 1.9 g/dL (3.5-5.0)
[2017-04-29 05:56] LABS: Anisocytosis 1+ (Not Present); Microcytosis Present (Not Present); Platelet Estimate Decreased (Normal)
[2017-04-29] MEDS: Sucralfate 1 GM TABLET PO SCH ×2 (08:22→16:39)
--- NOTE | 2017-04-29 10:02 | Internal Med Progress Note ---
Date of Encounter: 04/29/17 Time of Encounter: 10:00 - Assessment and plan (1) Sepsis Current Visit: Yes Status: Acute Qualifiers: Sepsis type: sepsis due to unspecified organism Qualified Code(s): A41.9 - Sepsis, unspecified organism (2) Proctitis Current Visit: Yes Status: Acute (3) ANNA (acute kidney injury) Current Visit: Yes Status: Acute (4) GI bleed Current Visit: Yes Status: Acute Qualifiers: Gastritis type: acute gastritis Qualified Code(s): K29.01 - Acute gastritis with bleeding (5) Multiple myeloma Current Visit: No Status: Chronic Qualifiers: Multiple myeloma remission status: not in remission Qualified Code(s): C90.00 - Multiple myeloma not having achieved remission (6) Hypothyroidism Current Visit: No Status: Chronic Qualifiers: Hypothyroidism type: unspecified Qualified Code(s): E03.9 - Hypothyroidism , unspecified (7) Hypernatremia Current Visit: Yes Status: Acute (8) Hypokalemia Current Visit: Yes Status: Acute (9) Hypomagnesemia Current Visit: Yes Status: Acute (10) Hypertension Current Visit: No Status: Chronic Qualifiers: Hypertension type: essential hypertension Qualified Code(s): I10 - Essential (primary) hypertension - Subjective Interval history: Ms. Gabby Roca is a 71-year-old female with history of multiple myeloma admitted for hematemesis and acute kidney injury. Gastroenterology and nephrology have seen the patient. Patient was seen today and noted that she has not had any Tylenol in the last 24 hours while only has low-grade temp.. Patient is well awake and answer questions. Patient has sepsis secondary to proctitis,? UTI /line sepsis. She has stress gastritis/GI bleed.Patient has history of multiple myeloma and she has received chemotherapy and last 4 weeks per nephrology resident. Patient family was present and we discussed the plan with them and answer their questions. #1 GI bleed : hemoglobin is stable. EGD showed severe gastritis. Patient on IV PPI and Carafate. Continue monitoring hemoglobin #2 acute kidney failure : nephrology thinks it is prerenal. Creatinine is improving despite we diuresed her Daily monitoring of renal function #3 congestive heart failure: Patient had an echocardiogram done this year showed LVEF 65% with no significant valvular abnormality and mild as tolerated dysfunction. Patient was fluid overload as she was given IV fluid due to acute kidney injury. She was given 80 mg of IV Lasix yesterday and produce 2200 mL so far. Her sodium has started going up therefore I will hold on diuresis for today. Chest examination shows clear chest and no JVD. She had a small leak of troponin perhaps due to demand ischemia secondary to sepsis and CHF. She is overall bradycardic. #4 sepsis : Low-grade temp. A noncontrast CT abdomen was done which showed proctitis. It also showed mild swelling of right ureteric system without any obvious obstruction. Once her creatinine is better a contrast CT can be done to rule out any urinary obstruction. She has a Macias catheter. A grade temp noted patient is on Zyvox and cefepime and Flagyl #5 altered mental status perhaps metabolic encephalopathy : MRI/MRA of the brain and neck are negative for any new finding. Now patient is awake low- grade temperature #6 hypokalemia /hypomagnesemia and hypophosphatemia: Stable now continue monitoring #7 multiple myeloma: Recent chemotherapy treatment oncology and public health social worker involved. Discuss with oncology. Oncology feels that I will O minus progressing. #8 hyponatremia: Sodium is 156. Nephrology is managing it. Noted nephrology has increased free water 400 every 6. Labs: CBC CMP Mag/Phos ordered on daily basis. She is not a candidate for Lovenox or antiplatelets - Constitutional Vitals: Temp Pulse Resp BP Pulse Ox 99.2 F 90 20 151/81 95 04/29/17 07:08 04/29/17 07:08 04/29/17 07:08 04/29/17 07:08 04/29/17 07:08 General appearance: Present: A&O X 3, pleasant, no acute distress, answers questions appropriately Internal Medicine: Result - Labs CBC & Chem 7: 04/29/17 05:30 04/29/17 05:30 Labs: Short CBC 04/29/17 Range/Units 05:30 WBC 8.6 (4.3-11.1) K/mcL Hgb 9.9 L (11.5-15.4) g/dL Hct 30.5 L (35.3-44.9) % Plt Count 134 L (140-400) K/mcL Neutrophils # 6.5 (1.6-8.9) K/mcL BMP 04/28/17 04/28/17 04/28/17 12:12 16:10 22:45 Sodium 154 H 154 H 153 H Potassium 3.1 L 3.2 L Chloride 118 H 119 H Carbon Dioxide 25 25 BUN 51 H 48 H Creatinine 1.32 H 1.23 H Glucose 141 H 111 H Calcium 7.9 L 7.8 L 04/29/17 05:30 Sodium 156 H Potassium 3.6 Chloride 120 H Carbon Dioxide 25 BUN 42 H Creatinine 1.20 H Glucose 116 H Calcium 7.8 L Liver Function 04/29/17 Range/Units 05:30 Total Bilirubin 0.3 (0.2-1.2) mg/dL AST 20 (5-34) Units/L ALT 24 (0-55) Units/L Alkaline Phosphatase 50 (38-126) Units/L Albumin 1.9 L (3.5-5.0) g/dL - ABG Interpretation ABG results: ABG ABG pH 7.46 pH Units (7.32-7.45) H 04/26/17 20:27 ABG pCO2 36 mmHg (35-45) 04/26/17 20:27 ABG pO2 99 mmHg (85-104) 04/26/17 20:27 ABG O2 Saturation 98 % (95-98) 04/26/17 20:27 PT/INR, D-dimer PT 13.9 Seconds (9.4-12.1) H 04/24/17 08:05 - Impressions Impressions Videofluoroscopic Swallow 04/28/17 00:01 IMPRESSION: 1. Nondiagnostic modified study due to noncooperative patient. Please see separate speech pathology report for full discussion of findings and recommendations. D/ / 04/28/2017 15:48:52 Jess Armstrong MD / [email or web address] Interpreting Provider: Jess Armstrong MD X-Ray 04/28/17 16:25 IMPRESSION: Enteric tube as above. D/ / Conrado Coulter MD / Conrado Coulter MD Interpreting Provider: Conrado Coulter MD - VTE Documentation of Mechanical Device: Intermittent pneumatic compression device Consult Discharge Plan - Plan Referrals: Avni Bean MD [Primary Care Provider] - 05/04/17 1:00 pm ()
--- NOTE | 2017-04-29 10:08 | Nephrology Progress Note ---
Date of Encounter: 04/29/17 Time of Encounter: 08:30 - Assessment and Plan (1) ANNA (acute kidney injury) Current Visit: Yes Status: Acute Non oliguric and improving nicely. No need for HD. Continue to follow a renal protective strategy if able. Try to avoid using Vanco, if possible. (2) Hypernatremia Current Visit: Yes Status: Acute s/p NGT yesterday afternoon. Titrate the free water flushes for a slow, safe correction of the hyypernatremia. Increase to 400 cc q4hr. (3) Hypokalemia Current Visit: Yes Status: Acute Replace with IV KCl in AM and elixir KCl yesterday evening. Monitoring and correcting Mg as needed. Will provide another KCL per tube elixir today. (4) Hypomagnesemia Current Visit: Yes Status: Acute See above (5) Multiple myeloma Current Visit: Yes Status: Chronic Acute on Chronic and worsening. With improving renal function and in the absence of hypercalcemia, I do not suspect myeloma kidney. Qualifiers: Multiple myeloma remission status: in relapse Qualified Code(s): C90.02 - Multiple myeloma in relapse (6) Generalized weakness Current Visit: Yes Status: Chronic As per primary Subjective Principal diagnosis: Hypokalemia Interval history: pt was s/e earlier today. No family members at bedside. Her floor RN was present and she said the free water flushes are going well thus far. No major event over night. The pt was not able to voice any complaints or words. Objective - Vital Signs Vital signs: Vital Signs Temp Pulse Resp BP Pulse Ox 04/29/17 07:08 99.2 F 90 20 151/81 95 04/28/17 23:03 98.4 F 84 19 146/75 99 04/28/17 20:32 98.1 F 91 20 134/79 98 04/28/17 16:28 98.3 F 81 18 151/78 99 04/28/17 11:25 98.8 F 87 20 139/84 98 Intake and Output 04/28/17 04/29/17 04/29/17 23:59 07:59 15:59 Intake Total 900 / 900 700 / 700 400 / 400 Output Total 700 / 700 475 / 475 Balance 200 / 200 225 / 225 400 / 400 Intake: IV Fluids 500 / 500 100 / 100 Maxipime 2,000 MG In Dextrose 5 100 / 100 % (Minibag+) 100 ML 100 ML @ 200 mls/hr IVPB Q24H ED Rx#: [id number] Zyvox Premix 600mg/300mL 600 mg 300 / 300 In 300 ml @ 150 mls/hr IVPB Q12HR ED Rx#:[id number] Flagyl Premix 500 MG/100 ML 500 100 / 100 100 / 100 mg In 100 ml @ 100 mls/hr IVPB Q8H ED Rx#:[id number] Oral 0 / 0 0 / 0 Free Water 200 / 200 200 / 200 Free Water Intake Amount 400 / 400 400 / 400 200 / 200 Output: Urine 200 / 200 Catheter 500 / 500 475 / 475 Other: Meal Nourishment/Supplement Stool Size Large Stool Consistency loose soft Stool Color Brown # Bowel Movements 1 Blood Glucose* 100 127 - General Appearance General appearance: Present: appears started age, chronically ill, fatigue, frail EENT: Present: ATNC, mucous membranes moist Neck: Present: supple Respiratory: Present: clear Cardiology: Present: regular rate, normal S1, normal S2 Gastrointestinal: Present: normoactive bowel sounds, no guarding, obese Integumentary: Present: warm and dry Neurologic: Present: confused, disoriented Musculoskeletal: Present: no clubbing - Lab 04/29/17 05:30 04/29/17 05:30 Most recent lab results ABG pH 7.46 pH Units (7.32-7.45) H 04/26/17 20:27 ABG pCO2 36 mmHg (35-45) 04/26/17 20:27 ABG pO2 99 mmHg (85-104) 04/26/17 20:27 ABG HCO3 26 mEq/L (21-27) 04/26/17 20:27 ABG O2 Saturation 98 % (95-98) 04/26/17 20:27 Calcium 7.8 mg/dL (8.6-10.8) L 04/29/17 05:30 Phosphorus 2.3 mg/dL (2.3-4.7) 04/29/17 05:30 Magnesium 2.1 mg/dL (1.6-2.6) 04/29/17 05:30 Urine Creatinine 58 mg/dL 04/24/17 20:30 Urine Sodium 49.0 mEq/L 04/24/17 20:30 - VTE Documentation of Mechanical Device: Intermittent pneumatic compression device Consult Discharge Plan - Plan Referrals: Avni Bean MD [Primary Care Provider] - 05/04/17 1:00 pm ()
[2017-04-29] MEDS ORDERED: Potassium Chloride Elixir 20 MEQ/15 ML UDC GTUBE ONE (10:14)
--- NOTE | 2017-04-29 10:57 | Palliative Progress Note ---
Date of Encounter: 04/29/17 Time of Encounter: 10:45 - Assessment and plan (1) Cancer related pain Current Visit: No Status: Chronic Assessment and plan: Continue Morphine IV at present PRN. Has not utilized. (2) Malnutrition Current Visit: Yes Status: Acute Assessment and plan: Tube feeding has been initiated. Failed Swallow eval yesterday - pt would not participate much during exam. If this does not improve, will address with family. With her progressing myeloma - she may not be best candidate for PEG placement. Hopefully with correction of electrolytes, mental status will improve and she will be more interactive. (3) Counseling regarding advanced care planning and goals of care Current Visit: Yes Status: Acute Assessment and plan: Son, Cheo AKHTAR. DIscussed goals of care yesterday. He would like to proceed with free water and see if she improves after electrolytes corrected. If not, he is open to discussing hospice care for her. She has refused in the past, but he states she has "softened that thinking a bit". Will continue to follow closely. Appreciate oncology input. (4) Multiple myeloma Current Visit: No Status: Chronic Assessment and plan: Oncology following. Qualifiers: Multiple myeloma remission status: not in remission Qualified Code(s): C90.00 - Multiple myeloma not having achieved remission (5) Hypernatremia Current Visit: Yes Status: Acute Assessment and plan: Nephrology following, NG has been placed and free water flushes started. - Time Spent With Patient Total time spent is greater than 50% in coordination of care (as documented) at patient's floor/unit and/or counseling patient: 25 - 35 minutes - Subjective Interval history: Patient asleep on my arrival. Awakens when name called. No verbal response. Does shake head yes/no. Indicates that NG tube is uncomfortable. REviewed MBS yesterday. NG has been placed for free water and feedings initiated. No family present. - Constitutional Vitals: Abnormal lab results RBC 3.10 M/mcL (3.82-4.97) L 04/29/17 05:30 Hgb 9.9 g/dL (11.5-15.4) L 04/29/17 05:30 Hct 30.5 % (35.3-44.9) L 04/29/17 05:30 RDW 17.1 % (11.5-14.5) H 04/29/17 05:30 Plt Count 134 K/mcL (140-400) L 04/29/17 05:30 MPV 8.8 fL (9.4-12.4) L 04/29/17 05:30 Band Neutrophils % 8.0 % (0-4) H 04/25/17 03:55 Reactive Lymphocytes Present (Not Present) A 04/26/17 05:02 Toxic Granulation Present (Not Present) A 04/28/17 04:30 Platelet Estimate Decreased (Normal) L 04/29/17 05:30 Large Platelets Present (Not Present) A 04/24/17 08:05 Hypochromasia Present (Not Present) A 04/28/17 04:30 Anisocytosis 1+ (Not Present) A 04/29/17 05:30 Microcytosis Present (Not Present) A 04/29/17 05:30 PT 13.9 Seconds (9.4-12.1) H 04/24/17 08:05 APTT 23.1 Seconds (26.0-36.0) L 04/24/17 08:05 ABG pH 7.46 pH Units (7.32-7.45) H 04/26/17 20:27 ABG Total CO2 27 mEq/L (20-26) H 04/26/17 20:27 Sodium 156 mEq/L (136-145) H 04/29/17 05:30 Chloride 120 mEq/L (98-109) H 04/29/17 05:30 BUN 42 mg/dL (7-20) H 04/29/17 05:30 Creatinine 1.20 mg/dL (0.57-1.11) H 04/29/17 05:30 Est GFR ( Amer) 54 (> 60) L 04/29/17 05:30 Est GFR (Non-Af Amer) 45 (> 60) L 04/29/17 05:30 BUN/Creatinine Ratio 35 (6-26) H 04/29/17 05:30 Glucose 116 mg/dL (70-99) H 04/29/17 05:30 POC Glucose 100 (58-89) H 04/28/17 18:39 Calculated Osmolality 333 (280-300) H 04/29/17 05:30 Uric Acid 9.3 mg/dL (2.6-6.0) H 04/24/17 15:55 Calcium 7.8 mg/dL (8.6-10.8) L 04/29/17 05:30 Creatine Kinase 746 Units/L (29-168) H 04/24/17 08:05 Troponin I 0.07 ng/mL (0-0.03) H* 04/26/17 18:21 Albumin 1.9 g/dL (3.5-5.0) L 04/29/17 05:30 Globulin 5.3 g/dL (2.4-3.5) H 04/29/17 05:30 Albumin/Globulin Ratio 0.4 (1.1-2.2) L 04/29/17 05:30 Urine Clarity Cloudy (Clear) A 04/25/17 14:08 Urine Protein 30 mg/dL (Neg-Trace) H 04/25/17 14:08 Urine Blood Moderate (Negative) H 04/25/17 14:08 Ur Leukocyte Esterase Small (Negative) H 04/25/17 14:08 Urine Microscopic RBC 5-15 per hpf (0-3) H 04/25/17 14:08 Urine Microscopic WBC 15-30 per hpf (0-3) H 04/25/17 14:08 Ur Squamous Epith Cells Moderate per lpf (None-Few) H 04/25/17 14:08 Urine Yeast Moderate per hpf (None Seen) H 04/25/17 14:08 Ur Culture Indicated? YES (NO) A 04/25/17 14:08 General appearance: Present: no acute distress - Respiratory Respiratory exam: Present: decreased breath sounds, CTAB - Cardiovascular Cardiovascular exam: Present: +S1, +S2 - GI/Abdominal GI/Abdominal exam: Present: distended, normal bowel sounds, soft Additional comments: NG in place with jevity infusing - Extremities Exam Additional comments: 1+ edema to bilateral lower extremities. 2+ to upper extremities - Neurological Exam Additional comments: Patient awakens but does not stay alert. Does not follow commands at the time of my visit. - Skin Skin exam: Present: dry, normal color, warm Palliative Quality Palliative Quality: Screen for Code Status: Yes, Screen for Goals of Care: Yes, Screen for Pain: Yes, If Pain Regimen Started, Initiate Bowel Regimen: Yes, Screen for Nausea/Vomitting: Yes Code Status: 04/28/17 13:36 DNR [Resuscitation Status: Active] [RES] Routine Comment: Resuscitation Status: [id number] - Labs CBC & Chem 7: 04/29/17 05:30 04/29/17 05:30 Labs: Laboratory Results - last 24 hr 04/28/17 04/28/17 04/28/17 12:12 16:10 18:39 WBC RBC Hgb Hct MCV MCH MCHC RDW Plt Count MPV Immature Gran % Seg Neutrophils % Lymphocytes % Monocytes % Eosinophils % Basophils % Neutrophils # Lymphocytes # Monocytes # Eosinophils # Basophils # Platelet Estimate Anisocytosis Microcytosis Sodium 154 H 154 H Potassium 3.1 L 3.2 L Chloride 118 H 119 H Carbon Dioxide 25 25 BUN 51 H 48 H Creatinine 1.32 H 1.23 H Est GFR ( Amer) 48 L 52 L Est GFR (Non-Af Amer) 40 L 43 L BUN/Creatinine Ratio 39 H 39 H Glucose 141 H 111 H POC Glucose 100 H Calculated Osmolality 334 H 331 H Calcium 7.9 L 7.8 L Phosphorus Magnesium Total Bilirubin AST ALT Alkaline Phosphatase Serum Total Protein Albumin Globulin Albumin/Globulin Ratio 04/28/17 04/29/17 04/29/17 22:45 05:30 05:30 WBC 8.6 RBC 3.10 L Hgb 9.9 L Hct 30.5 L MCV 98.4 MCH 31.9 MCHC 32.5 RDW 17.1 H Plt Count 134 L MPV 8.8 L Immature Gran % 0.9 Seg Neutrophils % 75.8 Lymphocytes % 12.1 Monocytes % 9.6 Eosinophils % 1.5 Basophils % 0.1 Neutrophils # 6.5 Lymphocytes # 1.0 Monocytes # 0.8 Eosinophils # 0.1 Basophils # 0.0 Platelet Estimate Decreased L Anisocytosis 1+ A Microcytosis Present A Sodium 153 H 156 H Potassium 3.6 Chloride 120 H Carbon Dioxide 25 BUN 42 H Creatinine 1.20 H Est GFR ( Amer) 54 L Est GFR (Non-Af Amer) 45 L BUN/Creatinine Ratio 35 H Glucose 116 H POC Glucose Calculated Osmolality 333 H Calcium 7.8 L Phosphorus Magnesium Total Bilirubin 0.3 AST 20 ALT 24 Alkaline Phosphatase 50 Serum Total Protein 7.2 Albumin 1.9 L Globulin 5.3 H Albumin/Globulin Ratio 0.4 L 04/29/17 05:30 WBC RBC Hgb Hct MCV MCH MCHC RDW Plt Count MPV Immature Gran % Seg Neutrophils % Lymphocytes % Monocytes % Eosinophils % Basophils % Neutrophils # Lymphocytes # Monocytes # Eosinophils # Basophils # Platelet Estimate Anisocytosis Microcytosis Sodium Potassium Chloride Carbon Dioxide BUN Creatinine Est GFR ( Amer) Est GFR (Non-Af Amer) BUN/Creatinine Ratio Glucose POC Glucose Calculated Osmolality Calcium Phosphorus 2.3 Magnesium 2.1 Total Bilirubin AST ALT Alkaline Phosphatase Serum Total Protein Albumin Globulin Albumin/Globulin Ratio - Impressions Impressions Videofluoroscopic Swallow 04/28/17 00:01 IMPRESSION: 1. Nondiagnostic modified study due to noncooperative patient. Please see separate speech pathology report for full discussion of findings and recommendations. D/ / 04/28/2017 15:48:52 Jess Armstrong MD / tali Interpreting Provider: Jess Armstrong MD X-Ray 04/28/17 16:25 IMPRESSION: Enteric tube as above. D/ / Conrado Coulter MD / Conrado Coulter MD Interpreting Provider: Conrado Coulter MD - ABG Interpretation ABG results: ABG ABG pH 7.46 pH Units (7.32-7.45) H 04/26/17 20:27 ABG pCO2 36 mmHg (35-45) 04/26/17 20:27 ABG pO2 99 mmHg (85-104) 04/26/17 20:27 ABG O2 Saturation 98 % (95-98) 04/26/17 20:27 PT/INR, D-dimer PT 13.9 Seconds (9.4-12.1) H 04/24/17 08:05 Consult Discharge Plan - Plan Referrals: Avni Bean MD [Primary Care Provider] - 05/04/17 1:00 pm ()
[2017-04-29] MEDS: Cefepime HCl 2,000 MG in D5% in Water (Mini-Bag+) 100 ML IVPB SCH (11:21)
--- NOTE | 2017-04-29 12:29 | General Surgery Progress Note ---
<Tamar Cruz - Last Filed: 04/29/17 13:18> Date of Encounter: 04/29/17 Time of Encounter: 12:00 - Assessment and Plan (1) Proctitis Current Visit: Yes Status: Acute Continue IV antibiotics- currently on cefepime and flagyl. No further treatment at this time. Serial abdominal exams Supportive care Will continue to follow and assess progress Last colonoscopy was in 2009. Consider doing outpatient. (2) Abdominal pain Current Visit: No Status: Resolved Continue IV antibiotics- currently on cefepime and flagyl Serial abdominal exams Supportive care Will continue to follow and assess progress Last colonoscopy was in 2009. Consider doing outpatient. Qualifiers: Abdominal location: generalized Qualified Code(s): R10.84 - Generalized abdominal pain (3) Multiple myeloma Current Visit: No Status: Chronic Oncology following. (4) Hypothyroidism Current Visit: No Status: Chronic Qualifiers: Hypothyroidism type: unspecified Qualified Code(s): E03.9 - Hypothyroidism , unspecified (5) ANNA (acute kidney injury) Current Visit: Yes Status: Acute (6) Hematemesis/vomiting blood Current Visit: Yes Status: Resolved s/p EGD with Dr. Doe 04/24/17 mild gastritis without H. pylori infection continue PPI therapy and carafate Qualifiers: Nausea presence: with nausea Qualified Code(s): K92.0 - Hematemesis; R11.0 - Nausea Subjective Narrative: Mrs. Royal is a 71 year old female with multiple comorbidities, including multiple myeloma, who presented to the ED from inpatient rehabilitation facility with complaints of coffee ground emesis Admitted for Sepsis originally thought to be due to UTI (but cultures negative, yeast +) ANNA, and work up for coffee ground emesis. Consulted for mild proctitis seen on CT scan and associated new onset of fever after 1 day of afebrile. Today, patient is still confused. She is still complaining of abdominal pain that is diffuse. Objective Vital Signs - Last 8 Hours Temp Pulse Resp BP Pulse Ox 04/29/17 11:34 98.3 F 92 16 134/74 98 04/29/17 07:08 99.2 F 90 20 151/81 95 Intake and Output 04/28/17 04/29/17 04/29/17 23:59 07:59 15:59 Intake Total 900 / 900 700 / 700 1100 / 1100 Output Total 700 / 700 475 / 475 Balance 200 / 200 225 / 225 1100 / 1100 Intake: IV Fluids 500 / 500 100 / 100 Maxipime 2,000 MG In Dextrose 5 100 / 100 % (Minibag+) 100 ML 100 ML @ 200 mls/hr IVPB Q24H [facility] Rx#: [id number] Zyvox Premix 600mg/300mL 600 mg 300 / 300 In 300 ml @ 150 mls/hr IVPB Q12HR ED Rx#:[id number] Flagyl Premix 500 MG/100 ML 500 100 / 100 100 / 100 mg In 100 ml @ 100 mls/hr IVPB Q8H ED Rx#:[id number] Oral 0 / 0 0 / 0 Free Water 200 / 200 500 / 500 Free Water Intake Amount 400 / 400 400 / 400 600 / 600 Output: Urine 200 / 200 Catheter 500 / 500 475 / 475 Other: Meal Nourishment/Supplement Stool Size Large Stool Consistency loose soft Stool Color Brown # Bowel Movements 1 Blood Glucose* 100 127 106 - General physical appearance well nourished, no pain, chronically ill - ENT Other (NG tube present ) - Respiratory normal expansion, normal respiratory effort, clear to auscultation - Cardiovascular Cardiovascular exam: Present: RRR, no murmurs/rubs/gallops - Abdomen Abdomen: Present: bowel sounds present, soft, tender (diffusely, worse on right side ) - Neurologic confused - Psychiatric other (speech is mostly mumbled, but she is responding to commands and simple questions appropriately) - Labs 04/29/17 05:30 04/29/17 05:30 Diabetes panel 04/28/17 04/28/17 04/28/17 Range/Units 12:12 16:10 22:45 Sodium 154 H 154 H 153 H (136-145) mEq/L Potassium 3.1 L 3.2 L (3.5-4.5) mEq/L Chloride 118 H 119 H (98-109) mEq/L Carbon Dioxide 25 25 (19-29) mEq/L BUN 51 H 48 H (7-20) mg/dL Creatinine 1.32 H 1.23 H (0.57-1.11) mg/dL Glucose 141 H 111 H (70-99) mg/dL Calcium 7.9 L 7.8 L (8.6-10.8) mg/dL AST (5-34) Units/L ALT (0-55) Units/L Alkaline Phosphatase (38-126) Units/L Albumin (3.5-5.0) g/dL 04/29/17 Range/Units 05:30 Sodium 156 H (136-145) mEq/L Potassium 3.6 (3.5-4.5) mEq/L Chloride 120 H (98-109) mEq/L Carbon Dioxide 25 (19-29) mEq/L BUN 42 H (7-20) mg/dL Creatinine 1.20 H (0.57-1.11) mg/dL Glucose 116 H (70-99) mg/dL Calcium 7.8 L (8.6-10.8) mg/dL AST 20 (5-34) Units/L ALT 24 (0-55) Units/L Alkaline Phosphatase 50 (38-126) Units/L Albumin 1.9 L (3.5-5.0) g/dL Calcium panel 04/28/17 04/28/17 04/29/17 Range/Units 12:12 16:10 05:30 Calcium 7.9 L 7.8 L 7.8 L (8.6-10.8) mg/dL Phosphorus (2.3-4.7) mg/dL Albumin 1.9 L (3.5-5.0) g/dL 04/29/17 Range/Units 05:30 Calcium (8.6-10.8) mg/dL Phosphorus 2.3 (2.3-4.7) mg/dL Albumin (3.5-5.0) g/dL Pituitary panel 04/28/17 04/28/17 04/28/17 Range/Units 12:12 16:10 22:45 Sodium 154 H 154 H 153 H (136-145) mEq/L Potassium 3.1 L 3.2 L (3.5-4.5) mEq/L Chloride 118 H 119 H (98-109) mEq/L Carbon Dioxide 25 25 (19-29) mEq/L BUN 51 H 48 H (7-20) mg/dL Creatinine 1.32 H 1.23 H (0.57-1.11) mg/dL Glucose 141 H 111 H (70-99) mg/dL Calcium 7.9 L 7.8 L (8.6-10.8) mg/dL 04/29/17 Range/Units 05:30 Sodium 156 H (136-145) mEq/L Potassium 3.6 (3.5-4.5) mEq/L Chloride 120 H (98-109) mEq/L Carbon Dioxide 25 (19-29) mEq/L BUN 42 H (7-20) mg/dL Creatinine 1.20 H (0.57-1.11) mg/dL Glucose 116 H (70-99) mg/dL Calcium 7.8 L (8.6-10.8) mg/dL Adrenal panel 04/28/17 04/28/17 04/28/17 Range/Units 12:12 16:10 22:45 Sodium 154 H 154 H 153 H (136-145) mEq/L Potassium 3.1 L 3.2 L (3.5-4.5) mEq/L Chloride 118 H 119 H (98-109) mEq/L Carbon Dioxide 25 25 (19-29) mEq/L BUN 51 H 48 H (7-20) mg/dL Creatinine 1.32 H 1.23 H (0.57-1.11) mg/dL Glucose 141 H 111 H (70-99) mg/dL Calcium 7.9 L 7.8 L (8.6-10.8) mg/dL Total Bilirubin (0.2-1.2) mg/dL AST (5-34) Units/L ALT (0-55) Units/L Alkaline Phosphatase (38-126) Units/L Albumin (3.5-5.0) g/dL 04/29/17 Range/Units 05:30 Sodium 156 H (136-145) mEq/L Potassium 3.6 (3.5-4.5) mEq/L Chloride 120 H (98-109) mEq/L Carbon Dioxide 25 (19-29) mEq/L BUN 42 H (7-20) mg/dL Creatinine 1.20 H (0.57-1.11) mg/dL Glucose 116 H (70-99) mg/dL Calcium 7.8 L (8.6-10.8) mg/dL Total Bilirubin 0.3 (0.2-1.2) mg/dL AST 20 (5-34) Units/L ALT 24 (0-55) Units/L Alkaline Phosphatase 50 (38-126) Units/L Albumin 1.9 L (3.5-5.0) g/dL - VTE Documentation of Mechanical Device: Intermittent pneumatic compression device Consult Discharge Plan - Plan Referrals: Avni Bean MD [Primary Care Provider] - 05/04/17 1:00 pm () <Gloria Braden - Last Filed: 04/29/17 13:40> Date of Encounter: 04/29/17 - Assessment and Plan (1) Proctitis Current Visit: Yes Status: Acute wbc wnl, no bandemia condition and physical exam unchanged from yesterday, still diffusely mildly tender without rebound or guarding continue Abx serial abd exams will continue to follow no surgical intervention at this time Subjective Patient reports: no new complaints Narrative: complains of continued abdominal pain she is unsure if she is passing gas denies nausea Objective Vital Signs - Last 8 Hours Temp Pulse Resp BP Pulse Ox 04/29/17 11:34 98.3 F 92 16 134/74 98 04/29/17 07:08 99.2 F 90 20 151/81 95 Intake and Output 04/28/17 04/29/17 04/29/17 23:59 07:59 15:59 Intake Total 900 / 900 700 / 700 1100 / 1100 Output Total 700 / 700 475 / 475 Balance 200 / 200 225 / 225 1100 / 1100 Intake: IV Fluids 500 / 500 100 / 100 Maxipime 2,000 MG In Dextrose 5 100 / 100 % (Minibag+) 100 ML 100 ML @ 200 mls/hr IVPB Q24H ED Rx#: [id number] Zyvox Premix 600mg/300mL 600 mg 300 / 300 In 300 ml @ 150 mls/hr IVPB Q12HR ED Rx#:[id number] Flagyl Premix 500 MG/100 ML 500 100 / 100 100 / 100 mg In 100 ml @ 100 mls/hr IVPB Q8H ED Rx#:[id number] Oral 0 / 0 0 / 0 Free Water 200 / 200 500 / 500 Free Water Intake Amount 400 / 400 400 / 400 600 / 600 Output: Urine 200 / 200 Catheter 500 / 500 475 / 475 Other: Meal Nourishment/Supplement Stool Size Large Stool Consistency loose soft Stool Color Brown # Bowel Movements 1 Blood Glucose* 100 127 106 - General physical appearance well nourished, no pain, chronically ill - Eyes PERRL, normal ocular movement - ENT normal mucosa, normocephalic - Neck Neck exam: trachea midline - Respiratory normal expansion, clear to auscultation - Cardiovascular Cardiovascular exam: Present: RRR - Abdomen Abdomen: Present: bowel sounds present, soft, tender. Absent: guarding, rebound - Integumentary no rash, no growths - Neurologic confused - Musculoskeletal other (generalized deconditioning) - Psychiatric oriented to person - Labs 04/29/17 05:30 04/29/17 05:30 Diabetes panel 04/28/17 04/28/17 04/29/17 Range/Units 16:10 22:45 05:30 Sodium 154 H 153 H 156 H (136-145) mEq/L Potassium 3.2 L 3.6 (3.5-4.5) mEq/L Chloride 119 H 120 H (98-109) mEq/L Carbon Dioxide 25 25 (19-29) mEq/L BUN 48 H 42 H (7-20) mg/dL Creatinine 1.23 H 1.20 H (0.57-1.11) mg/dL Glucose 111 H 116 H (70-99) mg/dL Calcium 7.8 L 7.8 L (8.6-10.8) mg/dL AST 20 (5-34) Units/L ALT 24 (0-55) Units/L Alkaline Phosphatase 50 (38-126) Units/L Albumin 1.9 L (3.5-5.0) g/dL Calcium panel 04/28/17 04/29/17 04/29/17 Range/Units 16:10 05:30 05:30 Calcium 7.8 L 7.8 L (8.6-10.8) mg/dL Phosphorus 2.3 (2.3-4.7) mg/dL Albumin 1.9 L (3.5-5.0) g/dL Pituitary panel 04/28/17 04/28/17 04/29/17 Range/Units 16:10 22:45 05:30 Sodium 154 H 153 H 156 H (136-145) mEq/L Potassium 3.2 L 3.6 (3.5-4.5) mEq/L Chloride 119 H 120 H (98-109) mEq/L Carbon Dioxide 25 25 (19-29) mEq/L BUN 48 H 42 H (7-20) mg/dL Creatinine 1.23 H 1.20 H (0.57-1.11) mg/dL Glucose 111 H 116 H (70-99) mg/dL Calcium 7.8 L 7.8 L (8.6-10.8) mg/dL Adrenal panel 04/28/17 04/28/17 04/29/17 Range/Units 16:10 22:45 05:30 Sodium 154 H 153 H 156 H (136-145) mEq/L Potassium 3.2 L 3.6 (3.5-4.5) mEq/L Chloride 119 H 120 H (98-109) mEq/L Carbon Dioxide 25 25 (19-29) mEq/L BUN 48 H 42 H (7-20) mg/dL Creatinine 1.23 H 1.20 H (0.57-1.11) mg/dL Glucose 111 H 116 H (70-99) mg/dL Calcium 7.8 L 7.8 L (8.6-10.8) mg/dL Total Bilirubin 0.3 (0.2-1.2) mg/dL AST 20 (5-34) Units/L ALT 24 (0-55) Units/L Alkaline Phosphatase 50 (38-126) Units/L Albumin 1.9 L (3.5-5.0) g/dL - Attending Attestation I examined this patient and my medical decision-making was reviewed with the Resident Physician. I agree with the documented findings, disposition and treatment plan as described except to the extent set forth below.
[2017-04-29] MEDS: Ondansetron 4 MG/2 ML VIAL IVP PRN (22:20)
[2017-04-29] MEDS: *HR* Promethazine 25 MG/ML VIAL IVP PRN (23:31)
[2017-04-30] MEDS: MetroNIDAZOLE 500 MG/100 ML 500 MG/100 ML BAG IVPB SCH ×3 (01:12→18:37)
[2017-04-30] MEDS: Pantoprazole 40 MG VIAL IVP SCH ×2 (05:12→18:37)
[2017-04-30 06:05] LABS: Basophils % 0.2 %; Eosinophils # 0.2 K/mcL (0.0-0.6); Eosinophils % 2.6 %; Hematocrit 30.5 % (35.3-44.9); Hemoglobin 9.8 g/dL (11.5-15.4); Immature Granulocytes % 0.7 % (0-4); Immature Platelets 0.8 % (1.1-6.1); Lymphocytes # 1.2 K/mcL (0.6-4.6); Lymphocytes % 14.3 %; Mean Corpuscular HGB Conc 32.1 g/dL (31.6-35.5); Mean Corpuscular Hemoglobin 32.5 pg (28.0-33.3); Monocytes # 0.7 K/mcL (0.0-1.3); Monocytes % 9.1 %; Neutrophils # 5.9 K/mcL (1.6-8.9); Platelet Count 143 K/mcL (140-400); Red Blood Count 3.02 M/mcL (3.82-4.97); Red Cell Distribution Width 17.1 % (11.5-14.5); Segmented Neutrophils % 73.1 %
[2017-04-30 06:19] LABS: Magnesium 1.8 mg/dL (1.6-2.6); Phosphorous 1.6 mg/dL (2.3-4.7)
[2017-04-30 06:21] LABS: Alanine Aminotransferase 21 Units/L (0-55); Albumin/Globulin Ratio 0.4 (1.1-2.2); Alkaline Phosphatase 45 Units/L (38-126); Aspartate Amino Transferase 15 Units/L (5-34); BUN/Creatinine Ratio 32 (6-26); Bilirubin,Total 0.4 mg/dL (0.2-1.2); Calcium 7.5 mg/dL (8.6-10.8); Carbon Dioxide 24 mEq/L (19-29); Chloride 116 mEq/L (98-109); Globulin 4.9 g/dL (2.4-3.5); Glucose 119 mg/dL (70-99); Osmolality,Calculated 318 (280-300); Potassium 3.4 mEq/L (3.5-4.5); Sodium 150 mEq/L (136-145); Total Protein 6.7 g/dL (6.0-8.3); eGFR For African Americans > 60 (> 60); eGFR For Non-African Americans 58 (> 60)
[2017-04-30 06:23] LABS: Albumin 1.8 g/dL (3.5-5.0); Blood Urea Nitrogen 31 mg/dL (7-20)
[2017-04-30] MEDS: Ondansetron 4 MG/2 ML VIAL IVP PRN (06:23)
[2017-04-30 06:26] LABS: Anisocytosis 1+ (Not Present); Hypochromasia Present (Not Present); Macrocytosis Present (Not Present); Platelet Estimate Normal (Normal); Reactive Lymphocytes Present (Not Present)
--- NOTE | 2017-04-30 07:25 | General Surgery Progress Note ---
<Tamar Cruz - Last Filed: 04/30/17 09:55> Date of Encounter: 04/30/17 Time of Encounter: 09:30 - Assessment and Plan (1) Proctitis Current Visit: Yes Status: Acute Continue IV antibiotics- currently on cefepime and flagyl. Serial abdominal exams Supportive care Will continue to follow and assess progress Last colonoscopy was in 2009. Consider doing outpatient. (2) Abdominal pain Current Visit: No Status: Resolved This morning not complaining of abdominal pain and did not wince with pressing on her abdomen like previously. Denies N/V currently. Did have a couple of episodes of vomiting last night after they increased her NG feeds. Continue IV antibiotics- currently on cefepime and flagyl Serial abdominal exams Supportive care Will continue to follow and assess progress Last colonoscopy was in 2009. Consider doing outpatient. Qualifiers: Abdominal location: generalized Qualified Code(s): R10.84 - Generalized abdominal pain (3) Multiple myeloma Current Visit: No Status: Chronic Oncology following. (4) Hypothyroidism Current Visit: No Status: Chronic Qualifiers: Hypothyroidism type: unspecified Qualified Code(s): E03.9 - Hypothyroidism , unspecified (5) ANNA (acute kidney injury) Current Visit: Yes Status: Acute (6) Hematemesis/vomiting blood Current Visit: Yes Status: Resolved Vomited last night. No documentation present of seeing blood in emesis. s/p EGD with Dr. Doe 04/24/17 mild gastritis without H. pylori infection continue PPI therapy and carafate Qualifiers: Nausea presence: with nausea Qualified Code(s): K92.0 - Hematemesis Subjective Narrative: Mrs. Royal is a 71 year old female with multiple comorbidities, including multiple myeloma, who presented to the ED from inpatient rehabilitation facility with complaints of coffee ground emesis Admitted for Sepsis originally thought to be due to UTI (but cultures negative, yeast +) ANNA, and work up for coffee ground emesis. Consulted for mild proctitis seen on CT scan and associated new onset of fever after 1 day of afebrile. Overnight, she did have some N/V but her tube feeds were also increased to 400ml Q4 hrs which probably contributed to her N/V. Tube feeds were stopped overnight and she does not have any N/V this morning. Today, patient is more interactive and when I said how are you doing she responded with " You tell me how I'm doing". Patient is responding more easily to questions asked to her. She is not having abdominal pain today. Objective Vital Signs - Last 8 Hours Temp Pulse Resp BP Pulse Ox 04/30/17 03:31 98.2 F 94 24 128/67 96 Intake and Output 04/29/17 04/29/17 04/30/17 15:59 23:59 07:59 Intake Total 1500 / 1500 1000 / 1000 1475 / 1475 Output Total 700 / 700 300 / 300 Balance 1500 / 1500 300 / 300 1175 / 1175 Intake: IV Fluids 400 / 400 400 / 400 100 / 100 Zyvox Premix 600mg/300mL 600 mg 300 / 300 300 / 300 In 300 ml @ 150 mls/hr IVPB Q12HR ED Rx#:[id number] Flagyl Premix 500 MG/100 ML 500 100 / 100 100 / 100 100 / 100 mg In 100 ml @ 100 mls/hr IVPB Q8H ED Rx#:[id number] Tube Feeding 955 / 955 Free Water 500 / 500 600 / 600 420 / 420 Free Water Intake Amount 600 / 600 Output: Catheter 700 / 700 300 / 300 Other: Stool Size Moderate Stool Consistency loose Stool Characteristics Mucoid Stool Color Brown # Bowel Movement Diapers 1 Weight 84.3 kg Blood Glucose* 106 104 112 Patient Weight 04/30/17 23:59 Weight 84.3 kg - Additional Exam Constitutional: Alert, in no acute distress, answering questions more appropriately today Head: Normocephalic, atraumatic, normal contour and symmetric, no masses, lesions or scars Heart: Normal, regular rate and rhythm, no murmurs Lungs: Clear to auscultation, no wheezes, rales, or rhonchi Abdomen: Soft, nondistended, nontender, and no masses palpable, bowel sounds present and normal, no guarding or rigidity. Extremities: No clubbing, cyanosis, or edema, radial pulse +2/4, capillary refill <2sec. Skin: Skin warm and dry, no lesions, no rashes, no jaundice Neurologic: Cranial nerves II through XII grossly intact, no focal deficits, strength decrease bilaterally in upper and lower extremitites Psych: Cooperative with exam, good eye contact, speech is mumbled but clearer than yesterday and responding more frequently than yesterday, - Labs 04/30/17 05:34 04/30/17 05:34 Diabetes panel 04/30/17 Range/Units 05:34 Sodium 150 H (136-145) mEq/L Potassium 3.4 L (3.5-4.5) mEq/L Chloride 116 H (98-109) mEq/L Carbon Dioxide 24 (19-29) mEq/L BUN 31 H D (7-20) mg/dL Creatinine 0.96 (0.57-1.11) mg/dL Glucose 119 H (70-99) mg/dL Calcium 7.5 L (8.6-10.8) mg/dL AST 15 (5-34) Units/L ALT 21 (0-55) Units/L Alkaline Phosphatase 45 (38-126) Units/L Albumin 1.8 L (3.5-5.0) g/dL Calcium panel 04/30/17 04/30/17 Range/Units 05:34 05:34 Calcium 7.5 L (8.6-10.8) mg/dL Phosphorus 1.6 L (2.3-4.7) mg/dL Albumin 1.8 L (3.5-5.0) g/dL Pituitary panel 04/30/17 Range/Units 05:34 Sodium 150 H (136-145) mEq/L Potassium 3.4 L (3.5-4.5) mEq/L Chloride 116 H (98-109) mEq/L Carbon Dioxide 24 (19-29) mEq/L BUN 31 H D (7-20) mg/dL Creatinine 0.96 (0.57-1.11) mg/dL Glucose 119 H (70-99) mg/dL Calcium 7.5 L (8.6-10.8) mg/dL Adrenal panel 04/30/17 Range/Units 05:34 Sodium 150 H (136-145) mEq/L Potassium 3.4 L (3.5-4.5) mEq/L Chloride 116 H (98-109) mEq/L Carbon Dioxide 24 (19-29) mEq/L BUN 31 H D (7-20) mg/dL Creatinine 0.96 (0.57-1.11) mg/dL Glucose 119 H (70-99) mg/dL Calcium 7.5 L (8.6-10.8) mg/dL Total Bilirubin 0.4 (0.2-1.2) mg/dL AST 15 (5-34) Units/L ALT 21 (0-55) Units/L Alkaline Phosphatase 45 (38-126) Units/L Albumin 1.8 L (3.5-5.0) g/dL - VTE Documentation of Mechanical Device: Intermittent pneumatic compression device Consult Discharge Plan - Plan Referrals: Avni Bean MD [Primary Care Provider] - 05/04/17 1:00 pm () <Gloria Braden - Last Filed: 04/30/17 14:31> Date of Encounter: 04/30/17 - Assessment and Plan (1) Proctitis Current Visit: Yes Status: Acute pain seems to have resolved no indication for surgical intervention general surgery will sign off at this time, if further assistance is needed please call kub done to check for ileus or sbo due to patients N/V last evening and bowel pattern looks normal, recommend restarting tube feeds and could add reglan iv Subjective Patient reports: no new complaints, feels better, flatus Objective Vital Signs - Last 8 Hours Temp Pulse Resp BP Pulse Ox 04/30/17 11:37 97.6 F 89 18 170/95 99 04/30/17 08:30 98.2 F 86 20 167/90 97 Intake and Output 04/29/17 04/30/17 04/30/17 23:59 07:59 15:59 Intake Total 1000 / 1000 1475 / 1475 1000 / 1000 Output Total 700 / 700 300 / 300 400 / 400 Balance 300 / 300 1175 / 1175 600 / 600 Intake: IV Fluids 400 / 400 100 / 100 600 / 600 Maxipime 2,000 MG In Dextrose 5 200 / 200 % (Minibag+) 100 ML 100 ML @ 200 mls/hr IVPB Q24H ED Rx#: [id number] Zyvox Premix 600mg/300mL 600 mg 300 / 300 300 / 300 In 300 ml @ 150 mls/hr IVPB Q12HR ED Rx#:[id number] Flagyl Premix 500 MG/100 ML 500 100 / 100 100 / 100 100 / 100 mg In 100 ml @ 100 mls/hr IVPB Q8H ED Rx#:[id number] Oral 0 / 0 0 / 0 Tube Feeding 955 / 955 Free Water 600 / 600 420 / 420 Free Water Intake Amount 400 / 400 Output: Catheter 700 / 700 300 / 300 400 / 400 Other: Stool Size Moderate Copious Stool Consistency loose soft Stool Characteristics Mucoid Stool Color Brown Brown # Bowel Movement Diapers 1 Weight 84.3 kg Blood Glucose* 104 103 85 Patient Weight 04/30/17 23:59 Weight 84.3 kg - General physical appearance no distress, no pain - Eyes PERRL, normal ocular movement - ENT dry mucosa, atraumatic, normocephalic - Neck Neck exam: trachea midline - Respiratory normal expansion, normal respiratory effort - Cardiovascular Cardiovascular exam: Present: RRR - Abdomen Abdomen: Present: bowel sounds present, soft, non tender. Absent: distended, tender, guarding, rebound - Integumentary no rash, no growths - Neurologic CN 2-12 grossly intact - Musculoskeletal normal posture - Psychiatric oriented to time, oriented to person, oriented to place, speech is normal, memory intact - Labs 04/30/17 05:34 04/30/17 05:34 Diabetes panel 04/30/17 Range/Units 05:34 Sodium 150 H (136-145) mEq/L Potassium 3.4 L (3.5-4.5) mEq/L Chloride 116 H (98-109) mEq/L Carbon Dioxide 24 (19-29) mEq/L BUN 31 H D (7-20) mg/dL Creatinine 0.96 (0.57-1.11) mg/dL Glucose 119 H (70-99) mg/dL Calcium 7.5 L (8.6-10.8) mg/dL AST 15 (5-34) Units/L ALT 21 (0-55) Units/L Alkaline Phosphatase 45 (38-126) Units/L Albumin 1.8 L (3.5-5.0) g/dL Calcium panel 04/30/17 04/30/17 Range/Units 05:34 05:34 Calcium 7.5 L (8.6-10.8) mg/dL Phosphorus 1.6 L (2.3-4.7) mg/dL Albumin 1.8 L (3.5-5.0) g/dL Pituitary panel 04/30/17 Range/Units 05:34 Sodium 150 H (136-145) mEq/L Potassium 3.4 L (3.5-4.5) mEq/L Chloride 116 H (98-109) mEq/L Carbon Dioxide 24 (19-29) mEq/L BUN 31 H D (7-20) mg/dL Creatinine 0.96 (0.57-1.11) mg/dL Glucose 119 H (70-99) mg/dL Calcium 7.5 L (8.6-10.8) mg/dL Adrenal panel 04/30/17 Range/Units 05:34 Sodium 150 H (136-145) mEq/L Potassium 3.4 L (3.5-4.5) mEq/L Chloride 116 H (98-109) mEq/L Carbon Dioxide 24 (19-29) mEq/L BUN 31 H D (7-20) mg/dL Creatinine 0.96 (0.57-1.11) mg/dL Glucose 119 H (70-99) mg/dL Calcium 7.5 L (8.6-10.8) mg/dL Total Bilirubin 0.4 (0.2-1.2) mg/dL AST 15 (5-34) Units/L ALT 21 (0-55) Units/L Alkaline Phosphatase 45 (38-126) Units/L Albumin 1.8 L (3.5-5.0) g/dL - Imaging Abdominal x-ray: report reviewed, image reviewed - Attending Attestation I examined this patient and my medical decision-making was reviewed with the Resident Physician. I agree with the documented findings, disposition and treatment plan as described except to the extent set forth below.
[2017-04-30] MEDS: Sucralfate 1 GM TABLET PO SCH ×2 (08:33→18:04)
--- NOTE | 2017-04-30 09:38 | Nephrology Progress Note ---
Date of Encounter: 04/30/17 Time of Encounter: 09:20 - Assessment and Plan (1) ANNA (acute kidney injury) Current Visit: Yes Status: Acute Non oliguric and improving nicely with a GFR for Americans >60 today. Continue to follow a renal protective strategy if able. (2) Hypernatremia Current Visit: Yes Status: Acute Improving but d/t the increased residuals from the Tube Feeds, both the free water flushes and the Tube Feeds were held over night. Today, I'd recommend restarting a lower volume of Free Water Flushes at 200mL q4hr, but I'll defer the Tube Feeds to the primary team. (3) Hypokalemia Current Visit: Yes Status: Acute Will provide more KCl via NGT today. (4) Hypomagnesemia Current Visit: Yes Status: Acute S/p Mag sulfate yesterday (5) Multiple myeloma Current Visit: Yes Status: Chronic Acute on Chronic and worsening. With improving renal function and in the absence of hypercalcemia, I do not suspect myeloma kidney. Qualifiers: Multiple myeloma remission status: in relapse Qualified Code(s): C90.02 - Multiple myeloma in relapse (6) Generalized weakness Current Visit: Yes Status: Chronic As per primary Subjective Principal diagnosis: Hypokalemia Interval history: pt was s/e with the floor RN present. No family members at bedside. Yesterday afternoon, her TF were increased but by the evening her residuals increased and so both the TF and Free Water Flushes were both held until discussed today. Objective - Vital Signs Vital signs: Vital Signs Temp Pulse Resp BP Pulse Ox 04/30/17 03:31 98.2 F 94 24 128/67 96 04/29/17 23:19 98 F 92 20 150/75 98 04/29/17 19:57 98.6 F 96 18 141/75 97 04/29/17 16:06 98.9 F 92 17 140/78 96 04/29/17 11:34 98.3 F 92 16 134/74 98 Intake and Output 04/29/17 04/30/17 04/30/17 23:59 07:59 15:59 Intake Total 1000 / 1000 1475 / 1475 100 / 100 Output Total 700 / 700 300 / 300 Balance 300 / 300 1175 / 1175 100 / 100 Intake: IV Fluids 400 / 400 100 / 100 100 / 100 Maxipime 2,000 MG In Dextrose 5 100 / 100 % (Minibag+) 100 ML 100 ML @ 200 mls/hr IVPB Q24H ED Rx#: [id number] Zyvox Premix 600mg/300mL 600 mg 300 / 300 In 300 ml @ 150 mls/hr IVPB Q12HR ED Rx#:[id number] Flagyl Premix 500 MG/100 ML 500 100 / 100 100 / 100 mg In 100 ml @ 100 mls/hr IVPB Q8H ED Rx#:[id number] Oral 0 / 0 Tube Feeding 955 / 955 Free Water 600 / 600 420 / 420 Output: Catheter 700 / 700 300 / 300 Other: Stool Size Moderate Copious Stool Consistency loose soft Stool Characteristics Mucoid Stool Color Brown Brown # Bowel Movement Diapers 1 Weight 84.3 kg Blood Glucose* 104 103 Patient Weight 04/30/17 23:59 Weight 84.3 kg - General Appearance General appearance: Present: chronically ill, fatigue, frail EENT: Present: mucous membranes dry Additional Comments: NGT Neck: Present: supple Respiratory: Present: clear Cardiology: Present: no murmurs, no edema, regular rate, normal S1, normal S2 Gastrointestinal: Present: normoactive bowel sounds, no tenderness, no guarding , obese Integumentary: Present: warm and dry Neurologic: Present: disoriented Musculoskeletal: Present: no deformities, no clubbing Psychiatric: Present: cooperative - Lab 04/30/17 05:34 04/30/17 05:34 Most recent lab results ABG pH 7.46 pH Units (7.32-7.45) H 04/26/17 20:27 ABG pCO2 36 mmHg (35-45) 04/26/17 20:27 ABG pO2 99 mmHg (85-104) 04/26/17 20:27 ABG HCO3 26 mEq/L (21-27) 04/26/17 20:27 ABG O2 Saturation 98 % (95-98) 04/26/17 20:27 Calcium 7.5 mg/dL (8.6-10.8) L 04/30/17 05:34 Phosphorus 1.6 mg/dL (2.3-4.7) L 04/30/17 05:34 Magnesium 1.8 mg/dL (1.6-2.6) 04/30/17 05:34 Urine Creatinine 58 mg/dL 04/24/17 20:30 Urine Sodium 49.0 mEq/L 04/24/17 20:30 - VTE Documentation of Mechanical Device: Intermittent pneumatic compression device Consult Discharge Plan - Plan Referrals: Avni Bean MD [Primary Care Provider] - 05/04/17 1:00 pm ()
[2017-04-30] MEDS ORDERED: Potassium Chloride 40 MEQ, Lidocaine 1% 2 ML in D5% in Water 500 ML IVPB ONE (10:08)
[2017-04-30] MEDS ORDERED: Sodium Phosphate 30 MMOL in D5% in Water 100 ML IVPB ONE (10:09)
[2017-04-30] MEDS: Potassium Chloride Elixir 20 MEQ/15 ML UDC GTUBE SCH ×2 (10:24→20:32)
--- NOTE | 2017-04-30 10:24 | Palliative Progress Note ---
Date of Encounter: 04/30/17 Time of Encounter: 10:05 - Assessment and plan (1) Cancer related pain Current Visit: No Status: Chronic Assessment and plan: Has IV Morphine ordered if needed, but has not utilized. (2) Malnutrition Current Visit: Yes Status: Acute Assessment and plan: TF started yesterday, but pt had nausea as this was increased throughout the day yesterday. May need slower titration. Speech therapy will be following as well. If her mental status improves, may need repeat MBS. (3) Counseling regarding advanced care planning and goals of care Current Visit: Yes Status: Acute Assessment and plan: Spoke with bella Grider, yesterday am via telephone. Updated at that time, that water flushes and feeds had been started. Discussed that the hope is that electrolytes will improve, as well as her mentation and ability to swallow, however, if that does not happen, further measures will need discussed such as placement of PEG. Discussed that she would most likely not be good candidate r/ t progression of her multiple myeloma. Cheo stated that pt would not want PEG. Will continue to monitor clincal progress over the next few days and discuss with family. (4) Multiple myeloma Current Visit: No Status: Chronic Qualifiers: Multiple myeloma remission status: not in remission Qualified Code(s): C90.00 - Multiple myeloma not having achieved remission (5) Hypernatremia Current Visit: Yes Status: Acute - Time Spent With Patient Total time spent is greater than 50% in coordination of care (as documented) at patient's floor/unit and/or counseling patient: 25 - 35 minutes - Subjective Interval history: Patient asleep on my arrival. Awakens when name called, but shuts eyes and drifts back to sleep. No verbal response. She is not shaking her head "yes/no" for me today. Grimaces with palpation of abdomen. Surgical services following for proctitis. No family is present. D/W nurse and chart reviewed, pt with nausea yesterday and tube feeds/water were held. Na down to 150 this am. Water flushes restarted but decreased to 200 per nephrology. - Constitutional Vitals: Abnormal lab results RBC 3.02 M/mcL (3.82-4.97) L 04/30/17 05:34 Hgb 9.8 g/dL (11.5-15.4) L 04/30/17 05:34 Hct 30.5 % (35.3-44.9) L 04/30/17 05:34 MCV 101.0 fL (83.0-100.0) H 04/30/17 05:34 RDW 17.1 % (11.5-14.5) H 04/30/17 05:34 MPV 9.0 fL (9.4-12.4) L 04/30/17 05:34 Band Neutrophils % 8.0 % (0-4) H 04/25/17 03:55 Reactive Lymphocytes Present (Not Present) A 04/30/17 05:34 Toxic Granulation Present (Not Present) A 04/28/17 04:30 Large Platelets Present (Not Present) A 04/24/17 08:05 Immature Plt Fraction 0.8 % (1.1-6.1) L 04/30/17 05:34 Hypochromasia Present (Not Present) A 04/30/17 05:34 Anisocytosis 1+ (Not Present) A 04/30/17 05:34 Microcytosis Present (Not Present) A 04/29/17 05:30 Macrocytosis Present (Not Present) A 04/30/17 05:34 PT 13.9 Seconds (9.4-12.1) H 04/24/17 08:05 APTT 23.1 Seconds (26.0-36.0) L 04/24/17 08:05 ABG pH 7.46 pH Units (7.32-7.45) H 04/26/17 20:27 ABG Total CO2 27 mEq/L (20-26) H 04/26/17 20:27 Sodium 150 mEq/L (136-145) H 04/30/17 05:34 Potassium 3.4 mEq/L (3.5-4.5) L 04/30/17 05:34 Chloride 116 mEq/L (98-109) H 04/30/17 05:34 BUN 31 mg/dL (7-20) H D 04/30/17 05:34 Est GFR (Non-Af Amer) 58 (> 60) L 04/30/17 05:34 BUN/Creatinine Ratio 32 (6-26) H 04/30/17 05:34 Glucose 119 mg/dL (70-99) H 04/30/17 05:34 POC Glucose 112 (58-89) H 04/30/17 03:35 Calculated Osmolality 318 (280-300) H 04/30/17 05:34 Uric Acid 9.3 mg/dL (2.6-6.0) H 04/24/17 15:55 Calcium 7.5 mg/dL (8.6-10.8) L 04/30/17 05:34 Phosphorus 1.6 mg/dL (2.3-4.7) L 04/30/17 05:34 Creatine Kinase 746 Units/L (29-168) H 04/24/17 08:05 Troponin I 0.07 ng/mL (0-0.03) H* 04/26/17 18:21 Albumin 1.8 g/dL (3.5-5.0) L 04/30/17 05:34 Globulin 4.9 g/dL (2.4-3.5) H 04/30/17 05:34 Albumin/Globulin Ratio 0.4 (1.1-2.2) L 04/30/17 05:34 Urine Clarity Cloudy (Clear) A 04/25/17 14:08 Urine Protein 30 mg/dL (Neg-Trace) H 04/25/17 14:08 Urine Blood Moderate (Negative) H 04/25/17 14:08 Ur Leukocyte Esterase Small (Negative) H 04/25/17 14:08 Urine Microscopic RBC 5-15 per hpf (0-3) H 04/25/17 14:08 Urine Microscopic WBC 15-30 per hpf (0-3) H 04/25/17 14:08 Ur Squamous Epith Cells Moderate per lpf (None-Few) H 04/25/17 14:08 Urine Yeast Moderate per hpf (None Seen) H 04/25/17 14:08 Ur Culture Indicated? YES (NO) A 04/25/17 14:08 General appearance: Present: no acute distress - Respiratory Respiratory exam: Present: CTAB - Cardiovascular Cardiovascular exam: Present: +S1, +S2 - GI/Abdominal GI/Abdominal exam: Present: distended, soft, tenderness Additional comments: NG patent to right nares - Additional comments: urine lt gutierrez in color - Extremities Exam Additional comments: Generalized edema to all extremities - Neurological Exam Neurological exam: Present: altered - Skin Skin exam: Present: dry, normal color, warm Palliative Quality Palliative Quality: Screen for Code Status: Yes, Screen for Goals of Care: Yes, Screen for Pain: Yes, If Pain Regimen Started, Initiate Bowel Regimen: Yes, Screen for Nausea/Vomitting: Yes Code Status: 04/28/17 13:36 DNR [Resuscitation Status: Active] [RES] Routine Comment: Resuscitation Status: [id number] - Labs CBC & Chem 7: 04/30/17 05:34 04/30/17 05:34 Labs: Laboratory Results - last 24 hr 04/28/17 04/29/17 04/29/17 11:18 07:14 11:42 WBC RBC Hgb Hct MCV MCH MCHC RDW Plt Count MPV Immature Gran % Seg Neutrophils % Lymphocytes % Monocytes % Eosinophils % Basophils % Neutrophils # Lymphocytes # Monocytes # Eosinophils # Basophils # Reactive Lymphocytes Platelet Estimate Immature Plt Fraction Hypochromasia Anisocytosis Macrocytosis Sodium Potassium Chloride Carbon Dioxide BUN Creatinine Est GFR ( Amer) Est GFR (Non-Af Amer) BUN/Creatinine Ratio Glucose POC Glucose 112 H 127 H 106 H Calculated Osmolality Calcium Phosphorus Magnesium Total Bilirubin AST ALT Alkaline Phosphatase Serum Total Protein Albumin Globulin Albumin/Globulin Ratio 04/29/17 04/29/17 04/29/17 16:12 19:57 23:22 WBC RBC Hgb Hct MCV MCH MCHC RDW Plt Count MPV Immature Gran % Seg Neutrophils % Lymphocytes % Monocytes % Eosinophils % Basophils % Neutrophils # Lymphocytes # Monocytes # Eosinophils # Basophils # Reactive Lymphocytes Platelet Estimate Immature Plt Fraction Hypochromasia Anisocytosis Macrocytosis Sodium Potassium Chloride Carbon Dioxide BUN Creatinine Est GFR ( Amer) Est GFR (Non-Af Amer) BUN/Creatinine Ratio Glucose POC Glucose 103 H 101 H 104 H Calculated Osmolality Calcium Phosphorus Magnesium Total Bilirubin AST ALT Alkaline Phosphatase Serum Total Protein Albumin Globulin Albumin/Globulin Ratio 04/30/17 04/30/17 04/30/17 03:35 05:34 05:34 WBC 8.1 RBC 3.02 L Hgb 9.8 L Hct 30.5 L MCV 101.0 H MCH 32.5 MCHC 32.1 RDW 17.1 H Plt Count 143 MPV 9.0 L Immature Gran % 0.7 Seg Neutrophils % 73.1 Lymphocytes % 14.3 Monocytes % 9.1 Eosinophils % 2.6 Basophils % 0.2 Neutrophils # 5.9 Lymphocytes # 1.2 Monocytes # 0.7 Eosinophils # 0.2 Basophils # 0.0 Reactive Lymphocytes Present A Platelet Estimate Normal Immature Plt Fraction 0.8 L Hypochromasia Present A Anisocytosis 1+ A Macrocytosis Present A Sodium 150 H Potassium 3.4 L Chloride 116 H Carbon Dioxide 24 BUN 31 H D Creatinine 0.96 Est GFR ( Amer) > 60 Est GFR (Non-Af Amer) 58 L BUN/Creatinine Ratio 32 H Glucose 119 H POC Glucose 112 H Calculated Osmolality 318 H Calcium 7.5 L Phosphorus Magnesium Total Bilirubin 0.4 AST 15 ALT 21 Alkaline Phosphatase 45 Serum Total Protein 6.7 Albumin 1.8 L Globulin 4.9 H Albumin/Globulin Ratio 0.4 L 04/30/17 05:34 WBC RBC Hgb Hct MCV MCH MCHC RDW Plt Count MPV Immature Gran % Seg Neutrophils % Lymphocytes % Monocytes % Eosinophils % Basophils % Neutrophils # Lymphocytes # Monocytes # Eosinophils # Basophils # Reactive Lymphocytes Platelet Estimate Immature Plt Fraction Hypochromasia Anisocytosis Macrocytosis Sodium Potassium Chloride Carbon Dioxide BUN Creatinine Est GFR ( Amer) Est GFR (Non-Af Amer) BUN/Creatinine Ratio Glucose POC Glucose Calculated Osmolality Calcium Phosphorus 1.6 L Magnesium 1.8 Total Bilirubin AST ALT Alkaline Phosphatase Serum Total Protein Albumin Globulin Albumin/Globulin Ratio - ABG Interpretation ABG results: ABG ABG pH 7.46 pH Units (7.32-7.45) H 04/26/17 20:27 ABG pCO2 36 mmHg (35-45) 04/26/17 20:27 ABG pO2 99 mmHg (85-104) 04/26/17 20:27 ABG O2 Saturation 98 % (95-98) 04/26/17 20:27 PT/INR, D-dimer PT 13.9 Seconds (9.4-12.1) H 04/24/17 08:05 Consult Discharge Plan - Plan Referrals: Avni Bean MD [Primary Care Provider] - 05/04/17 1:00 pm ()
[2017-04-30] MEDS: Cefepime HCl 2,000 MG in D5% in Water (Mini-Bag+) 100 ML IVPB SCH (11:28)
[2017-04-30] MEDS: *HR* Promethazine 25 MG/ML VIAL IVP PRN (13:34)
[2017-04-30] MEDS ORDERED: hydrALAZINE 25 MG TABLET PO STA (17:06)
--- NOTE | 2017-04-30 17:08 | Internal Med Progress Note ---
Date of Encounter: 04/30/17 Time of Encounter: 17:03 - Assessment and plan (1) Sepsis Current Visit: Yes Status: Acute Qualifiers: Sepsis type: sepsis due to unspecified organism Qualified Code(s): A41.9 - Sepsis, unspecified organism (2) Proctitis Current Visit: Yes Status: Acute (3) ANNA (acute kidney injury) Current Visit: Yes Status: Acute (4) GI bleed Current Visit: Yes Status: Acute Qualifiers: Gastritis type: acute gastritis Qualified Code(s): K29.01 - Acute gastritis with bleeding (5) Multiple myeloma Current Visit: No Status: Chronic Qualifiers: Multiple myeloma remission status: not in remission Qualified Code(s): C90.00 - Multiple myeloma not having achieved remission (6) Hypothyroidism Current Visit: No Status: Chronic Qualifiers: Hypothyroidism type: unspecified Qualified Code(s): E03.9 - Hypothyroidism , unspecified (7) Hypernatremia Current Visit: Yes Status: Acute (8) Hypokalemia Current Visit: Yes Status: Acute (9) Hypomagnesemia Current Visit: Yes Status: Acute (10) Hypertension Current Visit: No Status: Chronic Qualifiers: Hypertension type: essential hypertension Qualified Code(s): I10 - Essential (primary) hypertension - Subjective Interval history: Ms. Gabby Roca is a 71-year-old female with history of multiple myeloma admitted for hematemesis and acute kidney injury. Gastroenterology and nephrology have seen the patient. Patient was seen today and noted that she has not had any Tylenol in the last 24 hours while only has low-grade temp.. Patient is well awake and answer questions. Patient has sepsis secondary to proctitis,? UTI /line sepsis. She has stress gastritis/GI bleed.Patient has history of multiple myeloma and she has received chemotherapy and last 4 weeks per nephrology resident. Patient family was present and we discussed the plan with them and answer their questions. #1 GI bleed : hemoglobin is stable. EGD showed severe gastritis. Patient on IV PPI and Carafate. Continue monitoring hemoglobin #2 acute kidney failure : nephrology thinks it is prerenal. Her functions are normal now #3 congestive heart failure: Patient had an echocardiogram done this year showed LVEF 65% with no significant valvular abnormality and mild as tolerated dysfunction. Patient was fluid overload as she was given IV fluid due to acute kidney injury. She was given 80 mg of IV Lasix yesterday and produce 2200 mL so far. Her sodium has started going up therefore I will hold on diuresis for today. Chest examination shows clear chest and no JVD. She had a small leak of troponin perhaps due to demand ischemia secondary to sepsis and CHF. She is overall bradycardic. #4 sepsis : Low-grade temp. A noncontrast CT abdomen was done which showed proctitis. It also showed mild swelling of right ureteric system without any obvious obstruction. Once her creatinine is better a contrast CT can be done to rule out any urinary obstruction. She has a Macias catheter. A grade temp noted patient is on Zyvox and cefepime and Flagyl #5 altered mental status perhaps metabolic encephalopathy : MRI/MRA of the brain and neck are negative for any new finding. Now patient is awake afebrile #6 hypokalemia /hypomagnesemia and hypophosphatemia: Potassium 3.4 Will give supplemental potassium #7 multiple myeloma: Recent chemotherapy treatment oncology and manager social services involved. Discuss with oncology. Oncology feels that I will O minus progressing. #8 hyponatremia: Sodium has come down to 150. Nephrology is managing it. Noted nephrology has reduced free water 200 every 4 #9 hypertension hydralazine and Imdur for now later can be switched to lisinopril if nephrology agrees Labs: CBC CMP Mag/Phos ordered on daily basis. She is not a candidate for Lovenox or antiplatelets - Constitutional Vitals: Temp Pulse Resp BP Pulse Ox 98.8 F 88 18 171/91 100 04/30/17 15:00 04/30/17 15:00 04/30/17 15:00 04/30/17 15:00 04/30/17 15:00 General appearance: Present: A&O X 3, pleasant, no acute distress, answers questions appropriately - Head Head exam: Present: atraumatic, normocephalic - Eye Eye exam: Present: PERRL, conjuntiva pink, sclera anicteric Pupils: Present: PERRL - Neck Neck exam general surgery: Present: supple, trachea midline. Absent: lymphadenopathy - Respiratory Respiratory exam: Present: CTAB. Absent: accessory muscle use, rales, rhonchi, wheezes - Cardiovascular Cardiovascular exam: Present: RRR, +S1, +S2. Absent: diastolic murmur, gallop, rubs, systolic murmur - GI/Abdominal GI/Abdominal exam: Present: normal bowel sounds, soft, no peritoneal signs. Absent: distended, tenderness - Extremities Exam Extremities exam: Present: warm, radial pulses palpable and symmetrical. Absent : calf tenderness, cyanotic, pedal edema - Neurological Exam Neurological exam: Present: CN II-XII intact, oriented X3, no focal deficits. Absent: pronater drift, facial droop, speech deficit - Skin Skin exam: Present: dry, intact Internal Medicine: Result - Labs CBC & Chem 7: 04/30/17 05:34 04/30/17 05:34 Labs: Short CBC 04/30/17 Range/Units 05:34 WBC 8.1 (4.3-11.1) K/mcL Hgb 9.8 L (11.5-15.4) g/dL Hct 30.5 L (35.3-44.9) % Plt Count 143 (140-400) K/mcL Neutrophils # 5.9 (1.6-8.9) K/mcL BMP 04/30/17 05:34 Sodium 150 H Potassium 3.4 L Chloride 116 H Carbon Dioxide 24 BUN 31 H D Creatinine 0.96 Glucose 119 H Calcium 7.5 L Liver Function 04/30/17 Range/Units 05:34 Total Bilirubin 0.4 (0.2-1.2) mg/dL AST 15 (5-34) Units/L ALT 21 (0-55) Units/L Alkaline Phosphatase 45 (38-126) Units/L Albumin 1.8 L (3.5-5.0) g/dL - ABG Interpretation ABG results: ABG ABG pH 7.46 pH Units (7.32-7.45) H 04/26/17 20:27 ABG pCO2 36 mmHg (35-45) 04/26/17 20:27 ABG pO2 99 mmHg (85-104) 04/26/17 20:27 ABG O2 Saturation 98 % (95-98) 04/26/17 20:27 PT/INR, D-dimer PT 13.9 Seconds (9.4-12.1) H 04/24/17 08:05 - Impressions Impressions KUB X-Ray 04/30/17 10:22 IMPRESSION: Nonspecific, nonobstructive bowel gas pattern. No plain film findings to suggest presence of significant ileus or bowel obstruction. D/ / 04/30/2017 11:15:38 Aleksandr Carney MD / lgray Interpreting Provider: Aleksandr Carney MD - VTE Documentation of Mechanical Device: Intermittent pneumatic compression device Consult Discharge Plan - Plan Referrals: Avni Bean MD [Primary Care Provider] - 05/04/17 1:00 pm ()
[2017-04-30] MEDS ORDERED: Isosorbide MONOnitrate (24 HR) 60 MG TAB.ER.24H PO SCH (17:15)
[2017-04-30] MEDS: Docusate Oral Soln 100 MG/10 ML UDC GTUBE SCH (20:32)
[2017-05-01 05:06] LABS: BUN/Creatinine Ratio 25 (6-26); Blood Urea Nitrogen 21 mg/dL (7-20); Calcium 7.7 mg/dL (8.6-10.8); Carbon Dioxide 22 mEq/L (19-29); Chloride 118 mEq/L (98-109); Glucose 90 mg/dL (70-99); Magnesium 1.8 mg/dL (1.6-2.6); Osmolality,Calculated 313 (280-300); Sodium 150 mEq/L (136-145); eGFR For African Americans > 60 (> 60); eGFR For Non-African Americans > 60 (> 60)
[2017-05-01] MEDS: Pantoprazole 40 MG VIAL IVP SCH ×2 (05:10→17:46)
[2017-05-01 05:12] LABS: Phosphorous 2.5 mg/dL (2.3-4.7); Potassium 4.3 mEq/L (3.5-4.5)
[2017-05-01] MEDS: MetroNIDAZOLE 500 MG/100 ML 500 MG/100 ML BAG IVPB SCH ×3 (05:24→17:45)
--- NOTE | 2017-05-01 08:07 | Palliative Progress Note ---
Date of Encounter: 05/01/17 Time of Encounter: 07:25 - Assessment and plan (1) Multiple myeloma Current Visit: No Status: Chronic Assessment and plan: Patient continued day care from the cancer center. Qualifiers: Multiple myeloma remission status: not in remission Qualified Code(s): C90.00 - Multiple myeloma not having achieved remission (2) Intractable pain Current Visit: No Status: Chronic Assessment and plan: HEENT appears to be under good control at this time. (3) Abdominal pain Current Visit: No Status: Resolved Assessment and plan: HEENT is under good control at this time. Patient states the nausea is at least somewhat better. Qualifiers: Abdominal location: generalized Qualified Code(s): R10.84 - Generalized abdominal pain (4) Nausea & vomiting Current Visit: No Status: Resolved Assessment and plan: No antiemetic since around 1300 yesterday. Patient is feeling better. He is hoping that she may be over swallowing get the NG tube out. Qualifiers: Vomiting type: hematemesis Qualified Code(s): K92.0 - Hematemesis; R11.0 - Nausea (5) Goals of care, counseling/discussion Current Visit: No Status: Acute Assessment and plan: CODE STATUS DNR CCA, DNI. Conversations have been held with her son and she will not be getting a PEG tube as she would not want that per her son. She is hoping to get the tube out today possibly. Will need however to swallow first. Hospice discussion with her very briefly as I have had multiple hospice discussions with her in the past. Available to her whenever she wants and she is aware of this. If sHe fails to swallow it may be necessary. - Time Spent With Patient Total time spent is greater than 50% in coordination of care (as documented) at patient's floor/unit and/or counseling patient: - Subjective Interval history: The patient is awake this morning and hoping that the NG tube will soon come out. He has no complaint of this morning. Other than the NG tube. She tells me that her nausea is better. - Constitutional Vitals: Abnormal lab results RBC 3.02 M/mcL (3.82-4.97) L 04/30/17 05:34 Hgb 9.8 g/dL (11.5-15.4) L 04/30/17 05:34 Hct 30.5 % (35.3-44.9) L 04/30/17 05:34 MCV 101.0 fL (83.0-100.0) H 04/30/17 05:34 RDW 17.1 % (11.5-14.5) H 04/30/17 05:34 MPV 9.0 fL (9.4-12.4) L 04/30/17 05:34 Band Neutrophils % 8.0 % (0-4) H 04/25/17 03:55 Reactive Lymphocytes Present (Not Present) A 04/30/17 05:34 Toxic Granulation Present (Not Present) A 04/28/17 04:30 Large Platelets Present (Not Present) A 04/24/17 08:05 Immature Plt Fraction 0.8 % (1.1-6.1) L 04/30/17 05:34 Hypochromasia Present (Not Present) A 04/30/17 05:34 Anisocytosis 1+ (Not Present) A 04/30/17 05:34 Microcytosis Present (Not Present) A 04/29/17 05:30 Macrocytosis Present (Not Present) A 04/30/17 05:34 PT 13.9 Seconds (9.4-12.1) H 04/24/17 08:05 APTT 23.1 Seconds (26.0-36.0) L 04/24/17 08:05 ABG pH 7.46 pH Units (7.32-7.45) H 04/26/17 20:27 ABG Total CO2 27 mEq/L (20-26) H 04/26/17 20:27 Sodium 150 mEq/L (136-145) H 05/01/17 04:37 Chloride 118 mEq/L (98-109) H 05/01/17 04:37 BUN 21 mg/dL (7-20) H D 05/01/17 04:37 Calculated Osmolality 313 (280-300) H 05/01/17 04:37 Uric Acid 9.3 mg/dL (2.6-6.0) H 04/24/17 15:55 Calcium 7.7 mg/dL (8.6-10.8) L 05/01/17 04:37 Creatine Kinase 746 Units/L (29-168) H 04/24/17 08:05 Troponin I 0.07 ng/mL (0-0.03) H* 04/26/17 18:21 Albumin 1.8 g/dL (3.5-5.0) L 04/30/17 05:34 Globulin 4.9 g/dL (2.4-3.5) H 04/30/17 05:34 Albumin/Globulin Ratio 0.4 (1.1-2.2) L 04/30/17 05:34 Urine Clarity Cloudy (Clear) A 04/25/17 14:08 Urine Protein 30 mg/dL (Neg-Trace) H 04/25/17 14:08 Urine Blood Moderate (Negative) H 04/25/17 14:08 Ur Leukocyte Esterase Small (Negative) H 04/25/17 14:08 Urine Microscopic RBC 5-15 per hpf (0-3) H 04/25/17 14:08 Urine Microscopic WBC 15-30 per hpf (0-3) H 04/25/17 14:08 Ur Squamous Epith Cells Moderate per lpf (None-Few) H 04/25/17 14:08 Urine Yeast Moderate per hpf (None Seen) H 04/25/17 14:08 Ur Culture Indicated? YES (NO) A 04/25/17 14:08 General appearance: Present: no acute distress - Head Head exam: Present: atraumatic, normal inspection - Eye Eye exam: Present: normal appearance - ENT ENT exam: Present: mucous membranes moist - Respiratory Respiratory exam: Present: CTAB - Cardiovascular Cardiovascular exam: Present: RRR - GI/Abdominal GI/Abdominal exam: Present: distended, soft, tenderness - Extremities Exam Extremities exam: Absent: tenderness - Neurological Exam Neurological exam: Present: alert - Psychiatric Psychiatric exam: Absent: agitated, anxious - Skin Skin exam: Present: dry, warm Palliative Quality Palliative Quality: Screen for Code Status: Yes, Screen for Goals of Care: Yes, Screen for Pain: Yes, If Pain Regimen Started, Initiate Bowel Regimen: Yes, Screen for Nausea/Vomitting: Yes Code Status: 04/28/17 13:36 DNR [Resuscitation Status: Active] [RES] Routine Comment: Resuscitation Status: [id number] - Labs CBC & Chem 7: 04/30/17 05:34 05/01/17 04:37 Labs: Laboratory Results - last 24 hr 04/29/17 04/29/17 04/29/17 11:42 16:12 19:57 Sodium Potassium Chloride Carbon Dioxide BUN Creatinine Est GFR ( Amer) Est GFR (Non-Af Amer) BUN/Creatinine Ratio Glucose POC Glucose 106 H 103 H 101 H Calculated Osmolality Calcium Phosphorus Magnesium 04/29/17 04/30/17 04/30/17 23:22 07:47 12:20 Sodium Potassium Chloride Carbon Dioxide BUN Creatinine Est GFR ( Amer) Est GFR (Non-Af Amer) BUN/Creatinine Ratio Glucose POC Glucose 104 H 103 H 85 Calculated Osmolality Calcium Phosphorus Magnesium 04/30/17 04/30/17 04/30/17 17:27 20:50 23:25 Sodium Potassium Chloride Carbon Dioxide BUN Creatinine Est GFR ( Amer) Est GFR (Non-Af Amer) BUN/Creatinine Ratio Glucose POC Glucose 101 H 87 75 Calculated Osmolality Calcium Phosphorus Magnesium 05/01/17 04:37 Sodium 150 H Potassium 4.3 Chloride 118 H Carbon Dioxide 22 BUN 21 H D Creatinine 0.83 Est GFR ( Amer) > 60 Est GFR (Non-Af Amer) > 60 BUN/Creatinine Ratio 25 Glucose 90 POC Glucose Calculated Osmolality 313 H Calcium 7.7 L Phosphorus 2.5 D Magnesium 1.8 - Impressions Impressions KUB X-Ray 04/30/17 10:22 IMPRESSION: Nonspecific, nonobstructive bowel gas pattern. No plain film findings to suggest presence of significant ileus or bowel obstruction. D/ / 04/30/2017 11:15:38 Aleksandr Carney MD / lgray Interpreting Provider: Aleksandr Carney MD - ABG Interpretation ABG results: ABG ABG pH 7.46 pH Units (7.32-7.45) H 04/26/17 20:27 ABG pCO2 36 mmHg (35-45) 04/26/17 20:27 ABG pO2 99 mmHg (85-104) 04/26/17 20:27 ABG O2 Saturation 98 % (95-98) 04/26/17 20:27 PT/INR, D-dimer PT 13.9 Seconds (9.4-12.1) H 04/24/17 08:05 Consult Discharge Plan - Plan Referrals: Avni Bean MD [Primary Care Provider] - 05/04/17 1:00 pm ()
--- NOTE | 2017-05-01 08:17 | Internal Med Progress Note ---
Date of Encounter: 05/01/17 Time of Encounter: 07:56 - Assessment and plan (1) Sepsis Current Visit: Yes Status: Acute Qualifiers: Sepsis type: sepsis due to unspecified organism Qualified Code(s): A41.9 - Sepsis, unspecified organism (2) Proctitis Current Visit: Yes Status: Acute (3) ANNA (acute kidney injury) Current Visit: Yes Status: Acute (4) GI bleed Current Visit: Yes Status: Acute Qualifiers: Gastritis type: acute gastritis Qualified Code(s): K29.01 - Acute gastritis with bleeding (5) Multiple myeloma Current Visit: No Status: Chronic Qualifiers: Multiple myeloma remission status: not in remission Qualified Code(s): C90.00 - Multiple myeloma not having achieved remission (6) Hypothyroidism Current Visit: No Status: Chronic Qualifiers: Hypothyroidism type: unspecified Qualified Code(s): E03.9 - Hypothyroidism , unspecified (7) Hypernatremia Current Visit: Yes Status: Acute (8) Hypokalemia Current Visit: Yes Status: Acute (9) Hypomagnesemia Current Visit: Yes Status: Acute (10) Hypertension Current Visit: No Status: Chronic Qualifiers: Hypertension type: essential hypertension Qualified Code(s): I10 - Essential (primary) hypertension - Subjective Interval history: Ms. Gabby Roca is a 71-year-old female with history of multiple myeloma admitted for hematemesis and acute kidney injury. Gastroenterology and nephrology have seen the patient. Patient was seen today and noted overall she has improved well. She is afebrile and well awake and answer questions. Patient has sepsis secondary to proctitis,? UTI /line sepsis. She has stress gastritis/GI bleed.Patient has history of multiple myeloma and but she has not receive chemotherapy since last year. Improving but can not tolerate any diet or TF ? Ileus. #1 GI bleed : hemoglobin is stable. EGD showed severe gastritis. Patient on IV PPI and Carafate. Continue monitoring hemoglobin #2 acute kidney failure : nephrology thinks it is prerenal. Her functions are normal now #3 congestive heart failure: Patient had an echocardiogram done this year showed LVEF 65% with no significant valvular abnormality and mild as tolerated dysfunction. Patient was fluid overload as she was given IV fluid due to acute kidney injury. She was given 80 mg of IV Lasix yesterday and produce 2200 mL so far. Her sodium has started going up therefore I will hold on diuresis for today. Chest examination shows clear chest and no JVD. She had a small leak of troponin perhaps due to demand ischemia secondary to sepsis and CHF. She is overall bradycardic. #4 sepsis : Low-grade temp. A noncontrast CT abdomen was done which showed proctitis. It also showed mild swelling of right ureteric system without any obvious obstruction. Once her creatinine is better a contrast CT can be done to rule out any urinary obstruction. She has a Macias catheter. Afebrile 2 days now. patient is on Zyvox and cefepime and Flagyl #5 altered mental status perhaps metabolic encephalopathy : MRI/MRA of the brain and neck are negative for any new finding. Now patient is awake afebrile #6 hypokalemia /hypomagnesemia and hypophosphatemia: Corrected #7 multiple myeloma: Recent chemotherapy treatment oncology and manager social media involved. Discuss with oncology. Oncology feels that I will O minus progressing. #8 hyponatremia: Sodium has come down to 150. Nephrology is managing it. Noted nephrology has reduced free water 200 every 4. Patient is fluid positive every day/total intake 3 L. Considering recent history of CHF concern if she will slip into his CHF again. Will discuss with nephrology if he can use D5 water and try to diurese her in an attempt to dilute the serum. However clinically she is quite asymptomatic and has been tolerating hypernatremia well #9 hypertension hydralazine and Imdur for now later can be switched to lisinopril if nephrology agrees Labs: CBC CMP Mag/Phos ordered on daily basis. She is not a candidate for Lovenox or antiplatelets - Constitutional Vitals: Temp Pulse Resp BP Pulse Ox 97.6 F 81 19 158/92 97 05/01/17 05:30 05/01/17 05:30 05/01/17 04:33 05/01/17 04:33 04/30/17 23:20 General appearance: Present: A&O X 3, pleasant, no acute distress, answers questions appropriately - Head Head exam: Present: atraumatic, normocephalic - Eye Eye exam: Present: PERRL, conjuntiva pink, sclera anicteric Pupils: Present: PERRL - Neck Neck exam general surgery: Present: supple, trachea midline. Absent: lymphadenopathy - Respiratory Respiratory exam: Present: CTAB. Absent: accessory muscle use, rales, rhonchi, wheezes - Cardiovascular Cardiovascular exam: Present: RRR, +S1, +S2. Absent: diastolic murmur, gallop, rubs, systolic murmur - GI/Abdominal GI/Abdominal exam: Present: normal bowel sounds, soft, no peritoneal signs. Absent: distended, tenderness - Extremities Exam Extremities exam: Present: warm, radial pulses palpable and symmetrical. Absent : calf tenderness, cyanotic, pedal edema - Neurological Exam Neurological exam: Present: CN II-XII intact, oriented X3, no focal deficits. Absent: pronater drift, facial droop, speech deficit - Skin Skin exam: Present: dry, intact Internal Medicine: Result - Labs CBC & Chem 7: 04/30/17 05:34 05/01/17 04:37 Labs: BMP 05/01/17 04:37 Sodium 150 H Potassium 4.3 Chloride 118 H Carbon Dioxide 22 BUN 21 H D Creatinine 0.83 Glucose 90 Calcium 7.7 L - ABG Interpretation ABG results: ABG ABG pH 7.46 pH Units (7.32-7.45) H 04/26/17 20:27 ABG pCO2 36 mmHg (35-45) 04/26/17 20:27 ABG pO2 99 mmHg (85-104) 04/26/17 20:27 ABG O2 Saturation 98 % (95-98) 04/26/17 20:27 PT/INR, D-dimer PT 13.9 Seconds (9.4-12.1) H 04/24/17 08:05 - Impressions Impressions KUB X-Ray 04/30/17 10:22 IMPRESSION: Nonspecific, nonobstructive bowel gas pattern. No plain film findings to suggest presence of significant ileus or bowel obstruction. D/ / 04/30/2017 11:15:38 Aleksandr Carney MD / lgray Interpreting Provider: Aleksandr Carney MD - VTE Documentation of Mechanical Device: Intermittent pneumatic compression device Consult Discharge Plan - Plan Referrals: Avni Bean MD [Primary Care Provider] - 05/04/17 1:00 pm ()
--- NOTE | 2017-05-01 08:56 | Nephrology Progress Note ---
Date of Encounter: 05/01/17 Time of Encounter: 08:48 - Assessment and Plan (1) ANNA (acute kidney injury) Current Visit: Yes Status: Acute 71-year-old female transferred from custodial with altered mental status, post suspected hematemesis and was found to have a creatinine of 5.32, GFR of 10. Patient was discharged on 04/06/2017 had a normal creatinine and GFR. Reviewed patient's previous lab results demonstrates that she did not have any chronic kidney disease prior to this admission. Acute kidney injury resolved. Renal function improving appropriately, nonoliguric with GFR maintaining greater than 60 which is appropriate. Still remains hypernatremic and euvolemic. - 24-hour output 1320 mL, +2 L fluid balance. Plan: - Continue free water through NG tube. - Continue 40meq KCl elixer once per day - Avoid nephrotoxic medications and renally dose antibiotics - Monitor renal function with an labs (2) Dehydration Current Visit: Yes Status: Acute Upon admission Ms. Royal clinically appeared dehydrated with supporting labs are creatinine 5.32, GFR of 10, calculated osmolality 315, Today She is showing improvement and tolerating IV rehydration. Echocardiogram from 01/07/2017 Impressions: Normal LV systolic function, LVEF 65-70%. Mild left ventricular diastolic dysfunction. Normal right ventricular size and function. No significant valvular dysfunction. No evidence of pulmonary hypertension. No evidence of intracardiac shunting with agitated saline contrast. 04/27: Patient presents with anasarca in the setting of IV fluid replacement. She received IV Lasix last evening and is now receiving normal saline with improvement in her respiratory status. 04/28: Continues to require fluid rehydration, will use free water through GI absorption. Plan: - Free water as discussed above. - Strict intake and output monitoring (3) Hypernatremia Current Visit: Yes Status: Acute 71-year-old female admitted with dehydration, acute kidney injury developing hypernatremia during inpatient stay. IV fluids were discontinued and she has been receiving free water through NG tube. With improvements in hypernatremia. Plan: - Continue free water flushes at 200 mL's every 4 hours with adjustments by dietary team. - Continue to monitor sodium level daily, avoid solutions in oral intake with high sodium load. (4) Multiple myeloma Current Visit: No Status: Chronic Patient has known and current medical history of multiple myeloma, currently not undergoing chemotherapy or radiation therapy. - Palliative care on board. Qualifiers: Multiple myeloma remission status: not in remission Qualified Code(s): C90.00 - Multiple myeloma not having achieved remission (5) Hypothyroidism Current Visit: No Status: Chronic Continue levothyroxine 75 MCG Qualifiers: Hypothyroidism type: unspecified Qualified Code(s): E03.9 - Hypothyroidism , unspecified (6) Hypokalemia Current Visit: Yes Status: Acute Hypokalemia resolved. Plan to reduce potassium chloride load to 40 daily from twice a day. Plan: - Continue 40meq Elixer KCl through NG tube - Recheck potassium daily - Hold Lasix as patient rests for a status significantly improved (7) DVT prophylaxis Current Visit: No Status: Acute SCDs bilateral lower extremities Subjective Principal diagnosis: Hypokalemia Interval history: Mrs. Royal has been seen and evaluated at patient bedside this morning. She is awake alert and interactive, she denies any current pains, discomforts or concerns. Discussion with nursing staff reveals that there is concern she was sounding wet last evening and IV fluids were discontinued and she is given Bumex. Patient's family was not at bedside at the time of evaluation. Objective - Vital Signs Vital signs: Vital Signs Temp Pulse Resp BP Pulse Ox 05/01/17 08:17 97.9 F 84 20 148/87 96 05/01/17 05:30 97.6 F 81 05/01/17 04:33 97.6 F 81 19 158/92 04/30/17 23:20 98.2 F 82 19 157/87 97 04/30/17 20:42 98.0 F 76 19 145/86 98 04/30/17 15:00 98.8 F 88 18 171/91 100 04/30/17 11:37 97.6 F 89 18 170/95 99 Intake and Output 04/30/17 05/01/17 05/01/17 23:59 07:59 15:59 Intake Total 899 / 899 400 / 400 Output Total 620 / 620 300 / 300 Balance 279 / 279 100 / 100 Intake: IV Fluids 499 / 499 Zyvox Premix 600mg/300mL 600 mg 300 / 300 In 300 ml @ 150 mls/hr IVPB Q12HR ED Rx#:[id number] Flagyl Premix 500 MG/100 ML 500 100 / 100 mg In 100 ml @ 100 mls/hr IVPB Q8H [facility] Rx#:[id number] Sodium Phosphate 30 MMOL In 99 / 99 Dextrose 5% 100 ML @ 16 mls/hr IVPB ONCE ONE Rx#:[id number] Free Water 200 / 200 Free Water Intake Amount 200 / 200 400 / 400 Output: Catheter 620 / 620 300 / 300 Other: Stool Size Copious Stool Consistency liquid Stool Color Brown # Bowel Movements 1 Weight 84.6 kg Blood Glucose* 75 84 85 - General Appearance Exam: General: Patient alert, awake, oriented , interactive, in no acute distress HEENT: Normocephalic, atraumatic, pupils equal reactive to light, nasal cavity patent and open, NG tube in place,, oral mucosa moist, , neck supple trachea midline no palpable lymphadenopathy, no thyromegaly. Chest: Symmetric bilateral correlating with respiratory effort, effort nonlabored. Cardiac: Regular rate and rhythm, grade 2/6 systolic ejection murmur. no bruits appreciated bilateral carotids, Radial pulses 2+ bilateral, posterior tibial and dorsal pedal pulses 2+ bilateral. Respiratory: Clear to auscultation all lung [place] Abdomen: Soft, nontender, positive bowel sounds, no palpable masses appreciated on examination Extremities: Symmetric bilateral, bilateral lower extremities without erythema or edema patient moving all 4 extremities spontaneously. Neurologic: No focal deficits appreciated on examination. Face symmetric, muscle strength symmetric bilateral upper and lower extremities. - Lab 04/30/17 05:34 05/01/17 04:37 Most recent lab results ABG pH 7.46 pH Units (7.32-7.45) H 04/26/17 20:27 ABG pCO2 36 mmHg (35-45) 04/26/17 20:27 ABG pO2 99 mmHg (85-104) 04/26/17 20:27 ABG HCO3 26 mEq/L (21-27) 04/26/17 20:27 ABG O2 Saturation 98 % (95-98) 04/26/17 20:27 Calcium 7.7 mg/dL (8.6-10.8) L 05/01/17 04:37 Phosphorus 2.5 mg/dL (2.3-4.7) D 05/01/17 04:37 Magnesium 1.8 mg/dL (1.6-2.6) 05/01/17 04:37 Urine Creatinine 58 mg/dL 04/24/17 20:30 Urine Sodium 49.0 mEq/L 04/24/17 20:30 - VTE Documentation of Mechanical Device: Intermittent pneumatic compression device Consult Discharge Plan - Plan Referrals: Avni Bean MD [Primary Care Provider] - 05/04/17 1:00 pm ()
[2017-05-01] MEDS: Docusate Oral Soln 100 MG/10 ML UDC GTUBE SCH ×2 (09:31→20:00)
[2017-05-01] MEDS: Sucralfate 1 GM TABLET PO SCH ×2 (09:31→17:46)
[2017-05-01] MEDS: Ondansetron 4 MG/2 ML VIAL IVP PRN (09:32)
[2017-05-01] MEDS: Cefepime HCl 2,000 MG in D5% in Water (Mini-Bag+) 100 ML IVPB SCH ×2 (11:49→20:00)
[2017-05-02] MEDS: MetroNIDAZOLE 500 MG/100 ML 500 MG/100 ML BAG IVPB SCH ×3 (01:30→17:12)
[2017-05-02 05:26] LABS: BUN/Creatinine Ratio 25 (6-26); Blood Urea Nitrogen 17 mg/dL (7-20); Calcium 7.4 mg/dL (8.6-10.8); Carbon Dioxide 23 mEq/L (19-29); Chloride 114 mEq/L (98-109); Glucose 93 mg/dL (70-99); Osmolality,Calculated 303 (280-300); Potassium 3.5 mEq/L (3.5-4.5); Sodium 146 mEq/L (136-145); eGFR For African Americans > 60 (> 60); eGFR For Non-African Americans > 60 (> 60)
[2017-05-02] MEDS: Pantoprazole 40 MG VIAL IVP SCH ×2 (05:28→17:12)
[2017-05-02] MEDS: Potassium Chloride Elixir 20 MEQ/15 ML UDC GTUBE SCH (07:50)
[2017-05-02] MEDS: Sucralfate 1 GM TABLET PO SCH ×2 (07:50→17:12)
[2017-05-02] MEDS: Docusate Oral Soln 100 MG/10 ML UDC GTUBE SCH ×2 (07:50→21:43)
[2017-05-02] MEDS: Cefepime HCl 2,000 MG in D5% in Water (Mini-Bag+) 100 ML IVPB SCH ×2 (07:50→21:42)
--- NOTE | 2017-05-02 09:45 | Nephrology Progress Note ---
Date of Encounter: 05/02/17 Time of Encounter: 09:20 - Assessment and Plan (1) ANNA (acute kidney injury) Current Visit: Yes Status: Acute 71-[facility]-old [facility], post suspected hematemesis and was found to have a creatinine of 5.32, GFR of 10. Patient was discharged on 04/06/2017 had a normal creatinine and GFR. Reviewed patient's previous lab results demonstrates that she did not have any chronic kidney disease prior to this admission. Acute kidney injury resolved. Renal function improving appropriately, nonoliguric with GFR maintaining greater than 60 which is appropriate. Still remains hypernatremic and euvolemic. - 24-hour output 1320 mL, +2 L fluid balance. 05/02: Acute kidney injury resolved, renal function continues to be appropriate. GFR greater than 60. Hypernatremia resolved with free water through NG tube. Would recommend continuing free water through the NG tube with dietary recommendations. I would recommend against IV fluids and Lasix at this time as her hypernatremia was just resolved. Continue with potassium chloride replacement through NG tube. - As patient's renal function has improved significantly and hypernatremia has resolved nephrology will sign off, feel free to contact with any further questions. Plan: - Continue free water through NG tube. - Continue 40meq KCl elixer once per day - Avoid nephrotoxic medications and renally dose antibiotics - Monitor renal function with an labs (2) Dehydration Current Visit: Yes Status: Acute Upon admission Ms. Royal clinically appeared dehydrated with supporting labs are creatinine 5.32, GFR of 10, calculated osmolality 315, Today She is showing improvement and tolerating IV rehydration. Echocardiogram from 01/07/2017 Impressions: Normal LV systolic function, LVEF 65-70%. Mild left ventricular diastolic dysfunction. Normal right ventricular size and function. No significant valvular dysfunction. No evidence of pulmonary hypertension. No evidence of intracardiac shunting with agitated saline contrast. 04/27: Patient presents with anasarca in the setting of IV fluid replacement. She received IV Lasix last evening and is now receiving normal saline with improvement in her respiratory status. 04/28: Continues to require fluid rehydration, will use free water through GI absorption. 05/02: Improved with free water through NG tube. Continue to monitor volume status. Plan: - Free water as discussed above. - Strict intake and output monitoring (3) Hypernatremia Current Visit: Yes Status: Acute Resolved. Continue to monitor volume status and provide free water flushes per NG tube for normal sodium level around 140-145. Currently recommend against IV fluids and Lasix as hypernatremia and volume status has just resolved. Plan: - Continue free water flushes per NG tube. - Continue to monitor sodium level daily, avoid solutions in oral intake with high sodium load. (4) Multiple myeloma Current Visit: No Status: Chronic Patient has known and current medical history of multiple myeloma, currently not undergoing chemotherapy or radiation therapy. - Palliative care on board. Qualifiers: Multiple myeloma remission status: not in remission Qualified Code(s): C90.00 - Multiple myeloma not having achieved remission (5) Hypothyroidism Current Visit: No Status: Chronic Continue levothyroxine 75 MCG Qualifiers: Hypothyroidism type: unspecified Qualified Code(s): E03.9 - Hypothyroidism , unspecified (6) Hypokalemia Current Visit: Yes Status: Acute Hypokalemia resolved. Plan to reduce potassium chloride load to 40 daily from twice a day. Plan: - Continue 40meq Elixer KCl through NG tube - Recheck potassium daily - Hold Lasix as patient rests for a status significantly improved (7) DVT prophylaxis Current Visit: No Status: Acute SCDs bilateral lower extremities Subjective Principal diagnosis: Hypokalemia Interval history: Mrs. Royal has been seen and evaluated at patient bedside this morning. She is awake alert and interactive, she denies any current pains, but does point to her NG tube wishing to have it out. Her laboratory results were discussed and that her sodium is improved appropriately and her acute kidney injury has resolved. She does wish to have her NG tube removed and it was discussed that she may need to continue to have some free water but is understood that she does not want to have tube feedings which she shook her head yes. She had no further questions at this time. Objective - Vital Signs Vital signs: Vital Signs Temp Pulse Resp BP Pulse Ox 05/02/17 06:40 98.1 F 82 18 160/98 98 05/02/17 03:59 98.3 F 83 16 149/77 100 05/02/17 00:06 97.7 F 79 16 147/79 100 05/01/17 19:38 99.0 F 79 16 133/86 94 05/01/17 18:11 86 14 97 05/01/17 16:01 97.6 F 84 16 154/82 97 05/01/17 11:20 98.0 F 81 18 143/75 95 Intake and Output 05/01/17 05/02/17 05/02/17 23:59 07:59 15:59 Intake Total 650 / 650 980 / 980 300 / 300 Output Total 650 / 650 250 / 250 Balance 0 / 0 730 / 730 300 / 300 Intake: IV Fluids 500 / 500 400 / 400 100 / 100 Maxipime 2,000 MG In Dextrose 5 100 / 100 100 / 100 % (Minibag+) 100 ML 100 ML @ 200 mls/hr IVPB Q12H ED Rx#: [id number] Zyvox Premix 600mg/300mL 600 mg 300 / 300 300 / 300 In 300 ml @ 150 mls/hr IVPB Q12HR ED Rx#:[id number] Flagyl Premix 500 MG/100 ML 500 100 / 100 100 / 100 mg In 100 ml @ 100 mls/hr IVPB Q8H ED Rx#:[id number] Free Water 150 / 150 580 / 580 Free Water Intake Amount 200 / 200 Output: Catheter 650 / 650 250 / 250 Other: Stool Size Large Stool Consistency liquid Stool Color Brown Weight 84.2 kg Blood Glucose* 98 84 Patient Weight 05/02/17 23:59 Weight 84.2 kg - General Appearance Exam: General: Patient alert, awake, oriented , interactive, in no acute distress HEENT: Normocephalic, atraumatic, pupils equal reactive to light, nasal cavity patent and open, NG tube in place,, oral mucosa moist, , neck supple trachea midline no palpable lymphadenopathy, no thyromegaly. Chest: Symmetric bilateral correlating with respiratory effort, effort nonlabored. Cardiac: Regular rate and rhythm, grade 2/6 systolic ejection murmur. no bruits appreciated bilateral carotids, Radial pulses 2+ bilateral, posterior tibial and dorsal pedal pulses 2+ bilateral. Respiratory: Clear to auscultation all lung [place] Abdomen: Soft, nontender, positive bowel sounds, no palpable masses appreciated on examination Extremities: Symmetric bilateral, bilateral lower extremities without erythema, with trace edema. patient moving all 4 extremities spontaneously. Neurologic: No focal deficits appreciated on examination. Face symmetric, muscle strength symmetric bilateral upper and lower extremities. - Lab 04/30/17 05:34 05/02/17 03:53 Most recent lab results ABG pH 7.46 pH Units (7.32-7.45) H 04/26/17 20:27 ABG pCO2 36 mmHg (35-45) 04/26/17 20:27 ABG pO2 99 mmHg (85-104) 04/26/17 20:27 ABG HCO3 26 mEq/L (21-27) 04/26/17 20:27 ABG O2 Saturation 98 % (95-98) 04/26/17 20:27 Calcium 7.4 mg/dL (8.6-10.8) L 05/02/17 03:53 Phosphorus 2.5 mg/dL (2.3-4.7) D 05/01/17 04:37 Magnesium 1.8 mg/dL (1.6-2.6) 05/01/17 04:37 Urine Creatinine 58 mg/dL 04/24/17 20:30 Urine Sodium 49.0 mEq/L 04/24/17 20:30 - VTE Documentation of Mechanical Device: Intermittent pneumatic compression device Consult Discharge Plan - Plan Referrals: Avni Bean MD [Primary Care Provider] - 05/04/17 1:00 pm ()
--- NOTE | 2017-05-02 11:12 | Palliative Progress Note ---
Date of Encounter: 05/02/17 Time of Encounter: 09:45 - Assessment and plan (1) Multiple myeloma Current Visit: No Status: Chronic Assessment and plan: Patient continued to get care from the cancer center. Qualifiers: Multiple myeloma remission status: not in remission Qualified Code(s): C90.00 - Multiple myeloma not having achieved remission (2) Intractable pain Current Visit: No Status: Chronic Assessment and plan: Pain continues to be under good control at this time. (3) Goals of care, counseling/discussion Current Visit: No Status: Acute Assessment and plan: CODE STATUS DNR CCA, DNI. Discussion with patient's son yesterday. He is aware the patient wants to really get the NG tube out and not have a feeding tube placed at all. He also understands that the patient wishes to go home. However they may not be able to accommodate that completely. They are looking at different strategies to be able to work with this. Patient continues to be very resistant to any kind of hospice care. I have informed the patient's son that at this point in seeing her with regards to hospice will be up to the family as I feel that we are at this point during her wishes if we bring it up any further without her asking questions, or the family having further conversations with her. (4) Nausea & vomiting Current Visit: No Status: Resolved Assessment and plan: Per the patient's nausea is much better, I noted the patient has not been on any Reglan. I have discussed this with the hospitalist team I believe the Reglan may be of some use especially in terms of trying to get the patient to tolerate tube feeds. When The NG tube is out I believe that there is at least some possibility the patient may be able to swallow. Qualifiers: Vomiting type: hematemesis Qualified Code(s): K92.0 - Hematemesis; R11.0 - Nausea - Time Spent With Patient Total time spent is greater than 50% in coordination of care (as documented) at patient's floor/unit and/or counseling patient: - Subjective Interval history: The patient is awake this morning and hoping that the NG tube will soon come out. she has no real complaints of this morning she states the nausea is better. He is to hope the NG tube will come out but recognizes that she may need for it to be in for a bit longer. - Constitutional Vitals: Abnormal lab results RBC 3.02 M/mcL (3.82-4.97) L 04/30/17 05:34 Hgb 9.8 g/dL (11.5-15.4) L 04/30/17 05:34 Hct 30.5 % (35.3-44.9) L 04/30/17 05:34 MCV 101.0 fL (83.0-100.0) H 04/30/17 05:34 RDW 17.1 % (11.5-14.5) H 04/30/17 05:34 MPV 9.0 fL (9.4-12.4) L 04/30/17 05:34 Band Neutrophils % 8.0 % (0-4) H 04/25/17 03:55 Reactive Lymphocytes Present (Not Present) A 04/30/17 05:34 Toxic Granulation Present (Not Present) A 04/28/17 04:30 Large Platelets Present (Not Present) A 04/24/17 08:05 Immature Plt Fraction 0.8 % (1.1-6.1) L 04/30/17 05:34 Hypochromasia Present (Not Present) A 04/30/17 05:34 Anisocytosis 1+ (Not Present) A 04/30/17 05:34 Microcytosis Present (Not Present) A 04/29/17 05:30 Macrocytosis Present (Not Present) A 04/30/17 05:34 PT 13.9 Seconds (9.4-12.1) H 04/24/17 08:05 APTT 23.1 Seconds (26.0-36.0) L 04/24/17 08:05 ABG pH 7.46 pH Units (7.32-7.45) H 04/26/17 20:27 ABG Total CO2 27 mEq/L (20-26) H 04/26/17 20:27 Sodium 146 mEq/L (136-145) H 05/02/17 03:53 Chloride 114 mEq/L (98-109) H 05/02/17 03:53 Calculated Osmolality 303 (280-300) H 05/02/17 03:53 Uric Acid 9.3 mg/dL (2.6-6.0) H 04/24/17 15:55 Calcium 7.4 mg/dL (8.6-10.8) L 05/02/17 03:53 Creatine Kinase 746 Units/L (29-168) H 04/24/17 08:05 Troponin I 0.07 ng/mL (0-0.03) H* 04/26/17 18:21 Albumin 1.8 g/dL (3.5-5.0) L 04/30/17 05:34 Globulin 4.9 g/dL (2.4-3.5) H 04/30/17 05:34 Albumin/Globulin Ratio 0.4 (1.1-2.2) L 04/30/17 05:34 Urine Clarity Cloudy (Clear) A 04/25/17 14:08 Urine Protein 30 mg/dL (Neg-Trace) H 04/25/17 14:08 Urine Blood Moderate (Negative) H 04/25/17 14:08 Ur Leukocyte Esterase Small (Negative) H 04/25/17 14:08 Urine Microscopic RBC 5-15 per hpf (0-3) H 04/25/17 14:08 Urine Microscopic WBC 15-30 per hpf (0-3) H 04/25/17 14:08 Ur Squamous Epith Cells Moderate per lpf (None-Few) H 04/25/17 14:08 Urine Yeast Moderate per hpf (None Seen) H 04/25/17 14:08 Ur Culture Indicated? YES (NO) A 04/25/17 14:08 General appearance: Present: no acute distress - Head Head exam: Present: atraumatic, normal inspection - Eye Eye exam: Present: normal appearance - ENT ENT exam: Present: mucous membranes moist - Neck Neck exam: Present: normal inspection - Respiratory Respiratory exam: Present: CTAB - Cardiovascular Cardiovascular exam: Present: RRR - GI/Abdominal GI/Abdominal exam: Present: hypoactive bowel sounds, soft. Absent: tenderness - Extremities Exam Extremities exam: Present: pedal edema. Absent: tenderness - Neurological Exam Neurological exam: Present: alert - Psychiatric Psychiatric exam: Absent: agitated, anxious - Skin Skin exam: Present: dry, warm Palliative Quality Palliative Quality: Screen for Code Status: Yes, Screen for Goals of Care: Yes, Screen for Pain: Yes, If Pain Regimen Started, Initiate Bowel Regimen: Yes, Screen for Nausea/Vomitting: Yes Code Status: 04/28/17 13:36 DNR [Resuscitation Status: Active] [RES] Routine Comment: Resuscitation Status: [id number] - Labs CBC & Chem 7: 04/30/17 05:34 05/02/17 03:53 Labs: Laboratory Results - last 24 hr 05/01/17 05/01/17 05/01/17 04:38 08:17 11:20 Sodium Potassium Chloride Carbon Dioxide BUN Creatinine Est GFR ( Amer) Est GFR (Non-Af Amer) BUN/Creatinine Ratio Glucose POC Glucose 84 85 79 Calculated Osmolality Calcium 05/01/17 05/01/17 05/02/17 17:44 19:49 00:14 Sodium Potassium Chloride Carbon Dioxide BUN Creatinine Est GFR ( Amer) Est GFR (Non-Af Amer) BUN/Creatinine Ratio Glucose POC Glucose 81 98 H 81 Calculated Osmolality Calcium 05/02/17 05/02/17 03:53 04:11 Sodium 146 H Potassium 3.5 Chloride 114 H Carbon Dioxide 23 BUN 17 Creatinine 0.69 Est GFR ( Amer) > 60 Est GFR (Non-Af Amer) > 60 BUN/Creatinine Ratio 25 Glucose 93 POC Glucose 83 Calculated Osmolality 303 H Calcium 7.4 L - Impressions Impressions KUB X-Ray 04/30/17 10:22 IMPRESSION: Nonspecific, nonobstructive bowel gas pattern. No plain film findings to suggest presence of significant ileus or bowel obstruction. D/ / 04/30/2017 11:15:38 Aleksandr Carney MD / [facility] Interpreting Provider: Aleksandr Carney MD - ABG Interpretation ABG results: ABG ABG pH 7.46 pH Units (7.32-7.45) H 04/26/17 20:27 ABG pCO2 36 mmHg (35-45) 04/26/17 20:27 ABG pO2 99 mmHg (85-104) 04/26/17 20:27 ABG O2 Saturation 98 % (95-98) 04/26/17 20:27 PT/INR, D-dimer PT 13.9 Seconds (9.4-12.1) H 04/24/17 08:05 Consult Discharge Plan - Plan Referrals: Avni Bean MD [Primary Care Provider] - 05/04/17 1:00 pm ()
--- NOTE | 2017-05-02 11:22 | Internal Med Progress Note ---
Date of Encounter: 05/02/17 Time of Encounter: 11:19 - Assessment and plan (1) Gastritis Current Visit: Yes Status: Acute Assessment and plan: Presented with hematemesis, underwent EGD that revealed stress gastritis with points of bleeding. Hb currently stable. Continue PPI, Carafate. Qualifiers: Gastritis type: other gastritis Chronicity: acute Gastritis bleeding: with bleeding Qualified Code(s): K29.01 - Acute gastritis with bleeding (2) Sepsis Current Visit: Yes Status: Acute Assessment and plan: Patient had fever and tachycardia earlier during this admission, unclear etiology, currently resolved. Blood and urine cultures remain negative; deescalate antibiotics as below. Qualifiers: Sepsis type: sepsis due to unspecified organism Qualified Code(s): A41.9 - Sepsis, unspecified organism (3) Proctitis Current Visit: Yes Status: Acute Assessment and plan: Incidental finding on CT abdomen done as a part of sepsis workup. Will hold Zyvox and continue IV Cefepime and Flagyl to complete a 7-day course. (4) Multiple myeloma Current Visit: Yes Status: Chronic Assessment and plan: Noted to be advancing. Oncology consult noted, recommend Palliative/Hospice care due to multiple medication intolerances and allergies and no further options available. Qualifiers: Multiple myeloma remission status: not in remission Qualified Code(s): C90.00 - Multiple myeloma not having achieved remission (5) Nausea & vomiting Current Visit: Yes Status: Acute Assessment and plan: Unclear etiology. Could be related to underlying gastritis. Continue when necessary IV Zofran, will start scheduled IV Reglan. Patient currently unable to tolerate Jevity tube feeds via NG tube even at a low rate. Discussed with water registrar, will change tube feeds to Jesse and start at 20ml/hr and continue to monitor. Not agreeable to detention feeding tube at this time. Qualifiers: Vomiting type: unspecified Vomiting Intractability: non-intractable Qualified Code(s): R11.2 - Nausea with vomiting, unspecified (6) Hypertension Current Visit: Yes Status: Chronic Assessment and plan: BP noted to be slightly above [place]; started on Losartan by Nephrology, continue to monitor. Qualifiers: Hypertension type: essential hypertension Qualified Code(s): I10 - Essential (primary) hypertension (7) Hypothyroidism Current Visit: Yes Status: Chronic Qualifiers: Hypothyroidism type: unspecified Qualified Code(s): E03.9 - Hypothyroidism , unspecified (8) Goals of care, counseling/discussion Current Visit: Yes Status: Acute Assessment and plan: Palliative care team on board, held multiple discussions with patient and family ; continues to refuse Hospice care at this time and also declines ECF placement ; I have discussed with the patient and her daughter at bedside, readdressed her goals of care and her current condition and nutritional status dilemma; will continue to follow; (9) Hypernatremia Current Visit: Yes Status: Acute Assessment and plan: Improving. Nephrology f/up appreciated; recommend to continue free water via NG tube and avoid IV fluids and diuretics due to volume overload and recent hypernatremia. (10) ANNA (acute kidney injury) Current Visit: Yes Status: Resolved Assessment and plan: likely due to poor oral intake and prerenal azotemia; Nephrology f/up appreciated, serum creatinine currently at baseline; - Subjective Interval history: Continues to have NG tube, cannot tolerate tube feeds due to nausea; reports no abdominal pain now; feels very weak, cannot get out of bed; - Constitutional Vitals: Temp Pulse Resp BP Pulse Ox 98.1 F 82 18 160/98 98 05/02/17 06:40 05/02/17 06:40 05/02/17 06:40 05/02/17 06:40 05/02/17 06:40 General appearance: Present: A&O X 3 (appears weak), answers questions appropriately - Respiratory Respiratory exam: Present: CTAB. Absent: accessory muscle use, rales, rhonchi, wheezes - Cardiovascular Cardiovascular exam: Present: RRR, +S1, +S2. Absent: diastolic murmur, gallop, rubs, systolic murmur - GI/Abdominal GI/Abdominal exam: Present: normal bowel sounds, soft, no peritoneal signs. Absent: distended, tenderness - Extremities Exam Extremities exam: Present: pedal edema (mild peripheral edema B/L), warm, radial pulses palpable and symmetrical. Absent: calf tenderness, cyanotic - Neurological Exam Neurological exam: Present: CN II-XII intact, oriented X3, no focal deficits ( generalized weakness+). Absent: pronater drift, facial droop, speech deficit Internal Medicine: Result - Labs CBC & Chem 7: 04/30/17 05:34 05/02/17 03:53 Labs: BMP 05/02/17 03:53 Sodium 146 H Potassium 3.5 Chloride 114 H Carbon Dioxide 23 BUN 17 Creatinine 0.69 Glucose 93 Calcium 7.4 L - ABG Interpretation ABG results: ABG ABG pH 7.46 pH Units (7.32-7.45) H 04/26/17 20:27 ABG pCO2 36 mmHg (35-45) 04/26/17 20:27 ABG pO2 99 mmHg (85-104) 04/26/17 20:27 ABG O2 Saturation 98 % (95-98) 04/26/17 20:27 PT/INR, D-dimer PT 13.9 Seconds (9.4-12.1) H 04/24/17 08:05 - Impressions Impressions KUB X-Ray 04/30/17 10:22 IMPRESSION: Nonspecific, nonobstructive bowel gas pattern. No plain film findings to suggest presence of significant ileus or bowel obstruction. D/ / 04/30/2017 11:15:38 Aleksandr Carney MD / [facility] Interpreting Provider: Aleksandr Carney MD - VTE Documentation of Mechanical Device: Intermittent pneumatic compression device Consult Discharge Plan - Plan Referrals: Avni Bean MD [Primary Care Provider] - 05/04/17 1:00 pm ()
[2017-05-02] MEDS: Metoclopramide 10 MG/2 ML VIAL IVP SCH ×3 (12:05→23:43)
[2017-05-03] MEDS: MetroNIDAZOLE 500 MG/100 ML 500 MG/100 ML BAG IVPB SCH (02:02)
[2017-05-03 03:41] LABS: Basophils % 0.2 %; Eosinophils # 0.1 K/mcL (0.0-0.6); Eosinophils % 2.8 %; Hemoglobin 8.4 g/dL (11.5-15.4); Immature Granulocytes % 0.4 % (0-4); Lymphocytes # 0.8 K/mcL (0.6-4.6); Lymphocytes % 16.2 %; Mean Corpuscular HGB Conc 32.3 g/dL (31.6-35.5); Mean Corpuscular Hemoglobin 31.7 pg (28.0-33.3); Mean Corpuscular Volume 98.1 fL (83.0-100.0); Mean Platelet Volume 9.1 fL (9.4-12.4); Monocytes # 0.4 K/mcL (0.0-1.3); Monocytes % 8.7 %; Neutrophils # 3.4 K/mcL (1.6-8.9); Platelet Count 103 K/mcL (140-400); Red Blood Count 2.65 M/mcL (3.82-4.97); Red Cell Distribution Width 15.3 % (11.5-14.5); Segmented Neutrophils % 71.7 %
[2017-05-03 03:53] LABS: BUN/Creatinine Ratio 22 (6-26); Blood Urea Nitrogen 15 mg/dL (7-20); Calcium 7.5 mg/dL (8.6-10.8); Carbon Dioxide 23 mEq/L (19-29); Chloride 112 mEq/L (98-109); Glucose 101 mg/dL (70-99); Magnesium 1.2 mg/dL (1.6-2.6); Osmolality,Calculated 297 (280-300); Potassium 3.5 mEq/L (3.5-4.5); Sodium 143 mEq/L (136-145); eGFR For African Americans > 60 (> 60); eGFR For Non-African Americans > 60 (> 60)
[2017-05-03] MEDS: Metoclopramide 10 MG/2 ML VIAL IVP SCH ×4 (05:49→23:26)
[2017-05-03] MEDS: Pantoprazole 40 MG VIAL IVP SCH ×2 (05:49→18:26)
[2017-05-03] MEDS: Sucralfate 1 GM TABLET PO SCH ×2 (07:43→15:33)
[2017-05-03] MEDS: Docusate Oral Soln 100 MG/10 ML UDC GTUBE SCH (09:43)
[2017-05-03] MEDS: Potassium Chloride Elixir 20 MEQ/15 ML UDC GTUBE SCH (09:53)
[2017-05-03] MEDS ORDERED: Magnesium Sulfate 2 GM in D5% in Water 100 ML IVPB ONE (10:43)
--- NOTE | 2017-05-03 11:03 | Internal Med Progress Note ---
Date of Encounter: 05/03/17 Time of Encounter: 11:01 - Assessment and plan (1) Gastritis Current Visit: Yes Status: Acute Assessment and plan: Presented with hematemesis, underwent EGD that revealed stress gastritis with points of bleeding. Hb currently stable. Continue PPI, Carafate. Qualifiers: Gastritis type: other gastritis Chronicity: acute Gastritis bleeding: with bleeding Qualified Code(s): K29.01 - Acute gastritis with bleeding (2) Sepsis Current Visit: Yes Status: Suspected Assessment and plan: Patient had fever and tachycardia earlier during this admission, unclear etiology, currently resolved. Blood and urine cultures remain negative; completed a course of 7days on Cefepime and Flagyl. Qualifiers: Sepsis type: sepsis due to unspecified organism Qualified Code(s): A41.9 - Sepsis, unspecified organism (3) Proctitis Current Visit: Yes Status: Acute Assessment and plan: Incidental finding on CT abdomen done as a part of sepsis workup. Continue IV Cefepime and Flagyl to complete a 7-day course. (4) Multiple myeloma Current Visit: Yes Status: Chronic Assessment and plan: Noted to be advancing. Oncology consult noted, recommend Palliative/Hospice care due to multiple medication intolerances and allergies and no further options available. Qualifiers: Multiple myeloma remission status: not in remission Qualified Code(s): C90.00 - Multiple myeloma not having achieved remission (5) Nausea & vomiting Current Visit: Yes Status: Resolved Assessment and plan: Unclear etiology. Could be related to underlying gastritis. Improved today. Continue when necessary IV Zofran, scheduled IV Reglan. Tolerates tube feeds via nasogastric tube with Vital, increased to 30ml/hr today, along with free water. Not agreeable to intermodal truck driver feeding tube at this time. Qualifiers: Vomiting type: unspecified Vomiting Intractability: non-intractable Qualified Code(s): R11.2 - Nausea with vomiting, unspecified (6) Hypertension Current Visit: Yes Status: Chronic Assessment and plan: BP continues to be slightly elevated. Continue nitrate, losartan, start metoprolol and monitor blood pressure closely. Qualifiers: Hypertension type: essential hypertension Qualified Code(s): I10 - Essential (primary) hypertension (7) Hypothyroidism Current Visit: Yes Status: Chronic Assessment and plan: Continue levothyroxine. Qualifiers: Hypothyroidism type: unspecified Qualified Code(s): E03.9 - Hypothyroidism , unspecified (8) Goals of care, counseling/discussion Current Visit: Yes Status: Acute Assessment and plan: Palliative care team on board, held multiple discussions with patient and family ; continues to refuse Hospice care at this time and also declines ECF placement ; I have discussed with the patient at bedside today-patient is very clear regarding her discharge goals-wants to be discharged home, without a feeding tube, although she understands that she is going to get progressively weaker with no oral intake and inability to tolerate oral meds and feels that she has in family support to help her with ADLs. She says she is "ready to ". Palliative care clinical social worker on board, discussing with patient's son who would [facility] No clear discharge plan yet. (9) Hypernatremia Current Visit: Yes Status: Resolved Assessment and plan: improving with free water; continue to hold diuretics for now. (10) ANNA (acute kidney injury) Current Visit: Yes Status: Resolved (11) Hypomagnesemia Current Visit: Yes Status: Acute Assessment and plan: Likely due to poor oral intake. Supplement with IV magnesium sulfate and recheck magnesium. - Subjective Interval history: Appears very weak today; able to answer questions slowly, cannot get out of bed or participate in PT. On NG tube feeds, tolerating well; continues to insist on going home, declines feeding tube placement or Hospice placement. - Constitutional Vitals: Temp Pulse Resp BP Pulse Ox 98.9 F 89 16 157/81 99 05/03/17 10:36 05/03/17 10:58 05/03/17 10:58 05/03/17 10:36 05/03/17 10:58 General appearance: Present: A&O X 3 (appears weak), answers questions appropriately - Respiratory Respiratory exam: Present: CTAB. Absent: accessory muscle use, rales, rhonchi, wheezes - Cardiovascular Cardiovascular exam: Present: RRR, +S1, +S2. Absent: diastolic murmur, gallop, rubs, systolic murmur - GI/Abdominal GI/Abdominal exam: Present: normal bowel sounds, soft, no peritoneal signs. Absent: distended, tenderness Internal Medicine: Result - Labs CBC & Chem 7: 05/03/17 03:38 05/03/17 03:38 Labs: Short CBC 05/03/17 Range/Units 03:38 WBC 4.7 (4.3-11.1) K/mcL Hgb 8.4 L (11.5-15.4) g/dL Hct 26.0 L (35.3-44.9) % Plt Count 103 L (140-400) K/mcL Neutrophils # 3.4 (1.6-8.9) K/mcL BMP 05/03/17 03:38 Sodium 143 Potassium 3.5 Chloride 112 H Carbon Dioxide 23 BUN 15 Creatinine 0.67 Glucose 101 H Calcium 7.5 L - ABG Interpretation ABG results: ABG ABG pH 7.46 pH Units (7.32-7.45) H 04/26/17 20:27 ABG pCO2 36 mmHg (35-45) 04/26/17 20:27 ABG pO2 99 mmHg (85-104) 04/26/17 20:27 ABG O2 Saturation 98 % (95-98) 04/26/17 20:27 PT/INR, D-dimer PT 13.9 Seconds (9.4-12.1) H 04/24/17 08:05 - VTE Documentation of Mechanical Device: Intermittent pneumatic compression device Consult Discharge Plan - Plan Referrals: Avni Bean MD [Primary Care Provider] - 05/04/17 1:00 pm ()
[2017-05-03] MEDS ORDERED: Docusate Oral Soln 100 MG/10 ML UDC GTUBE PRN (14:45)
[2017-05-04 04:55] LABS: BUN/Creatinine Ratio 21 (6-26); Blood Urea Nitrogen 12 mg/dL (7-20); Calcium 7.5 mg/dL (8.6-10.8); Carbon Dioxide 23 mEq/L (19-29); Chloride 108 mEq/L (98-109); Glucose 111 mg/dL (70-99); Magnesium 1.4 mg/dL (1.6-2.6); Osmolality,Calculated 288 (280-300); Potassium 3.6 mEq/L (3.5-4.5); Sodium 139 mEq/L (136-145); eGFR For African Americans > 60 (> 60); eGFR For Non-African Americans > 60 (> 60)
[2017-05-04] MEDS: Metoclopramide 10 MG/2 ML VIAL IVP SCH ×4 (06:40→23:14)
[2017-05-04] MEDS: Pantoprazole 40 MG VIAL IVP SCH ×2 (06:40→17:19)
--- NOTE | 2017-05-04 07:44 | Palliative Progress Note ---
Date of Encounter: 05/04/17 Time of Encounter: 07:30 - Assessment and plan (1) Multiple myeloma Current Visit: Yes Status: Chronic Assessment and plan: Patient continued to get care from the cancer center. Qualifiers: Multiple myeloma remission status: not in remission Qualified Code(s): C90.00 - Multiple myeloma not having achieved remission (2) Intractable pain Current Visit: No Status: Chronic Assessment and plan: Pain continues to be under good control at this time. (3) Goals of care, counseling/discussion Current Visit: Yes Status: Acute Assessment and plan: CODE STATUS DNR CCA, DNI. Discussion was social work yesterday should not is now okay with going the signature with [facility]. Further with family today to flush out details be discharged as early as today. Status will be changed to DNR CC and that she does not have to keep coming back to the hospital. Overall plan is for meeting with family later this morning. (4) Nausea & vomiting Current Visit: Yes Status: Resolved Assessment and plan: [place] appears to be working quite well the patient is tolerating tube feeds at this time, having no difficulty with nausea. Qualifiers: Vomiting type: unspecified Vomiting Intractability: non-intractable Qualified Code(s): R11.2 - Nausea with vomiting, unspecified - Time Spent With Patient Total time spent is greater than 50% in coordination of care (as documented) at patient's floor/unit and/or counseling patient: - Subjective Interval history: The patient is sleepy this morning he wakes up briefly. No complaints of. Plan to meet with family later this morning. Discussion was social work yesterday apparently the patient has now agreed to signature with hospice. Discuss further with family to make sure that they are board with this plan and then proceed with eating plans for discharge.. - Constitutional Vitals: Abnormal lab results RBC 2.65 M/mcL (3.82-4.97) L 05/03/17 03:38 Hgb 8.4 g/dL (11.5-15.4) L 05/03/17 03:38 Hct 26.0 % (35.3-44.9) L 05/03/17 03:38 RDW 15.3 % (11.5-14.5) H 05/03/17 03:38 Plt Count 103 K/mcL (140-400) L 05/03/17 03:38 MPV 9.1 fL (9.4-12.4) L 05/03/17 03:38 Band Neutrophils % 8.0 % (0-4) H 04/25/17 03:55 Reactive Lymphocytes Present (Not Present) A 04/30/17 05:34 Toxic Granulation Present (Not Present) A 04/28/17 04:30 Large Platelets Present (Not Present) A 04/24/17 08:05 Immature Plt Fraction 0.8 % (1.1-6.1) L 04/30/17 05:34 Hypochromasia Present (Not Present) A 04/30/17 05:34 Anisocytosis 1+ (Not Present) A 04/30/17 05:34 Microcytosis Present (Not Present) A 04/29/17 05:30 Macrocytosis Present (Not Present) A 04/30/17 05:34 PT 13.9 Seconds (9.4-12.1) H 04/24/17 08:05 APTT 23.1 Seconds (26.0-36.0) L 04/24/17 08:05 ABG pH 7.46 pH Units (7.32-7.45) H 04/26/17 20:27 ABG Total CO2 27 mEq/L (20-26) H 04/26/17 20:27 Glucose 111 mg/dL (70-99) H 05/04/17 04:30 POC Glucose 111 (58-89) H 05/04/17 04:20 Uric Acid 9.3 mg/dL (2.6-6.0) H 04/24/17 15:55 Calcium 7.5 mg/dL (8.6-10.8) L 05/04/17 04:30 Magnesium 1.4 mg/dL (1.6-2.6) L 05/04/17 04:30 Creatine Kinase 746 Units/L (29-168) H 04/24/17 08:05 Troponin I 0.07 ng/mL (0-0.03) H* 04/26/17 18:21 Albumin 1.8 g/dL (3.5-5.0) L 04/30/17 05:34 Globulin 4.9 g/dL (2.4-3.5) H 04/30/17 05:34 Albumin/Globulin Ratio 0.4 (1.1-2.2) L 04/30/17 05:34 Urine Clarity Cloudy (Clear) A 04/25/17 14:08 Urine Protein 30 mg/dL (Neg-Trace) H 04/25/17 14:08 Urine Blood Moderate (Negative) H 04/25/17 14:08 Ur Leukocyte Esterase Small (Negative) H 04/25/17 14:08 Urine Microscopic RBC 5-15 per hpf (0-3) H 04/25/17 14:08 Urine Microscopic WBC 15-30 per hpf (0-3) H 04/25/17 14:08 Ur Squamous Epith Cells Moderate per lpf (None-Few) H 04/25/17 14:08 Urine Yeast Moderate per hpf (None Seen) H 04/25/17 14:08 Ur Culture Indicated? YES (NO) A 04/25/17 14:08 General appearance: Present: no acute distress - Head Head exam: Present: atraumatic, normal inspection - Eye Eye exam: Present: normal appearance - ENT ENT exam: Present: mucous membranes moist - Respiratory Respiratory exam: Present: decreased breath sounds - Cardiovascular Cardiovascular exam: Present: irregular rhythm (Slightly irregular this morning) - GI/Abdominal GI/Abdominal exam: Present: normal bowel sounds, soft. Absent: tenderness - Extremities Exam Extremities exam: Absent: tenderness - Neurological Exam Neurological exam: Present: alert (Very sleepy but does awaken) - Psychiatric Psychiatric exam: Absent: agitated, anxious - Skin Skin exam: Present: dry, warm Palliative Quality Palliative Quality: Screen for Code Status: Yes, Screen for Goals of Care: Yes, Screen for Pain: Yes, If Pain Regimen Started, Initiate Bowel Regimen: Yes, Screen for Nausea/Vomitting: Yes Code Status: 04/28/17 13:36 DNR [Resuscitation Status: Active] [RES] Routine Comment: Resuscitation Status: [id number] - Labs CBC & Chem 7: 05/03/17 03:38 05/04/17 04:30 Labs: Laboratory Results - last 24 hr 05/03/17 05/03/17 05/03/17 04:26 07:13 10:50 Sodium Potassium Chloride Carbon Dioxide BUN Creatinine Est GFR ( Amer) Est GFR (Non-Af Amer) BUN/Creatinine Ratio Glucose POC Glucose 95 H 96 H 93 H Calculated Osmolality Calcium Magnesium 05/03/17 05/03/17 05/04/17 19:22 23:44 04:20 Sodium Potassium Chloride Carbon Dioxide BUN Creatinine Est GFR ( Amer) Est GFR (Non-Af Amer) BUN/Creatinine Ratio Glucose POC Glucose 106 H 109 H 111 H Calculated Osmolality Calcium Magnesium 05/04/17 04:30 Sodium 139 Potassium 3.6 Chloride 108 Carbon Dioxide 23 BUN 12 Creatinine 0.57 Est GFR ( Amer) > 60 Est GFR (Non-Af Amer) > 60 BUN/Creatinine Ratio 21 Glucose 111 H POC Glucose Calculated Osmolality 288 Calcium 7.5 L Magnesium 1.4 L - ABG Interpretation ABG results: ABG ABG pH 7.46 pH Units (7.32-7.45) H 04/26/17 20:27 ABG pCO2 36 mmHg (35-45) 04/26/17 20:27 ABG pO2 99 mmHg (85-104) 04/26/17 20:27 ABG O2 Saturation 98 % (95-98) 04/26/17 20:27 PT/INR, D-dimer PT 13.9 Seconds (9.4-12.1) H 04/24/17 08:05 Consult Discharge Plan - Plan Referrals: Avni Bean MD [Primary Care Provider] - 05/04/17 1:00 pm ()
[2017-05-04] MEDS: Sucralfate 1 GM TABLET PO SCH ×2 (08:51→17:18)
[2017-05-04] MEDS: Potassium Chloride Elixir 20 MEQ/15 ML UDC GTUBE SCH (08:51)
[2017-05-04] MEDS ORDERED: Magnesium Sulfate 2 GM in D5% in Water 100 ML IVPB ONE (11:18)
--- NOTE | 2017-05-04 15:24 | Event Note ---
Date of Encounter: 05/04/17 Time of Encounter: 15:22 Hospice medical assistant secretary certification of terminal illness: Hospice benefit. Start: 05/05/2017 Hospice benefit. In: +90 days Palliative performance scale: 30% History: Agent with a history of end-stage multiple myeloma. Are no further inventions available to her. Adding to this are the comorbidities of acute kidney injury, well as now and inability to swallow. He is new comorbidities added to end- stage multiple myeloma with no further treatment available eats me to believe that These findings support a life expectancy of 6 months or less. I attest that I have compose the above narrative based on my review of the patient's medical records, and or on my examination of the patient. Barry Fletcher M.D. Associate medical technologist chemistry. [facility]
--- NOTE | 2017-05-04 16:29 | Internal Med Progress Note ---
Date of Encounter: 05/04/17 Time of Encounter: 11:30 - Assessment and plan (1) Goals of care, counseling/discussion Current Visit: Yes Status: Acute Assessment and plan: Palliative care team on board, held multiple discussions with patient and family ; patient and family currently on board with discharge plan to intermediate under hospice care. Palliative care social secretary on board. Family is working out financial issues for discharge. We will continue to follow. CODE STATUS has been changed to DNR comfort care. (2) Hypomagnesemia Current Visit: Yes Status: Acute Assessment and plan: Likely due to poor oral intake. Supplement with IV magnesium sulfate and recheck magnesium. Start MgO supplements. (3) Gastritis Current Visit: Yes Status: Acute Assessment and plan: Presented with hematemesis, underwent EGD that revealed stress gastritis with points of bleeding. Hb currently stable. Continue PPI, Carafate. Qualifiers: Gastritis type: other gastritis Chronicity: acute Gastritis bleeding: with bleeding Qualified Code(s): K29.01 - Acute gastritis with bleeding (4) Sepsis Current Visit: Yes Status: Suspected Assessment and plan: Patient had fever and tachycardia earlier during this admission, unclear etiology, currently resolved. Blood and urine cultures remain negative; completed a course of 7days on Cefepime and Flagyl. Qualifiers: Sepsis type: sepsis due to unspecified organism Qualified Code(s): A41.9 - Sepsis, unspecified organism (5) Proctitis Current Visit: Yes Status: Acute Assessment and plan: Incidental finding on CT abdomen done as a part of sepsis workup. Completed a 7- day course of IV Cefepime and Flagyl. (6) Multiple myeloma Current Visit: Yes Status: Chronic Assessment and plan: Noted to be advancing. Oncology consult noted, recommend Palliative/Hospice care due to multiple medication intolerances and allergies and no further options available. Qualifiers: Multiple myeloma remission status: not in remission Qualified Code(s): C90.00 - Multiple myeloma not having achieved remission (7) Nausea & vomiting Current Visit: Yes Status: Resolved Assessment and plan: Unclear etiology. Could be related to underlying gastritis. Improved. Continue when necessary IV Zofran, scheduled IV Reglan. Tolerates tube feeds via nasogastric tube with Vital, at 30ml/hr, along with free water. Not agreeable to fpc feeding tube at this time. Plan to discontinue nasogastric tube at discharge. Qualifiers: Vomiting type: unspecified Vomiting Intractability: non-intractable Qualified Code(s): R11.2 - Nausea with vomiting, unspecified (8) Hypertension Current Visit: Yes Status: Chronic Qualifiers: Hypertension type: essential hypertension Qualified Code(s): I10 - Essential (primary) hypertension (9) Hypothyroidism Current Visit: Yes Status: Chronic Qualifiers: Hypothyroidism type: unspecified Qualified Code(s): E03.9 - Hypothyroidism , unspecified (10) Hypernatremia Current Visit: Yes Status: Resolved (11) ANNA (acute kidney injury) Current Visit: Yes Status: Resolved - Subjective Interval history: Denies new complaints. Continues to be weak, unable to tolerate oral diet. On tube feeds via nasogastric tube. Agreeable to be discharged to intermediate under hospice care. Plan of care discussed with patient's son, Cheo, at bedside. - Constitutional Vitals: Temp Pulse Resp BP Pulse Ox 97.9 F 88 20 127/70 100 05/04/17 13:30 05/04/17 13:30 05/04/17 13:30 05/04/17 13:30 05/04/17 13:30 General appearance: Present: A&O X 3 (appears weak), answers questions appropriately - Respiratory Respiratory exam: Present: CTAB (anterolaterally). Absent: accessory muscle use , rales, rhonchi, wheezes - Cardiovascular Cardiovascular exam: Present: RRR, +S1, +S2. Absent: diastolic murmur, gallop, rubs, systolic murmur - GI/Abdominal GI/Abdominal exam: Present: normal bowel sounds, soft, no peritoneal signs. Absent: distended, tenderness - Extremities Exam Extremities exam: Present: warm, radial pulses palpable and symmetrical. Absent : calf tenderness, cyanotic, pedal edema Internal Medicine: Result - Labs CBC & Chem 7: 05/03/17 03:38 05/04/17 04:30 Labs: BMP 05/04/17 04:30 Sodium 139 Potassium 3.6 Chloride 108 Carbon Dioxide 23 BUN 12 Creatinine 0.57 Glucose 111 H Calcium 7.5 L - ABG Interpretation ABG results: ABG ABG pH 7.46 pH Units (7.32-7.45) H 04/26/17 20:27 ABG pCO2 36 mmHg (35-45) 04/26/17 20:27 ABG pO2 99 mmHg (85-104) 04/26/17 20:27 ABG O2 Saturation 98 % (95-98) 04/26/17 20:27 PT/INR, D-dimer PT 13.9 Seconds (9.4-12.1) H 04/24/17 08:05 - VTE Documentation of Mechanical Device: Intermittent pneumatic compression device Consult Discharge Plan - Plan Referrals: Avni Bean MD [Primary Care Provider] - 05/04/17 1:00 pm () Prescriptions: LORazepam Oral Conc [Ativan Oral Conc] 1 mg PO Q6HR PRN #30 mls PRN Reason: Anxiety Morphine Sulfate SR (12 HR) [MS Contin] 1 tab PO Q12HR #25 tab Morphine Oral CONC [Roxanol] 0.25 ml SL Q2H PRN #30 ml PRN Reason: sob or pain
[2017-05-04] MEDS: Magnesium Oxide 400 MG TABLET PO SCH (20:20)
[2017-05-05] MEDS: Pantoprazole 40 MG VIAL IVP SCH (05:38)
[2017-05-05] MEDS: Metoclopramide 10 MG/2 ML VIAL IVP SCH (05:38)
[2017-05-05] MEDS: Potassium Chloride Elixir 20 MEQ/15 ML UDC GTUBE SCH (09:42)
[2017-05-05] MEDS: Sucralfate 1 GM TABLET PO SCH (09:43)
[2017-05-05] MEDS: Magnesium Oxide 400 MG TABLET PO SCH (09:46)
[2017-05-05 10:41] VITALS: BP 134/64
--- NOTE | 2017-05-05 12:25 | Discharge Summary ---
Date of Encounter: 05/05/17 Time of Encounter: 11:40 - Discharge Diagnosis (1) Goals of care, counseling/discussion Priority: Primary Status: Acute (2) Hypomagnesemia Priority: Primary Status: Acute (3) Gastritis Priority: Primary Status: Acute Qualifiers: Gastritis type: other gastritis Chronicity: acute Gastritis bleeding: with bleeding Qualified Code(s): K29.01 - Acute gastritis with bleeding (4) Sepsis Priority: Primary Status: Suspected Qualifiers: Sepsis type: sepsis due to unspecified organism Qualified Code(s): A41.9 - Sepsis, unspecified organism (5) Proctitis Priority: Primary Status: Acute (6) Multiple myeloma Priority: Secondary Status: Chronic Qualifiers: Multiple myeloma remission status: not in remission Qualified Code(s): C90.00 - Multiple myeloma not having achieved remission (7) Nausea & vomiting Priority: Primary Status: Resolved Qualifiers: Vomiting type: unspecified Vomiting Intractability: non-intractable Qualified Code(s): R11.2 - Nausea with vomiting, unspecified (8) Hypertension Priority: Secondary Status: Chronic Qualifiers: Hypertension type: essential hypertension Qualified Code(s): I10 - Essential (primary) hypertension (9) Hypothyroidism Priority: Secondary Status: Chronic Qualifiers: Hypothyroidism type: unspecified Qualified Code(s): E03.9 - Hypothyroidism , unspecified (10) Hypernatremia Priority: Primary Status: Resolved (11) ANNA (acute kidney injury) Priority: Primary Status: Resolved - Discharge Medications Prescriptions: LORazepam Oral Conc [Ativan Oral Conc] 1 mg PO Q6HR PRN #30 mls PRN Reason: Anxiety Morphine Sulfate SR (12 HR) [MS Contin] 1 tab PO Q12HR #25 tab Morphine Oral CONC [Roxanol] 0.25 ml SL Q2H PRN #30 ml PRN Reason: sob or pain Home Medications: Levothyroxine Sodium [Synthroid] 75 mcg PO QAM 02/26/15 [History] Furosemide [Lasix] 20 mg PO DAILY PRN #30 tablet 01/03/17 [Rx] Losartan/Hydrochlorothiazide [Hyzaar 100-25 Tablet] 1 tab PO DAILY 01/06/17 [ History] Menthol [Biofreeze] 1 appl TP BID PRN 01/06/17 [History] Sertraline [Zoloft] 25 mg PO DAILY #30 tablet 02/07/17 [Rx] Docusate [Colace] 100 mg PO BID PRN 03/07/17 [History] Ondansetron [Zofran] 8 mg PO Q8HR PRN #90 tablet 03/07/17 [Rx] Cyclobenzaprine [Flexeril] 10 mg PO BID #20 tablet 04/04/17 [Rx] Lactulose 20 gm PO BID PRN 04/05/17 [History] Enoxaparin [Lovenox] 40 mg SQ 0600 04/11/17 [Rx] Gabapentin [Neurontin] 100 mg PO TID 04/11/17 [Rx] Morphine Sulfate SR (12 HR) [MS Contin] 30 mg PO Q12HR #6 tablet.er 04/11/17 [Rx ] Oxycodone HCl 20 mg PO Q4H PRN #12 tab 04/11/17 [Rx] LORazepam Oral Conc [Ativan Oral Conc] 1 mg PO Q6HR PRN #30 mls 05/04/17 [Rx] Morphine Oral CONC [Roxanol] 0.25 ml SL Q2H PRN #30 ml 05/04/17 [Rx] Morphine Sulfate SR (12 HR) [MS Contin] 1 tab PO Q12HR #25 tab 05/04/17 [Rx] Allergies/Adverse Reactions: 3 Allergy/AdvReac Type Severity Reaction Status Date / Time bacitracin Allergy unknown Verified 04/24/17 10:19 carfilzomib Allergy unknown Verified 04/24/17 10:19 celecoxib Allergy unknown Verified 04/24/17 10:19 Corticosteroids Allergy unknown Verified 04/24/17 10:19 (Glucocorticoids) dexamethasone Allergy unknown Verified 04/24/17 10:19 fentanyl Allergy Rash Verified 04/24/17 10:19 lenalidomide Allergy unknown Verified 04/24/17 10:19 melphalan Allergy unknown Verified 04/24/17 10:19 Neomycin Allergy unknown Verified 04/24/17 10:19 Penicillins [PCN] Allergy unknown Verified 04/24/17 10:19 polymyxin B Allergy unknown Verified 04/24/17 10:19 prednisone Allergy unknown Verified 04/24/17 10:19 tape Allergy unknown Uncoded 04/24/17 07:38 Date of admission: 04/24/17 13:50 Primary care physician: Avni Bean MD Consults: 04/27/17 10:24 Consult to Speech Therapy [CONS] Routine Comment: Evaluate, develop and implement POC Reason for Consult: Pt was placed on Honey-thickened liquids at admission. Please eval swallowing. Call Completed: Yes 04/27/17 14:07 Consult to Physical Therapy [CONS] Routine Comment: Evaluate, develop and implement POC Reason for Consult: weakness, from [facility] OT [Consult to Occupational Therapy] [CONS] Routine Comment: Evaluate, develop and implement POC Reason for Consult: weakness, from F 04/28/17 08:59 Consult to Surgery [CONS] Routine Consulting Provider: Surgery [facility] Reason for Consult: colitis Time Notified: 08:59 Call Completed: Yes 04/28/17 09:00 Consult to Infectious Diseases [CONS] Routine Consulting Provider: Infectious Disease Paty Reason for Consult: sepsis/proctitis Time Notified: 09:00 Call Completed: No 04/28/17 09:05 Consult to Oncology Hematology [CONS] Routine Consulting Provider: Deanne Anderson Reason for Consult: multiple myeloma/Sepsis/ARF sp chemo Time Notified: 09:06 Call Completed: Yes 04/28/17 09:06 Consult to Sales Lead [CONS] Routine Reason for SW Consult: facilitating care with family 04/28/17 12:38 Consult to Palliative Care [CONS] Stat Comment: Consulting Provider: Palliative Care Paty Reason for Consult: MULTIPLE MYLOMA Time Notified: 12:39 Call Completed: Yes 04/28/17 14:23 Consult to Nutrition [CONS] Stat Comment: Consulting Provider: NUTRITION Reason for Dietary Consult: TF Start and Manage Other:: verbal order per Dr. Kuhn Discharging clinician: Ladan Riojas Anticipated date of discharge: 05/05/17 - Patient Status Disposition: Hospice - Medical Facility Condition: Serious Functional capacity at discharge: bed bound Overall status at discharge: patient is not back to baseline - Discharge Instructions Follow Up With: Avni Bean MD [Primary Care Provider] - (Patient is going to [facility] and enroll in Hospice no PCP appointment needed) - Diet and Activity Diet: other (nectar thick liquids as tolerated) Hospital course: Ms. Royal is a 71 year old female with history of multiple myeloma, not tolerating chemotherapy, was initially admitted with generalized weakness and hematemesis. Patient's hemoglobin remained stable, however she was noted to have upper GI bleed. GI was consulted and she subsequently underwent EGD, which showed bleeding gastritis and was started on PPI and Carafate. She was also noted to be in acute renal failure, likely from dehydration and poor oral intake and use of diuretics at home. She was started on aggressive IV hydration, electrolytes were monitored and repleted. Nephrology was consulted and followed the patient. She also had hypernatremia, which improved with free water replacement. Her serum creatinine, sodium and potassium gradually normalized. She had SIRS during hospitalization and workup revealed possible proctitis on CT abdomen and she received 7 days of IV antibiotics. She developed dysphagia likely due to worsening generalized weakness. Swallowing evaluation was done, which she failed. She was given tube feeds via nasogastric tube but was resistant to long-term feeding tube-like PEG tube. Oncology was consulted and recommended palliative care as patient has failed chemotherapy in the past and cannot tolerate further sessions. Patient has been resistant to hospice care since admission. Palliative care team has been on board and after multiple discussions with the patient and family, she is currently agreeable to being transferred to halfway under hospice care. - Time Spent with Patient Total time spent providing and/or coordinating discharge services: Greater than 30 minutes (40 min) - Constitutional Vitals: Temp Pulse Resp BP Pulse Ox 97.3 F L 94 19 134/64 100 05/05/17 02:22 05/05/17 09:16 05/05/17 02:22 05/05/17 10:40 05/05/17 02:22 General appearance: Present: A&O X 3 (appears weak), answers questions appropriately - Cardiovascular Cardiovascular exam: Present: RRR, +S1, +S2, tachycardia. Absent: diastolic murmur, gallop, rubs, systolic murmur - VTE Documentation of Mechanical Device: Intermittent pneumatic compression device
--- NOTE | 2017-05-05 12:27 | Physician Discharge Referral ---
ExtendedCare Referral Info Transfer To: [facility] Provider in Charge: Ladan Riojas Provider in Charge after Transfer: PCP Institutional Level of Care: Skilled - Diagnosis (1) Goals of care, counseling/discussion Priority: Primary Status: Acute (2) Hypomagnesemia Priority: Primary Status: Acute (3) Gastritis Priority: Primary Status: Acute (4) Sepsis Priority: Primary Status: Suspected (5) Proctitis Priority: Primary Status: Acute (6) Multiple myeloma Priority: Secondary Status: Chronic (7) Nausea & vomiting Priority: Primary Status: Resolved (8) Hypertension Priority: Secondary Status: Chronic (9) Hypothyroidism Priority: Secondary Status: Chronic (10) Hypernatremia Priority: Primary Status: Resolved (11) ANNA (acute kidney injury) Priority: Primary Status: Resolved Expected Duration of Placement: Hospice care Prognosis: Poor Aware of Diagnosis: Patient, Family Aware of Prognosis: Patient, Family - Transfer Medications Prescriptions: LORazepam Oral Conc [Ativan Oral Conc] 1 mg PO Q6HR PRN #30 mls PRN Reason: Anxiety Morphine Sulfate SR (12 HR) [MS Contin] 1 tab PO Q12HR #25 tab Morphine Oral CONC [Roxanol] 0.25 ml SL Q2H PRN #30 ml PRN Reason: sob or pain Home Medications: Levothyroxine Sodium [Synthroid] 75 mcg PO QAM 02/26/15 [History] Furosemide [Lasix] 20 mg PO DAILY PRN #30 tablet 01/03/17 [Rx] Losartan/Hydrochlorothiazide [Hyzaar 100-25 Tablet] 1 tab PO DAILY 01/06/17 [ History] Menthol [Biofreeze] 1 appl TP BID PRN 01/06/17 [History] Sertraline [Zoloft] 25 mg PO DAILY #30 tablet 02/07/17 [Rx] Docusate [Colace] 100 mg PO BID PRN 03/07/17 [History] Ondansetron [Zofran] 8 mg PO Q8HR PRN #90 tablet 03/07/17 [Rx] Cyclobenzaprine [Flexeril] 10 mg PO BID #20 tablet 04/04/17 [Rx] Lactulose 20 gm PO BID PRN 04/05/17 [History] Enoxaparin [Lovenox] 40 mg SQ 0600 04/11/17 [Rx] Gabapentin [Neurontin] 100 mg PO TID 04/11/17 [Rx] Morphine Sulfate SR (12 HR) [MS Contin] 30 mg PO Q12HR #6 tablet.er 04/11/17 [Rx ] Oxycodone HCl 20 mg PO Q4H PRN #12 tab 04/11/17 [Rx] LORazepam Oral Conc [Ativan Oral Conc] 1 mg PO Q6HR PRN #30 mls 05/04/17 [Rx] Morphine Oral CONC [Roxanol] 0.25 ml SL Q2H PRN #30 ml 05/04/17 [Rx] Morphine Sulfate SR (12 HR) [MS Contin] 1 tab PO Q12HR #25 tab 05/04/17 [Rx] Allergies/Adverse Reactions: 3 Allergy/AdvReac Type Severity Reaction Status Date / Time bacitracin Allergy unknown Verified 04/24/17 10:19 carfilzomib Allergy unknown Verified 04/24/17 10:19 celecoxib Allergy unknown Verified 04/24/17 10:19 Corticosteroids Allergy unknown Verified 04/24/17 10:19 (Glucocorticoids) dexamethasone Allergy unknown Verified 04/24/17 10:19 fentanyl Allergy Rash Verified 04/24/17 10:19 lenalidomide Allergy unknown Verified 04/24/17 10:19 melphalan Allergy unknown Verified 04/24/17 10:19 Neomycin Allergy unknown Verified 04/24/17 10:19 Penicillins [PCN] Allergy unknown Verified 04/24/17 10:19 polymyxin B Allergy unknown Verified 04/24/17 10:19 prednisone Allergy unknown Verified 04/24/17 10:19 tape Allergy unknown Uncoded 04/24/17 07:38 - Respiratory Orders Smoking Cessation: Smoking cessation has been advised. For more information, call the [place] Tobacco Quit Line at 1-847-LOJO-NOW. - Advance Directives Power of Noodle [employer] Maker: Yes (Son) Code Status: DNR-Comfort Care - Mobility Orders Bedrest - Rehabiliation Orders Rehab Potential: Poor Rehab Orders: ROM Exercises, Evaluation for Speech Therapy - Diet Orders Pureed (thick liquids, as tolerated) CERTIFICATION: I certify that the transfer of the above named patient to an Extended Care Facility is necessary for the continuing treatment of the diagnosis listed. The above information is true and accurate reflection of patient's current condition. Confidential - Redisclosure prohibited without a patient's written consent.
[2017-05-05] MEDS ORDERED: FLUARIX QUAD 2017-18 36MOS UP/PF 0.5 ML SYRINGE IM ONE (12:58)
== END 2017-05-05 14:51 | disposition hospice, inpatient (51) | DRG 377 ==
LOC: 2ANU 07:36 → EMEROO 07:36 → 2ANU 11:23 → SUATTDRO 13:50 → 2NNU 04-26 18:47
PROVIDERS: ADMIT Internal Medicine; ATTEND Internal Medicine
PROC: ENDOEBX (2017-04-24 15:00)